=== PATIENT | female | born 1950 | race Caucasian/White ===

== ENCOUNTER 2023-09-12 09:40 | Outpatient (OUT) | payer OTHER, SELFPAY ==
[2023-09-12 09:59] LABS: Estimated GFR (African America >60 (>=60); Estimated GFR (Non-African Ame >60 (>=60)
--- NOTE | 2023-09-12 10:03 | CT_ITS ---
The [address] [address] Patient Name: ANDREA LOPEZ MRN: [id number] date: 1950 Sex: F Assigned Patient Location: LAB Current Patient Location: Accession/Order Number: [id number] Exam Date: 09/12/2023 10:49 Report Date: 09/13/2023 01:20 At the request of: ERICKSON ROME Procedure: CT soft tissue neck w con EXAM: CT soft tissue neck w con HISTORY: Right-sided neck pain COMPARISON: None. TECHNIQUE: Axial images are obtained from the aortic arch through skull base following the intravenous administration of contrast. Sagittal and coronal reformations are provided. FINDINGS: There is an asymmetric region of enhancing soft tissue fullness and resultant diminished aeration within the vallecula on the right. The remainder of the pharynx is unremarkable in appearance. No mass or enhancing abnormality elsewhere within the neck. No enlarged or cystic/necrotic lymph nodes are noted. The larynx and trachea appear normal. The thyroid is poorly seen and may be surgically absent. The salivary glands and intracranial contents appear normal. No mass or airspace consolidation within the visualized lungs. There are degenerative changes of the cervical vertebral column. No bony destructive process. Only mild scattered mucosal thickening is seen within the ethmoid sinuses. The visualized paranasal sinuses and mastoids are otherwise well-aerated. IMPRESSION: 1. There is an asymmetric region of enhancing soft tissue fullness and results in diminished aeration within the valleculae on the right. Direct visualization is recommended for further assessment. 2. No other enhancing abnormality, discrete mass or pathologic lymph nodes within the neck. Electronically authenticated by: VALENTIN BROCK Date: 09/13/2023 01:20
== END 2023-09-12 09:41 | disposition home or self-care (01) ==
LOC: LAB 09:40
PROVIDERS: PCP Family Medicine; Visit Provider Family Medicine
DX: M54.2 Cervicalgia (principal)
CPT/HCPCS: 36415; 70491; 82565; Q9967

== ENCOUNTER 2023-11-02 10:45 | Outpatient (OUT) | payer OTHER, SELFPAY ==
--- OUTSIDE RECORDS SUMMARY | 2023-11-02 10:48 | XMS_ITS | CCD ---
Author Name Unknown Address [address] [place] [address] Organization [facility] Care Team Providers Care Wire Welder Name Role Phone Cortez, Seven W Unavailable Unavailable Rice, Seven W Unavailable Unavailable Rice, Seven W Unavailable Unavailable SUZAN ROME~[phone] UNKNOWN Unavailable Unavailable WILD, DR SUZAN Zabala Admitting Unavailable ROME, DR SUZAN Zabala Attending Unavailable ROME, DR SUZAN Zabala Primary Care Unavailable ROME, DR SUZAN Zabala Consulting Unavailable APLING, LIAT Britton Admitting Unavailable APLING, LIAT Britton Attending Unavailable WILD, DR SUZAN Zabala Primary Care Unavailable PASHA, DR WADE Brody Consulting Unavailable APLING, LIAT Britton Consulting Unavailable ROME, DR SUZAN Zabala Admitting Unavailable ROME, DR SUZAN Zabala Attending Unavailable ROME, DR SUZAN Zabala Primary Care Unavailable ROME, DR SUZAN Zabala Consulting Unavailable Suzan Rome Unavailable KRYSTIN OLGUIN Attending Unavailable SUZAN ROME Referring Unavailable Allergies Allergy Classification Reported Allergen(s) Allergy Type Date of Onset Reaction(s) Facility (1 source) No Known Medication Allergies; Translations: [No Known Medication Allergies] Propensity to adverse reactions (disorder) [facility] Repository Medications Current Medications Medication Drug Class(es) Dates Sig (Normalized) Sig (Original) atenolol 50 mg oral tablet (11 sources) beta-Adrenergic Maryan take 1 tablet by mouth every twenty-four hours Atenolol 50 MG 1 tablet Orally Once a day Active Calcium Magnesium (4 sources) Calcium Magnesiu m Active Essential Balance - (4 sources) Essential Balanc e - as directed Orally Active levothyroxine sodium 0.075 mg oral tablet (11 sources) l-Thyroxine take 1 tablet by mouth once daily in the morning Levothyroxine Sodium 75 MCG TAKE 1 TABLET BY MOUTH EVERY DAY IN THE MORNING ON EMPTY STOMACH FOR 30 DAYS Active Levothyroxine So dium 75 MCG TAKE 1 TABLET BY MOUTH EVERY DAY IN THE MORNING ON EMPTY STOMACH FOR 30 DAYS for 90 Active 0.5 ml SUMAtriptan 12 mg/ml injection (7 sources) Serotonin-1b and Serotonin-1d Receptor Agonist SUMAtriptan Succinat e 6 MG/0.5ML 0.5 mL may repeat dose after 1 hour as needed Subcutaneous Once a day Active Problems Problem Classification Problem Date Documented Da te Episodic/Chronic Cancer of thyroid (11 sources) History of malignant neoplasm of thyroid; Translations: [Personal history of malignant neoplasm of thyroid] Episodic Essential hypertension (20 sources) Essential (primary) hypertension; Translations: [Essential hypertension] Onset: 08-15-2022 Chronic Headache; including migraine (11 sources) Refractory migraine; Translations: [Migraine, unspecified, intractable, without status migrainosus] Chronic Joint disorders and dislocations; trauma-related (4 sources) Unspecified internal derangement of left knee; Translations: [UNS INTERNAL DERANGEMENT LEFT KNEE] Onset: 11-24-2021 Chronic Osteoporosis (12 sources) Senile osteoporosis; Translations: [Age-related osteoporosis without current pathological fracture] Chronic Other non-traumatic joint disorders (10 sources) Arthralgia of the lower leg; Translations: [Pain in left knee] Episodic Other non-traumatic joint disorders (1 source) Pain in left knee; Translations: [Left lateral knee pain] Episodic Other screening for suspected conditions (not mental disorders or infectious disease) (3 sources) Computed tomography result abnormal; Translations: [Abnormal findings on diagnostic imaging of other specified body structures] Chronic Other screening for suspected conditions (not mental disorders or infectious disease) (3 sources) Encounter for screening mammogram for malignant neoplasm of breast; Translations: [Encounter for screening for malignant neoplasm of colon] Episodic Spondylosis; intervertebral disc disorders; other back problems (2 sources) Cervicalgia Episodic Thyroid disorders (20 sources) Hypothyroidism, unspecified; Translations: [Acquired hypothyroidism] Onset: 08-15-2022 Chronic Results Test Name Value Interpretation Reference Range Facility XR DEXA BONE DENSITYon 11-02 XR DEXA BONE DENSITY DEXA Bone Density Study CLINICAL: Evaluate bone mineral density. Postmenopausal COMPARISON: 09/30/2020 FINDINGS: The bone density study was assessed by dual-energy x-ray absorptiometry with the Forerun scanner. The test results are expressed in T-Score, which is used for diagnosis for osteoporosis, and reflects the standard deviations from the mean peak bone mineral density in young adults. Additional information regarding the Z-Score reflects the standard deviations from the mean peak bone mineral density for age- and gender- matched subject. Lumbar Spine (L1-L4): BMD (gm/cm2): 1.359 T-Score: 1.5 Left Hip: BMD (gm/cm2): 0.997 T-Score: -0.1 Left Femoral Neck: BMD (gm/cm2): 1.006 T-Score: -0.2 Right Hip: BMD (gm/cm2): 1.048 T-Score: O.3 Right Femoral Neck: BMD (gm/cm2): O.915 T-Score: -0.9 IMPRESSION: 1. Lumbar spine indicates no osteopenia or osteoporosis. 2. Neither hip indicates osteopenia or osteoporosis. REFERENCE: In children, postmenopausal women and males under age 50 not at increased risk for fractures, only Z-Scores, not T-Scores, are used to indicate fracture risk. A Z-Score above -2.0 is defined as within the expected range for age and Z-Score at or less than -2.0 is below the expected range for age. A Z-Score below the expected range for age in a patient with recent fractures and/or chronic corticosteroid treatment is consistent with a diagnosis of osteoporosis. In postmenopausal women and males over 50, comparison of the measured bone mineral density with the average value in young normal subjects (the T-Score) has been found to be useful in assessing fracture risk. Fracture risk approximately doubles for each 1.0 standard deviation (SD) that the individual's hip or spine bone mineral density is below the average value of young normal subjects. The World health Organization (WHO) has provided the following definitions: 1. Normal: T-Score within one standard deviation of young adult mean value (T-Score greater than -1.0). 2. Osteopenia (low bone mass): T-Score more than one standard deviation below the young adult mean but less than 2.5 standard deviations below the young adult mean (T-Score between -1.0 and -2.5). 3. Osteoporosis: T-Score more than 2.5 standard deviations below the young adult mean (T-Score less than -2.5). 4. Sever Osteoporosis (established osteoporosis): T-Score more than 2.5 standard deviations below young adult and one or more fragility fracture (T-Score less than -2.5 + fragility fractures). Electronically authenticated by: PARK DAILEY Date: 2022-11-02 08:55 Normal [facility] CBC AUTO DIFFon 11-01-2022 BASO # 0.1 103/ul Normal 0.0-0.1 [facility] Comment on above: Performed By: #### C BC #### [facility] [address] [address] [address] Nata Castellon Basophils/100 WBC (Bld) 0.7 % Normal 0.2-2.0 [facility] Comment on above: Performed By: #### C BC #### [facility] [address] [address] [address] Nata Castellon EO # 0.1 103/ul Normal 0.0-0.7 [facility] Comment on above: Performed By: #### C BC #### [facility] [address] [address] [address] Nata Castellon Eosinophils/100 WBC (Bld) 1.8 % Normal 0.9-7.0 [facility] Comment on above: Performed By: #### C BC #### [facility] [address] [address] [address] Nata Castellon Erythrocyte distribution width (RBC) [Ratio] 13.4 % Normal 11.0-15.0 [facility] Comment on above: Performed By: #### C BC #### [facility] [address] [address] [address] Nata Castellon Hematocrit (Bld) [Volume fraction] 44.1 % Normal 36.0-48.0 [facility] Comment on above: Performed By: #### C BC #### [facility] [address] [address] [address] Nata Castellon Hemoglobin (Bld) [Mass/Vol] 14.8 g/dL Normal 12.0-16.0 [facility] Comment on above: Performed By: #### C BC #### [facility] [address] [address] [address] Nata Castellon IG # 0.02 10e3/ul Normal 0.00-0.03 [facility] Comment on above: Performed By: #### C BC #### [facility] [address] [place] [address] Dr. Nata Castellon IG % 0.3 % Normal 0.0-0.5 [facility] Comment on above: Performed By: #### C BC #### [facility] [address] [place] [address] Dr. Nata Castellon LYMPH # 1.6 103/ul Normal 1.2-3.8 [facility] Comment on above: Performed By: #### C BC #### [facility] [address] [place] [address] Dr. Nata Castellon Lymphocytes/100 WBC (Bld) 21.3 % Normal 20.5-60.0 [facility] Comment on above: Performed By: #### C BC #### [facility] [address] [place] [address] Dr. Nata Castellon MANUAL DIFF REQ NO Normal [facility] Comment on above: Performed By: #### C BC #### [facility] [address] [place] [address] Dr. Nata Castellon MCH (RBC) [Entitic mass] 28.5 pg Normal 26.7-34.0 [facility] Comment on above: Performed By: #### C BC #### [facility] [address] [place] [address] Dr. Nata Castellon MCHC (RBC) [Mass/Vol] 33.6 g/dL Normal 29.9-35.2 [facility] Comment on above: Performed By: #### C BC #### [facility] [address] [place] [address] Dr. Nata Castellon MCV (RBC) [Entitic vol] 84.8 fL Normal 81.0-99.0 [facility] Comment on above: Performed By: #### C BC #### [facility] [address] [place] [address] Dr. Nata Castellon MONO # 0.6 103/ul Normal 0.3-0.8 [facility] Comment on above: Performed By: #### C BC #### [facility] [address] [place] [address] Dr. Nata Castellon Monocytes/100 WBC (Bld) 7.5 % Normal 1.7-12.0 [facility] Comment on above: Performed By: #### C BC #### [facility] [address] [place] [address] Dr. Nata Castellon NEUT # 5.2 103/ul Normal 1.4-6.5 [facility] Comment on above: Performed By: #### C BC #### [facility] [address] [place] [address] Dr. Nata Castellon Neutrophils/100 WBC (Bld) 68.4 % Normal 43.0-75.0 [facility] Comment on above: Performed By: #### C BC #### [facility] [address] [place] [address] Dr. Nata Castellon Platelet mean volume (Bld) [Entitic vol] 10.4 fL Normal 9.5-13.5 [facility] Comment on above: Performed By: #### C BC #### [facility] [address] [place] [address] Dr. Nata Castellon PLT 256 103/ul Normal 150-450 [facility] Comment on above: Performed By: #### C BC #### [facility] [address] [place] [address] Dr. Nata Castellon RBC 5.20 106/ul Normal 4.20-5.40 [facility] Comment on above: Performed By: #### C BC #### [facility] [address] [place] [address] Dr. Nata Castellon WBC 7.6 103/ul Normal 4.0-11.0 [facility] Comment on above: Performed By: #### C BC #### [facility] [address] [place] [address] Dr. Nata Castellon FREE T4on 11-01-2022 Free T4 [Mass/Vol] 0.98 ng/dL Normal 0.76-1.46 [facility] Comment on above: Performed By: #### F T4 #### [facility] [address] [address] [address] Nata Castellon LIPID PROFILEon 11-01-2022 CHOL-HDL RATIO NORM SEE BELOW Normal [facility] Comment on above: Result Comment: 3.3 - 4.4 LOW RISK 4.4 - 7.1 AVERAGE RISK 7.1 - 11.0 MODERATE RISK >11.0 HIGH RISK Performed By: #### L IPID, TSH, CMP #### [facility] [address] [address] [address] Nata Castellon Cholesterol [Mass/Vol] 179 mg/dL Normal <=200 [facility] Comment on above: Performed By: #### L IPID, TSH, CMP #### [facility] [address] [address] [address] Nata Castellon Cholesterol in HDL [Mass/Vol] 57 mg/dL Normal 40-60 [facility] Comment on above: Performed By: #### L IPID, TSH, CMP #### [facility] [address] [address] [address] Nata Castellon Cholesterol in LDL [Mass/Vol] 98.8 mg/dL Normal [facility] Comment on above: Performed By: #### L IPID, TSH, CMP #### [facility] [address] [place] [address] Dr. Nata Castellon Cholesterol.total/Ch olesterol in HDL [Mass ratio] 3.1 {ratio} Normal [facility] Comment on above: Performed By: #### L IPID, TSH, CMP #### [facility] [address] [address] [address] Nata Castellon HDL NORMAL > or = 60 mg/dl - LO W CARDIOVASCULAR RISK <40 mg/dl - HIGH CARDIOVASCULAR RISK Normal [facility] Comment on above: Performed By: #### L IPID, TSH, CMP #### [facility] [address] [place] [address] Dr. Nata Castellon LDL CALC NORMAL SEE BELOW Normal [facility] Comment on above: Result Comment: <100 mg/dl OPTIMAL 100 - 129 mg/dl NEAR OR ABOVE OPTIMAL 130 - 159 mg/dl BORDERLINE HIGH 160 - 189 mg/dl HIGH >190 mg/dl VERY HIGH Performed By: #### L IPID, TSH, CMP #### [facility] [address] [place], [place] [address] Dr. Nata Castellon Triglyceride [Mass/Vol] 116 mg/dL Normal <=150 [facility] Comment on above: Performed By: #### L IPID, TSH, CMP #### [facility] [address] [place], [place] [address] Dr. Nata Castellon VLDL CALC 23.2 mg/dL Normal [facility] Comment on above: Performed By: #### L IPID, TSH, CMP #### [facility] [address] [place], [place] [address] Dr. Nata Castellon MG MAMM SCREEN 3D SEEMA CADon 11-01-2022 MG MAMM SCREEN 3D SEEMA CAD Patient: ANDREA COLE Exam Date: 11/01/2022 : 1950 Gender:F Ordering : DR SUZAN ROME M.D. Admission #: [id number] Family : Order #: [id number] CLICK HERE TO VIEW EXAM RADIOLOGY REPORT PROCEDURE: MAMMOGRAM SCREENING 3D BILATERAL CAD COMPARISON: MG MAMM SCREEN SEEMA W CAD, 09/30/2020. MG MAMM SCREEN 3D SEEMA CAD, 10/01/2021. INDICATIONS: Screening mammography Calculator Name NCI Breast Cancer Risk Assessment Tool 5 Year Breast Cancer Risk 1.50% Lifetime Breast Cancer Risk 3.70% Personal Breast Cancer No Personal Ovarian Cancer No Treatments REMOVAL OF THYROID Family Cancers None LOCATION: [facility] BREAST COMPOSITION: Heterogeneously dense,which may obscure small masses. FINDINGS: DIAGNOSTIC CATEGORY 2--BENIGN FINDING. NO CHANGE FROM COMPARISON. Scattered benign-appearing nodules are present. Scattered benign-appearing calcifications are present. Scattered benign-appearing lymph nodes are present. RIGHT BREAST: No significant suspicious finding. LEFT BREAST: No significant suspicious finding. RECOMMENDATIONS: ROUTINE MAMMOGRAM AND CLINICAL EVALUATION IN 12 MONTHS. PLEASE NOTE: A NORMAL MAMMOGRAM DOES NOT EXCLUDE THE POSSIBILITY OF BREAST CANCER. A CLINICALLY SUSPICIOUS PALPABLE LUMP SHOULD BE BIOPSIED. Dictated by: Park Barrera MD on 11/02/2022 at 10:13 Approved by: Park Barrera MD on 11/02/2022 at 10:22 Normal [facility] PROF 14(COMP METB)on 023 Albumin [Mass/Vol] 3.7 g/dL Normal 3.4-5.0 [facility] Comment on above: Performed By: #### L IPID, TSH, CMP #### [facility] [address] [address] [address] Nata Castellon Albumin/Globulin [Mass ratio] 1.0 {ratio} Normal [facility] Comment on above: Performed By: #### L IPID, TSH, CMP #### [facility] [address] [address] [address] Nata Castellon ALP [Catalytic activity/Vol] 80 U/L Normal 46-116 [facility] Comment on above: Performed By: #### L IPID, TSH, CMP #### [facility] [address] [address] [address] Nata Castellon ALT [Catalytic activity/Vol] 26 U/L Normal 14-59 [facility] Comment on above: Performed By: #### L IPID, TSH, CMP #### [facility] [address] [address] [address] Nata Castellon Anion gap [Moles/Vol] 13.0 mmol/L Normal [facility] Comment on above: Performed By: #### L IPID, TSH, CMP #### [facility] [address] [address] [address] Nata Castellon AST [Catalytic activity/Vol] 25 U/L Normal 15-37 [facility] Comment on above: Performed By: #### L IPID, TSH, CMP #### [facility] [address] [address] [address] Nata Castellon Bilirubin [Mass/Vol] 0.5 mg/dL Normal 0.2-1.0 [facility] Comment on above: Performed By: #### L IPID, TSH, CMP #### [facility] [address] [address] [address] Nata Castellon Calcium [Mass/Vol] 8.8 mg/dL Normal 8.5-10.1 [facility] Comment on above: Performed By: #### L IPID, TSH, CMP #### [facility] [address] [address] [address] Nata Castellon Chloride [Moles/Vol] 104 mmol/L Normal 98-107 [facility] Comment on above: Performed By: #### L IPID, TSH, CMP #### [facility] [address] [address] [address] Nata Castellon CO2 [Moles/Vol] 26.3 mmol/L Normal 21.0-32.0 [facility] Comment on above: Performed By: #### L IPID, TSH, CMP #### [facility] [address] [address] [address] Nata Castellon Creatinine [Mass/Vol] 0.74 mg/dL Normal 0.55-1.02 [facility] Comment on above: Performed By: #### L IPID, TSH, CMP #### [facility] [address] [place] [address] Dr. Nata Castellon EGFR-AF FRENCH >60 Normal >=60 [facility] Comment on above: Performed By: #### L IPID, TSH, CMP #### [facility] [address] [place] [address] Dr. Nata Castellon EGFR-NON AF FRENCH >60 Normal >=60 [facility] Comment on above: Performed By: #### L IPID, TSH, CMP #### [facility] [address] [address] [address] Nata Castellon Globulin (S) [Mass/Vol] 3.6 g/dL Normal [facility] Comment on above: Performed By: #### L IPID, TSH, CMP #### [facility] [address] [address] [address] Nata Castellon Glucose [Mass/Vol] 122 mg/dL Critically high 74-106 [facility] Comment on above: Performed By: #### L IPID, TSH, CMP #### [facility] [address] [place] [address] Dr. Nata Castellon Potassium [Moles/Vol] 4.3 mmol/L Normal 3.5-5.1 [facility] Comment on above: Performed By: #### L IPID, TSH, CMP #### [facility] [address] [place] [address] Dr. Nata Castellon Protein [Mass/Vol] 7.3 g/dL Normal 6.4-8.2 [facility] Comment on above: Performed By: #### L IPID, TSH, CMP #### [facility] [address] [place] [address] Dr. Nata Castellon Sodium [Moles/Vol] 139 mmol/L Normal 136-145 [facility] Comment on above: Performed By: #### L IPID, TSH, CMP #### [facility] [address] [place] [address] Dr. Nata Castellon Urea nitrogen [Mass/Vol] 21.0 mg/dL Critically high 7.0-18.0 [facility] Comment on above: Performed By: #### L IPID, TSH, CMP #### [facility] [address] [place] [address] Dr. Nata Castellon Urea nitrogen/Creatinine [Mass ratio] 28.4 mg/mg Normal [facility] Comment on above: Performed By: #### L IPID, TSH, CMP #### [facility] [address] [place] [address] Dr. Nata Castellon TSHon 11-01-2022 TSH 3.427 uIU/mL Normal 0.358-3.740 [facility] Comment on above: Performed By: #### L IPID, TSH, CMP #### [facility] [address] [place] [address] Dr. Nata Castellon CBC AUTO DIFFon 08-12-2022 BASO # 0.0 103/ul Normal 0.0-0.1 [facility] Comment on above: Performed By: #### C BC #### [facility] [address] [place] [address] Dr. Nata Castellon Basophils/100 WBC (Bld) 0.5 % Normal 0.2-2.0 [facility] Comment on above: Performed By: #### C BC #### [facility] [address] [place] [address] Dr. Nata Castellon EO # 0.1 103/ul Normal 0.0-0.7 [facility] Comment on above: Performed By: #### C BC #### [facility] [address] [place] [address] Dr. Nata aCstellon Eosinophils/100 WBC (Bld) 1.7 % Normal 0.9-7.0 [facility] Comment on above: Performed By: #### C BC #### [facility] [address] [place] [address] Dr. Nata Castellon Erythrocyte distribution width (RBC) [Ratio] 13.8 % Normal 11.0-15.0 [facility] Comment on above: Performed By: #### C BC #### [facility] [address] [place] [address] Dr. Nata Castellon Hematocrit (Bld) [Volume fraction] 44.1 % Normal 36.0-48.0 [facility] Comment on above: Performed By: #### C BC #### [facility] [address] [place] [address] Dr. Nata Castellon Hemoglobin (Bld) [Mass/Vol] 14.7 g/dL Normal 12.0-16.0 [facility] Comment on above: Performed By: #### C BC #### [facility] [address] [place] [address] Dr. Nata Castellon IG # 0.01 10e3/ul Normal 0.00-0.03 [facility] Comment on above: Performed By: #### C BC #### [facility] [address] [place] [address] Dr. Nata Castellon IG % 0.1 % Normal 0.0-0.5 [facility] Comment on above: Performed By: #### C BC #### [facility] [address] [place] [address] Dr. Nata Castellon LYMPH # 2.1 103/ul Normal 1.2-3.8 [facility] Comment on above: Performed By: #### C BC #### [facility] [address] [place] [address] Dr. Nata Castellon Lymphocytes/100 WBC (Bld) 26.7 % Normal 20.5-60.0 [facility] Comment on above: Performed By: #### C BC #### [facility] [address] [place] [address] Dr. Nata Castellon MANUAL DIFF REQ NO Normal [facility] Comment on above: Performed By: #### C BC #### [facility] [address] [place] [address] Dr. Nata Castellon MCH (RBC) [Entitic mass] 28.5 pg Normal 26.7-34.0 [facility] Comment on above: Performed By: #### C BC #### [facility] [address] [place] [address] Dr. Nata Castellon MCHC (RBC) [Mass/Vol] 33.3 g/dL Normal 29.9-35.2 [facility] Comment on above: Performed By: #### C BC #### [facility] [address] [place] [address] Dr. Nata Castellon MCV (RBC) [Entitic vol] 85.5 fL Normal 81.0-99.0 [facility] Comment on above: Performed By: #### C BC #### [facility] [address] [place] [address] Dr. Nata Castellon MONO # 0.6 103/ul Normal 0.3-0.8 [facility] Comment on above: Performed By: #### C BC #### [facility] [address] [place] [address] Dr. Nata Castellon Monocytes/100 WBC (Bld) 7.8 % Normal 1.7-12.0 [facility] Comment on above: Performed By: #### C BC #### [facility] [address] [place] [address] Dr. Nata Castellon NEUT # 5.0 103/ul Normal 1.4-6.5 [facility] Comment on above: Performed By: #### C BC #### [facility] [address] [place] [address] Dr. Nata Castellon Neutrophils/100 WBC (Bld) 63.2 % Normal 43.0-75.0 [facility] Comment on above: Performed By: #### C BC #### [facility] [address] [address] [address] Nata Castellon Platelet mean volume (Bld) [Entitic vol] 10.7 fL Normal 9.5-13.5 [facility] Comment on above: Performed By: #### C BC #### [facility] [address] [address] [address] Nata Castellon PLT 254 103/ul Normal 150-450 [facility] Comment on above: Performed By: #### C BC #### [facility] [address] [place] [address] Dr. Nata Castellon RBC 5.16 106/ul Normal 4.20-5.40 [facility] Comment on above: Performed By: #### C BC #### [facility] [address] [place] [address] Dr. Nata Castellon WBC 7.9 103/ul Normal 4.0-11.0 [facility] Comment on above: Performed By: #### C BC #### [facility] [address] [place] [address] Dr. Nata Castellon FREE T4on 08-12-2022 Free T4 [Mass/Vol] 1.15 ng/dL Normal 0.76-1.46 [facility] Comment on above: Performed By: #### F T4 #### [facility] [address] [place] [address] Dr. Nata Castellon PROF CHEM 8 (BAS METB)on Anion gap [Moles/Vol] 9.0 mmol/L Normal [facility] Comment on above: Performed By: #### T SH, BMP ####[facility] [address] [place] [address]Dr. Nata Castellon Calcium [Mass/Vol] 8.6 mg/dL Normal 8.5-10.1 [facility] Comment on above: Performed By: #### T SH, BMP ####[facility] [address] [place] [id number]. Nata Castellon Chloride [Moles/Vol] 104 mmol/L Normal 98-107 [facility] Comment on above: Performed By: #### T MIKE, BMP ####[facility] [address] [place] [id number]. Nata Castellon CO2 [Moles/Vol] 29.2 mmol/L Normal 21.0-32.0 The [facility] Comment on above: Performed By: #### T MIKE, BMP ####[facility] [address] [place] [address]Dr. Nata Castellon Creatinine [Mass/Vol] 0.66 mg/dL Normal 0.55-1.02 [facility] Comment on above: Performed By: #### T MIKE, BMP ####[facility] [address] [place], [place] [address]Dr. Nata Castellon EGFR-AF FRENCH >60 Normal >=60 The [facility] Comment on above: Performed By: #### T MIKE, BMP ####[facility] [address] [place], [place] [address]Dr. Nata Castellon EGFR-NON AF FRENCH >60 Normal >=60 [facility] Comment on above: Performed By: #### T MIKE, BMP ####[facility] [address] [place], [place] [address]Dr. Nata Castellon Glucose [Mass/Vol] 108 mg/dL Critically high 74-106 [facility] Comment on above: Performed By: #### T MIKE, BMP ####[facility] [address] [place], [place] [address]Dr. Nata Castellon Potassium [Moles/Vol] 4.2 mmol/L Normal 3.5-5.1 [facility] Comment on above: Performed By: #### T MIKE, BMP ####[facility] [address] [place], [place] [address]Dr. Nata Castellon Sodium [Moles/Vol] 138 mmol/L Normal 136-145 [facility] Comment on above: Performed By: #### T MIKE, BMP ####[facility] [address] [place], [place] [address]Ao. Nata Castellon Urea nitrogen [Mass/Vol] 22.0 mg/dL Critically high 7.0-18.0 [facility] Comment on above: Performed By: #### T MIKE, BMP ####[facility] [address] [place], [place] [address]Cd. Nata Castellon Urea nitrogen/Creatinine [Mass ratio] 33.3 mg/mg Normal [facility] Comment on above: Performed By: #### T MIKE, BMP ####[facility] [address] [place], [place] [address]Ey. Nata Castellon TSHon 08-12-2022 TSH 0.986 uIU/mL Normal 0.358-3.740 [facility] Comment on above: Performed By: #### T MIKE, BMP ####[facility] [address] [place], [place] [address]Su. Nata Castellon MRI KNEE LT WO CONon 022 MRI KNEE LT WO CON EXAMINATION: MRI KNE E LT WO CON HISTORY: Derangement of left knee ; acute lateral and posterior left knee pain COMPARISON: No relevant comparison available. TECHNIQUE: A complete multi-planar MRI was performed. FINDINGS: MEDIAL COMPARTMENT MEDIAL MENISCUS: No visible tear or significant degeneration. CARTILAGE: Focal areas of thinning without subchondral edema. BONES: Periarticular degenerative osteophytes. MCL AND MEDIAL CAPSULE: Grade I sprain of the medial collateral ligament. LATERAL COMPARTMENT LATERAL MENISCUS: Disc is extruded from the joint space laterally with maceration of the posterior junction and horn. Prominent T2 signal within the anterior horn may represent sequela of chronic injury or intrasubstance degeneration. CARTILAGE: Irregular thinning of cartilage without subchondral edema. BONES: Large periarticular degenerative osteophytes. LCL/POSTEROLAT COMPLEX: Grade I sprain of the lateral collateral ligament. ANTERIOR COMPARTMENT PATELLA: No marrow pathology, fracture, or significant arthropathy. CARTILAGE: Moderate thinning, most notable over the apex. TENDONS: Normal. EFFUSION: Moderate joint effusion. ACL: Normal appearing ligament. PCL: Normal appearing ligament. MENISCOFEMORAL: Normal meniscofemoral ligaments. OTHER: Tran cyst. IMPRESSION: 1. Acute, and likely chronic tears of the lateral meniscus which has been extruded from the joint space. 2. Strain of the collateral ligaments. 3. Focal areas of cartilage thinning involving all 3 compartments without subchondral edema. 4. Joint effusion and Tran's cyst. Electronically authenticated by: WADE PAK Date: 2021-11-25 06:[address] [facility] CT cervical spine wo conon 1 CT cervical spine wo con [facility] [address] CT Scan Report Signed Patient: Andrea Cole MR#: [id number] : 1950 Acct:[id number] Age/Sex: 71 / F ADM Date: 08/05/21 Loc: ER Room: Type: [facility] ER Attending Dr: Ordering Provider: Cricket Russell DO Date of Service: 08/05/21 CT/CT cervical spine wo con: PAIN Copies to: Cricket Russell DO CT cervical spine withoutcontrast TECHNIQUE: Axial imaging with 2-D and 3-D reconstruction. The CT exam was performed using one or more the following dose reduction techniques: Automated exposure control, adjustment of the MA and/or Kv according to patient size, or use of the iterative reconstruction technique. COMPARISON:None HISTORY: RIGHT posterior neck pain. No injury. Cervical lordosis is normal. The craniocervical junction is unremarkable. No acute cervical spine fracture identified. No listhesis is seen. The facets are in adequate alignment. No abnormal increased density of the spinal canal seen. No prevertebral soft tissue abnormality identified. No skull base abnormality seen. Lung apices are unremarkable. No soft tissue abnormality seen. No airway abnormality seen. Moderate C5-6 and C6-7 degenerative change present. 3 mm C5-[address]/CT cervical spine wo con IMPRESSION: No acute process degenerative change. Impression dictated by: Nico Trujillo M.D.08/06/2021 9:03 AM Dictation Location: [place] [address] Transcribed By: [facility] 08/06/21902 Dictated By: Nico Trujillo DO 08/06/21901 Signed By: 08/06/21902 [facility] CT head/brain wo conon 08-06 CT head/brain wo con [facility] Main [place] [address] [place] [address] CT Scan Report Signed Patient: Andrea Cole MR#: [id number] : 1950 Acct:[id number] Age/Sex: 71 / F ADM Date: 08/05/21 Loc: ER Room: Type: [facility] ER Attending Dr: Ordering Provider: Cricket Russell DO Date of Service: 08/05/21 CT/CT head/brain wo con: f Copies to: Cricket Russell DO Unenhanced head CT TECHNIQUE: Contiguous axial imaging of the head. The CT exam was performed using one or more the following dose reduction techniques: Automated exposure control, adjustment of the MA and/or Kv according to patient size, or use of the iterative reconstruction technique. COMPARISON:None HISTORY:RIGHT posterior neck pain. Headache. The ventricles are normal in size and position. Atrophy and small vessel disease No intracranial hemorrhage, mass effect or herniation is identified. No recent vascular distribution infarction is seen. No abnormal extra-axial fluid collections identified. Sinuses, orbits and mastoid air cells are unremarkable. Bony structures are intact. CT/CT head/brain wo con IMPRESSION: No acute intracranial findings. Impression dictated by: Nico Trujillo M.D.08/06/2021 9:02 AM Dictation Location: [place] [address] Transcribed By: [facility] 08/06/21901 Dictated By: Nico Trujillo DO 08/06/2159 Signed By: 08/06/[address] [facility] Complete Blood Count Auto Di ffon 08-05-2021 Basophils (Bld) [#/Vol] 0.0 10*3/uL Normal 0.0-0.2 [facility] Comment on above: Result Comment: PERF ORMED BY: [place] [address] PATHOLOGIST BILINGUAL ADMINISTRATIVE ASSISTANT APURVA LEVY M.D. Performed By: #### P T, CBC, PTT, CMP #### [place] [address] [place] Basophils/100 WBC (Bld) 0.3 % Normal . [facility] Comment on above: Performed By: #### P T, CBC, PTT, CMP #### [address] Eosinophils (Bld) [#/Vol] 0.0 10*3/uL Normal 0.0-0.45 [facility] Comment on above: Performed By: #### P T, CBC, PTT, CMP #### [address] Eosinophils/100 WBC (Bld) 0.2 % Normal . [facility] Comment on above: Performed By: #### P T, CBC, PTT, CMP #### [address] Erythrocyte distribution width (RBC) [Ratio] 13.7 % Normal 11.9-15.3 [facility] Comment on above: Performed By: #### P T, CBC, PTT, CMP #### [address] Hematocrit (Bld) [Volume fraction] 50.1 % High 34.0-46.4 [facility] Comment on above: Performed By: #### P T, CBC, PTT, CMP #### [address] Hemoglobin (Bld) [Mass/Vol] 16.5 g/dL High 11.8-15.4 [facility] Comment on above: Performed By: #### P T, CBC, PTT, CMP #### [address] Lymphocytes (Bld) [#/Vol] 1.4 10*3/uL Normal 1.00-4.8 [facility] Comment on above: Performed By: #### P T, CBC, PTT, CMP #### [address] Lymphocytes/100 WBC (Bld) 11.6 % Normal . [facility] Comment on above: Performed By: #### P T, CBC, PTT, CMP #### [address] MCH (RBC) [Entitic mass] 28.8 pg Normal 24.7-34.3 [facility] Comment on above: Performed By: #### P T, CBC, PTT, CMP #### [address] MCV (RBC) [Entitic vol] 87.1 fL Normal 80-100 [facility] Comment on above: Performed By: #### P T, CBC, PTT, CMP #### [address] Mean Corpuscular HGB Conc 33.0 g/dL Normal 32.0-35.0 [facility] Comment on above: Performed By: #### P T, CBC, PTT, CMP #### [address] Monocytes (Bld) [#/Vol] 0.5 10*3/uL Normal 0.0-0.8 [facility] Comment on above: Performed By: #### P T, CBC, PTT, CMP #### [address] Monocytes/100 WBC (Bld) 4.1 % Normal . [facility] Comment on above: Performed By: #### P T, CBC, PTT, CMP #### [address] Neutrophils (Bld) [#/Vol] 10.1 10*3/uL High 1.8-7.7 [facility] Comment on above: Performed By: #### P T, CBC, PTT, CMP #### [address] Neutrophils/100 WBC (Bld) 83.8 % Normal . [facility] Comment on above: Performed By: #### P T, CBC, PTT, CMP #### [address] Nucleated RBC/100 WBC (Bld) [Ratio] 0.2 % Normal 0-0.5 [facility] Comment on above: Performed By: #### P T, CBC, PTT, CMP #### [address] Platelet mean volume (Bld) [Entitic vol] 9.6 fL Normal 6.3-10.7 [facility] Comment on above: Performed By: #### P T, CBC, PTT, CMP #### [address] Platelets (Bld) [#/Vol] 253 10*3/uL Normal 150-450 [facility] Comment on above: Performed By: #### P T, CBC, PTT, CMP #### [address] RBC (Bld) [#/Vol] 5.75 10*6/uL High 3.60-5.00 [facility] Comment on above: Performed By: #### P T, CBC, PTT, CMP #### [address] WBC (Bld) [#/Vol] 12.1 10*3/uL High 4.5-11.0 [facility] Comment on above: Performed By: #### P T, CBC, PTT, CMP #### [address] Comprehensive Metabolic Pane yumi 08-05-2021 Albumin [Mass/Vol] 4.2 g/dL Normal 3.2-5.5 [facility] Comment on above: Performed By: #### P T, CBC, PTT, CMP #### [address] Albumin/Globulin [Mass ratio] 1.1 {ratio} Normal [facility] Comment on above: Performed By: #### P T, CBC, PTT, CMP #### [address] ALP [Catalytic activity/Vol] 60 U/L Normal 32-92 [facility] Comment on above: Performed By: #### P T, CBC, PTT, CMP #### [address] ALT [Catalytic activity/Vol] 29 U/L Normal 10-60 [facility] Comment on above: Performed By: #### P T, CBC, PTT, CMP #### [facility] [address] AST [Catalytic activity/Vol] 32 U/L Normal 10-42 [facility] Comment on above: Performed By: #### P T, CBC, PTT, CMP #### [facility] [address] Bilirubin [Mass/Vol] 0.7 mg/dL Normal 0.3-1.2 [facility] Comment on above: Performed By: #### P T, CBC, PTT, CMP #### [address] Calcium [Mass/Vol] 9.4 mg/dL Normal 8.2-10.2 [facility] Comment on above: Performed By: #### P T, CBC, PTT, CMP #### [address] Chloride [Moles/Vol] 102 mmol/L Normal 95-114 [facility] Comment on above: Performed By: #### P T, CBC, PTT, CMP #### [address] CO2 [Moles/Vol] 24.2 mmol/L Normal 22.0-30.0 [facility] Comment on above: Performed By: #### P T, CBC, PTT, CMP #### [address] Creatinine [Mass/Vol] 0.80 mg/dL Normal 0.44-1.03 [facility] Comment on above: Performed By: #### P T, CBC, PTT, CMP #### [address] Creatinine Clr Calc Pharmacy 61.[address] [facility] Comment on above: Result Comment: PERF ORMED BY: [place] [address] PATHOLOGIST BILINGUAL ADMINISTRATIVE ASSISTANT APURVA LEVY M.D. Performed By: #### P T, CBC, PTT, CMP #### [facility] [address] Estimated GFR ( Jessica > [address] [facility] Comment on above: Result Comment: GFR estimated reference range: According to KDOQI guidelines, <60 ml/min/1.73m2 is sufficient to diagnose a patient with chronic kidney disease. Performed By: #### P T, CBC, PTT, CMP #### [facility] [address] Estimated GFR (Non- Am > [address] [facility] Comment on above: Performed By: #### P T, CBC, PTT, CMP #### [facility] [address] Globulin (S) [Mass/Vol] 3.8 g/dL Normal [facility] Comment on above: Performed By: #### P T, CBC, PTT, CMP #### [address] Glucose [Mass/Vol] 110 mg/dL High 70-100 [facility] Comment on above: Result Comment: [place] om Glucose Reference Range is dependent on time and content of last meal. Glucose of more than 200 mg/dL in a nonstressed, ambulatory subject supports the diagnosis of Diabetes Mellitus. ADA recommended reference range Performed By: #### P T, CBC, PTT, CMP #### [address] Potassium [Moles/Vol] 4.7 mmol/L Normal 3.5-5.1 [facility] Comment on above: Performed By: #### P T, CBC, PTT, CMP #### [facility] [address] Protein [Mass/Vol] 8.0 g/dL High 6.1-7.9 [facility] Comment on above: Performed By: #### P T, CBC, PTT, CMP #### [address] Sodium [Moles/Vol] 139 mmol/L Normal 136-146 [facility] Comment on above: Performed By: #### P T, CBC, PTT, CMP #### [facility] [address] [place] [address] Urea nitrogen [Mass/Vol] 19 mg/dL Normal 9-23 [facility] Comment on above: Performed By: #### P T, CBC, PTT, CMP #### [address] Partial Thromboplastin Timeo n 08-05-2021 aPTT Coag (Bld) [Time] 28.9 s Normal 25.1-36.5 [facility] Comment on above: Result Comment: PERF ORMED BY: [place] [address] PATHOLOGIST BILINGUAL ADMINISTRATIVE ASSISTANT APURVA LEVY M.D. Performed By: #### P T, CBC, PTT, CMP #### [address] Prothrombin Time INRon 08-05 INR Coag (PPP) [Relative time] 1.1 {INR} Normal [facility] Comment on above: Result Comment: INR Therapeutic Range A) Pre- and Peroperative OAT started two weeks before surgery. NOT HIP SURGERY: 1.5 - 2.5 HIP SURGERY: 2 - 3 B) Primary and secondary prevention of venous THROMBOSIS: 2 - 3 C) Active venous thrombosis, pulmonary embolism and prevention of recurrent venous thrombosis: 2 - 3 D) Prevention of arterial thromboembolism including patients with mechanical heart valves: 3 - 4.5 Performed By: #### P T, CBC, PTT, CMP #### [address] PT Coag (PPP) [Time] 12.5 s Normal 9.0-12.9 [facility] Comment on above: Performed By: #### P T, CBC, PTT, CMP #### [address] Coding Summary.on 10-25-2018 Coding Summary. CODING DATE: 10/25/2018 FINAL [facility] DSC STATUS: Home (Routine DC) PAYOR: Medicare APC DESCRIPTION 5373 Level 3 Urology and Related Services ADMIT DX: REASON FOR VISIT DX: R35.0 Frequency of micturition FINAL DX: PRINCIPAL: R35.0 Frequency of micturition SECONDARY: R39.15 Urgency of urination N81.10 Cystocele, unspecified N35.92 Unspecified urethral stricture, female E03.9 Hypothyroidism, unspecified I10 Essential (primary) hypertension Z85.850 Personal history of malignant neoplasm of thyroid PYMT PROC APC STAT DESCRIPTION DOCTOR NAME DATE NOTE: The code number assigned matches the documented diagnosis and / or procedure in the patient's chart. However, the narrative phrase printed from the coding software may appear abbreviated, or result in slightly different terminology. Revised Coded By: Maryana Montejo Revised Date Saved: 10/24/2018 09:01 am Normal [facility] Main OR Intraoperative Recor saniya 10-20-2018 Main OR Intraoperative Record IntraOp Document Type FTURO Summary Primary Physician: Prem Stewart Jr., MD Finalized Date/Time: 10/20/18 13:16:36 Pt. Name: ANDREA COLE Gabriela Diaz/Sex: 1950 Female Med Rec #: [id number] Physician: Prem Stewart Jr., MD Financial #: [id number] Pt. Type: O Room/Bed: / Admit/Disch: 10/05/18 14:36:58 - 10/05/18 23:59:59 Institution: Case Times FTURO Entry 1 Patient Times In Room 10/05/18 15:53:00 Out Room 10/05/18 16:00:00 Procedure Times Start 10/05/18 15:55:00 Stop 10/05/18 15:58:00 Anesthesia Times Last Modified By: Tamara RENEE, CNOR, Ana Linn 10/05/18 16:06:00 Case Attendance FTURO Entry 1 Entry 2 Entry 3 Case Attendee Prem Stewart Jr., MD RN, CNOR, Ana Heaton CST, Marg[place] Role Performed Surgeon - Primary Color Checker Roving Or Yarn - Primary Scrub - Primary Time In 10/05/18 15:53:00 10/05/18 15:53:00 10/05/18 15:53:00 Time Out 10/05/18 16:00:00 10/05/18 16:00:00 10/05/18 16:00:00 Procedure CYSTOSCOPY LOCAL(.) CYSTOSCOPY LOCAL(.) CYSTOSCOPY LOCAL(.) Comments Last Modified By: Santi RENEE, CNOR, Santi RENEE, MERLINOR, Santi RENEE, MERLINOR, Isi 10/20/18 Isi 10/20/18 Isi 10/20/18 13:15:01 13:15:01 13:15:01 Surgical Procedures FTURO Entry 1 Procedure Description Procedure CYSTOSCOPY LOCAL Modifiers . Surgeon Description CYSTOSCOPY Primary Procedure Yes Primary Surgeon Prem Stewart Jr., MD Start 10/05/18 15:55:00 Stop 10/05/18 15:58:00 Anesthesia Type Local Surgical Service Urology Wound Class 2 - Clean-Contaminated Last Modified By: Santi RENEE, MERLINOR, Isi 10/20/18 13:15:16 General Case Data FTURO Pre-Care Text: Classifies surgical wound, implements aseptic technique, initiates traffic control Entry 1 Case Information OR URO 1 FT Case Level None Wound Class 2 - Clean-Contaminated Specialty Urology Preop Diagnosis CYSTOCELE HEMATURIA Postop Same As Preop Yes Postop Diagnosis CYSTOCELE HEMATURIA Outcomes Met? Yes Last Modified By: MYCHAL Mcdonald RN, Katie 10/05/18 12:46:55 Post-Care Text: The patient is free from signs and symptoms of infection EU IntraOp - FTURO Pre-Care Text: Implements protective measures prior to operative or invasive procedure, confirms identity before the operative or invasive procedure, verifies operative procedure, surgical site, and laterality Entry 1 EU Perioperative Protocols Procedure(s) CYSTOSCOPY LOCAL(.) Patient Identity ID Band Check, Patient Verified (select at Participation least 2): Consents / H and P HandP, Surgery/Procedure Operative Site N/A Verified Consent Marking Verified Surgical Site Yes Laterality Verified n/a Verified Procedure Verified Yes Correct Patient Yes Position Verified Availability Equipment, Medication Time Out Prem Stewart Jr., MD, Verified (If Participants Heaton SPECIAL EDUCATION MATH TEACHER, [place], Applicable) MERLIN Mcdonald RNOR, Ana Linn Time Out Complete 10/05/18 13:53:00 Allergies Reviewed? Yes Allergies Reviewed Self/Patient With Body Position Frog Legged Prep Area PERINIUM Prep Agents Betadine Solution Skin. Condition Intact, Lofall, Warm, and Dry Additional None Specimens Collected Vitals - EU Blood Pressure Pulse Respirations SPO2 EBL 0 IandO - EU Total Intake 0 mL Total Output 0 mL Outcomes Met? Yes Last Modified By: MYCHAL Hancock RN, Ruthann 10/20/18 13:16:33 Post-Care Text: The patient is free from signs and symptoms of injury caused by extraneous objects Case Comments Finalized By: MYCHAL Hancock RN, Ruthann Document Signatures Signed By: MYCHAL Hancock RN, Ruthann 10/20/18 13:16 Normal [facility] Operative Reporton 9 Operative Report Patient: ANDREA COLE Age: 68 years Sex: Female : 1950 Associated Diagnoses: None Author: Terry Hodges MD, Prem Quiroz Procedure Operative Information Details: Date/ Time: 10/05/18 16:02:00. Pre-Op Dx: Frequency - R35.0, Urgency - R39.15, Grade 3 cystocele. Post-Op Dx: Same. Anesthesia Type: Local. Procedure: Local Cystoscopy. Complications: None. Risks/Benefits/Inform ed Consent: Surgical risks, benefits, details of the procedure have been explained to the patient, Full informed consent has been obtained. Intraoperative Information Prepped: Patient is brought back to the endoscopy suite, Patient is placed in modified dorso/lithotomy position, Patient prepped in the usual fashion with Betadine solution, 2% Xylocaine Jelly is placed per Urethra, After waiting several minutes the Cystoscope is introduced. The Urethra is: Normal, Tight. The Bladder is: Normal, The bladder mucosal examination was unremarkable. There was a great 2-3 cystocele present.. The ureteral orifices: Show efflux of clear urine. The Urethra was dilated to: 26 Greek w/ sounds. Devices Implanted: None. Removal: Cystoscope is removed, The patient tolerated it well. Postoperative Information Discharge: Patient is discharged home with antibiotic coverage, Follow up arranged, Plans are being made for follow-up visit in several weeks. We discussed the possibility of cystocele repair. We would discuss this in more detail in the office. There did not appear to be a significant rectocele component..Procedure: Cystoscopy with urethral dilationPost-op Dx: Same with urethral stenosis Normal [facility] Comment on above: Result Comment: Elec tronically Signed By: Prem Stewart Jr., MD\.br\Date and Time Signed: 10/19/18 14:16 EST Main OR Preoperative Recordo n 10-05-2018 Main OR Preoperative Record Holding Area Document Type FTURO Summary Primary Physician: Prem Stewart Jr., MD Finalized Date/Time: 10/05/18 16:25:07 Pt. Name: ANDREA COLE Gabriela /Sex: 1950 Female Med Rec #: [id number] Physician: Prem Stewart Jr., MD Financial #: [id number] Pt. Type: O Room/Bed: / Admit/Disch: 10/05/18 14:36:58 - Institution: Case Times Holding FTURO Pre-Care Text: Verifies consent for planned procedure, identifies individual values and wishes concerning care, includes family members in perioperative teaching Secures patient's records' belongings, and valuables, maintains patient's dignity and privacy, and maintains patient confidentiality Entry 1 In Holding 10/05/18 15:21:00 Outcomes Met? Yes Last Modified By: Judy Garza 10/05/18 15:21:41 Post-Care Text: The patient participates in decisions affecting his or her perioperative plan of care The patient's right to privacy is maintained Surgery Checklist FTURO Entry 1 Patient Birthday, ID Band Procedure Surgical Consent, With Identification: Check, Patient Verification: Patient Participation NPO after Midnight: No Date/Time: 10/05/18 15:21:00 Personal Items: Glasses Complaints of Pain: No Skin Integrity Intact, Lofall, Warm, & Dry Vitals - EU Blood Pressure 134/76 Pulse 61 bpm Respirations 16 br/min SPO2 Additional None RN Reviewed Yes Specimens Collected Last Modified By: MYCHAL Mcdonald RN, Lou Ann 10/05/18 15:59:46 Finalized By: MYCHAL Mcdonald RN, Lou Ann Document Signatures Signed By: MYCHAL Mcdonald RN, Lou Ann 10/05/18 15:59 Judy Garza 10/05/18 15:23 MYCHAL Mcdonald RN, Lou Ann 10/05/18 16:25 Normal [facility] Vital Signs Date Time Vital Sign Value Performing Clinician Facility 10-19-2023 09:30-0500 Body height 157.48 cm Suzan Rome Other [employer] Other 10-19-2023 09:30-0500 Body mass index (BMI) [Ratio] 31.49 kg/m2 Suzan Rome Other [employer] Other 10-19-2023 09:30-0500 Body weight 78.11 kg Suzan Rome Other [employer] Other 10-19-2023 09:30-0500 Diastolic blood pressure 80 mm[Hg] Suzan Rome Other [employer] Other 10-19-2023 09:30-0500 Systolic blood pressure 130 mm[Hg] Suzan Rome Other [employer] Other 08-30-2023 10:00-0500 Body height 157.48 cm Suzan Rome Other [employer] Other 08-30-2023 10:00-0500 Body mass index (BMI) [Ratio] 31.82 kg/m2 Suzan Rome Other [employer] Other 08-30-2023 10:00-0500 Body weight 78.93 kg Suzan Rome Other [employer] Other 08-30-2023 10:00-0500 Diastolic blood pressure 78 mm[Hg] Suzan Rome Other [employer] Other 08-30-2023 10:00-0500 Systolic blood pressure 144 mm[Hg] Suzan Rome Other [employer] Other 10-22-2022 10:00-0500 Body height 157.48 cm Suzan Rome Other [employer] Other 10-22-2022 10:00-0500 Body mass index (BMI) [Ratio] 31.27 kg/m2 Suzan Rome Other [employer] Other 10-22-2022 10:00-0500 Body weight 77.57 kg Suzan Rome Other [employer] Other 10-22-2022 10:00-0500 Diastolic blood pressure 82 mm[Hg] Suzan Rome Other [employer] Other 10-22-2022 10:00-0500 SaO2% (BldA) [Mass fraction] 98 % Suzan Rome Other [employer] Other 10-22-2022 10:00-0500 Systolic blood pressure 140 mm[Hg] Suzan Rome Other [employer] Other Encounters Encounter Date Encounter Type Care Provider Facility Start: 10-19-2023 End: 10-19-2023 ambulatory Suzan Rome Other [employer] Other Start: 10-19-2023 Patient encounter procedure Suzan Rome [facility] Start: 09-19-2023 End: 09-19-2023 ambulatory KRYSTIN H TIMMIS Not Available Start: 09-13-2023 End: 09-13-2023 ambulatory Suzan Rome Other [employer] Other Start: 09-13-2023 Telephone encounter Suzan Rome [facility] Start: 09-02-2023 End: 09-02-2023 ambulatory Suzan Rome Other [employer] Other Start: 09-02-2023 Telephone encounter Suzan Rome [facility] Start: 08-30-2023 End: 08-30-2023 ambulatory Suzan Rome Other [employer] Other Start: 08-30-2023 Office outpatient vi sit 15 minutes Suzan Rome [facility] Start: 03-16-2023 End: 03-16-2023 ambulatory Suzan Rome Other [employer] Other Start: 03-16-2023 Telephone encounter Suzan Rome [facility] Start: 03-15-2023 End: 03-15-2023 ambulatory Suzan Rome Other [employer] Other Start: 03-15-2023 Telephone encounter Suzan Rome [facility] Start: 11-11-2022 End: 11-11-2022 ambulatory Suzan Rome Other [employer] Other Start: 11-11-2022 Telephone encounter Suzan Rome [facility] Start: 11-10-2022 End: 11-10-2022 ambulatory Suzan Rome Other [employer] Other Start: 11-10-2022 Telephone encounter Suzan Rome [facility] Start: 11-02-2022 End: 11-02-2022 ambulatory Suzan Rome Other [employer] Other Start: 11-02-2022 Telephone encounter Suzan Rome [facility] Start: 11-01-2022 End: 11-02-[address] SUZAN ROME Facility: Start: 10-22-2022 End: 10-22-2022 ambulatory Suzan Rome Other [employer] Other Start: 10-22-2022 Office outpatient vi sit 15 minutes Suzan Rome [facility] Start: 10-20-2022 End: 10-20-2022 ambulatory Suzan Rome Other [employer] Other Start: 10-20-2022 Telephone encounter Suzan Rome [facility] Start: 08-15-2022 Encounter for preprocedural cardiovascular examination DR SUZAN ROME [facility] Start: 08-15-2022 Encounter for preprocedural laboratory examination DR SUZAN ROME [facility] Start: 08-12-2022 End: 08-13-[address] SUZAN ROME Facility:[facility] Start: 08-12-2022 End: 08-13-2022 Encounter for preprocedural cardiovascular examination DR SUZAN ROME Facility:[facility] Start: 11-24-2021 End: 11-25-2021 ambulatory LIAT Reba PALM Facility:[facility] Start: 10-05-2018 End: 10-06-2018 Patient encounter procedure Seven Kobe Cortez [place] [place] Immunization Date Immunization Notes Care Provider Daisy cheema 09-19-2017 pneumococcal polysaccharide vaccine, 23 valjulius Rome Other [employer] Other 09-03-2016 pneumococcal conjuga te vaccine, 13 valjulius Rome Other [employer] Other Payers Date Payer Category Payer Unknown [id number] 2018 Medicare [id number] 1959 Medicare [id number] 1960 Unknown [id number] 1950 Unknown [id number] 1950 Unknown [id number] 1950 Unknown [id number] [id number] [id number] 1950 Unknown [id number] 1950 Unknown [id number] Social History Date Type Detail Facility Unknown if ever smoked [employer] Other Sex Assigned At Sex Assigned At Bir th [employer] Other Evaluation note 10-19-2023 Note Date & Type Note Facility 10-19-2023 Evaluation note Encounter Date Diagnosis Assessment Notes Oct, Medicare annual wellness visit, initial (ICD-10 - Z00.00) Personalized health advice was given to the beneficiary including a written plan for screenings discussed and provided. Advanced care planning reviewed and/or information given as requested. Additional counseling was provided here today in regards to, [ ]. The above visit was performed by [ ] under direct supervision of [ ]. Document reviewed and amended by provider signed below. Oct, Screening mammogram, encounter for (ICD-10 - Z12.31) Oct, Essential hypertension (ICD-10 - I10) Blood pressure remains well controlled at this time. Denies cardiac symptoms. Shows no signs or symptoms or poor control. Patient to continue with above medication and we will continue to monitor. Advised to pay attention to body and symptoms. Any developing patterns. Stay well hydrated. Oct, Hypothyroidism (acquired) (ICD-10 - E03.9) Check labs, continue present dose now for chronic problem. [employer] [facility] Other Evaluation note 09-13-2023 Note Date & Type Note Facility 09-13-2023 Evaluation note Encounter Date Diagnosis Assessment Notes Aug, Abnormal computed tomography of soft tissue of neck (ICD-10 - R93.89) [facility] Other Evaluation note 09-02-2023 Note Date & Type Note Facility 09-02-2023 Evaluation note Encounter Date Diagnosis Assessment Notes Aug, Neck pain on right side (ICD-10 - M54.2) [facility] Other Evaluation note 08-30-2023 Note Date & Type Note Facility 08-30-2023 Evaluation note Encounter Date Diagnosis Assessment Notes Aug, Neck pain on right side (ICD-10 - M54.2) Pt agrees to CT to eval area in question, mainly due to history of neck cancer. Aug, Colon cancer screening (ICD-10 - Z12.11) pt requests cologuard rather than colonoscopy [employer] Other Evaluation note 10-22-2022 Note Date & Type Note Facility 10-22-2022 Evaluation note Encounter Date Diagnosis Assessment Notes Oct, Essential (primary) hypertension (ICD-10 - I10) BP is improved today Take medication as prescribed, keep follow up appointments, get any testing that's been ordered done in a timely fashion. Do not smoke. Call if any questions or problems. For Hypertension: Patient is advised to work on healthy diet choices and appropriate servings, weight control, regular exercise as directed, and salt avoidance. Monitor blood pressures at home and call if above target. Oct, Acquired hypothyroidism (ICD-10 - E03.9) unchanged Oct, Screening mammogram for breast cancer (ICD-10 - Z12.31) Oct, Age-related osteoporosis without current pathological fracture (ICD-10 - M81.0) [employer] Other Evaluation note Note Date & Type Note Facility Evaluation note No Information [facility] Other History general Narrative - Reported Note Date & Type Note Facility History general Narrative - Reported Type Medical History hypertension Medical History Hypothyroidism Medical History Personal history of malignant neoplasm of thyroid Medical History Left lateral knee pain Medical History Migraine, intractable Medical History Hypothyroidism (acquired) Medical History Essential hypertension Surgical History arthroscopic knee surgery left 09/08/22 Surgical History PARTIAL HYSTERECTOMY 1997 Surgical History THYROIDECTOMY 1996 Surgical History ROTATOR CUFF REPAIR LEFT 2000 Hospitalization History SEE SURGICAL HX [employer] Other Summary Purpose Family History No Family History Records FoundNo Family History Records FoundNo Family History Records FoundNo Family History Records Found Advance Directives No Advanced Directives Records FoundNo Advanced Directives Records FoundNo Advanced Directives Records FoundNo Advanced Directives Records Found Reason for Referral Reason *FU 09/21 Aiden of fice, Last OV and CT recently. thanks Diagnosis 1 Abnormal computed to mography of soft tissue of neck (R93.89) Referral Organization [facility] Ruby hutson Referring Provider First Name Suzan Referring Provider Last Name Wild Referring Provider Specialty Family Medi cine Referred Organization [facility] Referred Provider Krystin Olguin Referred Address ,[place], [place],[address] Referred Provider Specialty Ear, Nose an d Throat Referral Priority Routine General Notes Martha Encinas 02:20:40 PM >received today, attachments made, notes locked, referral faxed Additional Source Comments INFORMATION SOURCE (unrecogn ized section and content) DATE CREATED AUTHOR 10/25/2018 Jose G Man [facility] DATE CREATED AUTHOR AUTHOR'S ORGANIZ ATION 11/15/2021 [facility] DATE CREATED AUTHOR AUTHOR'S ORGANIZ ATION 11/02/2022 [facility] DATE CREATED AUTHOR AUTHOR'S ORGANIZ ATION 09/20/2023 [facility] EPIC REASON FOR VISIT (unrecogniz ed section and content) BPBP Check [employer] resultlabs RefillrefillRefillsneck painmessageabnormal neck CTWellness FOR RECORDS PERTAINING TO PATIENTS WHO ARE OR HAVE BEEN ENROLLED IN A CHEMICAL DEPENDENCY/SUBSTANCEABUSE PROGRAM, SOME INFORMATION MAY BE OMITTED. This clinical summary was aggregated from multiple sources. Caution should be exercised in using it in the provision of clinical care. This summary normalizes information from multiple sources, and as a consequence, information in this document may materially change the coding, format and clinical context of patient data. In addition, data may be omitted in some cases. CLINICAL DECISIONS SHOULD BE BASED ON THE PRIMARY CLINICAL RECORDS. [facility]. provides no warranty or guarantee of the accuracy or completeness of information in this document.
--- NOTE | 2023-11-02 10:56 | MM_ITS ---
Patient Name: ANDREA LOPEZ MR#: [id number] : 1950 Exam Date: 11/02/2023 Ordering Doctor: DR Suzan Meza M.D. RADIOLOGY REPORT PROCEDURE: MM TOMOSYNTHESIS SCREENING BI COMPARISON: MG MAMM SCREEN 3D SEEMA CAD, 10/01/2021. MG MAMM SCREEN 3D SEEMA CAD, 11/01/2022. INDICATIONS: Screening Calculator Name NCI Breast Cancer Risk Assessment Tool 5 Year Breast Cancer Risk 1.50% Lifetime Breast Cancer Risk 3.50% Personal Breast Cancer No Personal Ovarian Cancer No Treatments REMOVAL OF THYROID Family Cancers None LOCATION: [facility] BREAST COMPOSITION: Heterogeneously dense,which may obscure small masses. FINDINGS: DIAGNOSTIC CATEGORY 2--BENIGN FINDING. NO CHANGE FROM COMPARISON. Scattered benign-appearing nodules are present. Scattered benign-appearing calcifications are present. Scattered benign-appearing lymph nodes are present. RIGHT BREAST: No significant suspicious finding. LEFT BREAST: No significant suspicious finding. RECOMMENDATIONS: ROUTINE MAMMOGRAM AND CLINICAL EVALUATION IN 12 MONTHS. PLEASE NOTE: A NORMAL MAMMOGRAM DOES NOT EXCLUDE THE POSSIBILITY OF BREAST CANCER. A CLINICALLY SUSPICIOUS PALPABLE LUMP SHOULD BE BIOPSIED. Dictated by: Lucian Barrera MD on 11/02/2023 at 12:07 Approved by: Lucian Barrera MD on 11/02/2023 at 12:31
[2023-11-02 11:08] LABS: Basophils Absolute Auto 0.1 10^3/uL (0.0-0.1); Basophils Percent Auto 0.7 % (0.2-2.0); Eosinophils Absolute Auto 0.1 10^3/uL (0.0-0.7); Eosinophils Percent Auto 1.7 % (0.9-7.0); Hematocrit 44.4 % (36.0-48.0); Hemoglobin 14.5 g/dL (12.0-16.0); Immature Granulocytes Abs Auto 0.02 10^3/uL (0.00-0.03); Immature Granulocytes Pct Auto 0.2 % (0.0-0.5); Lymphocytes Absolute Auto 1.8 10^3/uL (1.2-3.8); Lymphocytes Percent Auto 22.2 % (20.5-60.0); Mean Corpuscular HGB Conc 32.7 g/dL (29.9-35.2); Mean Corpuscular Hemoglobin 28.5 pg (26.7-34.0); Mean Corpuscular Volume 87.2 fL (81.0-99.0); Monocytes Absolute Auto 0.5 10^3/uL (0.3-0.8); Monocytes Percent Auto 6.6 % (1.7-12.0); Neutrophils Absolute Auto 5.6 10^3/uL (1.4-6.5); Neutrophils Percent Auto 68.6 % (43.0-75.0); Platelet Count 257 10^3/uL (150-450); Red Blood Count 5.09 10^6/uL (4.20-5.40); Red Cell Distribution Width 13.4 % (11.0-15.0); White Blood Count 8.2 10^3/uL (4.0-11.0)
[2023-11-02 12:05] LABS: Alanine Aminotransferase 30 U/L (14-59); Albumin Globulin Ratio 0.9; Albumin Level 3.5 g/dL (3.4-5.0); Alkaline Phosphatase 75 U/L (46-116); Anion Gap 13.9; Aspartate Amino Transferase 26 U/L (15-37); BUN Creatinine Ratio 31.3; Bilirubin Total 0.4 mg/dL (0.2-1.0); Calcium 8.6 mg/dL (8.5-10.1); Carbon Dioxide 26.6 mmol/L (21.0-32.0); Chloride 104 mmol/L (98-107); Chol HDL Ratio 2.9; Cholesterol 163 mg/dL (<=200); Estimated GFR (African America >60 (>=60); Estimated GFR (Non-African Ame >60 (>=60); Glucose 119 mg/dL (74-106); HDL Cholesterol 57 mg/dL (40-60); LDL Cholesterol Calculated 92.8 mg/dL; Potassium 4.5 mmol/L (3.5-5.1); Sodium 140 mmol/L (136-145); Thyroid Stimulating Hormone 2.952 uIU/mL (0.358-3.740); Total Protein 7.5 g/dL (6.4-8.2); Triglycerides 66 mg/dL (<=150); VLDL CHOLESTEROL 13.2 mg/dL
[2023-11-02 12:42] LABS: Free T4 1.05 ng/dL (0.76-1.46)
== END 2023-11-02 10:46 | disposition home or self-care (01) ==
LOC: MAMMO 10:45
PROVIDERS: PCP Family Medicine; Visit Provider Family Medicine
DX: Z12.31 Encounter for screening mammogram for malignant neoplasm of breast (principal); I10 Essential (primary) hypertension; E03.9 Hypothyroidism, unspecified
CPT/HCPCS: 36415; 77063; 77067; 80053; 80061; 84439; 84443; 85025

== ENCOUNTER 2024-02-20 14:12 | Outpatient (OUT) | payer OTHER, SELFPAY | END 2024-02-20 14:13 | disposition home or self-care (01) | LOC: PST 14:12 | PROVIDERS: PCP Family Medicine; Visit Provider Surgery | DX: Z01.818 Encounter for other preprocedural examination (principal); Z12.11 Encounter for screening for malignant neoplasm of colon ==

== ENCOUNTER 2024-02-29 08:32 | Day surgery (SDC) | payer OTHER, SELFPAY ==
--- NOTE | 2024-02-29 | OP_ITS ---
OPERATION DATE: 02/29/2024 PREOPERATIVE DIAGNOSIS: Colorectal screening. POSTOPERATIVE DIAGNOSIS: Normal colonoscopy to cecum. PROCEDURE: Colonoscopy to cecum. SURGEON: Bryce Armstrong M.D. ANESTHESIA: Monitored anesthesia care. ESTIMATED BLOOD LOSS: Zero. INDICATIONS AND CONSENT: Patient is a 73-year-old female presents for colorectal screening. Indications, risks, benefits, alternatives of proceeding with colonoscopy were explained extensively to the patient, including the risks of bleeding, colon perforation or anesthetic complications. All of her questions were answered. Informed consent was obtained. PROCEDURE: Patient brought to the operating room, placed in the left lateral decubitus position. Monitored anesthesia care was provided. Rectal exam was performed which showed no masses or blood. The scope was inserted into the anal canal. Under direct visualization was advanced. With the aid of abdominal compression, it was advanced to the cecum where cecal markings were clearly identified. There was noted to be a good prep. Upon withdrawal of the scope, mucosal surfaces were carefully examined. There were no mass lesions or polyps. No inflammatory changes or ulcerations. No significant diverticulosis. The scope was retroflexed in the anal canal. There was no significant hemorrhoidal disease. Scope was then withdrawn. Patient tolerated procedure well, was sent to recovery room in good condition. Follow up colonoscopy should be in 10 years, if she remains in good health. CC: Suzan Meza M.D. ALEJO
[2024-02-29 08:45] VITALS: BP 187/87; PULSE 61; TEMP 35.9; O2SAT 98; BMI 29.7
--- OUTSIDE RECORDS SUMMARY | 2024-02-29 08:55 | XMS_ITS | CCD ---
Author Organization [facility] Care Team Providers Care Sliver Handler Name Role Phone WILD, DR SUZAN Zabala Admitting Unavailable WILD, DR SUZAN Zabala Attending Unavailable WILD, DR SUZAN Zabala Primary Care Unavailable WILD, DR SUZAN Zabala Consulting Unavailable APLLIAT WILEY Admitting Unavailable NÉSTOR, LIAT Britton Attending Unavailable WILD, DR SUZAN Zabala Primary Care Unavailable PASHA, DR WADE Brody Consulting Unavailable APLINGLIAT Consulting Unavailable ROME, DR SUZAN Zabala Admitting Unavailable ROME, DR SUZAN Zabala Attending Unavailable WILD, DR SUZAN Zabala Primary Care Unavailable WILD, DR SUZAN Zabala Consulting Unavailable Suzan Rome Unavailable SHER AGRCIA Attending Unavailable KRYSTIN OLGUIN Attending Unavailable SUZAN ROME Referring Unavailable SUZAN ROME Primary Care Physician SUZAN ROME Referring Unavailable Bryce MO Attending Unavailable Allergies Allergy Classification Reported Allergen(s) Allergy Type Date of Onset Reaction(s) Facility (1 source) No Known Medication Allergies; Translations: [No Known Medication Allergies] Propensity to adverse reactions (disorder) [facility] Repository Medications Current Medications Medication Drug Class(es) Dates Sig (Normalized) Sig (Original) atenolol 50 mg oral tablet (13 sources) beta-Adrenergic Maryan Start: 12-19-2023 take 1 tablet by mouth once daily atenolol 50 mg Tab 50 mg = 1 tab(s), Oral, Daily, Refills(s) 0 Start Date: 12/19/23 Status: Ordered take 1 tablet by nasim th every twenty-four hours Atenolol 50 MG 1 tablet Orally Once a day Active Calcium Magnesium (5 sources) Calcium Magnesiu m Active Essential Balance - (5 sources) Essential Balanc e - as directed Orally Active Essential Balance oral tablet (1 source) Start: 12-19-2023 take 1 tablet by mouth once daily Essential Balance oral tablet 1 tab(s), Oral, Daily, Refill(s) 0 Start Date: 12/19/23 Status: Ordered levothyroxine sodium 0.075 mg oral tablet (13 sources) l-Thyroxine Start: 12-19-2023 take 1 tablet by mouth once daily levothyroxine 75 mcg (0.075 mg) Tab 75 mcg = 1 tab(s), Oral, Daily, Refills(s) 0 Start Date: 12/19/23 Status: Ordered take 1 tablet by nasim th once daily in the morning Levothyroxine Sodium 75 MCG TAKE 1 TABLE T BY MOUTH EVERY DAY IN THE MORNING [...] Documented Da te Episodic/Chronic Cancer of thyroid (13 sources) History of malignant neoplasm of thyroid; Translations: [Personal history of malignant neoplasm of thyroid] 12-19-2023 Episodic Essential hypertension (20 sources) Essential (primary) hypertension; Translations: [Essential hypertension] Onset: 08-15-2022 Chronic Headache; including migraine (13 sources) Refractory migraine; Translations: [Migraine, unspecified, intractable, without status migrainosus] 12-19-2023 Chronic Joint disorders and dislocations; trauma-related (4 sources) Unspecified internal derangement of left knee; Translations: [UNS INTERNAL DERANGEMENT LEFT KNEE] Onset: 11-24-2021 Chronic Osteoporosis (13 sources) Senile osteoporosis; Translations: [Age-related osteoporosis without current pathological fracture] Chronic Other non-traumatic joint disorders (11 sources) Arthralgia of the lower leg; Translations: [Pain in left knee] Episodic Other non-traumatic joint disorders (1 source) Pain in left knee; Translations: [Left lateral knee pain] Episodic Other nutritional; endocrine; and metabolic disorders (1 source) Body mass index 30+ - obesity 01-17-2024 Chronic Other nutritional; endocrine; and metabolic disorders (1 source) Obesity 01-17-2024 Chronic Other screening for suspected conditions (not mental disorders or infectious disease) (4 sources) Computed tomography result abnormal; Translations: [Abnormal [...] unspecified; Translations: [Acquired hypothyroidism] Onset: 08-15-2022 Chronic Unclassified (1 source) Patient encounter status 12-19-2023 Results Test Name Value Interpretation Reference Range Facility Insurance Correspondenceon 0 02-08-2024 Insurance Correspondence [id number]#1.00TIFF [facility] Consent for Procedure/Surger yon 01-18-2024 Consent for Procedure/Surgery [id number] #1.00TIFF [facility] Facesheeton 01-18-2024 Facesheet [id number]# 1.00TIFF [facility] Ambulatory Visit Summaryon 0 01-17-2024 Ambulatory Visit Summary ANDREA COLE :1950 Visit Date:01/17/2024 Ambulatory Visit Instructions Your Care Team Attending Physician - Bryce MO MD Primary Care Physician - SUZAN ROME MD Referring Physician - SUZAN ROME MD This Is Your Medications List Contact prescribing physician if questions or concerns atenolol (atenolol 50 mg Tab) levothyroxine (levothyroxine 75 mcg (0.075 mg) Tab) multivitamin (Essential Balance oral tablet) Procedures Performed Colonoscopy (2003), Arthroscopy of knee, Laryngoscopy, Rotator cuff repair, Suspension of bladder, Thyroidectomy, VH - Vaginal hysterectomy. Discharge Vitals Heart Rate (Peripheral) 76 Respiratory Rate 16 Blood Pressure 126/84 Height 157.4 cm Height 62 in Weight 77.1 kg Weight 169.62 lb BMI 31.12 Medications What How Much When Instructions Unchanged atenolol (atenolol 50 mg Tab) 1 Tablets By Mouth Every day Contact prescribing physician if questions or concerns Unchanged levothyroxine (levothyroxine 75 mcg (0.075 mg) Tab) 1 Tablets By Mouth Every day Contact prescribing physician if questions or concerns Unchanged multivitamin (Essential Balance oral tablet) 1 Tablets By Mouth Every day Contact prescribing physician if questions or concerns Allergies No Known Allergies No Known Medication Allergies Problems Ongoing - Any problem that you are currently receiving treatment for. BMI 31.0-31.9,adult Essential hypertension History of thyroid cancer Hypothyroidism Migraines Obesity Screening for colon cancer Patient Survey You may receive a survey via text or e-mail asking about your office visit. Please share your experience with us by completing your survey. We appreciate your feedback and thank you for choosing us for your care. [facility] Physician Referralon 024 Physician Referral [id number] #1.00TIFF [facility] XR DEXA BONE DENSITYon 11-02 XR DEXA BONE DENSITY DEXA Bone Density Study CLINICAL: Evaluate bone mineral density. Postmenopausal COMPARISON: 09/30/2020 FINDINGS: The bone density study was assessed by dual-energy x-ray absorptiometry with the [employer] scanner. The test results are expressed in [...] PARK DAILEY Date: 2022-11-02 08:55 Normal [facility] CBC AUTO DIFFon 11-01-2022 BASO # 0.1 103/ul Normal 0.0-0.1 [facility] Comment on above: Performed By: #### C BC #### [facility] [address] [place], [place] [address] Dr. Nata Castellon Basophils/100 WBC (Bld) 0.7 % Normal 0.2-2.0 [facility] Comment on above: Performed By: #### C BC #### [facility] [address] [place], [place] [address] Dr. Nata Castellon EO # 0.1 103/ul Normal 0.0-0.7 [facility] Comment on above: Performed By: #### C BC #### [facility] [address] [place] [address] Dr. Nata Castellon Eosinophils/100 WBC (Bld) 1.8 % Normal 0.9-7.0 [facility] Comment on above: Performed By: #### C BC #### [facility] [address] [place] [address] Dr. Nata Castellon Erythrocyte distribution width (RBC) [Ratio] 13.4 % Normal 11.0-15.0 [facility] Comment on above: Performed By: #### C BC #### [facility] [address] [place] [address] Dr. Nata Castellon Hematocrit (Bld) [Volume fraction] 44.1 % Normal 36.0-48.0 [facility] Comment on above: Performed By: #### C BC #### [facility] [address] [place] [address] Dr. Nata Castellon Hemoglobin (Bld) [Mass/Vol] 14.8 g/dL Normal 12.0-16.0 [facility] Comment on above: Performed By: #### C BC #### [facility] [address] [place] [address] Dr. Nata Castellon IG # 0.02 10e3/ul Normal 0.00-0.03 [facility] Comment on above: Performed By: #### C BC #### [facility] [address] [place] [address] Dr. Nata Castellon IG % 0.3 % Normal 0.0-0.5 [facility] Comment on above: Performed By: #### C BC #### [facility] [address] [place] [address] Dr. Nata Castellon LYMPH # 1.6 103/ul Normal 1.2-3.8 [facility] Comment on above: Performed By: #### C BC #### [facility] [address] [place] [address] Dr. Nata Castellon Lymphocytes/100 WBC (Bld) 21.3 % Normal 20.5-60.0 [facility] Comment on above: Performed By: #### C BC #### [facility] [address] [place] [address] Dr. Nata Castellon MANUAL DIFF REQ NO Normal [facility] Comment on above: Performed By: #### C BC #### [facility] [address] [place] [address] Dr. Nata Castellon MCH (RBC) [Entitic mass] 28.5 pg Normal 26.7-34.0 [facility] Comment on above: Performed By: #### C BC #### [facility] [address] [place] [address] Dr. Nata Castellon MCHC (RBC) [Mass/Vol] 33.6 g/dL Normal 29.9-35.2 [facility] Comment on above: Performed By: #### C BC #### [facility] [address] [place] [address] Dr. Nata Castellon MCV (RBC) [Entitic vol] 84.8 fL Normal 81.0-99.0 [facility] Comment on above: Performed By: #### C BC #### [facility] [address] [place] [address] Dr. Nata Castellon MONO # 0.6 103/ul Normal 0.3-0.8 [facility] Comment on above: Performed By: #### C BC #### [facility] [address] [place] [address] Dr. Nata Castellon Monocytes/100 WBC (Bld) 7.5 % Normal 1.7-12.0 [facility] Comment on above: Performed By: #### C BC #### [facility] [address] [place] [address] Dr. Nata Castellon NEUT # 5.2 103/ul Normal 1.4-6.5 [facility] Comment on above: Performed By: #### C BC #### [facility] [address] [place] [address] Dr. Nata Castellon Neutrophils/100 WBC (Bld) 68.4 % Normal 43.0-75.0 [facility] Comment on above: Performed By: #### C BC #### [facility] [address] [place] [address] Dr. Nata Castellon Platelet mean volume (Bld) [Entitic vol] 10.4 fL Normal 9.5-13.5 [facility] Comment on above: Performed By: #### C BC #### [facility] [address] [place] [address] Dr. Nata Castellon PLT 256 103/ul Normal 150-450 [facility] Comment on above: Performed By: #### C BC #### [facility] [address] [place] [address] Dr. Nata Castellon RBC 5.20 106/ul Normal 4.20-5.40 [facility] Comment on above: Performed By: #### C BC #### [facility] [address] [place] [address] Dr. Nata Castellon WBC 7.6 103/ul Normal 4.0-11.0 [facility] Comment on above: Performed By: #### C BC #### [facility] [address] [place] [address] Dr. Nata Castellon FREE T4on 11-01-2022 Free T4 [Mass/Vol] 0.98 ng/dL Normal 0.76-1.46 [facility] Comment on above: Performed By: #### F T4 #### [facility] [address] [place] [address] Dr. Nata Castellon LIPID PROFILEon 11-01-2022 CHOL-HDL RATIO NORM SEE BELOW Normal [facility] Comment on above: Result Comment: 3.3 - 4.4 LOW RISK 4.4 - 7.1 AVERAGE RISK 7.1 - 11.0 MODERATE RISK >11.0 HIGH RISK Performed By: #### L IPID, TSH, CMP #### [facility] [address] [place] [address] Dr. Nata Castellon Cholesterol [Mass/Vol] 179 mg/dL Normal <=200 [facility] Comment on above: Performed By: #### L IPID, TSH, CMP #### [facility] [address] [place] [address] Dr. Nata Castellon Cholesterol in HDL [Mass/Vol] 57 mg/dL Normal 40-60 [facility] Comment on above: Performed By: #### L IPID, TSH, CMP #### [facility] [address] [place] [address] [address] Nata Castellon Cholesterol in LDL [Mass/Vol] 98.8 mg/dL Normal [facility] Comment on above: Performed By: #### L IPID, TSH, CMP #### [facility] [address] [place] [address] [address] Nata Castellon Cholesterol.total/Cho lesterol in HDL [Mass ratio] 3.1 {ratio} Normal [facility] Comment on above: Performed By: #### L IPID, TSH, CMP #### [facility] [address] [place] [address] [address] Nata Castellon HDL NORMAL > or = 60 mg/dl - LOW CARDIOVASCULAR RISK <40 mg/dl - HIGH CARDIOVASCULAR RISK Normal [facility] Comment on above: Performed By: #### L IPID, TSH, CMP #### [facility] [address] [place] [address] [address] Nata Castellon LDL CALC NORMAL SEE BELOW Normal [facility] Comment on above: Result Comment: <100 mg/dl OPTIMAL 100 - 129 mg/dl NEAR OR ABOVE OPTIMAL 130 - 159 mg/dl BORDERLINE HIGH 160 - 189 mg/dl HIGH >190 mg/dl VERY HIGH Performed By: #### L IPID, TSH, CMP #### [facility] [address] [place] [address] [address] Nata Castellon Triglyceride [Mass/Vol] 116 mg/dL Normal <=150 [facility] Comment on above: Performed By: #### L IPID, TSH, CMP #### [facility] [address] [place] [address] [address] Nata Castellon VLDL CALC 23.2 mg/dL Normal [facility] Comment on above: Performed By: #### L IPID, TSH, CMP #### [facility] [address] [place] [address] [address] Nata Castellon MG MAMM SCREEN 3D SEEMA CADon 11-01-2022 MG MAMM SCREEN 3D SEEMA CAD Patient: ANDREA COLE Exam Date: 11/01/2022 : 1950 Gender:F Ordering : DR SUZAN ROME M.D. Admission #: [id number] Family : Order #: [id number] CLICK HERE TO VIEW EXAM RADIOLOGY REPORT [...] REMOVAL OF THYROID Family Cancers None LOCATION: [facility] BREAST COMPOSITION: Heterogeneously dense,which may obscure [...] Barrera MD on 11/02/2022 at 10:22 Normal [facility] PROF 14(COMP METB)on 023 Albumin [Mass/Vol] 3.7 g/dL Normal 3.4-5.0 [facility] Comment on above: Performed By: #### L IPID, TSH, CMP #### [facility] [address] [place] [address] Dr. Nata Castellon Albumin/Globulin [Mass ratio] 1.0 {ratio} Normal [facility] Comment on above: Performed By: #### L IPID, TSH, CMP #### [facility] [address] [place] [address] [address] Nata Castellon ALP [Catalytic activity/Vol] 80 U/L Normal 46-116 [facility] Comment on above: Performed By: #### L IPID, TSH, CMP #### [facility] [address] [place] [address] [address] Nata Castellon ALT [Catalytic activity/Vol] 26 U/L Normal 14-59 [facility] Comment on above: Performed By: #### L IPID, TSH, CMP #### [facility] [address] [place] [address] Dr. Nata Castellon Anion gap [Moles/Vol] 13.0 mmol/L Normal Th e [facility] Comment on above: Performed By: #### L IPID, TSH, CMP #### [facility] [address] [place] [address] Dr. Nata Castellon AST [Catalytic activity/Vol] 25 U/L Normal 15-37 [facility] Comment on above: Performed By: #### L IPID, TSH, CMP #### [facility] [address] [place] [address] Dr. Nata Castellon Bilirubin [Mass/Vol] 0.5 mg/dL Normal 0.2-1.0 [facility] Comment on above: Performed By: #### L IPID, TSH, CMP #### [facility] [address] [place] [address] Dr. Nata Castellon Calcium [Mass/Vol] 8.8 mg/dL Normal 8.5-10.1 [facility] Comment on above: Performed By: #### L IPID, TSH, CMP #### [facility] [address] [place] [address] Dr. Nata Castellon Chloride [Moles/Vol] 104 mmol/L Normal 98-107 [facility] Comment on above: Performed By: #### L IPID, TSH, CMP #### [facility] [address] [place] [address] Dr. Nata Castellon CO2 [Moles/Vol] 26.3 mmol/L Normal 21.0-32.0 [facility] Comment on above: Performed By: #### L IPID, TSH, CMP #### [facility] [address] [place] [address] Dr. Nata Castellon Creatinine [Mass/Vol] 0.74 mg/dL Normal 0.55-1.02 [facility] Comment on above: Performed By: #### L IPID, TSH, CMP #### [facility] [address] [place] [address] [address] Nata Castellon EGFR-AF MALAYSIAN >60 Normal >=60 [facility] Comment on above: Performed By: #### L IPID, TSH, CMP #### [facility] [address] [place] [address] [address] Nata Castellon EGFR-NON AF MALAYSIAN >60 Normal >=60 [facility] Comment on above: Performed By: #### L IPID, TSH, CMP #### [facility] [address] [place] [address] [address] Nata Castellon Globulin (S) [Mass/Vol] 3.6 g/dL Normal [facility] Comment on above: Performed By: #### L IPID, TSH, CMP #### [facility] [address] [place] [address] [address] Nata Castellon Glucose [Mass/Vol] 122 mg/dL Critically high 74-106 [facility] Comment on above: Performed By: #### L IPID, TSH, CMP #### [facility] [address] [place] [address] [address] Nata Castellon Potassium [Moles/Vol] 4.3 mmol/L Normal 3.5-5.1 [facility] Comment on above: Performed By: #### L IPID, TSH, CMP #### [facility] [address] [place] [address] [address] Nata Castellon Protein [Mass/Vol] 7.3 g/dL Normal 6.4-8.2 [facility] Comment on above: Performed By: #### L IPID, TSH, CMP #### [facility] [address] [place] [address] [address] Nata Castellon Sodium [Moles/Vol] 139 mmol/L Normal 136-145 [facility] Comment on above: Performed By: #### L IPID, TSH, CMP #### [facility] [address] [place] [address] [address] Nata Castellon Urea nitrogen [Mass/Vol] 21.0 mg/dL Critically high 7.0-18.0 [facility] Comment on above: Performed By: #### L IPID, TSH, CMP #### [facility] [address] [place] [address] Dr. Nata Castellon Urea nitrogen/Creatinine [Mass ratio] 28.4 mg/mg Normal [facility] Comment on above: Performed By: #### L IPID, TSH, CMP #### [facility] [address] [place] [address] Dr. Nata Castellon TSHon 11-01-2022 TSH 3.427 uIU/mL Normal 0.358-3.740 [facility] Comment on above: Performed By: #### L IPID, TSH, CMP #### [facility] [address] [place] [address] Dr. Nata Castellon CBC AUTO DIFFon 08-12-2022 BASO # 0.0 103/ul Normal 0.0-0.1 [facility] Comment on above: Performed By: #### C BC #### [facility] [address] [place] [address] Dr. Nata Castellon Basophils/100 WBC (Bld) 0.5 % Normal 0.2-2.0 [facility] Comment on above: Performed By: #### C BC #### [facility] [address] [place] [address] Dr. Nata Castellon EO # 0.1 103/ul Normal 0.0-0.7 [facility] Comment on above: Performed By: #### C BC #### [facility] [address] [place] [address] Dr. Nata Castellon Eosinophils/100 WBC (Bld) 1.7 % Normal 0.9-7.0 [facility] Comment on above: Performed By: #### C BC #### [facility] [address] [place] [address] Dr. Nata Castellon Erythrocyte distribution width (RBC) [Ratio] 13.8 % Normal 11.0-15.0 [facility] Comment on above: Performed By: #### C BC #### [facility] [address] [place] [address] Dr. Nata Castellon Hematocrit (Bld) [Volume fraction] 44.1 % Normal 36.0-48.0 [facility] Comment on above: Performed By: #### C BC #### [facility] [address] [place] [address] Dr. Nata Castellon Hemoglobin (Bld) [Mass/Vol] 14.7 g/dL Normal 12.0-16.0 [facility] Comment on above: Performed By: #### C BC #### [facility] [address] [place] [address] Dr. Nata Castellon IG # 0.01 10e3/ul Normal 0.00-0.03 [facility] Comment on above: Performed By: #### C BC #### [facility] [address] [place] [address] Dr. Nata Castellon IG % 0.1 % Normal 0.0-0.5 [facility] Comment on above: Performed By: #### C BC #### [facility] [address] [place] [address] Dr. Nata Castellon LYMPH # 2.1 103/ul Normal 1.2-3.8 [facility] Comment on above: Performed By: #### C BC #### [facility] [address] [place] [address] Dr. Nata Castellon Lymphocytes/100 WBC (Bld) 26.7 % Normal 20.5-60.0 [facility] Comment on above: Performed By: #### C BC #### [facility] [address] [place] [address] Dr. Nata Castellon MANUAL DIFF REQ NO Normal [facility] Comment on above: Performed By: #### C BC #### [facility] [address] [place] [address] Dr. Nata Castellon MCH (RBC) [Entitic mass] 28.5 pg Normal 26.7-34.0 [facility] Comment on above: Performed By: #### C BC #### [facility] [address] [place] [address] Dr. Nata Castellon MCHC (RBC) [Mass/Vol] 33.3 g/dL Normal 29.9-35.2 [facility] Comment on above: Performed By: #### C BC #### [facility] [address] [place] [address] [address] Nata Castellon MCV (RBC) [Entitic vol] 85.5 fL Normal 81.0-99.0 [facility] Comment on above: Performed By: #### C BC #### [facility] [address] [place] [address] [address] Nata Castellon MONO # 0.6 103/ul Normal 0.3-0.8 [facility] Comment on above: Performed By: #### C BC #### [facility] [address] [place] [address] [address] Nata Castellon Monocytes/100 WBC (Bld) 7.8 % Normal 1.7-12.0 [facility] Comment on above: Performed By: #### C BC #### [facility] [address] [place] [address] Dr. Nata Castellon NEUT # 5.0 103/ul Normal 1.4-6.5 [facility] Comment on above: Performed By: #### C BC #### [facility] [address] [place] [address] Dr. Nata Castellon Neutrophils/100 WBC (Bld) 63.2 % Normal 43.0-75.0 [facility] Comment on above: Performed By: #### C BC #### [facility] [address] [place] [address] [address] Nata Castellon Platelet mean volume (Bld) [Entitic vol] 10.7 fL Normal 9.5-13.5 [facility] Comment on above: Performed By: #### C BC #### [facility] [address] [address] [address] Nata Castellon PLT 254 103/ul Normal 150-450 [facility] Comment on above: Performed By: #### C BC #### [facility] [address] [address] [address] Nata Castellon RBC 5.16 106/ul Normal 4.20-5.40 [facility] Comment on above: Performed By: #### C BC #### [facility] [address] [address] [address] Nata Castellon WBC 7.9 103/ul Normal 4.0-11.0 [facility] Comment on above: Performed By: #### C BC #### [facility] [address] [address] [address] Nata Castellon FREE T4on 08-12-2022 Free T4 [Mass/Vol] 1.15 ng/dL Normal 0.76-1.46 [facility] Comment on above: Performed By: #### F T4 #### [facility] [address] [address] [address] Nata Castellon PROF CHEM 8 (BAS METB)on Anion gap [Moles/Vol] 9.0 mmol/L Normal [facility] Comment on above: Performed By: #### T SH, BMP ####[facility] [address] [place], [place] [address]DrMadison Castellon Calcium [Mass/Vol] 8.6 mg/dL Normal 8.5-10.1 [facility] Comment on above: Performed By: #### T SH, BMP ####[facility] [address] [place], [place] [address]DrMadison Castellon Chloride [Moles/Vol] 104 mmol/L Normal 98-107 [facility] Comment on above: Performed By: #### T SH, BMP ####[facility] [address] [place], [place] [address]DrMadison Castellon CO2 [Moles/Vol] 29.2 mmol/L Normal 21.0-32.0 [facility] Comment on above: Performed By: #### T SH, BMP ####[facility] [address] [place], [place] [address]DrMadison Castellon Creatinine [Mass/Vol] 0.66 mg/dL Normal 0.55-1.02 [facility] Comment on above: Performed By: #### T SH, BMP ####[facility] [address] [place], [place] [address]DrMadison Castellon EGFR-AF MALAYSIAN >60 Normal >=60 [facility] Comment on above: Performed By: #### T SH, BMP ####[facility] [address] [id number]. Nata Castellon EGFR-NON AF MALAYSIAN >60 Normal >=60 [facility] Comment on above: Performed By: #### T SH, BMP ####[facility] [address] [id number]. Nata Castellon Glucose [Mass/Vol] 108 mg/dL Critically high 74-106 [facility] Comment on above: Performed By: #### T SH, BMP ####[facility] [address] [address]Dr. Nata Castellon Potassium [Moles/Vol] 4.2 mmol/L Normal 3.5-5.1 [facility] Comment on above: Performed By: #### T SH, BMP ####[facility] [address] [place], [place] [address]Dr. Nata Castellon Sodium [Moles/Vol] 138 mmol/L Normal 136-145 [facility] Comment on above: Performed By: #### T SH, BMP ####[facility] [address] [place], [place] [address]Dr. Nata Castellon Urea nitrogen [Mass/Vol] 22.0 mg/dL Critically high 7.0-18.0 [facility] Comment on above: Performed By: #### T SH, BMP ####[facility] [address] [place], [place] [address]Dr. Nata Castellon Urea nitrogen/Creatinine [Mass ratio] 33.3 mg/mg Normal [facility] Comment on above: Performed By: #### T SH, BMP ####[facility] [address] [place] [id number]. Nata Castellon TSHon 08-12-2022 TSH 0.986 uIU/mL Normal 0.358-3.740 [facility] Comment on above: Performed By: #### T SH, BMP ####[facility] [address] [place], [place] [address]Dr. Nata Castellon MRI KNEE LT WO CONon 022 MRI KNEE LT WO CON EXAMINATION: MRI KNEE LT WO CON HISTORY: Derangement of left [...] by: WADE PAK Date: 2021-11-25 06:[address] [facility] [address] cervical spine wo conon 1 CT cervical spine wo con [facility] [place] [address] [place], [place] [id number] CT Scan Report Signed Patient: Andrea Cole MR#: [id number] : 1950 Acct:[id number] Age/Sex: 71 / F ADM Date: 08/05/21 Loc: ER Room: Type: [facility] ER Attending Dr: Ordering Provider: Cricket Russell [...] Nico Trujillo M.D.08/06/2021 9:03 AM Dictation Location: [place] [address] Transcribed By: [facility] 08/06/21902 Dictated By: Nico Trujillo DO 08/06/21901 Signed By: 08/06/[address] [facility] CT head/brain wo con 08-06 CT head/brain [place] [facility] [place] [address] CT Scan Report Signed Patient: Andrea Cole MR#: [id number] : 1950 Acct:[id number] Age/Sex: 71 / F ADM Date: 08/05/21 Loc: ER Room: Type: [facility] ER Attending Dr: Ordering Provider: Cricket Russell [...] Nico Trujillo M.D.08/06/2021 9:02 AM Dictation Location: [place] [address] Transcribed By: [facility] 08/06/21901 Dictated By: Nico Trujillo DO 08/06/2159 Signed By: 08/06/21901 Normal [facility] Complete Blood Count Auto Di ffon 08-05-2021 Basophils (Bld) [#/Vol] 0.0 10*3/uL Normal 0.0-0.2 [facility] Comment on above: Result Comment: PERF ORMED BY: [place] [address] PATHOLOGIST SASH FINISHER APURVA LEVY M.D. Performed By: #### P T, CBC, PTT, CMP #### [facility] [address] [place] [address] Basophils/100 WBC (Bld) 0.3 % Normal . [facility] Comment on above: Performed By: #### P T, CBC, PTT, CMP #### [facility] [address] [place] [address] Eosinophils (Bld) [#/Vol] 0.0 10*3/uL Normal 0.0-0.45 [facility] Comment on above: Performed By: #### P T, CBC, PTT, CMP #### [place] [address] [place] Eosinophils/100 WBC (Bld) 0.2 % Normal . [facility] Comment on above: Performed By: #### P T, CBC, PTT, CMP #### [address] Erythrocyte distribution width (RBC) [Ratio] 13.7 % Normal 11.9-15.3 [facility] Comment on above: Performed By: #### P T, CBC, PTT, CMP #### [facility] [address] Hematocrit (Bld) [Volume fraction] 50.1 % High 34.0-46.4 [facility] Comment on above: Performed By: #### P T, CBC, PTT, CMP #### [address] Hemoglobin (Bld) [Mass/Vol] 16.5 g/dL High 11.8-15.4 [facility] Comment on above: Performed By: #### P T, CBC, PTT, CMP #### [address] Lymphocytes (Bld) [#/Vol] 1.4 10*3/uL Normal 1.00-4.8 [facility] Comment on above: Performed By: #### P T, CBC, PTT, CMP #### [address] Lymphocytes/100 WBC (Bld) 11.6 % Normal . [facility] Comment on above: Performed By: #### P T, CBC, PTT, CMP #### [address] MCH (RBC) [Entitic mass] 28.8 pg Normal 24.7-34.3 [facility] Comment on above: Performed By: #### P T, CBC, PTT, CMP #### [address] MCV (RBC) [Entitic vol] 87.1 fL Normal 80-100 [facility] Comment on above: Performed By: #### P T, CBC, PTT, CMP #### [address] Mean Corpuscular HGB Conc 33.0 g/dL Normal 32.0-35.0 [facility] Comment on above: Performed By: #### P T, CBC, PTT, CMP #### [address] Monocytes (Bld) [#/Vol] 0.5 10*3/uL Normal 0.0-0.8 [facility] Comment on above: Performed By: #### P T, CBC, PTT, CMP #### [address] Monocytes/100 WBC (Bld) 4.1 % Normal . [facility] Comment on above: Performed By: #### P T, CBC, PTT, CMP #### [address] Neutrophils (Bld) [#/Vol] 10.1 10*3/uL High 1.8-7.7 [facility] Comment on above: Performed By: #### P T, CBC, PTT, CMP #### [address] Neutrophils/100 WBC (Bld) 83.8 % Normal . [facility] Comment on above: Performed By: #### P T, CBC, PTT, CMP #### [address] Nucleated RBC/100 WBC (Bld) [Ratio] 0.2 % Normal 0-0.5 [facility] Comment on above: Performed By: #### P T, CBC, PTT, CMP #### [address] Platelet mean volume (Bld) [Entitic vol] 9.6 fL Normal 6.3-10.7 [facility] Comment on above: Performed By: #### P T, CBC, PTT, CMP #### [address] Platelets (Bld) [#/Vol] 253 10*3/uL Normal 150-450 [facility] Comment on above: Performed By: #### P T, CBC, PTT, CMP #### [address] RBC (Bld) [#/Vol] 5.75 10*6/uL High 3.60-5.00 [facility] Comment on above: Performed By: #### P T, CBC, PTT, CMP #### [address] [place] [address] [place] WBC (Bld) [#/Vol] 12.1 10*3/uL High 4.5-11.0 [facility] Comment on above: Performed By: #### P T, CBC, PTT, CMP #### [facility] [address] [place] [address] Comprehensive Metabolic Pane yumi 08-05-2021 Albumin [Mass/Vol] 4.2 g/dL Normal 3.2-5.5 [facility] Comment on above: Performed By: #### P T, CBC, PTT, CMP #### [facility] [address] [place] [address] Albumin/Globulin [Mass ratio] 1.1 {ratio} Normal [facility] Comment on above: Performed By: #### P T, CBC, PTT, CMP #### [address] ALP [Catalytic activity/Vol] 60 U/L Normal 32-92 [facility] Comment on above: Performed By: #### P T, CBC, PTT, CMP #### [facility] [address] [place] [address] ALT [Catalytic activity/Vol] 29 U/L Normal 10-60 [facility] Comment on above: Performed By: #### P T, CBC, PTT, CMP #### [address] AST [Catalytic activity/Vol] 32 U/L Normal 10-42 [facility] Comment on above: Performed By: #### P T, CBC, PTT, CMP #### [facility] [address] [place] [address] Bilirubin [Mass/Vol] 0.7 mg/dL Normal 0.3-1.2 [facility] Comment on above: Performed By: #### P T, CBC, PTT, CMP #### [facility] [address] [place] [address] Calcium [Mass/Vol] 9.4 mg/dL Normal 8.2-10.2 [facility] Comment on above: Performed By: #### P T, CBC, PTT, CMP #### [facility] [address] Chloride [Moles/Vol] 102 mmol/L Normal 95-114 [facility] Comment on above: Performed By: #### P T, CBC, PTT, CMP #### [facility] [address] CO2 [Moles/Vol] 24.2 mmol/L Normal 22.0-30.0 [facility] Comment on above: Performed By: #### P T, CBC, PTT, CMP #### [facility] [address] Creatinine [Mass/Vol] 0.80 mg/dL Normal 0.44-1.03 [facility] Comment on above: Performed By: #### P T, CBC, PTT, CMP #### [address] Creatinine Clr Calc Pharmacy 61.17 [facility] Comment on above: Result Comment: PERF ORMED BY: [place] [address] PATHOLOGIST SASH FINISHER APURVA LEVY M.D. Performed By: #### P T, CBC, PTT, CMP #### [address] Estimated GFR ( Jessica > 60 [facility] Comment on above: Result Comment: GFR estimated reference range: According to KDOQI guidelines, <60 ml/min/1.73m2 is sufficient to diagnose a patient with chronic kidney disease. Performed By: #### P T, CBC, PTT, CMP #### [facility] [address] [place] [address] Estimated GFR (Non- Am > 60 [facility] Comment on above: Performed By: #### P T, CBC, PTT, CMP #### [facility] [address] [place] [address] Globulin (S) [Mass/Vol] 3.8 g/dL [facility] Comment on above: Performed By: #### P T, CBC, PTT, CMP #### [facility] [address] Glucose [Mass/Vol] 110 mg/dL High 70-100 [facility] Comment on above: Result Comment: [place] Glucose Reference Range is dependent on time and content of last meal. Glucose of more than 200 mg/dL in a nonstressed, ambulatory subject supports the diagnosis of Diabetes Mellitus. ADA recommended reference range Performed By: #### P T, CBC, PTT, CMP #### [facility] [address] Potassium [Moles/Vol] 4.7 mmol/L Normal 3.5-5.1 [facility] Comment on above: Performed By: #### P T, CBC, PTT, CMP #### [address] Protein [Mass/Vol] 8.0 g/dL High 6.1-7.9 [facility] Comment on above: Performed By: #### P T, CBC, PTT, CMP #### [address] Sodium [Moles/Vol] 139 mmol/L Normal 136-146 [facility] Comment on above: Performed By: #### P T, CBC, PTT, CMP #### [address] Urea nitrogen [Mass/Vol] 19 mg/dL Normal 9-23 [facility] Comment on above: Performed By: #### P T, CBC, PTT, CMP #### [place] [address] [place] Partial Thromboplastin Timeo n 08-05-2021 aPTT Coag (Bld) [Time] 28.9 s Normal 25.1-36.5 [facility] Comment on above: Result Comment: PERF ORMED BY: [place] [address] PATHOLOGIST SASH FINISHER APURVA LEVY M.D. Performed By: #### P T, CBC, PTT, CMP #### [facility] [address] [id number] [facility] Prothrombin Time INRon 08-05 INR Coag (PPP) [Relative time] 1.1 {INR} Normal [facility] Comment on above: Result Comment: INR Therapeutic [...] #### P T, CBC, PTT, CMP #### [facility] [address] PT Coag (PPP) [Time] 12.5 s Normal 9.0-12.9 [facility] Comment on above: Performed By: #### P T, CBC, PTT, CMP #### [facility] [address] [id number] [facility] Vital Signs Date Time Vital Sign Value Performing Clinician Facility 01-17-2024 14:22-0400 Blood Pressure Location [employer] [facility] [place] 01-17-2024 14:22-0400 Diastolic blood pressure 84 mm[Hg] Bryce PowtoonL [facility] [place] 01-17-2024 14:22-0400 Heart rate 76 /min Bryce PowtoonL [facility] [place] 01-17-2024 14:22-0400 Respiratory rate 16 /min Bryce PANDYAL [facility] [place] 01-17-2024 14:22-0400 Systolic blood pressure 126 mm[Hg] Bryce PowtoonL [facility] [place] 10-19-2023 09:30-0500 Body height 157.48 cm Suzan Rome Other [facility] Other 10-19-2023 09:30-0500 Body mass index (BMI) [Ratio] 31.49 kg/m2 Suzan Rome Other [facility] Other 10-19-2023 09:30-0500 Body weight 78.11 kg Suzan Rome Other [facility] Other 10-19-2023 09:30-0500 Diastolic blood pressure 80 mm[Hg] Suzan Rome Other [facility] Other 10-19-2023 09:30-0500 Systolic blood pressure 130 mm[Hg] Suzan Rome Other [facility] Other 08-30-2023 10:00-0500 Body height 157.48 cm Suzan Rome Other [facility] Other 08-30-2023 10:00-0500 Body mass index (BMI) [Ratio] 31.82 kg/m2 Suzan Rome Other [facility] Other 08-30-2023 10:00-0500 Body weight 78.93 kg Suzan Rome Other [facility] Other 08-30-2023 10:00-0500 Diastolic blood pressure 78 mm[Hg] Suzan Rome Other [facility] Other 08-30-2023 10:00-0500 Systolic blood pressure 144 mm[Hg] Suzan Rome Other [facility] Other 10-22-2022 10:00-0500 Body height 157.48 cm Suzan Rome Other [facility] Other 10-22-2022 10:00-0500 Body mass index (BMI) [Ratio] 31.27 kg/m2 Suzan Rome Other [facility] Other 10-22-2022 10:00-0500 Body weight 77.57 kg Suzan Rome Other [facility] Other 10-22-2022 10:00-0500 Diastolic blood pressure 82 mm[Hg] Suzan Rome Other [facility] Other 10-22-2022 10:00-0500 SaO2% (BldA) [Mass fraction] 98 % Suzan Rome Other [facility] Other 10-22-2022 10:00-0500 Systolic blood pressure 140 mm[Hg] Suzan Rome Other [facility] Other Encounters Encounter Date Encounter Type Care Provider Facility Start: 01-17-2024 End: 01-18-2024 ambulatory SUZAN WILD Facility:TEREZA Murphy Start: 01-17-2024 End: 01-17-2024 Patient encounter procedure Bryce [facility]udy Murphy Start: 01-09-2024 End: 01-09-2024 ambulatory SHER GARCIA Not Available Start: 12-16-2023 ambulatory SUZAN ROME Facility:[facility] Start: 11-03-2023 End: 11-03-2023 ambulatory Suzan Rome Other [facility] [employer] Other Start: 11-03-2023 Telephone encounter Suzan Rome [facility] Start: 10-19-2023 End: 10-19-2023 ambulatory Suzan Rome Other [facility] Other Start: 10-19-2023 Patient encounter procedure Suzan Rome [facility] Start: 09-19-2023 End: 09-19-2023 ambulatory KRYSTIN OSORIOMIGabriela Not Available Start: 09-13-2023 End: 09-13-2023 ambulatory Suzan Wild Other [employer] [facility] Other Start: 09-13-2023 Telephone encounter Suzan Wild [facility] Start: 09-02-2023 End: 09-02-2023 ambulatory Suzan Rome Other [facility] Other Start: 09-02-2023 Telephone encounter Suzan Rome [facility] Start: 08-30-2023 End: 08-30-2023 ambulatory Suzan Wild Other [facility] Other Start: 08-30-2023 Office outpatient vi sit 15 minutes Suzan Rome [facility] Start: 03-16-2023 End: 03-16-2023 ambulatory Suzan Rome Other [facility] Other Start: 03-16-2023 Telephone encounter Suzan Wild [facility] Start: 03-15-2023 End: 03-15-2023 ambulatory Suzan Wild Other [facility] Other Start: 03-15-2023 Telephone encounter Suzan Wild [facility] Start: 11-11-2022 End: 11-11-2022 ambulatory Suzan Wild Other [facility] Other Start: 11-11-2022 Telephone encounter Suzan Wild [facility] Start: 11-10-2022 End: 11-10-2022 ambulatory Suzan Widl Other [facility] Other Start: 11-10-2022 Telephone encounter Suzan Wild [facility] Start: 11-02-2022 End: 11-02-2022 ambulatory Suzan Wild Other [employer] Other Start: 11-02-2022 Telephone encounter Suzan Rome [facility] Start: 11-01-2022 End: 11-02-[address] SUZAN ROME Facility:[facility] Start: 10-22-2022 End: 10-22-2022 ambulatory Suzan Rome Other [facility] [employer] Other Start: 10-22-2022 Office outpatient vi sit 15 minutes Suzan Rome [facility] Start: 10-20-2022 End: 10-20-2022 ambulatory Suzan Rome Other [facility] [employer] Other Start: 10-20-2022 Telephone encounter Suzan Rome [facility] Start: 08-15-2022 Encounter for preprocedural cardiovascular examination DR SUZAN ROME [facility] Start: 08-15-2022 Encounter for preprocedural laboratory examination DR SUZAN ROME [facility] Start: 08-12-2022 End: 08-13-[address] SUZAN ROME Facility:[facility] Start: 08-12-2022 End: 08-13-2022 Encounter for preprocedural cardiovascular examination DR SUZAN ROME Facility:[facility] Start: 11-24-2021 End: 11-25-2021 ambulatory LIAT PALM Facility:[facility] Procedures Date Procedure Procedure Detail Performing Clinician Start: 10-17-2003 Colonoscopy Bryce NI LL Arthroscopy of knee Bryce NILL Cystopexy Bryce NILL Laryngoscopy Bryce NILL Repair of musculoten dinous cuff of shoulder Bryce NILL Thyroidectomy Bryce NILL Vaginal hysterectomy Bryce NILL Immunizations Immunization Date Immunization Notes Care Provider Fa cility 01-20-2021 SARS-CoV-2 (COVID-19 ) mRNA-1903 vaccine Bryce NILL [facility] 11-24-2020 SARS-CoV-2 (COVID-19 ) mRNA-1273 vaccine Bryce NILL [facility] 09-19-2017 pneumococcal polysaccharide vaccine, 23 valent Suzan Rome Other [employer] Other 09-03-2016 pneumococcal conjuga te vaccine, 13 rajeev Suzan Rome Other [facility] Other Payers Date Payer Category Payer Unknown [id number] 1960 Medicare [id number] 1960 Unknown [id number] 1950 Unknown [id number] 2.16.84 [id number] 1950 Unknown [id number] 2.16.84 [id number] 1950 Unknown [id number] 2.16.84 [id number] 1950 Unknown [id number] 2.16.84 [id number] 1950 Unknown [id number] 1950 Unknown [id number] 2.16.8 [id number] Social History Date Type Detail Facility Unknown if ever smoked [employer] Other Sex Assigned At [facility] Start: 01-17-2024 Tobacco smoking status Never s moked tobacco (finding) [facility] [place] Tobacco smoking status Never [facility] Functional Status Date Assessment Result Facility 01-17-2024 Functional Status N/A [facility] [place] Clinical Notes 10-22-2022 to 01-19-2024 Note Date & Type Note Facility 01-19-2024 Note Chief Complaint consultation for colonoscopy HPI Staff 73 year old female presents on consultation from Dr. Rome for screening colonoscopy. Denies abdominal or rectal pain. No rectal bleeding or change in bowel habits. Denies nausea or vomiting. No unexplained weight loss. Patient reports previous colonoscopy completed 2003 and normal. No known family history of colon cancer. History of Present Illness 73 yo female with h/o htn, hypothyroidism, migraines, referred for colorectal screening; denies change in bms or blood in stools; no abdominal complaints; denies asa or NSAID use, no SBE prophylaxis; abdominal operations significant for vaginal hysterectomy, last colonoscopy 2003, reportedly normal; no fmhx of GI malignancy or IBD; no tobacco use. Review of Systems PHQ Score Initial Depression Screen Score: 0 SCORE ROS - Provider Constitutional: no fever, no sweats, no weight loss. Eyes: no glasses, no blurred vision, no visual loss. ENMT: no dentures, no hoarseness, no swallowing difficulties, no hearing loss, no ear infection(s), no nose bleeds. Cardiovascular: normal blood pressure, no chest pain, regular heartbeat, no heart murmur. Respiratory: no shortness of breath, no cough, no asthma, no wheezing. Gastrointestinal: no nausea, no vomiting, no diarrhea, no constipation, no blood in stool, no change in bowel habits, no abdominal pain, no hepatitis. Genitourinary: no kidney stones, no urine infection, no dysuria. Musculoskeletal: no pain, no weakness. Skin: no changing moles, no rash, no skin lumps. Neurologic: no seizures, no epilepsy, no headache. Psychiatric: no emotional or psychiatric problem. Heme/Lymph: no bleeding problems, no anemia, no blood clots, no transfusions. Allergy/Immunologic: no swollen lymph nodes/glands, no IV drug abuse. Other: Additional ROS info: Except as noted in the above Review of Systems and in the History of Present Illness, all other systems have been reviewed and are negative or noncontributory. Physical Exam Vitals & Measurements HR: 76(Peripheral) RR: 16 BP: 126/84 HT: 62 in HT: 157.4 cm WT: 77.1 kg WT: 169.62 lb BMI: 31.12 HEENT: normal conjunctiva, sclera clear, no scleral icterus, EOM intact, PERRLA, oral mucosa moist without lesions. Neck: trachea midline, no mass, symmetric, no thyromegaly or nodules, no adenopathy Respiratory: lungs CTA, respirations non labored. Cardiovascular: regular rate and rhythm, no murmur, no pedal edema or varicosities. Gastrointestinal: soft, non distended, no tenderness, no masses, no palpable hernias, diastasis recti no, no hepatosplenomegaly; normal bs Lymphatic: no cervical adenopathy, no supraclavicular adenopathy. Musculoskeletal: normal gait, digits and nails without infection, nodes, cyanosis, clubbing. Skin: no rashes, no lesions, no ulcers, no subcutaneous nodules, induration. Psychiatric/Neuro: oriented to time, place, person, judgement normal, affect appropriate for age, insight intact, no focal deficits. Tests: ,Discussed surgical options, risks, and possible complications with patient. Assessment/Plan 1. Screening for malignant neoplasm of colon (Z12.11: Encounter for screening for malignant neoplasm of colon) plan colonoscopy under anesthesia, informed consent obtained. Follow-up No qualifying data available Problem List/Past Medical History Ongoing BMI 31.0-31.9,adult Essential hypertension History of thyroid cancer Hypothyroidism Migraines Obesity Screening for colon cancer Screening for malignant neoplasm of colon Historical No qualifying data Procedure/Surgical History Colonoscopy (2003), Arthroscopy of knee, Laryngoscopy, Rotator cuff repair, Suspension of bladder, Thyroidectomy, VH - Vaginal hysterectomy. Medications atenolol 50 mg Tab, 50 mg= 1 tab(s), Oral, Daily Essential Balance oral tablet, 1 tab(s), Oral, Daily levothyroxine 75 mcg (0.075 mg) Tab, 75 mcg= 1 tab(s), Oral, Daily Allergies No Known Allergies No Known Medication Allergies Social History Alcohol - Denies Alcohol Use, 01/17/2024 Substance Abuse - Denies Substance Abuse, 01/17/2024 Tobacco Never (less than 100 in lifetime) Tobacco Use:. Never Smokeless Tobacco Use:., 01/17/2024 Family History Brain tumor: Mother. Diabetes mellitus type 2: Father. Heart disease: Father and Sister. Hypertension: Sister. Immunizations Vaccine Date Status SARS-CoV-2 (COVID-19) mRNA-1273 vaccine 01/20/2021 Recorded SARS-CoV-2 (COVID-19) mRNA-1273 vaccine 11/24/2020 Recorded [facility] Comment on above: Result Comment: Elec tronically Signed By: CHELY JUAREZ, Bryce Rebolledo\Date and Time Signed: 01/19/24 08:48 EDT 10-19-2023 Evaluation note Encounter Date Diagnosis Assessment [...] continue present dose now for chronic problem. [employer] Other 11-28-2023 Evaluation note* Encounter Date Diagnosis Assessment Notes Treatment Notes Treatment Clinical Notes Aug, Abnormal computed tomography of soft tissue of neck (ICD-10 - R93.89) [employer] Other 11-17-2023 Evaluation note* Encounter Date Diagnosis Assessment Notes Treatment Notes Treatment Clinical Notes Aug, Neck pain on right side (ICD-10 - M54.2) [employer] Other 11-14-2023 Evaluation note* Encounter Date Diagnosis Assessment Notes Treatment Notes Treatment Clinical Notes Aug, Neck pain on right side (ICD-10 - M54.2) Pt agrees to CT to eval area in question, mainly due to history of neck cancer. Aug, Colon cancer screening (ICD-10 - Z12.11) pt requests cologuard rather than colonoscopy [employer] Other 01-06-2023 Evaluation note* Encounter Date Diagnosis Assessment Notes Treatment Notes Treatment Clinical Notes Oct, Essential (primary) hypertension (ICD-10 - [...] without current pathological fracture (ICD-10 - M81.0) [employer] Other Evaluation + Plan note No data available for this section General Surgery [employer] Evaluation noteNo [employer] Other History general Narrative - Reported* Type Description Date Medical History hypertension Medical History Hypothyroidism Medical History Personal history of malignant neoplasm of thyroid Medical History Left lateral knee pain Medical History Migraine, intractable Medical History Hypothyroidism (acquired) Medical History Essential hypertension Surgical History arthroscopic knee surgery left 09/08/22 Surgical History PARTIAL HYSTERECTOMY 1997 Surgical History THYROIDECTOMY 1996 Surgical History ROTATOR CUFF REPAIR LEFT 2000 Hospitalization History SEE SURGICAL HX [employer] Other Hospital Discharge instructions No data available for this section General Surgery [employer] Progress note No data available for this section General Surgery [facility] Summary Purpose Family History No Family History Records FoundNo Family History Records FoundNo Family History Records Found No data available for this section No Family History Records Found Advance Directives No Advanced Directives Records FoundNo Advanced Directives Records FoundNo Advanced Directives Records FoundNo Advanced Directives Records Found Reason for Referral Reason *FU 09/21 Aiden of fice, Last OV and CT recently. thanks Diagnosis 1 Abnormal computed to mography of soft tissue of neck (R93.89) Referral Organization [facility] Referring Provider First Name Suzan Referring Provider Last Name Wild Referring Provider Specialty Family [facility] Referred Organization [facility] Referred Provider Krystin Olguin Referred Address ,[place], [place],[address] Referred Provider Specialty Ear, Nose an d Throat Referral Priority Routine General Notes Martha Encinas 02:20:40 PM >received today, attachments made, notes locked, referral faxed Additional Source Comments INFORMATION SOURCE (unrecogn ized section and content) DATE CREATED AUTHOR 11/15/2021 [facility] DATE CREATED AUTHOR AUTHOR'S ORGANIZ ATION 11/02/2022 [facility] DATE CREATED AUTHOR AUTHOR'S ORGANIZ ATION 01/09/2024 [facility] EPIC DATE CREATED AUTHOR AUTHOR'S ORGANIZ ATION 02/09/2024 [facility] REASON FOR VISIT (unrecogniz ed section and content) BPBP Check [employer] [facility] RefillrefillRefillsneck painmessageabnormal neck CTWellnesslabs and mamm Patient Care team informatio n (unrecognized section and content) Personnel Name: SUZAN ROME MD Address: Address: [address] [place] [address] FOR RECORDS PERTAINING TO PATIENTS WHO ARE [...] BE BASED ON THE PRIMARY CLINICAL RECORDS. [employer] provides no warranty or guarantee of the accuracy or completeness of information in this document.
[2024-02-29] MEDS: LACTATED RINGER'S SOLUTION 1,000 ML 50 ML IV (09:05)
[2024-02-29 11:13] VITALS: BP 154/115; PULSE 72; TEMP 36.1; O2SAT 97
[2024-02-29 11:28] VITALS: BP 165/96; PULSE 66; O2SAT 97
[2024-02-29 11:43] VITALS: BP 168/67; PULSE 60; O2SAT 98
== END 2024-02-29 11:43 | disposition home or self-care (01) ==
PROVIDERS: PCP Family Medicine; Visit Provider Surgery
PROC: (CPT 812; principal; 2024-02-29 09:35)
DX: Z12.11 Encounter for screening for malignant neoplasm of colon (principal); I10 Essential (primary) hypertension; E03.9 Hypothyroidism, unspecified; Z90.710 Acquired absence of both cervix and uterus; Z85.850 Personal history of malignant neoplasm of thyroid; E66.9 Obesity, unspecified; Z68.31 Body mass index [BMI] 31.0-31.9, adult; Z79.899 Other long term (current) drug therapy
CPT/HCPCS: 00812; G0121; J2704

== ENCOUNTER 2024-04-09 22:32 | Emergency (ER) | payer OTHER, SELFPAY ==
--- OUTSIDE RECORDS SUMMARY | 2024-04-09 22:39 | XMS_ITS | CCD ---
Author Organization [facility] Care Team Providers Care Jewelry Department Supervisor Name Role Phone WILD, DR SUZAN Zabala Admitting Unavailable ROME, DR SUZAN Zabala Attending Unavailable ROME, DR SUZAN Zabala Primary Care Unavailable ROME, DR SUZAN Zabala Consulting Unavailable APLLIAT WILEY Admitting Unavailable APLINEZ, LIAT Britton Attending Unavailable WILD, DR SUZAN Zabala Primary Care Unavailable JEANEBCLARA, DR WADE Brody Consulting Unavailable APLING, LIAT Britton Consulting Unavailable ROME, DR SUZAN Zabala Admitting Unavailable ROME, DR SUZAN Zabala Attending Unavailable WILD, DR SUZAN Zabala Primary Care Unavailable WILD, DR SUZAN Zabala Consulting Unavailable Suzan Rome Unavailable SHER GARCIA Attending Unavailable KRYSTIN OLGUIN Attending Unavailable SUZAN ROME Referring Unavailable SUZAN ROME Primary Care Physician [phone] SUZAN ROME Referring Unavailable Bryce MO Attending Unavailable NILL, Bryce Brody Attending Unavailable Allergies Allergy Classification Reported Allergen(s) Allergy Type Date of Onset Reaction(s) Facility (1 source) No Known Medication Allergies; Translations: [No Known Medication Allergies] Propensity to adverse reactions (disorder) [facility] Medications Current Medications Medication Drug [...] Test Name Value Interpretation Reference Range Facility Outside Colonoscopyon 2023 Outside Colonoscopy [id number]# 1.00TIFF [facility] Insurance Correspondenceon 0 02-08-2024 Insurance Correspondence [id number] 3#1.00TIFF [facility] Consent for Procedure/Surger yon 01-18-2024 Consent for Procedure/Surgery [id number] #1.00TIFF [facility] Facesheeton 01-18-2024 Facesheet [id number]# 1.00TIFF [facility] Ambulatory Visit Summaryon 0 01-17-2024 Ambulatory Visit Summary ANDREA COLE :1950 Visit Date:01/17/2024 Ambulatory Visit Instructions Your Care Team Attending Physician - CHELY JUAREZ, Bryce Brody Primary Care Physician - SUZAN ROME MD [...] you for choosing us for your care. [facility] Physician Referralon 024 Physician Referral [id number] #1.00TIFF [facility] XR DEXA BONE DENSITYon 11-02 XR DEXA BONE DENSITY DEXA Bone Density Study CLINICAL: Evaluate bone mineral density. Postmenopausal COMPARISON: 09/30/2020 FINDINGS: The bone density study was assessed by dual-energy x-ray absorptiometry with the [employer] scanner. The test results are expressed in [...] PARK DAILEY Date: 2022-11-02 08:55 Normal [facility] CBC AUTO DIFFon 11-01-2022 BASO # 0.1 103/ul Normal 0.0-0.1 [facility] Comment on above: Performed By: #### C BC #### [facility] [address] [address] [address] Nata Castellon Basophils/100 WBC (Bld) 0.7 % Normal 0.2-2.0 [facility] Comment on above: Performed By: #### C BC #### [facility] [address] [place] [address] Dr. Nata Castellon EO # 0.1 103/ul Normal 0.0-0.7 [facility] Comment on above: Performed By: #### C BC #### [facility] [address] [place] [address] Dr. Nata Castellon Eosinophils/100 WBC (Bld) 1.8 % Normal 0.9-7.0 [facility] Comment on above: Performed By: #### C BC #### [facility] [address] [place] [address] Dr. Nata Castellon Erythrocyte distribution width (RBC) [Ratio] 13.4 % Normal 11.0-15.0 [facility] Comment on above: Performed By: #### C BC #### [facility] [address] [place] [address] Dr. Nata Castellon Hematocrit (Bld) [Volume fraction] 44.1 % Normal 36.0-48.0 [facility] Comment on above: Performed By: #### C BC #### [facility] [address] [place] [address] Dr. Nata Castellon Hemoglobin (Bld) [Mass/Vol] 14.8 g/dL Normal 12.0-16.0 [facility] Comment on above: Performed By: #### C BC #### [facility] [address] [place] [address] Dr. Nata Castellon IG # 0.02 10e3/ul Normal 0.00-0.03 [facility] Comment on above: Performed By: #### C BC #### [facility] [address] [place] [address] Dr. Nata Castellon IG % 0.3 % Normal 0.0-0.5 [facility] Comment on above: Performed By: #### C BC #### [facility] [address] [place] [address] Dr. Nata Castellon LYMPH # 1.6 103/ul Normal 1.2-3.8 [facility] Comment on above: Performed By: #### C BC #### [facility] [address] [place] [address] Dr. Nata Castellon Lymphocytes/100 WBC (Bld) 21.3 % Normal 20.5-60.0 [facility] Comment on above: Performed By: #### C BC #### [facility] [address] [place] [address] Dr. Nata Castellon MANUAL DIFF REQ NO Normal [facility] Comment on above: Performed By: #### C BC #### [facility] [address] [place] [address] Dr. Nata Castellon MCH (RBC) [Entitic mass] 28.5 pg Normal 26.7-34.0 [facility] Comment on above: Performed By: #### C BC #### [facility] [address] [place] [address] Dr. Nata Castellon MCHC (RBC) [Mass/Vol] 33.6 g/dL Normal 29.9-35.2 [facility] Comment on above: Performed By: #### C BC #### [facility] [address] [place] [address] Dr. Nata Castellon MCV (RBC) [Entitic vol] 84.8 fL Normal 81.0-99.0 [facility] Comment on above: Performed By: #### C BC #### [facility] [address] [place] [address] Dr. Nata Castellon MONO # 0.6 103/ul Normal 0.3-0.8 [facility] Comment on above: Performed By: #### C BC #### [facility] [address] [place] [address] Dr. Nata Castellon Monocytes/100 WBC (Bld) 7.5 % Normal 1.7-12.0 [facility] Comment on above: Performed By: #### C BC #### [facility] [address] [place] [address] Dr. Nata Castellon NEUT # 5.2 103/ul Normal 1.4-6.5 [facility] Comment on above: Performed By: #### C BC #### [facility] [address] [place] [address] Dr. Nata Castellon Neutrophils/100 WBC (Bld) 68.4 % Normal 43.0-75.0 [facility] Comment on above: Performed By: #### C BC #### [facility] [address] [place] [address] Dr. Nata Castellon Platelet mean volume (Bld) [Entitic vol] 10.4 fL Normal 9.5-13.5 [facility] Comment on above: Performed By: #### C BC #### [facility] [address] [place] [address] Dr. Nata Castellon PLT 256 103/ul Normal 150-450 [facility] Comment on above: Performed By: #### C BC #### [facility] [address] [place] [address] Dr. Nata Castellon RBC 5.20 106/ul Normal 4.20-5.40 [facility] Comment on above: Performed By: #### C BC #### [facility] [address] [place] [address] Dr. Nata Castellon WBC 7.6 103/ul Normal 4.0-11.0 [facility] Comment on above: Performed By: #### C BC #### [facility] [address] [place] [address] Dr. Nata Castellon FREE T4on 11-01-2022 Free T4 [Mass/Vol] 0.98 ng/dL Normal 0.76-1.46 [facility] Comment on above: Performed By: #### F T4 #### [facility] [address] [place] [address] Dr. Nata Castellon LIPID PROFILEon 11-01-2022 CHOL-HDL RATIO NORM SEE BELOW Normal [facility] Comment on above: Result Comment: 3.3 - 4.4 LOW RISK 4.4 - 7.1 AVERAGE RISK 7.1 - 11.0 MODERATE RISK >11.0 HIGH RISK Performed By: #### L IPID, TSH, CMP #### [facility] [address] [place] [address] Dr. Nata Castellon Cholesterol [Mass/Vol] 179 mg/dL Normal <=200 [facility] Comment on above: Performed By: #### L IPID, TSH, CMP #### [facility] [address] [address] [address] Nata Castellon Cholesterol in HDL [Mass/Vol] 57 mg/dL Normal 40-60 [facility] Comment on above: Performed By: #### L IPID, TSH, CMP #### [facility] [address] [address] [address] Nata Castellon Cholesterol in LDL [Mass/Vol] 98.8 mg/dL Normal [facility] Comment on above: Performed By: #### L IPID, TSH, CMP #### [facility] [address] [address] [address] Nata Castellon Cholesterol.total/Cho lesterol in HDL [Mass ratio] 3.1 {ratio} Normal [facility] Comment on above: Performed By: #### L IPID, TSH, CMP #### [facility] [address] [address] [address] Nata Castellon HDL NORMAL > or = 60 mg/dl - LOW CARDIOVASCULAR RISK <40 mg/dl - HIGH CARDIOVASCULAR RISK Normal [facility] Comment on above: Performed By: #### L IPID, TSH, CMP #### [facility] [address] [place] [address] Dr. Nata Castellon LDL CALC NORMAL SEE BELOW Normal [facility] Comment on above: Result Comment: <100 mg/dl OPTIMAL 100 - 129 mg/dl NEAR OR ABOVE OPTIMAL 130 - 159 mg/dl BORDERLINE HIGH 160 - 189 mg/dl HIGH >190 mg/dl VERY HIGH Performed By: #### L IPID, TSH, CMP #### [facility] [address] [address] [address] Nata Castellon Triglyceride [Mass/Vol] 116 mg/dL Normal <=150 [facility] Comment on above: Performed By: #### L IPID, TSH, CMP #### [facility] [address] [place] [address] Dr. Nata Castellon VLDL CALC 23.2 mg/dL Normal [facility] Comment on above: Performed By: #### L IPID, TSH, CMP #### [facility] [address] [address] [address] Nata Castellon MG MAMM SCREEN 3D SEEMA CADon 11-01-2022 MG MAMM SCREEN 3D SEEMA CAD Patient: ANDREA COLE Exam Date: 11/01/2022 : 1950 Gender:F Ordering : DR SUZAN ROME M.D. Admission #: [id number] Family : Order #: [id number] CLICK HERE TO VIEW EXAM RADIOLOGY REPORT [...] OF THYROID Family Cancers None LOCATION: [facility] BREAST COMPOSITION: Heterogeneously dense,which may obscure [...] Barrera MD on 11/02/2022 at 10:22 Normal [facility] PROF 14(COMP METB)on 023 Albumin [Mass/Vol] 3.7 g/dL Normal 3.4-5.0 [facility] Comment on above: Performed By: #### L IPID, TSH, CMP #### [facility] [address] [address] [address] Nata Castellon Albumin/Globulin [Mass ratio] 1.0 {ratio} Normal [facility] Comment on above: Performed By: #### L IPID, TSH, CMP #### [facility] [address] [place], [place] [address] Dr. Nata Castellon ALP [Catalytic activity/Vol] 80 U/L Normal 46-116 [facility] Comment on above: Performed By: #### L IPID, TSH, CMP #### [facility] [address] [place] [address] Dr. Nata Castellon ALT [Catalytic activity/Vol] 26 U/L Normal 14-59 [facility] Comment on above: Performed By: #### L IPID, TSH, CMP #### [facility] [address] [place] [address] Dr. Nata Castellon Anion gap [Moles/Vol] 13.0 mmol/L Normal [facility] Comment on above: Performed By: #### L IPID, TSH, CMP #### [facility] [address] [place] [address] Dr. Nata Castellon AST [Catalytic activity/Vol] 25 U/L Normal 15-37 [facility] Comment on above: Performed By: #### L IPID, TSH, CMP #### [facility] [address] [place] [address] Dr. Nata Castellon Bilirubin [Mass/Vol] 0.5 mg/dL Normal 0.2-1.0 [facility] Comment on above: Performed By: #### L IPID, TSH, CMP #### [facility] [address] [place] [address] Dr. Nata Castellon Calcium [Mass/Vol] 8.8 mg/dL Normal 8.5-10.1 [facility] Comment on above: Performed By: #### L IPID, TSH, CMP #### [facility] [address] [place] [address] Dr. Nata Castellon Chloride [Moles/Vol] 104 mmol/L Normal 98-107 [facility] Comment on above: Performed By: #### L IPID, TSH, CMP #### [facility] [address] [place] [address] Dr. Nata Castellon CO2 [Moles/Vol] 26.3 mmol/L Normal 21.0-32.[address] [facility] Comment on above: Performed By: #### L IPID, TSH, CMP #### [facility] [address] [place], [place] [id number] Dr. Nata Castellon Creatinine [Mass/Vol] 0.74 mg/dL Normal 0.55-1.02 [facility] Comment on above: Performed By: #### L IPID, TSH, CMP #### [facility] [address] [address] [address] Nata Castellon EGFR-AF SYRIAN >60 Normal >=[address] [facility] Comment on above: Performed By: #### L IPID, TSH, CMP #### [facility] [address] [address] [address] Nata Castellon EGFR-NON AF SYRIAN >60 Normal >=60 [facility] Comment on above: Performed By: #### L IPID, TSH, CMP #### [facility] [address] [place] [address] Dr. Nata Castellon Globulin (S) [Mass/Vol] 3.6 g/dL Normal [facility] Comment on above: Performed By: #### L IPID, TSH, CMP #### [facility] [address] [place] [address] Dr. Nata Castellon Glucose [Mass/Vol] 122 mg/dL Critically high 74-106 [facility] Comment on above: Performed By: #### L IPID, TSH, CMP #### [facility] [address] [place] [address] Dr. Nata Castellon Potassium [Moles/Vol] 4.3 mmol/L Normal 3.5-5.1 [facility] Comment on above: Performed By: #### L IPID, TSH, CMP #### [facility] [address] [address] [address] Nata Castellon Protein [Mass/Vol] 7.3 g/dL Normal 6.4-8.2 [facility] Comment on above: Performed By: #### L IPID, TSH, CMP #### [facility] [address] [address] [address] Nata Castellon Sodium [Moles/Vol] 139 mmol/L Normal 136-145 [facility] Comment on above: Performed By: #### L IPID, TSH, CMP #### [facility] [address] [place] [address] Dr. Nata Castellon Urea nitrogen [Mass/Vol] 21.0 mg/dL Critically high 7.0-18.0 [facility] Comment on above: Performed By: #### L IPID, TSH, CMP #### [facility] [address] [place] [address] Dr. Nata Castellon Urea nitrogen/Creatinine [Mass ratio] 28.4 mg/mg Normal [facility] Comment on above: Performed By: #### L IPID, TSH, CMP #### [facility] [address] [place] [address] Dr. Nata Castellon TSHon 11-01-2022 TSH 3.427 uIU/mL Normal 0.358-3.740 [facility] Comment on above: Performed By: #### L IPID, TSH, CMP #### [facility] [address] [place] [address] Dr. Nata Castellon CBC AUTO DIFFon 08-12-2022 BASO # 0.0 103/ul Normal 0.0-0.1 [facility] Comment on above: Performed By: #### C BC #### [facility] [address] [place] [address] Dr. Nata Castellon Basophils/100 WBC (Bld) 0.5 % Normal 0.2-2.0 [facility] Comment on above: Performed By: #### C BC #### [facility] [address] [place] [address] Dr. Nata Castellon EO # 0.1 103/ul Normal 0.0-0.7 [facility] Comment on above: Performed By: #### C BC #### [facility] [address] [place] [address] Dr. Nata Castellon Eosinophils/100 WBC (Bld) 1.7 % Normal 0.9-7.0 [facility] Comment on above: Performed By: #### C BC #### [facility] [address] [place] [address] Dr. Nata Castellon Erythrocyte distribution width (RBC) [Ratio] 13.8 % Normal 11.0-15.0 [facility] Comment on above: Performed By: #### C BC #### [facility] [address] [place] [address] Dr. Nata Castellon Hematocrit (Bld) [Volume fraction] 44.1 % Normal 36.0-48.0 [facility] Comment on above: Performed By: #### C BC #### [facility] [address] [place] [address] Dr. Nata Castellon Hemoglobin (Bld) [Mass/Vol] 14.7 g/dL Normal 12.0-16.0 [facility] Comment on above: Performed By: #### C BC #### [facility] [address] [place] [address] Dr. Ntaa Castellon IG # 0.01 10e3/ul Normal 0.00-0.03 [facility] Comment on above: Performed By: #### C BC #### [facility] [address] [place] [address] Dr. Nata Castellon IG % 0.1 % Normal 0.0-0.5 [facility] Comment on above: Performed By: #### C BC #### [facility] [address] [place] [address] Dr. Nata Castellon LYMPH # 2.1 103/ul Normal 1.2-3.8 [facility] Comment on above: Performed By: #### C BC #### [facility] [address] [place] [address] Dr. Nata Castellon Lymphocytes/100 WBC (Bld) 26.7 % Normal 20.5-60.0 [facility] Comment on above: Performed By: #### C BC #### [facility] [address] [place] [address] Dr. Nata Castellon MANUAL DIFF REQ NO Normal [facility] Comment on above: Performed By: #### C BC #### [facility] [address] [place] [address] Dr. Nata Castellon MCH (RBC) [Entitic mass] 28.5 pg Normal 26.7-34.0 [facility] Comment on above: Performed By: #### C BC #### [facility] [address] [address] [address] Nata Castellon MCHC (RBC) [Mass/Vol] 33.3 g/dL Normal 29.9-35.2 [facility] Comment on above: Performed By: #### C BC #### [facility] [address] [address] [address] Nata Castellon MCV (RBC) [Entitic vol] 85.5 fL Normal 81.0-99.0 [facility] Comment on above: Performed By: #### C BC #### [facility] [address] [address] [address] Nata Castellon MONO # 0.6 103/ul Normal 0.3-0.8 [facility] Comment on above: Performed By: #### C BC #### [facility] [address] [place] [address] Dr. Nata Castellon Monocytes/100 WBC (Bld) 7.8 % Normal 1.7-12.0 [facility] Comment on above: Performed By: #### C BC #### [facility] [address] [place] [address] Dr. Nata Castellon NEUT # 5.0 103/ul Normal 1.4-6.5 [facility] Comment on above: Performed By: #### C BC #### [facility] [address] [place] [address] Dr. Nata Castellon Neutrophils/100 WBC (Bld) 63.2 % Normal 43.0-75.0 [facility] Comment on above: Performed By: #### C BC #### [facility] [address] [place] [address] Dr. Nata Castellon Platelet mean volume (Bld) [Entitic vol] 10.7 fL Normal 9.5-13.5 [facility] Comment on above: Performed By: #### C BC #### [facility] [address] [place] [address] Dr. Nata Castellon PLT 254 103/ul Normal 150-450 [facility] Comment on above: Performed By: #### C BC #### [facility] [address] [address] [address] Nata Castellon RBC 5.16 106/ul Normal 4.20-5.40 [facility] Comment on above: Performed By: #### C BC #### [facility] [address] [address] [address] Nata Castellon WBC 7.9 103/ul Normal 4.0-11.0 [facility] Comment on above: Performed By: #### C BC #### [facility] [address] [address] [address] Nata Castellon FREE T4on 08-12-2022 Free T4 [Mass/Vol] 1.15 ng/dL Normal 0.76-1.46 [facility] Comment on above: Performed By: #### F T4 #### [facility] [address] [place] [address] Dr. Nata Castellon PROF CHEM 8 (BAS METB)on Anion gap [Moles/Vol] 9.0 mmol/L Normal [facility] Comment on above: Performed By: #### T SH, BMP ####[facility] [address] [place], [place] [address]DrMadison Castellon Calcium [Mass/Vol] 8.6 mg/dL Normal 8.5-10.1 [facility] Comment on above: Performed By: #### T SH, BMP ####[facility] [address] [address]DrMadison Castellon Chloride [Moles/Vol] 104 mmol/L Normal 98-107 [facility] Comment on above: Performed By: #### T SH, BMP ####[facility] [address] [address]DrMadison Castellon CO2 [Moles/Vol] 29.2 mmol/L Normal 21.0-32.0 [facility] Comment on above: Performed By: #### T SH, BMP ####[facility] [address] [address]DrMadison Castellon Creatinine [Mass/Vol] 0.66 mg/dL Normal 0.55-1.02 [facility] Comment on above: Performed By: #### T SH, BMP ####[facility] [address] [place] [id number]. Nata Castellon EGFR-AF SYRIAN >60 Normal >=[address] [facility] Comment on above: Performed By: #### T SH, BMP ####[facility] [address] [id number]. Nata Castellon EGFR-NON AF SYRIAN >60 Normal >=60 [facility] Comment on above: Performed By: #### T SH, BMP ####[facility] [address] [id number][address] Nata Castellon Glucose [Mass/Vol] 108 mg/dL Critically high 74-106 [facility] Comment on above: Performed By: #### T SH, BMP ####[facility] [address] [address]Dr. Nata Castellon Potassium [Moles/Vol] 4.2 mmol/L Normal 3.5-5.1 [facility] Comment on above: Performed By: #### T SH, BMP ####[facility] [address] [place] [address]Dr. Nata Castellon Sodium [Moles/Vol] 138 mmol/L Normal 136-145 [facility] Comment on above: Performed By: #### T SH, BMP ####[facility] [address] [id number][address] Nata Castellon Urea nitrogen [Mass/Vol] 22.0 mg/dL Critically high 7.0-18.0 [facility] Comment on above: Performed By: #### T SH, BMP ####[facility] [address] [place] [address]Dr. Nata Castellon Urea nitrogen/Creatinine [Mass ratio] 33.3 mg/mg Normal [facility] Comment on above: Performed By: #### T SH, BMP ####[facility] [address] [id number]. Nata Castellon TSHon 08-12-2022 TSH 0.986 uIU/mL Normal 0.358-3.740 [facility] Comment on above: Performed By: #### T , [facility] ####[facility] [address] [place], [place] [address]GaMadison Castellon MRI KNEE LT WO CONon 022 [...] by: WADE PAK Date: 2021-11-25 06:43 Normal [facility] CT cervical spine wo conon 1 CT cervical spine wo con [facility] [address] [place] [id number] CT Scan Report Signed Patient: Andrea Cole MR#: [id number] : 1950 Acct:[id number] Age/Sex: 71 / F ADM Date: 08/05/21 Loc: ER Room: Type: DEP ER Attending Dr: Ordering Provider: Cricket Russell [...] Nico Trujillo M.D.08/06/2021 9:03 AM Dictation Location: [place] [address] Transcribed By: [facility] 08/06/21902 Dictated By: Nico Trujillo DO 08/06/21901 Signed By: 08/06/21902 [facility] CT head/brain wo conon 08-06 CT head/brain wo con [facility] [place] [address] CT Scan Report Signed Patient: Andrea Cole MR#: [id number] : 1950 Acct:[id number] Age/Sex: 71 / F ADM Date: 08/05/21 Loc: ER Room: Type: [facility] ER Attending Dr: Ordering Provider: Cricket [...] Nico Trujillo M.D.08/06/2021 9:02 AM Dictation Location: [facility] CENTER--11 Transcribed By: [facility] 08/06/21901 Dictated By: Nico Trujillo DO 08/06/2159 Signed By: 08/06/[address] [facility] Complete Blood Count Auto Di ffon 08-05-2021 Basophils (Bld) [#/Vol] 0.0 10*3/uL Normal 0.0-0.2 [facility] Comment on above: Result Comment: PERF ORMED BY: [place] [address] PATHOLOGIST FONDANT COOKER APURVA LEVY M.D. Performed By: #### P T, CBC, PTT, CMP #### [address] Basophils/100 WBC (Bld) 0.3 % Normal . [facility] Comment on above: Performed By: #### P T, CBC, PTT, CMP #### [facility] [address] [place] [address] [place] Eosinophils (Bld) [#/Vol] 0.0 10*3/uL Normal 0.0-0.45 [facility] Comment on above: Performed By: #### P T, CBC, PTT, CMP #### [place] [address] [place] Eosinophils/100 WBC (Bld) 0.2 % Normal . [facility] Comment on above: Performed By: #### P T, CBC, PTT, CMP #### [address] Erythrocyte distribution width (RBC) [Ratio] 13.7 % Normal 11.9-15.3 [facility] Comment on above: Performed By: #### P T, CBC, PTT, CMP #### [address] Hematocrit (Bld) [Volume fraction] 50.1 % High 34.0-46.4 [facility] Comment on above: Performed By: #### P T, CBC, PTT, CMP #### [address] Hemoglobin (Bld) [Mass/Vol] 16.5 g/dL High 11.8-15.4 [facility] Comment on above: Performed By: #### P T, CBC, PTT, CMP #### [address] Lymphocytes (Bld) [#/Vol] 1.4 10*3/uL Normal 1.00-4.8 [facility] Comment on above: Performed By: #### P T, CBC, PTT, CMP #### [address] Lymphocytes/100 WBC (Bld) 11.6 % Normal . [facility] Comment on above: Performed By: #### P T, CBC, PTT, CMP #### [address] MCH (RBC) [Entitic mass] 28.8 pg Normal 24.7-34.3 [facility] Comment on above: Performed By: #### P T, CBC, PTT, CMP #### [address] MCV (RBC) [Entitic vol] 87.1 fL Normal 80-100 [facility] Comment on above: Performed By: #### P T, CBC, PTT, CMP #### [address] Mean Corpuscular HGB Conc 33.0 g/dL Normal 32.0-35.0 [facility] Comment on above: Performed By: #### P T, CBC, PTT, CMP #### [facility] [address] Monocytes (Bld) [#/Vol] 0.5 10*3/uL Normal 0.0-0.8 [facility] Comment on above: Performed By: #### P T, CBC, PTT, CMP #### [address] Monocytes/100 WBC (Bld) 4.1 % Normal . [facility] Comment on above: Performed By: #### P T, CBC, PTT, CMP #### [address] Neutrophils (Bld) [#/Vol] 10.1 10*3/uL High 1.8-7.7 [facility] Comment on above: Performed By: #### P T, CBC, PTT, CMP #### [address] Neutrophils/100 WBC (Bld) 83.8 % Normal . [facility] Comment on above: Performed By: #### P T, CBC, PTT, CMP #### [facility] [address] [place] [address] Nucleated RBC/100 WBC (Bld) [Ratio] 0.2 % Normal 0-0.5 [facility] Comment on above: Performed By: #### P T, CBC, PTT, CMP #### [facility] [address] [place] [address] Platelet mean volume (Bld) [Entitic vol] 9.6 fL Normal 6.3-10.7 [facility] Comment on above: Performed By: #### P T, CBC, PTT, CMP #### [facility] [address] [place] [address] Platelets (Bld) [#/Vol] 253 10*3/uL Normal 150-450 [facility] Comment on above: Performed By: #### P T, CBC, PTT, CMP #### [facility] [address] [place] [address] [place] RBC (Bld) [#/Vol] 5.75 10*6/uL High 3.60-5.00 [facility] Comment on above: Performed By: #### P T, CBC, PTT, CMP #### [facility] [address] [place] [address] WBC (Bld) [#/Vol] 12.1 10*3/uL High 4.5-11.0 [facility] Comment on above: Performed By: #### P T, CBC, PTT, CMP #### [address] Comprehensive Metabolic Pane yumi 08-05-2021 Albumin [Mass/Vol] 4.2 g/dL Normal 3.2-5.5 [facility] Comment on above: Performed By: #### P T, CBC, PTT, CMP #### [facility] [address] [place] [address] Albumin/Globulin [Mass ratio] 1.1 {ratio} Normal [facility] Comment on above: Performed By: #### P T, CBC, PTT, CMP #### [facility] [address] [place] [address] ALP [Catalytic activity/Vol] 60 U/L Normal 32-92 [facility] Comment on above: Performed By: #### P T, CBC, PTT, CMP #### [address] ALT [Catalytic activity/Vol] 29 U/L Normal 10-60 [facility] Comment on above: Performed By: #### P T, CBC, PTT, CMP #### [facility] [address] [place] [address] AST [Catalytic activity/Vol] 32 U/L Normal 10-42 [facility] Comment on above: Performed By: #### P T, CBC, PTT, CMP #### [facility] [address] [place] [address] Bilirubin [Mass/Vol] 0.7 mg/dL Normal 0.3-1.2 [facility] Comment on above: Performed By: #### P T, CBC, PTT, CMP #### [facility] [address] Calcium [Mass/Vol] 9.4 mg/dL Normal 8.2-10.2 [facility] Comment on above: Performed By: #### P T, CBC, PTT, CMP #### [facility] [address] Chloride [Moles/Vol] 102 mmol/L Normal 95-114 [facility] Comment on above: Performed By: #### P T, CBC, PTT, CMP #### [facility] [address] CO2 [Moles/Vol] 24.2 mmol/L Normal 22.0-30.0 [facility] Comment on above: Performed By: #### P T, CBC, PTT, CMP #### [address] Creatinine [Mass/Vol] 0.80 mg/dL Normal 0.44-1.03 [facility] Comment on above: Performed By: #### P T, CBC, PTT, CMP #### [place] [address] [place] Creatinine Clr Calc Pharmacy 61.17 [facility] Comment on above: Result Comment: PERF ORMED BY: [place] [address] PATHOLOGIST FONDANT COOKER APURVA LEVY M.D. Performed By: #### P T, CBC, PTT, CMP #### [address] Estimated GFR ( Jessica > 60 [facility] Comment on above: Result Comment: GFR estimated reference range: According to KDOQI guidelines, <60 ml/min/1.73m2 is sufficient to diagnose a patient with chronic kidney disease. Performed By: #### P T, CBC, PTT, CMP #### [facility] [address] [place] [address] Estimated GFR (Non- Am > 60 [facility] Comment on above: Performed By: #### P T, CBC, PTT, CMP #### [facility] [address] [place] [address] [place] Globulin (S) [Mass/Vol] 3.8 g/dL Normal [facility] Comment on above: Performed By: #### P T, CBC, PTT, CMP #### [facility] [address] Glucose [Mass/Vol] 110 mg/dL High 70-100 [facility] Comment on above: Result Comment: [place] Glucose Reference Range is dependent on time and content of last meal. Glucose of more than 200 mg/dL in a nonstressed, ambulatory subject supports the diagnosis of Diabetes Mellitus. ADA recommended reference range Performed By: #### P T, CBC, PTT, CMP #### [facility] [address] Potassium [Moles/Vol] 4.7 mmol/L Normal 3.5-5.1 [facility] Comment on above: Performed By: #### P T, CBC, PTT, CMP #### [facility] [address] [place] [address] [place] Protein [Mass/Vol] 8.0 g/dL High 6.1-7.9 [facility] Comment on above: Performed By: #### P T, CBC, PTT, CMP #### [facility] [address] Sodium [Moles/Vol] 139 mmol/L Normal 136-146 [facility] Comment on above: Performed By: #### P T, CBC, PTT, CMP #### [facility] [address] [place] [address] [place] Urea nitrogen [Mass/Vol] 19 mg/dL Normal 9-23 [facility] Comment on above: Performed By: #### P T, CBC, PTT, CMP #### [facility] [address] [place] [address] [place] Partial Thromboplastin Timeo n 08-05-2021 aPTT Coag (Bld) [Time] 28.9 s Normal 25.1-36.5 [facility] Comment on above: Result Comment: PERF ORMED BY: [place] [address] PATHOLOGIST FONDANT COOKER APURVA LEVY M.D. Performed By: #### P T, CBC, PTT, CMP #### [facility] [address] [place] [address] Prothrombin Time INRon 08-05 INR Coag (PPP) [...] #### P T, CBC, PTT, CMP #### [facility] [address] [place] [address] PT Coag (PPP) [Time] 12.5 s Normal 9.0-12.9 [facility] Comment on above: Performed By: #### P T, CBC, PTT, CMP #### [facility] [address] [place] [address] Vital Signs Date Time Vital Sign Value Performing Clinician Facility 01-17-2024 14:22-0400 Blood Pressure Location Bryce YAL [facility] [place] 01-17-2024 14:22-0400 Diastolic blood pressure 84 mm[Hg] Bryce PANDYAL [facility] [place] 01-17-2024 14:22-0400 Heart rate 76 /min Bryce StumpediaL [facility] [place] 01-17-2024 14:22-0400 Respiratory rate 16 /min Bryce PANDYAL [facility] [place] 01-17-2024 14:22-0400 Systolic blood pressure 126 mm[Hg] Bryce PANDYAL [facility] [place] 10-19-2023 09:30-0500 Body height 157.48 cm Suzan Rome Other [facility] Other 10-19-2023 09:30-0500 Body mass index (BMI) [Ratio] 31.49 kg/m2 Suzan Rome Other [facility] Other 10-19-2023 09:30-0500 Body weight 78.11 kg Suzan Rome Other [facility] Other 10-19-2023 09:30-0500 Diastolic blood pressure 80 mm[Hg] Suzan Rome Other [facility] Other 10-19-2023 09:30-0500 Systolic blood pressure 130 mm[Hg] Suzan Rome Other [facility] Other 08-30-2023 10:00-0500 Body height 157.48 cm Suzan Rome Other [facility] Other 08-30-2023 10:00-0500 Body mass index (BMI) [Ratio] 31.82 kg/m2 Suzan Rome Other [facility] Other 08-30-2023 10:00-0500 Body weight 78.93 kg Suzan Rome Other [facility] Other 08-30-2023 10:00-0500 Diastolic blood pressure 78 mm[Hg] Suzan Rome Other [facility] Other 08-30-2023 10:00-0500 Systolic blood pressure 144 mm[Hg] Suzan Rome Other [facility] Other 10-22-2022 10:00-0500 Body height 157.48 cm Suzan Rome Other [facility] Other 10-22-2022 10:00-0500 Body mass index (BMI) [Ratio] 31.27 kg/m2 Suzan Rome Other [facility] Other 10-22-2022 10:00-0500 Body weight 77.57 kg Suzan Rome Other [facility] Other 10-22-2022 10:00-0500 Diastolic blood pressure 82 mm[Hg] Suzan Rome Other [facility] Other 10-22-2022 10:00-0500 SaO2% (BldA) [Mass fraction] 98 % Suzan Rome Other [facility] Other 10-22-2022 10:00-0500 Systolic blood pressure 140 mm[Hg] Suzan Rome Other [facility] Other Encounters Encounter Date Encounter Type Care Provider Facility Start: 02-29-2024 End: 03-01-2024 ambulatory Bryce MO Facility:CD:[id number] Start: 01-17-2024 End: 01-18-2024 ambulatory SUZAN ROME Facility:[facility] Start: 01-17-2024 End: 01-17-2024 Patient encounter procedure Bryce MO [facility] Start: 01-09-2024 End: 01-09-2024 ambulatory SHER GRACIA Not Available Start: 12-16-2023 ambulatory SUZAN ROME Facility:[facility] Start: 11-03-2023 End: 11-03-2023 ambulatory Suzan Rome Other [facility] Other Start: 11-03-2023 [address]phone [address] Rome [facility] Start: 10-19-2023 End: 10-19-2023 ambulatory Suzan Rome Other [facility] Other Start: 10-19-2023 Patient encounter procedure Suzan Rome [facility] Start: 09-19-2023 End: 09-19-2023 ambulatory KRYSTIN OLGUIN Not Available Start: 09-13-2023 End: 09-13-2023 ambulatory Suzan Rome Other [facility] Other Start: 09-13-2023 [address] Rome [facility] Start: 09-02-2023 End: 09-02-2023 ambulatory Suzan Rome Other [facility] Other Start: 09-02-2023 Telephone [address]an Rome [facility] Start: 08-30-2023 End: 08-30-2023 ambulatory Suzan Rome Other [facility] Other Start: 08-30-2023 Office outpatient vi sit [address] [facility] Start: 03-16-2023 End: 03-16-2023 ambulatory Suzan Rome Other [facility] Other Start: 03-16-2023 Tele[address]an Rome [facility] Start: 03-15-2023 End: 03-15-2023 ambulatory Suzan Rome Other [facility] Other Start: 03-15-2023 Telephone [address]an Rome [facility] Start: 11-11-2022 End: 11-11-2022 ambulatory Suzan Rome Other [facility] Other Start: 11-11-2022 Telephone [address]an Rome [facility] Start: 11-10-2022 End: 11-10-2022 ambulatory Suzan Rome Other [facility] Other Start: 11-10-2022 Telephone encounter [address]an Rome [facility] Start: 11-02-2022 End: 11-02-2022 ambulatory Suzan Rome Other [facility] Other Start: 11-02-2022 Telephone encounter Suzan Rome [facility] Start: 11-01-2022 End: 11-02-[address] SUZAN ROME Facility:[facility] Start: 10-22-2022 End: 10-22-2022 ambulatory Suzan Rome Other [facility] Other Start: 10-22-2022 Office outpatient vi sit [address] [facility] Start: 10-20-2022 End: 10-20-2022 ambulatory Suzan Rome Other [facility] Other Start: 10-20-2022 Telephone encounter Suzan Rome [facility] Start: 08-15-2022 Encounter for preprocedural cardiovascular examination DR SUZAN ROME [facility] Start: 08-15-2022 Encounter for preprocedural laboratory examination DR SUZAN ROME [facility] Start: 08-12-2022 End: 08-13-[address] SUZAN ROME Facility:[facility] Start: 08-12-2022 End: 08-13-2022 Encounter for preprocedural cardiovascular examination DR SUZAN ROME Facility:[facility] Start: 11-24-2021 End: 11-25-2021 ambulatory LIAT PALM Facility: Procedures Date Procedure Procedure Detail Performing Clinician Start: 10-17-2003 Colonoscopy Bryce NI LL Arthroscopy of knee Bryce NILL Cystopexy Bryce NILL Laryngoscopy Bryce NILL Repair of musculoten dinous cuff of shoulder Bryce NILL Thyroidectomy Bryce NILL Vaginal hysterectomy Bryce NILL Immunizations Immunization Date Immunization Notes Care Provider Fa cility 01-20-2021 SARS-CoV-2 (COVID-19 ) mRNA-1273 vaccine Bryce [facility] [place] 11-24-2020 SARS-CoV-2 (COVID-19 ) mRNA-1273 vaccine Bryce [facility] [place] 09-19-2017 pneumococcal polysaccharide vaccine, 23 valjulius Rome Other [facility] Other 09-03-2016 pneumococcal conjuga te vaccine, 13 valent Suzan Rome Other [facility] Other Payers Date Payer Category Payer Unknown [id number] 1960 Medicare [id number] 1960 Unknown [id number] 1950 Unknown [id number] 2.16.84 [id number] 1950 Unknown [id number] 2.16.84 [id number] 1949 Unknown [id number] 2.16.84 [id number] 1949 Unknown [id number] 2.16.84 [id number] 1949 Unknown [id number] 1949 Unknown [id number] 2.16.8 [id number] 1950 Unknown [id number] 2.16.8 [id number] Social History Date Type Detail Facility Unknown if ever smoked [facility] Other Sex Assigned At [facility] Start: 01-17-2024 Tobacco smoking status Never s moked tobacco (finding) General Surgery [facility] Tobacco smoking status Never Gener al Surgery [place] Functional Status Date Assessment Result Facility 01-17-2024 Functional Status N/A General Due[facility] yobani Murphy Clinical Notes 10-22-2022 to 01-19-2024 Note Date [...] Recorded SARS-CoV-2 (COVID-19) mRNA-1273 vaccine 11/24/2020 Recorded [facility] Comment on above: Result Comment: Elec [...] continue present dose now for chronic problem. [facility] Other 11-28-2023 Evaluation note* Encounter Date Diagnosis Assessment Notes Treatment Notes Treatment Clinical Notes Aug, Abnormal computed tomography of soft tissue of neck (ICD-10 - R93.89) [facility] Other 11-17-2023 Evaluation note* Encounter Date Diagnosis Assessment Notes Treatment Notes Treatment Clinical Notes Aug, Neck pain on right side (ICD-10 - M54.2) [facility] Other 11-14-2023 Evaluation note* Encounter Date Diagnosis Assessment Notes Treatment Notes Treatment Clinical Notes Aug, Neck pain on right side (ICD-10 - M54.2) Pt agrees to CT to eval area in question, mainly due to history of neck cancer. Aug, Colon cancer screening (ICD-10 - Z12.11) pt requests cologuard rather than colonoscopy [facility] Other 01-06-2023 Evaluation note* Encounter Date Diagnosis [...] without current pathological fracture (ICD-10 - M81.0) [facility] Other Evaluation + Plan note No data available for this section General Surgery Reasult Evaluation noteNo InformationNort [employer] Other History general Narrative - Reported* Type [...] LEFT 2000 Hospitalization History SEE SURGICAL HX [facility] Other Hospital Discharge instructions No data available for this section General Surgery Reasult Progress note No data available for this section General Surgery Reasult Summary Purpose Family History No Family History Records FoundNo Family History Records FoundNo Family History Records Found No data available for this section No Family History Records Found Advance Directives No Advanced Directives Records FoundNo Advanced Directives Records FoundNo Advanced Directives Records FoundNo Advanced Directives Records Found Reason for Referral Reason *FU 12/06 Aiden of fice, Last OV and CT recently. thanks Diagnosis 1 Abnormal computed to mography of soft tissue of neck (R93.89) Referral [facility] Referring Provider First Name Suzan Referring Provider Last Name Wild Referring Provider Specialty [facility] Referred Organization [facility] Referred Provider Hussein Olguinary Referred Address ,[place], [place],[address] Referred Provider Specialty Ear, Nose an d Throat Referral Priority Routine General Notes GudeliaMartha caraballo 02:20:40 PM >received today, attachments made, notes locked, referral faxed Additional Source Comments INFORMATION SOURCE (unrecogn ized section and content) DATE CREATED AUTHOR 11/15/2021 [facility] DATE CREATED AUTHOR AUTHOR'S ORGANIZ ATION 11/02/2022 [facility] DATE CREATED AUTHOR AUTHOR'S ORGANIZ ATION 01/09/2024 [facility] EPIC DATE CREATED AUTHOR AUTHOR'S ORGANIZ ATION 03/03/2024 [facility] REASON FOR VISIT (unrecogniz ed section and content) BPBP Check [employer] resultlabs RefillrefillRefillsneck painmessageabnormal neck CTWellnesslabs and mamm Patient Care team informatio n (unrecognized section and content) Personnel Name: SUZAN ROME MD Address: Address: [address] [place] [id number]DS PERTAINING TO PATIENTS WHO ARE [...] BE BASED ON THE PRIMARY CLINICAL RECORDS. [employer] provides no warranty or guarantee of the accuracy or completeness of information in this document.
== END 2024-04-09 22:38 | disposition left against medical advice (07) ==
LOC: ER 22:36
PROVIDERS: Emergency Provider Emergency Medicine; PCP Family Medicine
DX: Z53.21 Procedure and treatment not carried out due to patient leaving prior to being seen by health care provider (principal)

== ENCOUNTER 2024-12-02 11:52 | Emergency (ER) | payer OTHER, SELFPAY ==
[2024-12-02 12:12] VITALS: BP 183/65; PULSE 62; TEMP 36.6; O2SAT 100; BMI 30.1
--- OUTSIDE RECORDS SUMMARY | 2024-12-02 12:14 | XMS_ITS | CCD ---
Author Organization [facility] Care Team Providers Care Mlt Name Role Phone DR SUZAN ROME Admitting Unavailable WILD, DR SUZAN Zabala Attending Unavailable WILD, DR SUZAN Zabala Primary Care Unavailable WILD, DR SUZAN Zabala Consulting Unavailable APLLIAT WILEY Admitting Unavailable LIAT PALM Attending Unavailable WILD, DR SUZAN Zabala Primary Care Unavailable PASHA, DR WADE Brody Consulting Unavailable APLINGLIAT Consulting Unavailable WILD, DR SUZAN Zabala Admitting Unavailable WILD, DR SUZAN Zabala Attending Unavailable WILD, DR SUZAN Zabala Primary Care Unavailable WILD, DR SUZAN Zabala Consulting Unavailable Suzan Rome Unavailable SHER GARCIA Attending Unavailable KRYSTIN OLGUIN Attending Unavailable SUZAN ROME Referring Unavailable SUZAN ROME Primary Care Physician [phone] SUZAN ROME Referring Unavailable Bryce MO Attending Unavailable Bryce MO Attending Unavailable MD Suzan Rome Primary Care Provider DO Cisco Allen Emergency Provider Suzan Rome MD Primary Care Provider Cricket Russell DO Emergency Provider Suzan Rome Primary Care Unavailable Cisco Allen Admitting Unavailable Cisco Allen Attending Unavailable Cricket Russell Attending Unavailable Suzan Rome Primary Care Unavailable Cricket Russell Admitting Unavailable Allergies Allergy Classification Reported Allergen(s) Allergy Type Date of Onset Reaction(s) Facility (1 source) No Known Medication Allergies; Translations: [No Known Medication Allergies] Propensity to adverse reactions (disorder) [facility] Repository Medications Current Medications Medication Drug Class(es) Dates Sig (Normalized) Sig (Original) atenolol 50 mg oral tablet (19 sources) beta-Adrenergic Maryan Start: 03-02-2024 take 1 tablet by mouth once daily Atenolol 50 mg tablet Active 0 .ROUTE .COMPLEX 90 March 02, 2024 8:52am TAKE 1 TABLET BY MOUTH EVERY DAY FOR 90 DAYS Start: 03-21-2019 End: 03-02-2024 take 1 tablet by mouth once daily Atenolol 50 mg Tablet Discontinued 50 MG PO Daily March 20, 2019 11:00pm March 02, 2024 8:53am Calcium Magnesium (5 sources) Calcium Magnesiu m Active Essential Balance - (5 sources) Essential Balanc e - as directed Orally Active Essential Balance oral tablet (1 source) Start: 12-19-2023 take 1 tablet by mouth once daily Essential Balance oral tablet 1 tab(s), Oral, Daily, Refill(s) 0 Start Date: 12/19/23 Status: Ordered levothyroxine sodium 0.075 mg oral tablet (17 sources) l-Thyroxine Start: 10-11-2024 take 1 tablet by mouth once daily in the morning Levothyroxine 75 mcg tablet Active 0 .ROUTE .COMPLEX October 11, 2024 8:33am TAKE 1 TABLET BY MOUTH EVERY DAY IN THE MORNING ON EMPTY STOMACH FOR 90 DAYS Start: 12-19-2023 take 1 tablet by nasim th once daily levothyroxine 75 mcg (0.075 mg) Tab 75 mcg = 1 tab(s), Oral, Daily, Refills(s) 0 Start Date: 12/19/23 Status: Ordered Start: 03-21-2019 End: 10-11-2024 take 1 tablet by mouth once daily Levothyroxine 75 mcg Tablet Discontinued 75 MCG PO Daily March 20, 2019 11:00pm October 11, 2024 8:33am Levothyroxine So dium 75 MCG TAKE 1 TABLET BY MOUTH EVERY DAY IN THE MORNING ON EMPTY STOMACH FOR 30 DAYS for 90 Active Multivitamin (One-A-Day Essential) tablet (2 sources) Start: 04-30-2024 take 1 tablet by mouth once daily Multivitamin (One-A-Day Essential) tablet Active 1 TAB PO Daily April 29, 2024 11:00pm Start: 04-30-2024 take 1 tablet by nasim th once daily Multivitamin (One-A-Day Essential) tablet Active 1 TAB PO Daily April 30, 2024 12:00am ondansetron 4 mg disintegrating oral tablet (3 sources) Serotonin-3 Receptor Antagonist Start: 05-01-2024 take 1 tablet by mouth every eight hours as needed for nausea and vomiting Ondansetron 4 mg tablet,disintegrating Active 4 MG PO Q8H as needed for nausea and vomiting November 27, 2024 12:00am SUMAtriptan 50 mg oral tablet (12 sources) Serotonin-1b and Serotonin-1d Receptor Agonist Start: 05-28-2024 End: 11-02-2024 Sumatriptan Succinate 50 mg tablet Active 0 .ROUTE .COMPLEX November 02, 2024 8:26am TAKE 1 TABLET BY MOUTH EVERY 2-4 HOURS NEEDED FOR MIGRAINE HEADACHE *DO NOT EXCEED 4 PER 24HR* Start: 05-28-2024 Sumatriptan Dueñas ccinate Active 0 .ROUTE .COMPLEX May 28, 2024 11:45am TAKE 1 TABLET BY MOUTH EVERY 2-4 HOURS NEEDED FOR MIGRAINE HEADACHE *DO NOT EXCEED 4 PER 24HR* Start: 05-01-2024 End: 05-28-2024 take 4 tablets by mouth every twenty-four hours as needed for headache Sumatriptan Succinate (Imitrex) 50 mg tablet Discontinued 50 MG PO EVERY 2-4 HOURS as needed for migraine headache April 30, 2024 11:00pm May 28, 2024 10:45am do not exceed 4 doses per 24 hrs SUMAtriptan Succ inate 6 MG/0.5ML 0.5 mL may repeat dose after 1 hour as needed Subcutaneous Once a day Active Completed/Discontinued Medications Medication Drug Class(es) Dates Sig (Normalized) Sig (Original) acetaminophen 500 mg oral tablet (3 sources) Start: 03-29-2019 End: 08-05-2021 take 1 tablet by mouth every four hours as needed for headache Acetaminophen 500 mg Tablet Discontinued 500 MG PO Q4H as needed for Headache March 28, 2019 11:00pm August 05, 2021 9:54pm benzonatate 200 mg oral capsule (2 sources) Non-narcotic Antitussive Start: 05-07-2024 End: 11-07-2024 Benzonatate 200 mg capsule Discontinued 200 MG PO 2-3 TIMES PER DAY as needed for cough May 06, 2024 11:00pm November 07, 2024 11:49am docusate sodium 100 mg oral capsule (3 sources) Start: 03-29-2019 End: 08-05-2021 take 1 capsule by mouth once daily at bedtime Docusate Sodium (Colace) 100 mg capsule Discontinued 100 MG PO Daily at bedtime March 28, 2019 11:00pm August 05, 2021 9:54pm ibuprofen 600 mg oral tablet (3 sources) Nonsteroidal Anti-inflammatory Drug Start: 03-29-2019 End: 08-05-2021 take 1 tablet by mouth every six hours Ibuprofen 600 mg Tablet Discontinued 600 MG PO Q6H 60 March 28, 2019 11:00pm August 05, 2021 9:54pm melatonin 1 mg oral tablet (3 sources) Start: 03-21-2019 End: 11-07-2024 take 1 tablet by mouth at bedtime as needed Melatonin 1 mg Tablet Discontinued 1 MG PO Bedtime as needed for Insomnia March 20, 2019 11:00pm November 07, 2024 11:49am meloxicam 7.5 mg oral tablet (4 sources) Nonsteroidal Anti-inflammatory Drug Start: 05-28-2024 End: 11-07-2024 take 1 tablet by mouth once daily Meloxicam 7.5 mg tablet Discontinued 0 .ROUTE .COMPLEX May 28, 2024 10:45am November 07, 2024 11:50am TAKE 1 TABLET BY MOUTH EVERY DAY Start: 05-01-2024 End: 05-28-2024 take 1 tablet by mouth once daily Meloxicam 7.5 mg tablet Discontinued 7.5 MG PO Daily April 30, 2024 11:00pm May 28, 2024 10:45am sulfamethoxazole 800 mg / trimethoprim 160 mg oral tablet (1 source) Dihydrofolate Reductase Inhibitor Antibacterial, Sulfonamide Antimicrobial Start: 06-26-2024 End: 11-07-2024 take 1 tablet by mouth twice daily Sulfamethoxazole-Trimethoprim 800-160 mg tablet Discontinued 1 TAB PO Twice daily June 25, 2024 11:00pm November 07, 2024 11:50am Problems Active Problems Problem Classification Problem Date Documented Da te Episodic/Chronic Cancer of thyroid (13 sources) History of malignant neoplasm of thyroid; Translations: [Personal history of malignant neoplasm of thyroid] 12-19-2023 Episodic Essential hypertension (20 sources) Essential (primary) hypertension; Translations: [Essential hypertension] Onset: 08-15-2022 Chronic Genitourinary symptoms and ill-defined conditions (1 source) Dysuria; Translations: [Dysuria] 06-27-2024 Episodic Headache; including migraine (13 sources) Refractory migraine; Translations: [Migraine, unspecified, intractable, without status migrainosus] 12-19-2023 Chronic Headache; including migraine (12 sources) Headache; Translations: [Headache] 04-10-2024 Episodic Comment on above: Problem List clean-u p per request of Phys. EHR Cmte Headache; including migraine (1 source) Headache; including migraine; Translations: [Headache, unspecified] Onset: 04-09-2024 Joint disorders and dislocations; trauma-related (4 sources) Unspecified internal derangement of left knee; Translations: [UNS INTERNAL DERANGEMENT LEFT KNEE] Onset: 11-24-2021 Chronic Nausea and vomiting (1 source) Nausea, vomiting and diarrhea; Translations: [Nausea with vomiting, unspecified] 11-27-2024 Episodic Nutritional deficiencies (2 sources) Vitamin D deficiency; Translations: [Vitamin D deficiency, unspecified] 11-07-2024 Chronic Osteoporosis (13 sources) Senile osteoporosis; Translations: [Age-related osteoporosis without current pathological fracture] Chronic Other congenital anomalies (1 source) Herniated urinary bladder 09-28-2023 Chronic Comment on above: Problem List clean-u p per request of Phys. EHR Cmte Other non-traumatic joint disorders (11 sources) Arthralgia [...] conditions (not mental disorders or infectious disease) (8 sources) Encounter for screening mammogram for malignant neoplasm of breast; Translations: [Encounter for screening for malignant neoplasm of colon] Episodic Prolapse of female genital organs (3 sources) Disorder of rectum; Translations: [Rectocele] 09-28-2023 Chronic Comment on above: Problem List clean-u p per request of Phys. EHR Cmte Residual codes; unclassified (3 sources) History of hysterectomy for benign disease; Translations: [Acquired absence of both cervix and uterus] 09-28-2023 Episodic Comment on above: Problem List clean-u p per request of Phys. EHR Cmte Spondylosis; intervertebral disc disorders; other back problems (2 sources) Cervicalgia Episodic Thyroid disorders (20 sources) Hypothyroidism, unspecified; Translations: [Acquired hypothyroidism] Onset: 08-15-2022 Chronic Unclassified (1 source) Patient encounter status 12-19-2023 Past or Other Problems Problem Classification Problem Date Documented Da te Episodic/Chronic Unclassified (2 sources) Herniated urinary bladder; Translations: [Cystocele] 09-28-2023 Results Test Name Value Interpretation Reference Range Facility Alanine aminotransferase [En zymatic activity/volume] in Serum or PlasmaOrdered By: Cricket Russell on 11-27-2024 ALT [Catalytic activity/Vol] Alanine aminotransferase [Enzymatic activity/volume] in Serum or Plasma [facility] Albumin [Mass/volume] in Ser um or Plasma by Bromocresol green (BCG) dye binding methoOrdered By: Cricket Russell on 11-27-2024 Albumin BCG dye [Mass/Vol] Albumin [Mass/volume] in Serum or Plasma by Bromocresol green (BCG) dye binding metho 3.5-5.7 [facility] Alkaline phosphatase [Enzyma tic activity/volume] in Serum or PlasmaOrdered By: Cricket Russell on 11-27-2024 ALP [Catalytic activity/Vol] Alkaline phosphatase [Enzymatic activity/volume] in Serum or Plasma 34-104 [facility] Appearance of UrineOrdered B y: Cricket Russell on 11-27-2024 Appearance (U) Urine appearance [facility] Aspartate aminotransferase [ Enzymatic activity/volume] in Serum or PlasmaOrdered By: Cricket Russell on 11-27-2024 AST [Catalytic activity/Vol] Aspartate aminotransferase [Enzymatic activity/volume] in Serum or Plasma 13-39 [facility] Bacteria [Presence] in Urine by AutomatedOrdered By: Cricket Russell on 11-27-2024 Bacteria Auto Ql (U) Bacteria [Presence] in Urine by Automated None Seen [facility] Basophils Auto (Bld) [#/Vol] Ordered By: Cricket Russell on 11-27-2024 Basophils (Bld) [#/Vol] Automated basoph il count 0.0-0.2 [facility] Basophils/100 WBC Auto (Bld) Ordered By: Cricket Russell on 11-27-2024 Basophils/100 WBC (Bld) Automated basophil % . [facility] Bilirubin Test strip Ql (U)O rdered By: Cricket Russell on 11-27-2024 Bilirubin Ql (U) Bilirubin.total [Presence] in Urine by Test strip Negative [facility] Bilirubin.total [Mass/volume ] in Serum or PlasmaOrdered By: Cricket Russell on 11-27-2024 Bilirubin [Mass/Vol] Bilirubin.total [Mass/volume] in Serum or Plasma 0.3-1.0 [facility] BioFire Not Detectedon 11-27 BioFire Not Detected Not detected Normal Not Detecte T he [facility] Comment on above: Result Comment: This is a duplicate RP2.1 COVID (PCR) result to be used for statistical tracking purpose only. PERFORMED BY: [place] [id number] PATHOLOGIST BUDGET CLERK GINNY PIPER M.D. Performed By: #### B IOFIRECOVNOTDE, RESP PANEL UPP. #### [address] COVID-19 Detected/Not Detect edOrdered By: Cricket Russell on 11-27-2024 SARS-CoV-2 (COVID-19) RNA NOE+non-probe Ql (Nph) Not detected Not Detecte [facility] Comment on above: This is a duplicate RP2.1 COVID (PCR) result to be used for statistical tracking purpose only. Calcium [Mass/volume] in Ser um or PlasmaOrdered By: Cricket Russell on 11-27-2024 Calcium [Mass/Vol] Calcium [Mass/volume] in Serum or Plasma 8.6-10.3 [facility] Carbon dioxide, total [Moles /volume] in Serum or PlasmaOrdered By: Cricket Russell on 11-27-2024 CO2 [Moles/Vol] Carbon dioxide, total [Moles/volume] in Serum or Plasma 21.0-31.0 [facility] Chloride [Moles/volume] in S kristina or PlasmaOrdered By: Cricket Russell on 11-27-2024 Chloride [Moles/Vol] Chloride [Moles/volume] in Serum or Plasma 98-107 [facility] Color Auto (U)Ordered By: Casper Russell on 11-27-2024 Color (U) Color of Urine by Auto Yellow [facility] Complete Blood Count Auto Di ffon 11-27-2024 Basophils (Bld) [#/Vol] 0.0 10*3/uL Normal 0.0-0.2 [facility] Comment on above: Result Comment: PERF ORMED BY: [place] [address] PATHOLOGIST BUDGET CLERK GINNY PIPER M.D. Performed By: #### L IPASE, CBC, CMP #### [address] Basophils/100 WBC (Bld) 0.2 % Normal . T he [facility] Comment on above: Performed By: #### L IPASE, CBC, CMP #### [facility] [address] [place] [address] [place] Eosinophils (Bld) [#/Vol] 0.0 10*3/uL Normal 0.0-0.45 [facility] Comment on above: Performed By: #### L IPASE, CBC, CMP #### [place] [address] [place] Eosinophils/100 WBC (Bld) 0.3 % Normal . [facility] Comment on above: Performed By: #### L IPASE, CBC, CMP #### [address] Erythrocyte distribution width (RBC) [Ratio] 13.9 % Normal 11.9-15.3 [facility] Comment on above: Performed By: #### L IPASE, CBC, CMP #### [address] Hematocrit (Bld) [Volume fraction] 47.3 % High 34.0-46.4 [facility] Comment on above: Performed By: #### L IPASE, CBC, CMP #### [address] Hemoglobin (Bld) [Mass/Vol] 16.2 g/dL High 11.8-15.4 [facility] Comment on above: Performed By: #### L IPASE, CBC, CMP #### [address] Lymphocytes (Bld) [#/Vol] 1.4 10*3/uL Normal 1.00-4.8 [facility] Comment on above: Performed By: #### L IPASE, CBC, CMP #### [address] Lymphocytes/100 WBC (Bld) 11.8 % Normal . [facility] Comment on above: Performed By: #### L IPASE, CBC, CMP #### [address] MCH (RBC) [Entitic mass] 29.2 pg Normal 24.7-34.3 [facility] Comment on above: Performed By: #### L IPASE, CBC, CMP #### [address] MCV (RBC) [Entitic vol] 85.2 fL Normal 80-100 T [facility] Comment on above: Performed By: #### L IPASE, CBC, CMP #### [address] Mean Corpuscular HGB Conc 34.2 g/dL Normal 32.0-35.0 [facility] Comment on above: Performed By: #### L IPASE, CBC, CMP #### [address] Monocytes (Bld) [#/Vol] 0.6 10*3/uL Normal 0.0-0.8 [facility] Comment on above: Performed By: #### L IPASE, CBC, CMP #### [address] Monocytes/100 WBC (Bld) 19.54 % Normal 0.00-20.00 T seema [facility] Comment on above: Performed By: #### L IPASE, CBC, CMP #### [place] [address] [place] Monocytes/100 WBC (Bld) 5.0 % Normal . [facility] Comment on above: Performed By: #### L IPASE, CBC, CMP #### [address] Neutrophils (Bld) [#/Vol] 9.9 10*3/uL High 1.8-7.7 [facility] Comment on above: Performed By: #### L IPASE, CBC, CMP #### [address] Neutrophils/100 WBC (Bld) 82.7 % Normal . [facility] Comment on above: Performed By: #### L IPASE, CBC, CMP #### [address] NRBC% 0.1 /100{WBC} Normal 0-0.5 [facility] Comment on above: Performed By: #### L IPASE, CBC, CMP #### [address] Platelet mean volume (Bld) [Entitic vol] 9.2 fL Normal 6.3-10.7 [facility] Comment on above: Performed By: #### L IPASE, CBC, CMP #### [place] [address] [place] Platelets (Bld) [#/Vol] 271 10*3/uL Normal 150-450 [facility] Comment on above: Performed By: #### L IPASE, CBC, CMP #### [address] RBC (Bld) [#/Vol] 5.55 10*6/uL High 3.60-5.00 [facility] Comment on above: Performed By: #### L IPASE, CBC, CMP #### [address] WBC (Bld) [#/Vol] 12.0 10*3/uL High 3.8-11.6 [facility] Comment on above: Performed By: #### L IPASE, CBC, CMP #### [address] Comprehensive Metabolic Pane yumi 11-27-2024 Albumin [Mass/Vol] 4.3 g/dL Normal 3.5-5.7 [facility] Comment on above: Performed By: #### L IPASE, CBC, CMP #### [address] Albumin/Globulin [Mass ratio] 1.3 {ratio} Normal [facility] Comment on above: Performed By: #### L IPASE, CBC, CMP #### [address] ALP [Catalytic activity/Vol] 62 U/L Normal 34-104 [facility] Comment on above: Performed By: #### L IPASE, CBC, CMP #### [address] ALT [Catalytic activity/Vol] 31 U/L Normal 7-52 [facility] Comment on above: Performed By: #### L IPASE, CBC, CMP #### [address] Anion gap [Moles/Vol] 12.9 mmol/L Normal 6.0-15.0 e [facility] Comment on above: Performed By: #### L IPASE, CBC, CMP #### [address] AST [Catalytic activity/Vol] 32 U/L Normal 13-39 [facility] Comment on above: Performed By: #### L IPASE, CBC, CMP #### [address] Bilirubin [Mass/Vol] 0.6 mg/dL Normal 0.3-1.0 [facility] Comment on above: Performed By: #### L IPASE, CBC, CMP #### [facility] [address] [place] [id number] [place] Calcium [Mass/Vol] 9.0 mg/dL Normal 8.6-10.3 [facility] Comment on above: Performed By: #### L IPASE, CBC, CMP #### [facility] [address] [place] [id number] [place] Chloride [Moles/Vol] 102 mmol/L Normal 98-107 [facility] Comment on above: Performed By: #### L IPASE, CBC, CMP #### [facility] [address] [place] [address] [place] CO2 [Moles/Vol] 26.0 mmol/L Normal 21.0-31.0 [facility] Comment on above: Performed By: #### L IPASE, CBC, CMP #### [facility] [address] [place] [address] [place] Creatinine [Mass/Vol] 0.79 mg/dL Normal 0.60-1.20 [facility] Comment on above: Performed By: #### L IPASE, CBC, CMP #### [facility] [address] [place] [address] [place] Creatinine Clr Calc Pharmacy 58.93 Normal [facility] Comment on above: Performed By: #### L IPASE, CBC, CMP #### [facility] [address] [place] [address] [place] GFR/1.73 sq M.predicted MDRD (S/P/Bld) [Vol rate/Area] mL/min/{1.73_m2} Normal [facility] Comment on above: Performed By: #### L IPASE, CBC, CMP #### [facility] [address] [place] [address] [place] Globulin (S) [Mass/Vol] 3.4 g/dL Normal T he [facility] Comment on above: Performed By: #### L IPASE, CBC, CMP #### [facility] [address] [place] [address] [place] Glucose [Mass/Vol] 117 mg/dL High 70-100 [facility] Comment on above: Result Comment: Vita caceres Glucose Reference Range is dependent on time and content of last meal. Glucose of more than 200 mg/dL in a nonstressed, ambulatory subject supports the diagnosis of Diabetes Mellitus. ADA recommended reference range Performed By: #### L IPASE, CBC, CMP #### [facility] [address] Potassium [Moles/Vol] 3.9 mmol/L Normal 3.5-5.1 [facility] Comment on above: Performed By: #### L IPASE, CBC, CMP #### [facility] [address] Protein [Mass/Vol] 7.7 g/dL Normal 6.4-8.9 [facility] Comment on above: Performed By: #### L IPASE, CBC, CMP #### [address] Sodium [Moles/Vol] 137 mmol/L Normal 136-145 [facility] Comment on above: Performed By: #### L IPASE, CBC, CMP #### [place] [address] [place] Urea nitrogen [Mass/Vol] 22 mg/dL Normal 7-25 [facility] Comment on above: Performed By: #### L IPASE, CBC, CMP #### [place] [address] [place] Creatinine [Mass/volume] in Serum or PlasmaOrdered By: Cricket Russell on 11-27-2024 Creatinine [Mass/Vol] Creatinine [Mass/volume] in Serum or Plasma 0.60-1.20 [facility] Dipstick and Microscopicon 0 11-27-2024 Appearance (U) Clear Normal Clear [facility] Comment on above: Order Comment: Name Collection Type:: Clean-Voided Midstream Performed By: #### A DDONUAPLUS #### [place] [address] [place] Bacteria,Urine None Seen Normal None Seen [facility] Comment on above: Order Comment: Name Collection Type:: Clean-Voided Midstream Performed By: #### A DDONUAPLUS #### [place] [address] [place] Bilirubin,Urine Negative Normal Negative [facility] Comment on above: Order Comment: Name Collection Type:: Clean-Voided Midstream Performed By: #### A DDONUAPLUS #### [address] Color (U) Light-Yellow Normal Yellow [facility] Comment on above: Order Comment: Name Collection Type:: Clean-Voided Midstream Performed By: #### A DDONUAPLUS #### [place] [address] [place] Glucose Ql (U) Normal Normal Normal [facility] Comment on above: Order Comment: Name Collection Type:: Clean-Voided Midstream Performed By: #### A DDONUAPLUS #### [place] [address] [place] Hyaline Casts,Urine 0-8 Normal 0-8 [facility] Comment on above: Order Comment: Name Collection Type:: Clean-Voided Midstream Performed By: #### A DDONUAPLUS #### [place] [address] [place] Ketones Ql (U) 2+ High Negative [facility] Comment on above: Order Comment: Name Collection Type:: Clean-Voided Midstream Performed By: #### A DDONUAPLUS #### [place] [address] [place] Leukocyte esterase Test strip Ql (U) Negative Normal Negative [facility] Comment on above: Order Comment: Name Collection Type:: Clean-Voided Midstream Performed By: #### A DDONUAPLUS #### [place] [address] [place] Mucus,Urine 4+ Critically abnormal [facility] Comment on above: Order Comment: Name Collection Type:: Clean-Voided Midstream Result Comment: PERF ORMED BY: [place] [address] PATHOLOGIST BUDGET CLERK GINNY PIPER M.D. Performed By: #### A DDONUAPLUS #### [place] [address] [place] Nitrite,Urine Negative Normal Negative [facility] Comment on above: Order Comment: Name Collection Type:: Clean-Voided Midstream Performed By: #### A DDONUAPLUS #### [place] [address] [place] Occult Blood,Urine Trace High Negative [facility] [facility] Comment on above: Order Comment: Name Collection Type:: Clean-Voided Midstream Result Comment: PERF ORMED BY: [place] [address] PATHOLOGIST BUDGET CLERK GINNY PIPER M.D. Performed By: #### A DDONUAPLUS #### [address] pH (U) 5.5 [pH] Normal 5.0-9.0 [facility] Comment on above: Order Comment: Name Collection Type:: Clean-Voided Midstream Performed By: #### A DDONUAPLUS #### [place] [address] [place] Protein,Urine Negative Normal Negative [facility] Comment on above: Order Comment: Name Collection Type:: Clean-Voided Midstream Performed By: #### A DDONUAPLUS #### [place] [address] [place] RBC,Urine 5-9 High 0-4 [facility] Comment on above: Order Comment: Name Collection Type:: Clean-Voided Midstream Performed By: #### A DDONUAPLUS #### [place] [address] [place] Specificy [place],Urine 1.017 Normal 1.001-1.030 [facility] Comment on above: Order Comment: Name Collection Type:: Clean-Voided Midstream Performed By: #### A DDONUAPLUS #### [place] [address] [place] Squamous Epithelial Cell,Urine 3-4 High 0-2 [facility] Comment on above: Order Comment: Name Collection Type:: Clean-Voided Midstream Performed By: #### A DDONUAPLUS #### [facility] [address] Urobilinogen,Urine Normal Normal Normal [facility] Comment on above: Order Comment: Name Collection Type:: Clean-Voided Midstream Performed By: #### A DDONUAPLUS #### [facility] [address] WBC,Urine 1-2 Normal 0-4 [facility] Comment on above: Order Comment: Name Collection Type:: Clean-Voided Midstream Performed By: #### A DDONUAPLUS #### [facility] [address] [place] [address] [place] Eosinophils Auto (Bld) [#/Vo l]Ordered By: Cricket Russell on 11-27-2024 Eosinophils (Bld) [#/Vol] Automated eosinophil count 0.0-0.45 [facility] Eosinophils/100 WBC Auto (Bl d)Ordered By: Cricket Russell on 11-27-2024 Eosinophils/100 WBC (Bld) Automated eosinophil % . [facility] Epithelial cells.squamous [# /area] in Urine sediment by Automated countOrdered By: Cricket Russell on 11-27-2024 Epithelial cells.squamous Auto (Urine sed) [#/Area] Epithelial cells.squamous [#/area] in Urine sediment by Automated count High 0-2 [facility] Erythrocyte distribution wid th Auto (RBC) [Ratio]Ordered By: Circket Russell on 11-27-2024 Erythrocyte distribution width (RBC) [Ratio] Erythrocyte distribution width [Ratio] by Automated count 11.9-15.3 [facility] Erythrocytes [#/area] in Uri ne sediment by Automated countOrdered By: Cricket Russell on 11-27-2024 RBC Auto (Urine sed) [#/Area] Erythrocytes [#/area] in Urine sediment by Automated count High 0-4 [facility] Globulin Calc (S) [Mass/Vol] Ordered By: Cricket Russell on 11-27-2024 Globulin (S) [Mass/Vol] Serum globulin measurement by calculation (mass/volume) [facility] Glucose [Mass/volume] in Ser um or PlasmaOrdered By: Cricket Russell on 11-27-2024 Glucose [Mass/Vol] Glucose [Mass/volume] in Serum or Plasma High 70-100 [facility] Comment on above: ADA recommended refe rence rangeRandom Glucose Reference Range is dependent on time and content of last meal. Glucose of more than 200 mg/dL in a nonstressed, ambulatory subject supports the diagnosis of Diabetes Mellitus. Glucose [Mass/volume] in Uri ne by Test stripOrdered By: Cricket Russell on 11-27-2024 Glucose Test strip (U) [Mass/Vol] Glucose [Mass/volume] in Urine by Test strip Normal [facility] Hematocrit Auto (Bld) [Volum e fraction]Ordered By: rCicket Russell on 11-27-2024 Hematocrit (Bld) [Volume fraction] Hematocrit [Volume Fraction] of Blood by Automated count High 34.0-46.4 [facility] Hemoglobin Test strip Ql (U) Ordered By: Cricket Russell on 11-27-2024 Hemoglobin Ql (U) Hemoglobin [Presence] in Urine by Test strip High Negative [facility] Hemoglobin [Mass/volume] in BloodOrdered By: Cricket Russell on 11-27-2024 Hemoglobin (Bld) [Mass/Vol] Hemoglobin [Mass/volume] in Blood High 11.8-15.4 [facility] Hyaline casts [#/area] in Ur ine sediment by Automated countOrdered By: Cricket Russell on 11-27-2024 Hyaline casts Auto (Urine sed) [#/Area] Hyaline casts [#/area] in Urine sediment by Automated count 0-8 [facility] Ketones Test strip Ql (U)Ord ered By: Cricket Russell on 11-27-2024 Ketones Ql (U) Ketones [Presence] in Urine by Test strip High Negative [facility] Leukocyte esterase [Presence ] in Urine by Test stripOrdered By: Cricket Russell on 11-27-2024 Leukocyte esterase Test strip Ql (U) Leukocyte esterase [Presence] in Urine by Test strip Negative [facility] Leukocytes [#/area] in Urine sediment by Automated countOrdered By: Cricket Russell on 11-27-2024 WBC Auto (Urine sed) [#/Area] Leukocytes [#/area] in Urine sediment by Automated count 0-4 [facility] Leukocytes [#/volume] correc elizabeth for nucleated erythrocytes in Blood by Automated counOrdered By: Cricket Russell on 11-27-2024 WBC corrected for nucl RBC Auto (Bld) [#/Vol] Leukocytes [#/volume] corrected for nucleated erythrocytes in Blood by Automated coun High 3.8-11.6 [facility] Lipaseon 11-27-2024 Lipase [Catalytic activity/Vol] 10.0 U/L Low 11.0-82.0 [facility] Comment on above: Result Comment: PERF ORMED BY: [place] [address] PATHOLOGIST BUDGET CLERK GINNY PIPER M.D. Performed By: #### L IPASE, CBC, CMP #### [address] Lipase [Enzymatic activity/v olume] in Serum or PlasmaOrdered By: Cricket Russell on 11-27-2024 Lipase [Catalytic activity/Vol] Lipase [Enzymatic activity/volume] in Serum or Plasma Low 11.0-82.0 [facility] Lymphocytes Auto (Bld) [#/Vo l]Ordered By: Cricket Russell on 11-27-2024 Lymphocytes (Bld) [#/Vol] Lymphocytes [#/volume] in Blood by Automated count 1.00-4.8 [facility] Lymphocytes/100 WBC Auto (Bl d)Ordered By: Cricket Russell on 11-27-2024 Lymphocytes/100 WBC (Bld) Lymphocytes/100 leukocytes in Blood by Automated count . [facility] MCH Auto (RBC) [Entitic mass ]Ordered By: Cricket Russell on 11-27-2024 MCH (RBC) [Entitic mass] MCH [Entitic ma ss] by Automated count 24.7-34.3 [facility] MCHC Auto (RBC) [Mass/Vol]Or dered By: Cricket Russell on 11-27-2024 MCHC (RBC) [Mass/Vol] MCHC [Mass/volume] by Automated count 32.0-35.0 [facility] MCV Auto (RBC) [Entitic vol] Ordered By: Cricket Russell on 11-27-2024 MCV (RBC) [Entitic vol] MCV [Entitic vol ume] by Automated count 80-100 [facility] Monocyte distribution width [Entitic volume] in Blood by AutomatedOrdered By: Cricket Russell on 11-27-2024 Monocyte distribution width Auto (Bld) [Entitic vol] Monocyte distribution width [Entitic volume] in Blood by Automated 0.00-20.00 [facility] Monocytes Auto (Bld) [#/Vol] Ordered By: Cricket Russell on 11-27-2024 Monocytes (Bld) [#/Vol] Automated blood monocyte count 0.0-0.8 [facility] Monocytes/100 WBC Auto (Bld) Ordered By: Cricket Russell on 11-27-2024 Monocytes/100 WBC (Bld) Automated monocyte % . [facility] Mucus [Presence] in Urine by AutomatedOrdered By: Cricket Russell on 11-27-2024 Mucus Auto Ql (U) Mucus [Presence] in Urine by Automated Abnormal [facility] Neutrophils Auto (Bld) [#/Vo l]Ordered By: Cricket Russell on 11-27-2024 Neutrophils (Bld) [#/Vol] Neutrophils [#/volume] in Blood by Automated count High 1.8-7.7 [facility] Neutrophils/100 WBC Auto (Bl d)Ordered By: Cricket Russell on 11-27-2024 Neutrophils/100 WBC (Bld) Automated neutrophil % . [facility] Nitrite Test strip Ql (U)Ord ered By: Cricket Russell on 11-27-2024 Nitrite Ql (U) Nitrite [Presence] in Urine by Test strip Negative [facility] No Panel InformationOrdered By: Cricket Russell on 11-27-2024 Estimated GFR (CKD-EPI) > 60.0 mL/Min [facility] Creatinine Clearance (Chem 58.93 [facility] Nucleated erythrocytes [Pres ence] in Blood by Automated countOrdered By: Cricket Russell on 11-27-2024 Nucleated RBC Auto Ql (Bld) Nucleated erythrocytes [Presence] in Blood by Automated count 0-0.5 [facility] Platelet mean volume Auto (B ld) [Entitic vol]Ordered By: Cricket Russell on 11-27-2024 Platelet mean volume (Bld) [Entitic vol] Platelet mean volume [Entitic volume] in Blood by Automated count 6.3-10.7 [facility] Platelets Auto (Bld) [#/Vol] Ordered By: Cricket Russell on 11-27-2024 Platelets (Bld) [#/Vol] Platelets [#/vol ume] in Blood by Automated count 150-450 [facility] Potassium [Moles/volume] in Serum or PlasmaOrdered By: Cricket Russell on 11-27-2024 Potassium [Moles/Vol] Potassium [Moles/volume] in Serum or Plasma 3.5-5.1 [facility] Protein Test strip (U) [Mass /Vol]Ordered By: Cricket Russell on 11-27-2024 Protein (U) [Mass/Vol] Protein [Mass/volume] in Urine by Test strip Negative [facility] Protein [Mass/volume] in Ser um or PlasmaOrdered By: Cricket Russell on 11-27-2024 Protein [Mass/Vol] Protein [Mass/volume] in Serum or Plasma 6.4-8.9 [facility] RBC Auto (Bld) [#/Vol]Ordere d By: Cricket Russell on 11-27-2024 RBC (Bld) [#/Vol] Erythrocytes [#/volume] in Blood by Automated count High 3.60-5.00 [facility] Respiratory (Upper) Panel, P CRon 11-27-2024 Respiratory (Upper) Panel, PCR Adenovirus Not detected Bordetella parapertussis Not detected Chlamydia pneumoniae Not detected Coronavirus 229E Not detected Coronavirus HKU1 Not detected Coronavirus NL63 Not detected Coronavirus OC43 Not detected Influenza A Not detected Influenza B Not detected Human Metapneumovirus Not detected Mycoplasma pneumoniae Not detected Parainfluenza Virus 1 Not detected Parainfluenza Virus 2 Not detected Parainfluenza Virus 3 Not detected Parainfluenza Virus 4 Not detected Bordetella pertussis-ptxP Not detected Human Rhino/Enterovirus Not detected Resp. Syncytial Virus Not detected COVID-19 Detected/Not Detected Not detected Blank Space FLUA TEST INCLUDES Influenza A tests for the following clinically FLUA TEST INCLUDES significant subtypes: FLUA TEST INCLUDES - Influenza A FLUA TEST INCLUDES - Influenza A H1 FLUA TEST INCLUDES - Influenza A H1 2009 FLUA TEST INCLUDES - Influenza A H3 Blank Space PERFORMED BY: [place] [address] PATHOLOGIST BUDGET CLERK GINNY PIPER M.D. Normal [facility] Comment on above: Performed By: #### B IOFIRECOVNOTDE, RESP PANEL UPP. #### [address] Respiratory pathogens DNA an d RNA panel - Nasopharynx by NOE with non-probe detectionOrdered By: Cricket Russell on 11-27-2024 Respiratory pathogens DNA and RNA panel NOE+non-probe (Nph) Respiratory pathogens DNA and RNA panel - Nasopharynx by NOE with non-probe detection [facility] Serum or plasma albumin/glob ulin mass ratioOrdered By: Cricket Russell on 11-27-2024 Albumin/Globulin [Mass ratio] Serum or plasma albumin/globulin mass ratio [facility] Serum or plasma anion gap de terminationOrdered By: Cricket Russell 11-27-2024 Anion gap [Moles/Vol] Serum or plasma anion gap determination 6.0-15.0 [facility] Sodium [Moles/volume] in Ser um or PlasmaOrdered By: Cricket Russell on 11-27-2024 Sodium [Moles/Vol] Sodium [Moles/volume] in Serum or Plasma 136-145 [facility] Specific gravity Test strip (U) [Rel density]Ordered By: Cricket Russell on 11-27-2024 Specific gravity (U) [Rel density] Specific gravity of Urine by Test strip 1.001-1.030 [facility] Urea nitrogen [Mass/volume] in Serum or PlasmaOrdered By: Cricket Russell on 02-11-2025 Urea nitrogen [Mass/Vol] Urea nitrogen [Mass/volume] in Serum or Plasma 05-10 [facility] Urobilinogen Test strip (U) [Mass/Vol]Ordered By: Cricket Russell on 11-27-2024 Urobilinogen (U) [Mass/Vol] Urobilinogen [Mass/volume] in Urine by Test strip Normal [facility] WBC Auto (Bld) [#/Vol]Ordere d By: Cricket Russell on 11-27-2024 WBC (Bld) [#/Vol] Leukocytes [#/volume] in Blood by Automated count High 3.8-11.6 [facility] pH Test strip (U)Ordered By: Cricket Russell on 11-27-2024 pH (U) pH of Urine by Test strip 5.0-9.0 [facility] Influenza virus B Ag [Presen ce] in Upper respiratory specimen by Rapid immunoassayon 05-01-2024 FLUBV Ag IA.rapid Ql (Nph) Negative [facility] No Panel Informationon 05-01 Influenza Type A (Rapid) Negative [facility] POC SARS CoV-2 Antigen Negative [facility] Outside Colonoscopyon 2023 Outside Colonoscopy [id number]# 1.00TIFF Normal [facility] Insurance Correspondenceon 0 02-08-2024 Insurance Correspondence [id number]#1.00TIFF Normal [facility] Consent for Procedure/Surger yon 01-18-2024 Consent for Procedure/Surgery [id number] #1.00TIFF Normal [facility] Facesheeton 01-18-2024 Facesheet [id number]# 1.00TIFF Normal [facility] Ambulatory Visit Summaryon 0 01-17-2024 Ambulatory Visit [...] you for choosing us for your care. [facility] Physician Referralon 024 Physician Referral [id number] #1.00TIFF [facility] XR DEXA BONE DENSITYon 11-02 XR DEXA BONE DENSITY DEXA Bone Density Study CLINICAL: Evaluate bone mineral density. Postmenopausal COMPARISON: 09/30/2020 FINDINGS: The bone density study was assessed by dual-energy x-ray absorptiometry with the Experticity scanner. The test results are expressed in [...] [place] Date: 2022-11-02 08:55 Normal [facility] CBC AUTO DIFFon 11-01-2022 BASO # 0.1 103/ul Normal 0.0-0.1 [facility] Comment on above: Performed By: #### C BC #### [facility] [address] [place] [address] Dr. Nata Castellon Basophils/100 WBC (Bld) 0.7 % Normal 0.2-2.0 [facility] Comment on above: Performed By: #### C BC #### [facility] [address] [place] [address] Dr. Nata Castellon EO # 0.1 103/ul Normal 0.0-0.7 [facility] Comment on above: Performed By: #### C BC #### [facility] [address] [place] [address] Dr. Nata Castellon Eosinophils/100 WBC (Bld) 1.8 % Normal 0.9-7.0 [facility] Comment on above: Performed By: #### C BC #### [facility] [address] [place] [address] Dr. Nata Castellon Erythrocyte distribution width (RBC) [Ratio] 13.4 % Normal 11.0-15.0 [facility] Comment on above: Performed By: #### C BC #### [facility] [address] [place] [address] Dr. Nata Castellon Hematocrit (Bld) [Volume fraction] 44.1 % Normal 36.0-48.0 [facility] Comment on above: Performed By: #### C BC #### [facility] [address] [place] [address] Dr. Nata Castellon Hemoglobin (Bld) [Mass/Vol] 14.8 g/dL Normal 12.0-16.0 [facility] Comment on above: Performed By: #### C BC #### [facility] [address] [place] [address] Dr. Nata Castellon IG # 0.02 10e3/ul Normal 0.00-0.03 [facility] Comment on above: Performed By: #### C BC #### [facility] [address] [place] [address] Dr. Nata Castellon IG % 0.3 % Normal 0.0-0.5 [facility] Comment on above: Performed By: #### C BC #### [facility] [address] [place] [address] Dr. Nata Castellon LYMPH # 1.6 103/ul Normal 1.2-3.8 [facility] Comment on above: Performed By: #### C BC #### [facility] [address] [place] [address] Dr. Nata Castellon Lymphocytes/100 WBC (Bld) 21.3 % Normal 20.5-60.0 [facility] Comment on above: Performed By: #### C BC #### [facility] [address] [place] [address] Dr. Nata Castellon MANUAL DIFF REQ NO Normal [facility] Comment on above: Performed By: #### C BC #### [facility] [address] [place] [address] Dr. Nata Castellon MCH (RBC) [Entitic mass] 28.5 pg Normal 26.7-34.0 [facility] Comment on above: Performed By: #### C BC #### [facility] [address] [place] [address] Dr. Nata Castellon MCHC (RBC) [Mass/Vol] 33.6 g/dL Normal 29.9-35.2 [facility] Comment on above: Performed By: #### C BC #### [facility] [address] [place] [address] Dr. Nata Castellon MCV (RBC) [Entitic vol] 84.8 fL Normal 81.0-99.0 [facility] Comment on above: Performed By: #### C BC #### [facility] [address] [place] [address] Dr. Nata Castellon MONO # 0.6 103/ul Normal 0.3-0.8 [facility] Comment on above: Performed By: #### C BC #### [facility] [address] [place] [address] Dr. Nata Castellon Monocytes/100 WBC (Bld) 7.5 % Normal 1.7-12.0 [facility] Comment on above: Performed By: #### C BC #### [facility] [address] [place] [address] Dr. Nata Castellon NEUT # 5.2 103/ul Normal 1.4-6.5 [facility] Comment on above: Performed By: #### C BC #### [facility] [address] [place] [address] Dr. Nata Castellon Neutrophils/100 WBC (Bld) 68.4 % Normal 43.0-75.0 [facility] Comment on above: Performed By: #### C BC #### [facility] [address] [place] [address] Dr. Nata Castellon Platelet mean volume (Bld) [Entitic vol] 10.4 fL Normal 9.5-13.5 [facility] Comment on above: Performed By: #### C BC #### [facility] [address] [place] [address] Dr. Nata Castellon PLT 256 103/ul Normal 150-450 [facility] Comment on above: Performed By: #### C BC #### [facility] [address] [place] [address] Dr. Nata Castellon RBC 5.20 106/ul Normal 4.20-5.40 [facility] Comment on above: Performed By: #### C BC #### [facility] [address] [place] [address] Dr. Nata Castellon WBC 7.6 103/ul Normal 4.0-11.0 [facility] Comment on above: Performed By: #### C BC #### [facility] [address] [place] [address] Dr. Nata Castellon FREE T4on 11-01-2022 Free T4 [Mass/Vol] 0.98 ng/dL Normal 0.76-1.46 [facility] Comment on above: Performed By: #### F T4 #### [facility] [address] [place] [address] Dr. Nata Castellon LIPID PROFILEon 11-01-2022 CHOL-HDL RATIO NORM SEE BELOW Normal [facility] Comment on above: Result Comment: 3.3 - 4.4 LOW RISK 4.4 - 7.1 AVERAGE RISK 7.1 - 11.0 MODERATE RISK >11.0 HIGH RISK Performed By: #### L IPID, TSH, CMP #### [facility] [address] [address] [address] Nata Castellon Cholesterol [Mass/Vol] 179 mg/dL Normal <=200 Th [facility] Comment on above: Performed By: #### L IPID, TSH, CMP #### [facility] [address] [address] [address] Nata Castellon Cholesterol in HDL [Mass/Vol] 57 mg/dL Normal 40-60 [facility] Comment on above: Performed By: #### L IPID, TSH, CMP #### [facility] [address] [address] [address] Nata Castellon Cholesterol in LDL [Mass/Vol] 98.8 mg/dL Normal [facility] Comment on above: Performed By: #### L IPID, TSH, CMP #### [facility] [address] [address] [address] Nata Castellon Cholesterol.total/Choles terol in HDL [Mass ratio] 3.1 {ratio} Normal [facility] Comment on above: Performed By: #### L IPID, TSH, CMP #### [facility] [address] [address] [address] Nata Castellon HDL NORMAL > or = 60 mg/dl - LOW CARDIOVASCULAR RISK <40 mg/dl - HIGH CARDIOVASCULAR RISK Normal [facility] Comment on above: Performed By: #### L IPID, TSH, CMP #### [facility] [address] [address] [address] Nata Castellon LDL CALC NORMAL SEE BELOW Normal [facility] Comment on above: Result Comment: <100 mg/dl OPTIMAL 100 - 129 mg/dl NEAR OR ABOVE OPTIMAL 130 - 159 mg/dl BORDERLINE HIGH 160 - 189 mg/dl HIGH >190 mg/dl VERY HIGH Performed By: #### L IPID, TSH, CMP #### [facility] [address] [address] [address] Nata Castellon Triglyceride [Mass/Vol] 116 mg/dL Normal <=150 T [facility] Comment on above: Performed By: #### L IPID, TSH, CMP #### [facility] [address] [address] [address] Nata Castellon VLDL CALC 23.2 mg/dL Normal [facility] Comment on above: Performed By: #### L IPID, TSH, CMP #### [facility] [id number] Nata Castellon MG MAMM SCREEN 3D SEEMA CADon 11-01-2022 MG MAMM SCREEN 3D SEEMA CAD Patient: ANDREA COLE Exam Date: 11/01/2022 : 1950 Gender:F Ordering : DR SUZAN ROME M.D. Admission #: [id number] Family : Order #: [id number] CLICK HERE TO VIEW EXAM RADIOLOGY REPORT [...] OF THYROID Family Cancers None LOCATION: [facility] BREAST COMPOSITION: Heterogeneously dense,which may obscure small [...] MD on 11/02/2022 at 10:22 Normal [facility] PROF 14(COMP METB)on 023 Albumin [Mass/Vol] 3.7 g/dL Normal 3.4-5.0 [facility] Comment on above: Performed By: #### L IPID, TSH, CMP #### [facility] [address] [address] [address] Nata Castellon Albumin/Globulin [Mass ratio] 1.0 {ratio} Normal [facility] Comment on above: Performed By: #### L IPID, TSH, CMP #### [facility] [address] [address] [address] Nata Castellon ALP [Catalytic activity/Vol] 80 U/L Normal 46-116 [facility] Comment on above: Performed By: #### L IPID, TSH, CMP #### [facility] [address] [address] [address] Nata Castellon ALT [Catalytic activity/Vol] 26 U/L Normal 14-59 [facility] Comment on above: Performed By: #### L IPID, TSH, CMP #### [facility] [address] [address] [address] Nata Castellon Anion gap [Moles/Vol] 13.0 mmol/L Normal [facility] Comment on above: Performed By: #### L IPID, TSH, CMP #### [facility] [address] [address] [address] Nata Castellon AST [Catalytic activity/Vol] 25 U/L Normal 15-37 [facility] Comment on above: Performed By: #### L IPID, TSH, CMP #### [facility] [address] [address] [address] Nata Castellon Bilirubin [Mass/Vol] 0.5 mg/dL Normal 0.2-1.0 [facility] Comment on above: Performed By: #### L IPID, TSH, CMP #### [facility] [address] [address] [address] Nata Castellon Calcium [Mass/Vol] 8.8 mg/dL Normal 8.5-10.1 [facility] Comment on above: Performed By: #### L IPID, TSH, CMP #### [facility] [address] [address] [address] Nata Castellon Chloride [Moles/Vol] 104 mmol/L Normal 98-107 [facility] Comment on above: Performed By: #### L IPID, TSH, CMP #### [facility] [address] [address] [address] Nata Castellon CO2 [Moles/Vol] 26.3 mmol/L Normal 21.0-32.0 [facility] Comment on above: Performed By: #### L IPID, TSH, CMP #### [facility] [address] [address] [address] Nata Castellon Creatinine [Mass/Vol] 0.74 mg/dL Normal 0.55-1.02 [facility] Comment on above: Performed By: #### L IPID, TSH, CMP #### [facility] [address] [place] [address] Dr. Nata Castellon EGFR-AF COMORAN >60 Normal >=60 [facility] Comment on above: Performed By: #### L IPID, TSH, CMP #### [facility] [address] [address] [address] Nata Castellon EGFR-NON AF COMORAN >60 Normal >=60 [facility] Comment on above: Performed By: #### L IPID, TSH, CMP #### [facility] [address] [place] [address] Dr. Nata Castellon Globulin (S) [Mass/Vol] 3.6 g/dL Normal [facility] Comment on above: Performed By: #### L IPID, TSH, CMP #### [facility] [address] [address] [address] Nata Castellon Glucose [Mass/Vol] 122 mg/dL Critically high 74-106 [facility] Comment on above: Performed By: #### L IPID, TSH, CMP #### [facility] [address] [place] [address] Dr. Nata Castellon Potassium [Moles/Vol] 4.3 mmol/L Normal 3.5-5.1 [facility] Comment on above: Performed By: #### L IPID, TSH, CMP #### [facility] [address] [place] [address] Dr. Nata Castellon Protein [Mass/Vol] 7.3 g/dL Normal 6.4-8.2 [facility] Comment on above: Performed By: #### L IPID, TSH, CMP #### [facility] [address] [place] [address] Dr. Nata Castellon Sodium [Moles/Vol] 139 mmol/L Normal 136-145 [facility] Comment on above: Performed By: #### L IPID, TSH, CMP #### [facility] [address] [place] [address] Dr. Nata Castellon Urea nitrogen [Mass/Vol] 21.0 mg/dL Critically high 7.0-18 .0 [facility] Comment on above: Performed By: #### L IPID, TSH, CMP #### [facility] [address] [place] [address] Dr. Nata Castellon Urea nitrogen/Creatinine [Mass ratio] 28.4 mg/mg Normal [facility] Comment on above: Performed By: #### L IPID, TSH, CMP #### [facility] [address] [place] [address] Dr. Nata Castellon TSHon 11-01-2022 TSH 3.427 uIU/mL Normal 0.358-3.740 [facility] Comment on above: Performed By: #### L IPID, TSH, CMP #### [facility] [address] [place] [address] Dr. Nata Castellon CBC AUTO DIFFon 08-12-2022 BASO # 0.0 103/ul Normal 0.0-0.1 [facility] Comment on above: Performed By: #### C BC #### [facility] [address] [place] [address] Dr. Nata Castellon Basophils/100 WBC (Bld) 0.5 % Normal 0.2-2.0 [facility] Comment on above: Performed By: #### C BC #### [facility] [address] [place] [address] Dr. Nata Castellon EO # 0.1 103/ul Normal 0.0-0.7 [facility] Comment on above: Performed By: #### C BC #### [facility] [address] [place] [address] Dr. Nata Castellon Eosinophils/100 WBC (Bld) 1.7 % Normal 0.9-7.0 [facility] Comment on above: Performed By: #### C BC #### [facility] [address] [place] [address] Dr. Nata Castellon Erythrocyte distribution width (RBC) [Ratio] 13.8 % Normal 11.0-15.0 [facility] Comment on above: Performed By: #### C BC #### [facility] [address] [place] [address] Dr. Nata Castellon Hematocrit (Bld) [Volume fraction] 44.1 % Normal 36.0-48.0 [facility] Comment on above: Performed By: #### C BC #### [facility] [address] [place] [address] Dr. Nata Castellon Hemoglobin (Bld) [Mass/Vol] 14.7 g/dL Normal 12.0-16.0 [facility] Comment on above: Performed By: #### C BC #### [facility] [address] [place] [address] Dr. Nata Castellon IG # 0.01 10e3/ul Normal 0.00-0.03 [facility] Comment on above: Performed By: #### C BC #### [facility] [address] [place] [address] Dr. Nata Castellon IG % 0.1 % Normal 0.0-0.5 [facility] Comment on above: Performed By: #### C BC #### [facility] [address] [place] [address] Dr. Nata Castellon LYMPH # 2.1 103/ul Normal 1.2-3.8 [facility] Comment on above: Performed By: #### C BC #### [facility] [address] [place] [address] Dr. Nata Castellon Lymphocytes/100 WBC (Bld) 26.7 % Normal 20.5-60.0 [facility] Comment on above: Performed By: #### C BC #### [facility] [address] [place] [address] Dr. Nata Castellon MANUAL DIFF REQ NO Normal [facility] Comment on above: Performed By: #### C BC #### [facility] [address] [place] [address] Dr. Nata Castellon MCH (RBC) [Entitic mass] 28.5 pg Normal 26.7-34.0 [facility] Comment on above: Performed By: #### C BC #### [facility] [address] [place] [address] Dr. Nata Castellon MCHC (RBC) [Mass/Vol] 33.3 g/dL Normal 29.9-35.2 [facility] Comment on above: Performed By: #### C BC #### [facility] [address] [place] [address] Dr. Nata Castellon MCV (RBC) [Entitic vol] 85.5 fL Normal 81.0-99.0 [facility] Comment on above: Performed By: #### C BC #### [facility] [address] [place] [address] Dr. Nata Castellon MONO # 0.6 103/ul Normal 0.3-0.8 [facility] Comment on above: Performed By: #### C BC #### [facility] [address] [place] [address] Dr. Nata Castellon Monocytes/100 WBC (Bld) 7.8 % Normal 1.7-12.0 [facility] Comment on above: Performed By: #### C BC #### [facility] [address] [place] [address] Dr. Nata Castellon NEUT # 5.0 103/ul Normal 1.4-6.5 [facility] Comment on above: Performed By: #### C BC #### [facility] [address] [place] [address] Dr. Nata Castellon Neutrophils/100 WBC (Bld) 63.2 % Normal 43.0-75.0 [facility] Comment on above: Performed By: #### C BC #### [facility] [address] [address] [address] Nata Castellon Platelet mean volume (Bld) [Entitic vol] 10.7 fL Normal 9.5-13.5 [facility] Comment on above: Performed By: #### C BC #### [facility] [address] [address] [address] Nata Castellon PLT 254 103/ul Normal 150-450 [facility] Comment on above: Performed By: #### C BC #### [facility] [address] [address] [address] Nata Castellon RBC 5.16 106/ul Normal 4.20-5.40 [facility] Comment on above: Performed By: #### C BC #### [facility] [address] [address] [address] Nata Castellon WBC 7.9 103/ul Normal 4.0-11.0 [facility] Comment on above: Performed By: #### C BC #### [facility] [address] [place] [address] Dr. Nata Castellon FREE T4on 08-12-2022 Free T4 [Mass/Vol] 1.15 ng/dL Normal 0.76-1.46 [facility] Comment on above: Performed By: #### F T4 #### [facility] [address] [place] [address] Dr. Nata Castellon PROF CHEM 8 (BAS METB)on Anion gap [Moles/Vol] 9.0 mmol/L Normal [facility] Comment on above: Performed By: #### T SH, BMP ####[facility] [address] [address]Dr. Nata Castellon Calcium [Mass/Vol] 8.6 mg/dL Normal 8.5-10.1 [facility] Comment on above: Performed By: #### T SH, BMP ####[facility] [address] [address]Dr. Nata Castellon Chloride [Moles/Vol] 104 mmol/L Normal 98-107 [facility] Comment on above: Performed By: #### T SH, BMP ####[facility] [address] [id number]. Nata Castellon CO2 [Moles/Vol] 29.2 mmol/L Normal 21.0-32.0 [facility] Comment on above: Performed By: #### T SH, BMP ####[facility] [address] [id number]. Nata Castellon Creatinine [Mass/Vol] 0.66 mg/dL Normal 0.55-1.02 [facility] Comment on above: Performed By: #### T SH, BMP ####[facility] [address] [id number]. Nata Castellon EGFR-AF COMORAN >60 Normal >=60 [facility] Comment on above: Performed By: #### T SH, BMP ####[facility] [address] [id number]. Nata Castellon EGFR-NON AF COMORAN >60 Normal >=60 [facility] Comment on above: Performed By: #### T SH, BMP ####[facility] [address] [id number]. Nata Castellon Glucose [Mass/Vol] 108 mg/dL Critically high 74-106 [facility] Comment on above: Performed By: #### T SH, BMP ####[facility] [address] [id number]. Nata Castellon Potassium [Moles/Vol] 4.2 mmol/L Normal 3.5-5.1 [facility] Comment on above: Performed By: #### T SH, BMP ####[facility] [address] [id number]. Nata Castellon Sodium [Moles/Vol] 138 mmol/L Normal 136-145 [facility] Comment on above: Performed By: #### T SH, BMP ####[facility] [address] [id number]. Nata Castellon Urea nitrogen [Mass/Vol] 22.0 mg/dL Critically high 7.0-18 .0 [facility] Comment on above: Performed By: #### T SH, BMP ####[facility] [address] [place], [place] [address]Zk. Nata Castellon Urea nitrogen/Creatinine [Mass ratio] 33.3 mg/mg Normal [facility] Comment on above: Performed By: #### T SH, BMP ####[facility] [address] [place], [place] [address]Bs. Nata Castellon TSHon 08-12-2022 TSH 0.986 uIU/mL Normal 0.358-3.740 [facility] Comment on above: Performed By: #### T SH, BMP ####[facility] [address] [place], [place] [address]El. Nata Castellon MRI KNEE LT WO CONon [...] by: WADE PAK Date: 2021-11-25 06:43 Normal [facility] Vital Signs Date Time Vital Sign Value Performing Clinician Facility 11-27-2024 15:25-0500 Diastolic blood pressure 78 mm[Hg] Suzan Rome MD [facility] 11-27-2024 15:25-0500 Heart rate 78 /min Suzan Rome MD Work Phone[facility] 11-27-2024 15:25-0500 Respiratory rate 18 /min Suzan Rome MD Work Phone: [facility] 11-27-2024 15:25-0500 SaO2% (BldA) [Mass fraction] 98 % Suzan Rome MD Work Phone: [facility] 11-27-2024 15:25-0500 Systolic blood pressure 173 mm[Hg] Suzan Rome MD Work Phone: [facility] 11-27-2024 10:26-0500 Body height 160.02 cm Suzan Rome MD Work Phone: [facility] 11-27-2024 10:26-0500 Body temperature 97.8 [degF] Suzan Rome MD Work Phone: [facility] 11-27-2024 10:26-0500 Body weight 75 kg Suzan Rome MD Work Phone: [facility] 11-07-2024 11:33-0500 Body height 160.02 cm Suzan Rome MD Work Phone: [facility] 11-07-2024 11:33-0500 Body mass index (BMI) [Ratio] 30.1 kg/m2 Suzan Rome MD Work Phone: [facility] 11-07-2024 11:33-0500 Body weight 77.11 kg Suzan Rome MD Work Phone: [facility] 11-07-2024 11:33-0500 Diastolic blood pressure 83 mm[Hg] Suzan Rome MD Work Phone: [facility] 11-07-2024 11:33-0500 Heart rate 70 /min Suzan Rome MD Work Phone: [facility] 11-07-2024 11:33-0500 Systolic blood pressure 140 mm[Hg] Suzan Rome MD Work Phone: [facility] 05-01-2024 09:51-0400 Body height 160.02 cm MD Suzan Rome Work Phone[facility] 05-01-2024 09:51-0400 Body mass index (BMI) [Ratio] 29 kg/m2 MD Suzan Rome Work Phone[facility] 05-01-2024 09:51-0400 Body weight 74.38 kg MD Suzan Rome Work Phone[facility] 05-01-2024 09:51-0400 Diastolic blood pressure 84 mm[Hg] MD Suzan Rome Work Phone[facility] 05-01-2024 09:51-0400 Heart rate 69 /min MD Suzan Rome Work Phone[facility] 05-01-2024 09:51-0400 Systolic blood pressure 145 mm[Hg] MD Suzan Rome Work Phone: [facility] 04-10-2024 01:37-0400 Diastolic blood pressure 63 mm[Hg] MD Suzan Rome Work Phone: [facility] 04-10-2024 01:37-0400 Heart rate 65 /min MD Suzan Rome Work Phone: [facility] 04-10-2024 01:37-0400 Respiratory rate 18 /min MD Suzan Rome Work Phone: [facility] 04-10-2024 01:37-0400 SaO2% (BldA) [Mass fraction] 98 % MD Suzan Rome Work Phone: [facility] 04-10-2024 01:37-0400 Systolic blood pressure 157 mm[Hg] MD Suzan Rome Work Phone: [facility] 04-09-2024 23:09-0400 Body height 160.02 cm MD Suzan Rome Work Phone: [facility] 04-09-2024 23:09-0400 Body temperature 97.6 [degF] MD Suzan Rome Work Phone: [facility] 04-09-2024 23:09-0400 Body weight 74.2 kg MD Suzan Rome Work Phone: [facility] 01-17-2024 14:22-0400 Blood Pressure Location Bryce PANDYAL [facility] 01-17-2024 14:22-0400 Diastolic blood pressure 84 mm[Hg] Bryce NILL [facility] 01-17-2024 14:22-0400 Heart rate 76 /min Bryce NILL [facility] [place] 01-17-2024 14:22-0400 Respiratory rate 16 /min Bryce NILL [facility] [place] 01-17-2024 14:22-0400 Systolic blood pressure 126 mm[Hg] Bryce NILL [facility] [place] 10-19-2023 09:30-0500 Body height 157.48 cm Suzan Rome Other [facility] Other 10-19-2023 09:30-0500 Body mass index (BMI) [Ratio] 31.49 kg/m2 Suzan Rome Other [facility] Other 10-19-2023 09:30-0500 Body weight 78.11 kg Suzan Rome Other [facility] Other 10-19-2023 09:30-0500 Diastolic blood pressure 80 mm[Hg] Suzan Rome Other [facility] Other 10-19-2023 09:30-0500 Systolic blood pressure 130 mm[Hg] Suzan Rome Other [facility] Other 08-30-2023 10:00-0500 Body height 157.48 cm Suzan Rome Other [facility] Other 08-30-2023 10:00-0500 Body mass index (BMI) [Ratio] 31.82 kg/m2 Suzan Rome Other [facility] Other 08-30-2023 10:00-0500 Body weight 78.93 kg Suzan Rome Other [facility] Other 08-30-2023 10:00-0500 Diastolic blood pressure 78 mm[Hg] Suzan Rome Other [facility] Other 08-30-2023 10:00-0500 Systolic blood pressure 144 mm[Hg] Suzan Rome Other [facility] Other 10-22-2022 10:00-0500 Body height 157.48 cm Suzan Rome Other [facility] Other 10-22-2022 10:00-0500 Body mass index (BMI) [Ratio] 31.27 kg/m2 Suzan Rome Other [facility] Other 10-22-2022 10:00-0500 Body weight 77.57 kg Suzan Rome Other [facility] Other 10-22-2022 10:00-0500 Diastolic blood pressure 82 mm[Hg] Suzan Rome Other [facility] Other 10-22-2022 10:00-0500 SaO2% (BldA) [Mass fraction] 98 % Suzan Rome Other [facility] [employer] Other 10-22-2022 10:00-0500 Systolic blood pressure 140 mm[Hg] Suzan Roem Other [facility] [employer] Other Encounters Encounter Date Encounter Type Care Provider Facility Start: 11-27-2024 End: 11-27-2024 Emergency department patient visit Suzan Rome MD Work Phone: [facility] Work Phone: Start: 11-07-2024 Patient encounter procedure Suzan Rome MD Work Phone[facility] Start: 11-07-2024 End: 11-07-2024 Patient encounter procedure Suzan Rome MD Work Phone: [facility] Phys[facility] Work Phone: Start: 06-26-2024 End: 06-26-2024 ambulatory MD Suzan Rome Work Phone: [place] Work Phone: Start: 06-26-2024 End: 06-26-2024 Patient encounter procedure MD Suzan Rome Work Phone: [facility] Work Phone: Start: 05-01-2024 End: 05-01-2024 Patient encounter procedure MD Suzan Rome Work Phone: [facility] Physician [facility] Work Phone: Start: 04-09-2024 End: 04-10-2024 Emergency department patient visit MD Suzan Rome Work Phone: [facility] Work Phone: Start: 02-29-2024 End: 03-01-2024 ambulatory Bryce MO Facility:[id number] Start: 01-17-2024 End: 01-18-2024 ambulatory SUZAN ROME Facility:[facility] Start: 01-17-2024 End: 01-17-2024 Patient encounter procedure Bryce R CHELY General Surgery N[facility]/Said [facility] Start: 01-09-2024 End: 01-09-2024 ambulatory SHER SINGHSOHAKAI Not Available Start: 12-16-2023 ambulatory SUZAN WILD Facility:[facility] Start: 11-03-2023 End: 11-03-2023 ambulatory Suzan Rome Other [facility] Other Start: 11-03-2023 Telephone encounter Suzan Wild [facility] Start: 10-19-2023 End: 10-19-2023 ambulatory Suzan Rome Other [facility] Other Start: 10-19-2023 Patient encounter procedure Suzan Wild [facility] Start: 09-19-2023 End: 09-19-2023 ambulatory KRYSTIN OLGUIN Not Available Start: 09-13-2023 End: 09-13-2023 ambulatory Suzan Rome Other [facility] Other Start: 09-13-2023 Telephone encounter Suzan Rome [facility] Start: 09-02-2023 End: 09-02-2023 ambulatory Suzan Rome Other [facility] Other Start: 09-02-2023 Telephone encounter Suzan Rome [facility] Start: 08-30-2023 End: 08-30-2023 ambulatory Suzan Rome Other [facility] Other Start: 08-30-2023 Office outpatient vi sit 15 minutes Suzan Wild [facility] Start: 03-16-2023 End: 03-16-2023 ambulatory Suzan Rome Other [facility] Other Start: 03-16-2023 Telephone encounter Suzan Rome [facility] Start: 03-15-2023 End: 03-15-2023 ambulatory Suzan Rome Other [facility] Other Start: 03-15-2023 Telephone encounter Suzan Rome [facility] Start: 11-11-2022 End: 11-11-2022 ambulatory Suzan Rome Other [facility] Other Start: 11-11-2022 Telephone encounter Suzan Rome [facility] Start: 11-10-2022 End: 11-10-2022 ambulatory Suzan Rome Other [facility] Other Start: 11-10-2022 Telephone encounter Suzan Rome [facility] Start: 11-02-2022 End: 11-02-2022 ambulatory Suzan Rome Other [facility] Other Start: 11-02-2022 Telephone encounter Suzan Rome [facility] Start: 11-01-2022 End: 11-02-[address] SUZAN ROME Facility:[facility] Start: 10-22-2022 End: 10-22-2022 ambulatory Suzan Rome Other [facility] Other Start: 10-22-2022 Office outpatient vi sit 15 minutes Suzan Rome [facility] Start: 10-20-2022 End: 10-20-2022 ambulatory Suzan Rome Other [facility] Other Start: 10-20-2022 Telephone encounter Suzan Rome [facility] Start: 08-15-2022 Encounter for preprocedural cardiovascular examination DR SUZAN ROME [facility] Start: 08-15-2022 Encounter for preprocedural laboratory examination DR SUZAN ROME [facility] Start: 08-12-2022 End: 08-13-[address] SUZAN ROME Facility:[facility] Start: 08-12-2022 End: 08-13-2022 Encounter for preprocedural cardiovascular examination DR SUZAN ROME Facility:[facility] Start: 11-24-2021 End: 11-25-2021 ambulatory LIAT PALM Facility:[facility] Procedures Date Procedure Procedure Detail Performing Clinician Start: 11-27-2024 Respiratory Panel (PCR) Suzan Rome MD Work Phone: Start: 10-17-2003 Colonoscopy Bryce NI LL Arthroscopy of knee Bryce NILL Cystopexy Bryce NILL Laryngoscopy Bryce NILL Repair of musculoten dinous cuff of shoulder Bryce NILL Thyroidectomy Bryce NILL Vaginal hysterectomy Bryce NILL Plan of Treatment Date Care Activity Detail Author MG Breast - bilateral Screening [facility] Patient Education [facility] Work Phone: Patient referral [facility] Work Phone: [facility] Immunizations Immunization Date Immunization Notes Care Provider Fa cility 01-20-2021 SARS-CoV-2 (COVID-19 ) mRNA-1273 vaccine Bryce NILL [facility] [place] 11-24-2020 SARS-CoV-2 (COVID-19 ) mRNA-1273 vaccine Bryce NILL [facility] [place] 09-19-2017 pneumococcal polysaccharide vaccine, 23 valjulius Rome Other [facility] 09-03-2016 pneumococcal conjuga te vaccine, 13 valjulius Rome Other [facility] Payers Date Payer Category Payer Self-pay [id number] 2021 Unknown [id number] 1960 Medicare [id number] 1960 Unknown [id number] 1950 Unknown [id number] 1949 Unknown [id number] 1949 Unknown [id number] 1949 Unknown [id number] 1949 Unknown [id number] 1949 Unknown [id number] 1949 Unknown [id number] Medicare Medicare- Part A Only [id number] Unknown [employer] [id number] Unknown [id number] Unknown [id number] Social History Date Type Detail Facility Unknown if ever smoked [facility] Other Sex Assigned At [facility] Start: 01-17-2024 End: 11-27-2024 Tobacco smoking status Never smoked tobacco (finding) [facility] [place] Tobacco smoking status Never Gener al [facility] [place] Start: 1950 Sex Assigned At Female [facility] Start: 11-27-2024 Sex Female (finding) [facility] Functional Status Date Assessment Result Facility 01-17-2024 Functional Status N/A General [facility] [place] Clinical Notes 10-22-2022 to 11-07-2024 Note Date & Type Note Facility 11-07-2024 Evaluation note Diagnosis Onset Date Resolution Acquired hypothyroidism acute J anuary 2024 11:15am Essential (primary) hypertension acute November 07 11:15am Medicare annual wellness visit, subsequent acute November 07, 2024 11:15am Screening mammogram for breast cancer acute November 07 11:15am Vitamin D deficiency disease acute November 07 11:15am [facility] Work Phone: [phone]) 596-121004-04-2024 NoteChief Complaint consultation for colonoscopy HPI Staff 73 year old female presents on consultation from Dr. Rome for screening colonoscopy. Denies abdominal or rectal pain. No rectal bleeding or change in bowel habits. Denies nausea or vomiting. No unexplained weight loss. Patient reports previous colonoscopy completed 2003 and normal. No known familyhistory of colon cancer. History of Present Illness 73 yo female with h/o htn, hypothyroidism, migraines, referred for colorectal screening; denies change in bms or blood in stools; no abdominal complaints; denies asa or NSAID use, no SBE prophylaxis;abdominal operations significant for vaginal hysterectomy, last colonoscopy [...] swallowing difficulties, no hearing loss, no ear infection(s),no nose bleeds. Cardiovascular: normal blood pressure, no [...] 01/20/2021 Recorded SARS-CoV-2 (COVID-19) mRNA-1273 vaccine 11/24/2020 [facility]Result Comment: Electronically Signed By: CHELY JUAREZ, Bryce Rebolledo\Date and Time Signed: 01/19/24 08:48 [id number] Evaluation note * Encounter Date Diagnosis Assessment Notes Treatment Notes Treatment Clinical Notes Oct, Medicare annual wellness visit, initial [...] continue present dose now for chronic problem. [facility] Other 11-28-2023 Evaluation note* Encounter Date Diagnosis Assessment Notes Treatment Notes Treatment Clinical Notes Aug, Abnormal computed tomography of soft tissue of neck (ICD-10 - R93.89) [facility] Other 11-17-2023 Evaluation note* Encounter Date Diagnosis Assessment Notes Treatment Notes Treatment Clinical Notes Aug, Neck pain on right side (ICD-10 - M54.2) [facility] Other 11-14-2023 Evaluation note* Encounter Date Diagnosis Assessment Notes Treatment Notes Treatment Clinical Notes Aug, Neck pain on right side (ICD-10 - M54.2) Pt agrees to CT to eval area in question, mainly due to history of neck cancer. Aug, Colon cancer screening (ICD-10 - Z12.11) pt requests cologuard rather than colonoscopy [facility] Other 01-06-2023 Evaluation note* Encounter Date Diagnosis [...] without current pathological fracture (ICD-10 - M81.0) [facility] Other Evaluation + Plan note No data available for this section General Surgery Katherine Evaluation noteNo InformationNort Wyle Other Evaluation noteNo assessment information available [facility] Work Phone: Evaluation note* Diagnosis Onset Date Resolution Status Occipital pain acute Recurrent headache acute [place] Work Phone: History general Narrative - Reported* Type Description [...] LEFT 2000 Hospitalization History SEE SURGICAL HX [facility] Other Hospital Discharge instructions No data available for this section General Surgery [place] Progress note No data available for this section General Surgery [place] Summary Purpose Family History No Family History Records Found Relationship Condition Age at Onset Recorded Date/T roberta father Diabetes mellitus Unknown Arteriosclerotic vascular disease Unknown Myocardial infarction Unknown Depression Unknown Not Specified Benign neoplasm of brain Unknown Cerebrovascular accident (CVA) Unknown sister Arteriosclerotic vascular disease Unknown Hypertension Unknown High blood cholesterol Unknown Fibromyalgia Unknown father Unknown Not Specified Unknown Relationship Condition Age at Onset Recorded Date/T roberta father Diabetes mellitus Unknown Arteriosclerotic vascular disease Unknown Myocardial infarction Unknown Depression Unknown mother Benign neoplasm of brain Unknown Cerebrovascular accident (CVA) Unknown sister Arteriosclerotic vascular disease Unknown Hypertension Unknown High blood cholesterol Unknown Fibromyalgia Unknown father Unknown mother Unknown Advance Directives No Advanced Directives Records Found Advance Directive Response Recorded Date/ Time Advance Directives Yes April 06 10:29am Advance Directive Response Recorded Date/ Time Advance Directives Yes April 06 9:29am Reason for Referral Reason *FU 09/21 [facility] [place], Last OV and CT recently. thanks Diagnosis 1 Abnormal computed to mography of soft tissue of neck (R93.89) Referral Organization [facility] haresh Referring Provider First Name Suzan Referring Provider Last Name Wild Referring Provider Specialty Family [facility] Referred Organization [facility] Referred Provider Krystin Olguin Referred Address ,[place], [place],[address] Referred Provider Specialty Ear, Nose an d Throat Referral Priority Routine General Notes Martha Encinas 02:20:40 PM >received today, attachments made, notes locked, referral faxed Chief Complaint and Reason for Visit Chief Complaint headache Chief Complaint headache headache UA, frequency and pressure Reason for Visit Occipital pain Recurrent headache Chief Complaint Admit Date wellness November 07, 2024 1 1:15am n/v/d November 27, 2024 10:18am Reason for Visit Admit Date Acquired hypothyroidism November 07 11:15am Essential (primary) hypertension November 07, 2024 11:15am Medicare annual wellness visit, carlose nt November 07, 2024 11:15am Screening mammogram for breast cancer Janak shetty 2024 11:15am Vitamin D deficiency disease October d2024 11:15am Additional Source Comments INFORMATION SOURCE (unrecogn ized section and content) DATE CREATED AUTHOR 11/02/2022 [facility] DATE CREATED AUTHOR AUTHOR'S ORGANIZ ATION 01/09/2024 [facility] EPIC DATE CREATED AUTHOR AUTHOR'S ORGANIZ ATION 03/03/2024 [facility] DATE CREATED AUTHOR AUTHOR'S ORGANIZ ATION 11/29/2024 [facility] REASON FOR VISIT (unrecogniz ed section and content) BPBP Check UpDEXA resultlabs RefillrefillRefillsneck painmessageabnormal neck CTWellnesslabs and mamm Patient Care team informatio n (unrecognized section and content) Team Status: Active Member Role Status Dates Suzan Rome MD Primary Care Provider Active Team Status: Inactive Member Role Status Dates Suzan Rome MD Primary Care Provider Active Start: April 09, 2024 End: April 10, 2024 Cisco Allen DO Emergency Provider Active St art: April 09, 2024 End: April 10, 2024 Team Status: Inactive Member Role Status Annabelle Rome MD Primary Care Provide r, Attending Provider Active Start: May 01, 2024 End: May 01, 2024 Team Status: Inactive Member Role Status Annabelle Rome MD Primary Care Provide r, Attending Provider Active Start: June 26, 2024 End: June 26, 2024 Team Status: Inactive Member Role Status Annabelle Rome MD Primary Care Provide r, Attending Provider Active Start: November 07, 2024 End: November 07, 2024 Team Status: Inactive Member Role Status Annabelle Rome MD Primary Care Provider Active Start: November 27, 2024 End: November 27, 2024 Cricket Russell DO Emergency Provider Active Sta rt: November 27, 2024 End: November 27, 2024 Goals (unrecognized section and content) Goals may be documented in a n alternate section FOR RECORDS PERTAINING TO PATIENTS WHO ARE [...] BE BASED ON THE PRIMARY CLINICAL RECORDS. [facility]. provides no warranty or guarantee of the accuracy or completeness of information in this document.
--- NOTE | 2024-12-02 12:22 | CT_ITS ---
The [address] [address] Patient Name: ANDREA LOPEZ MRN: [id number] date: 1950 Sex: F Assigned Patient Location: ER Current Patient Location: ER Accession/Order Number: [id number] Exam Date: 12/02/2024 12:41 Report Date: 12/02/2024 13:54 At the request of: JANET AL Procedure: CT abdomen pelvis wo con EXAM: CT abdomen pelvis wo con HISTORY: left flank pain, r/o stone COMPARISON: None. TECHNIQUE: CT abdomen pelvis without contrast. Axial scans with reformatted coronal sagittal images. Individualized radiation dose reduction used for this exam. FINDINGS: Lower chest: No acute process. Small hiatal hernia. ABDOMEN: Small cyst dome of the liver left lobe. 3.5 cm cyst right lobe adjacent to the gallbladder. Normal-appearing fluid-filled gallbladder. No biliary dilatation. Adrenal glands, pancreas, spleen unremarkable. No ascites or free fluid in the abdomen. Normal size aorta with small amount of plaque. Small mesenteric lymph nodes slightly increased mesenteric attenuation suggestive of a mesenteric panniculitis. No significant adenopathy or focal mass, likely incidental.. No periaortic retroperitoneal adenopathy. 6 mm calculus lower pole left kidney. Prominent cystic area central left kidney probably combination prominent renal pelvis and peripelvic cysts. The ureter is mildly dilated the bladder without ureteral calculus. There is a small calculus along the dependent bladder posteriorly which may be a recently passed ureteral calculus. Right renal pelvis and upper complex cysts and prominent with abrupt transition normal caliber ureters positioning GJ obstruction which may be chronic. No renal or ureteral calculus seen. Ureters normal caliber to the bladder. No perirenal fluid or stranding. No gastric or small bowel distention. Redundant prominent cecum which projects in the midline anteriorly. No colonic obstruction noted. Moderate gas and stool throughout the colon. PELVIS: No mass or adenopathy. Fluid-filled bladder with a small calcification in the midline along the dependent posterior aspect. Could be a recently passed calculus from the left ureter which is prominent to the bladder. Right pelvic ureter unremarkable. Uterus not visualized presumed hysterectomy. MUSCULOSKELETAL: No suspicious bone lesion. CT/CT abdomen pelvis wo con IMPRESSION: 1. Left hydronephrosis, ureter dilated down to the bladder without calculus. There is a calculus in the bladder posteriorly which may be a recently passed calculus. 2. There is a 6 mm calculus lower pole left kidney. Cystic areas left kidney centrally likely combination prominent renal pelvis and peripelvic cyst. 3. Prominent right upper collecting system and renal pelvis without ureteral dilatation or ureteral calculus. Could be chronic UP junction obstruction. No findings suggesting acute obstruction. 4. Incidental findings including liver cysts and findings suggesting mesenteric panniculitis. Electronically authenticated by: KACI VALIENTE Date: 12/02/2024 13:54
--- NOTE | 2024-12-02 12:22 | ED_ITS ---
HPI HPI - General Adult General Chief complaint: Back Pain/Injury Stated complaint: IGNACIO PAIN Time Seen by Provider: 12/02/24 12:20 Source: patient Mode of arrival: Wheelchair Limitations: no limitations History of Present Illness HPI narrative: 74-year-old female presents for left flank pain. It started a few hours ago and it feels like when she had a kidney stone. No injury or unusual activity. No dysuria or hematuria. No pain on the right side and it has been continuous. Related Data Home Medications ?Medication ?Instructions ?Recorded ?Confirmed atenolol 50 mg tablet 50 mg PO DAILY 02/17/24 02/29/24 levothyroxine 75 mcg tablet 75 mcg PO DAILY 02/17/24 02/29/24 (Euthyrox) multivitamin 1 tab PO DAILY 02/17/24 02/29/24 Allergies Allergy/AdvReac Type Severity Reaction Status Date / Time No Known Drug Allergies Allergy Verified 02/17/24 08:45 Opioid HPI Opioid Management Most Recent Opioid Data: No Data to Display Review of Systems ROS Narrative A ten point review of systems is negative except as noted above. PFSH PFS Medical History (Updated 12/02/24 @ 14:01 by Curtis Medrano MD) Post-operative nausea and vomiting ?R11.2 - Nausea with vomiting, unspecified (ICD-10) ?Z98.890 - Other specified postprocedural states (ICD-10) Migraine ?G43.909 - Migraine, unspecified, not intractable, without status migrainosus (ICD-10) Hypothyroidism ?E03.9 - Hypothyroidism, unspecified (ICD-10) Hypertension ?I10 - Essential (primary) hypertension (ICD-10) Surgical History (Updated 02/20/24 @ 10:31 by Karlene Valverde) History of laryngoscopy ?Z98.890 - Other specified postprocedural states (ICD-10) History of repair of rotator cuff ?Z98.890 - Other specified postprocedural states (ICD-10) History of bladder suspension procedure ?Z98.890 - Other specified postprocedural states (ICD-10) ?Z87.448 - Personal history of other diseases of urinary system (ICD-10) History of arthroscopy of knee ?Z98.890 - Other specified postprocedural states (ICD-10) History of vaginal hysterectomy ?Z90.710 - Acquired absence of both cervix and uterus (ICD-10) History of thyroidectomy ?E89.0 - Postprocedural hypothyroidism (ICD-10) History of colonoscopy ?Z98.890 - Other specified postprocedural states (ICD-10) Family History (Updated 02/17/24 @ 08:52 by Karlene Valverde) Mother Brain tumor Other Family history of diabetes mellitus Family history of hypertension Heart disease Social History (Updated 02/29/24 @ 08:56 by Slime Lopez RN) Within the past year, how often did you have a drink containing alcohol: monthly or less Smoking status: Never smoker Non-prescribed substance use: denies use Previous occupational history: retired Highest level of school completed/degree received: high school graduate Little interest or pleasure in doing things: not at all Feeling down, depressed, or hopeless: not at all Exam Narrative Exam Narrative: Nurses note and vital signs reviewed and patient is not hypoxic. General: The patient appears uncomfortable. Skin: Warm, dry, no pallor noted. There is no rash noted. Head: Normocephalic, atraumatic Eye: Normal conjunctiva, no drainage Ears, Nose, Mouth, and Throat: oral mucosa is moist. Nares patent. Cardiovascular: Regular Rate and Rhythm Respiratory: Patient is in no distress, no accessory muscle use, lungs are clear to auscultation, no wheezing, rales or rhonchi Back: non-tender GI: Soft and nontender Musculoskeletal: The patient has no evidence of calf tenderness, no pitting edema, symmetrical pulses noted bilaterally Neurological: A&O, normal speech Psychiatric: Cooperative Constitutional Vital Signs, click to edit/add: Last Vital Signs Temp 97.8 F 12/02/24 12:12 Pulse 62 12/02/24 12:12 Resp 18 12/02/24 12:12 BP 175/71 H 12/02/24 13:48 Pulse Ox 100 12/02/24 12:12 O2 Del Method Room Air 12/02/24 12:12 Course Vital Signs Vital signs: Vital Signs Temperature 97.8 F 12/02/24 12:12 Pulse Rate 62 12/02/24 12:12 Respiratory Rate 18 12/02/24 12:12 Blood Pressure 183/65 H 12/02/24 12:12 Pulse Oximetry 100 12/02/24 12:12 Oxygen Delivery Method Room Air 12/02/24 12:12 Temperature 97.8 F 12/02/24 12:12 Pulse Rate 62 12/02/24 12:12 Respiratory Rate 18 12/02/24 12:12 Blood Pressure 175/71 H 12/02/24 13:48 Pulse Oximetry 100 12/02/24 12:12 Oxygen Delivery Method Room Air 12/02/24 12:12 Medical Decision Making MDM Narrative Medical decision making narrative: CT scan showed a stone in her urinary bladder. While she was here in the emergency department she passed that and we collected it and sent it to the lab for pathology. She is referred to urology for follow-up. She was informed that she has another stone in the left kidney. Treatment diagnosis and follow-up were discussed with the patient. Differential Diagnosis Differential Diagnosis: Kidney stone, UTI, pyelonephritis Lab Data Lab results reviewed: Yes I reviewed the patient's lab results Labs: Lab Results 12/02/24 12/02/24 Range/Units 12:22 13:32 WBC 14.1 H (4.0-11.0) 10^3/uL RBC 5.01 (4.20-5.40) 10^6/uL Hgb 14.5 (12.0-16.0) g/dL Hct 41.9 (36.0-48.0) % MCV 83.6 (81.0-99.0) fL MCH 28.9 (26.7-34.0) pg MCHC 34.6 (29.9-35.2) g/dL RDW 13.3 (11.0-15.0) % Plt Count 299 (150-450) 10^3/uL MPV 10.7 (9.5-13.5) fL Neut % (Auto) 85.9 H (43.0-75.0) % Lymph % (Auto) 9.6 L (20.5-60.0) % [place] % (Auto) 3.5 (1.7-12.0) % Eos % (Auto) 0.3 L (0.9-7.0) % Baso % (Auto) 0.5 (0.2-2.0) % Neut # (Auto) 12.1 H (1.4-6.5) 10^3/uL Lymph # (Auto) 1.4 (1.2-3.8) 10^3/uL [place] # (Auto) 0.5 (0.3-0.8) 10^3/uL Eos # (Auto) 0.0 (0.0-0.7) 10^3/uL Baso # (Auto) 0.1 (0.0-0.1) 10^3/uL Abs Immat Gran (auto) 0.03 (0.00-0.03) 10^3/uL Imm/Tot Granulo (auto) 0.2 (0.0-0.5) % Sodium 140 (136-145) mmol/L Potassium 4.1 (3.5-5.1) mmol/L Chloride 104 (98-107) mmol/L Carbon Dioxide 25.1 (21.0-32.0) mmol/L Anion Gap 15.0 BUN 11.0 (7.0-18.0) mg/dL Creatinine 0.93 (0.55-1.02) mg/dL Est GFR ( Amer) >60 (>=60 mL/min/1.73m^2) Est GFR (Non-Af Amer) 59 L (>=60 mL/min/1.73m^2) BUN/Creatinine Ratio 11.8 Glucose 144 H (74-106) mg/dL Calcium 8.4 L (8.5-10.1) mg/dL Urine Color Lt. yellow (YELLOW) Urine Clarity Clear (CLEAR) Urine pH 6.5 (5.0-9.0) Ur Specific Mongo 1.010 (1.005-1.025) Urine Protein Negative (NEG/TRACE) mg/dL Urine Glucose (UA) Negative (NEGATIVE) mg/dL Urine Ketones Negative (NEGATIVE) mg/dL Urine Occult Blood Large A (NEGATIVE) Urine Nitrite Negative (NEGATIVE) Urine Bilirubin Negative (NEGATIVE) Urine Urobilinogen 0.2 (0.2-1.0) EU/dL Ur Leukocyte Esterase Negative (NEGATIVE) Urine RBC 10-20 A (0-2) #/HPF Urine WBC None seen (NONE SEEN) #/HPF Ur Squamous Epith Cells Rare (NONE/RARE) #/LPF Urine Crystals None seen (None Seen) #/HPF Urine Bacteria None seen (NONE SEEN) #/HPF Urine Casts None seen (NONE SEEN) #/LPF Urine Mucus Trace A (NONE SEEN) Imaging Data CT scan - abdomen: Radiologist's impression: ITS Impressions Abdomen/Pelvis CT 12/02/24 12:22 IMPRESSION: 1. Left hydronephrosis, ureter dilated down to the bladder without calculus. There is a calculus in the bladder posteriorly which may be a recently passed calculus. 2. There is a 6 mm calculus lower pole left kidney. Cystic areas left kidney centrally likely combination prominent renal pelvis and peripelvic cyst. 3. Prominent right upper collecting system and renal pelvis without ureteral dilatation or ureteral calculus. Could be chronic UP junction obstruction. No findings suggesting acute obstruction. 4. Incidental findings including liver cysts and findings suggesting mesenteric panniculitis. Electronically authenticated by: KACI VALIENTE Date: 12/02/2024 13:54 Discharge Plan Discharge Chief Complaint: Back Pain/Injury Clinical Impression: Kidney stone Patient Disposition: Home, Self-Care Time of Disposition Decision: 14:01 Condition: Good Mode of Transportation: Private Vehicle Prescriptions / Home Meds: No Action atenolol 50 mg tablet 50 mg PO DAILY levothyroxine [Euthyrox] 75 mcg tablet 75 mcg PO DAILY multivitamin Tablet 1 tab PO DAILY Print Language: Mongolian Instructions: Kidney Stones (ED) Referrals: Suzan Meza MD [Primary Care Provider] - 1 week Cisco Herrera MD [Physician] - 1 week
[2024-12-02 12:34] LABS: Basophils Absolute Auto 0.1 10^3/uL (0.0-0.1); Basophils Percent Auto 0.5 % (0.2-2.0); Eosinophils Percent Auto 0.3 % (0.9-7.0); Hematocrit 41.9 % (36.0-48.0); Hemoglobin 14.5 g/dL (12.0-16.0); Immature Granulocytes Abs Auto 0.03 10^3/uL (0.00-0.03); Immature Granulocytes Pct Auto 0.2 % (0.0-0.5); Lymphocytes Absolute Auto 1.4 10^3/uL (1.2-3.8); Lymphocytes Percent Auto 9.6 % (20.5-60.0); Mean Corpuscular HGB Conc 34.6 g/dL (29.9-35.2); Mean Corpuscular Hemoglobin 28.9 pg (26.7-34.0); Mean Corpuscular Volume 83.6 fL (81.0-99.0); Mean Platelet Volume 10.7 fL (9.5-13.5); Monocytes Absolute Auto 0.5 10^3/uL (0.3-0.8); Monocytes Percent Auto 3.5 % (1.7-12.0); Neutrophils Absolute Auto 12.1 10^3/uL (1.4-6.5); Neutrophils Percent Auto 85.9 % (43.0-75.0); Platelet Count 299 10^3/uL (150-450); Red Blood Count 5.01 10^6/uL (4.20-5.40); Red Cell Distribution Width 13.3 % (11.0-15.0); White Blood Count 14.1 10^3/uL (4.0-11.0)
[2024-12-02] MEDS: 0.9 % SODIUM CHLORIDE 500 ML IV (12:35)
[2024-12-02] MEDS: MORPHINE SULFATE 4 MG/ML VIAL IV (12:36)
[2024-12-02 12:58] LABS: BUN Creatinine Ratio 11.8; Calcium 8.4 mg/dL (8.5-10.1); Carbon Dioxide 25.1 mmol/L (21.0-32.0); Chloride 104 mmol/L (98-107); Estimated GFR (African America >60 (>=60 mL/min/1.73m^2); Estimated GFR (Non-African Ame 59 (>=60 mL/min/1.73m^2); Glucose 144 mg/dL (74-106); Potassium 4.1 mmol/L (3.5-5.1); Sodium 140 mmol/L (136-145)
[2024-12-02 13:48] VITALS: BP 175/71
[2024-12-02 13:48] LABS: Bilirubin Urine NEGATIVE (NEGATIVE); Blood Urine LARGE (NEGATIVE); Clarity Urine CLEAR (CLEAR); Color Urine LT. YELLOW (YELLOW); Glucose Urine UA NEGATIVE (NEGATIVE); Ketones Urine NEGATIVE (NEGATIVE); Leukocyte Esterase Urine NEGATIVE (NEGATIVE); Nitrite Urine NEGATIVE (NEGATIVE); Protein Urine NEGATIVE (NEG/TRACE); Urobilinogen Urine 0.2 EU/dL (0.2-1.0); pH Urine 6.5 (5.0-9.0)
[2024-12-02 13:58] LABS: Bacteria Urine NONE SEEN #/HPF (NONE SEEN); Cast Seen? NONE SEEN #/LPF (NONE SEEN); Crystals Seen? None Seen #/HPF (None Seen); Mucus Urine TRACE (NONE SEEN); Squamous Epithelial Cell Urine RARE #/LPF (NONE/RARE); WBC Urine NONE SEEN #/HPF (NONE SEEN)
[2024-12-08 13:08] LABS: Calcium Oxalate Monohydrate 10 % (.); Size 3x3 mm (.); Uric Acid 90 % (.)
== END 2024-12-02 14:38 | disposition home or self-care (01) ==
PROVIDERS: Emergency Provider Emergency Medicine; PCP Family Medicine
DX: N13.2 Hydronephrosis with renal and ureteral calculous obstruction (principal); Z87.442 Personal history of urinary calculi; Z90.710 Acquired absence of both cervix and uterus; E89.0 Postprocedural hypothyroidism; N21.0 Calculus in bladder
CPT/HCPCS: 36415; 74176; 80048; 81001; 82365; 85025; 96374; 99284; J2270

== ENCOUNTER 2024-12-06 11:16 | Emergency (ER) | payer OTHER, SELFPAY ==
[2024-12-06 11:21] VITALS: BP 172/69; PULSE 67; TEMP 36.4; O2SAT 96; BMI 30.1
--- OUTSIDE RECORDS SUMMARY | 2024-12-06 11:38 | XMS_ITS | CCD ---
Author Organization [facility] Care Team Providers Care English Professor Name Role Phone DR SUZAN ROME Admitting [...] Referring Unavailable SUZAN ROME Primary Care Physician [phone] MD Suzan Rome Primary Care Provider DO Cisco Allen Emergency Provider Suzan Rome MD Primary Care Provider [phone] Cricket Russell DO Emergency Provider Suzan Rome Primary Care Unavailable Cisco Allen Admitting Unavailable Cisco Allen Attending Unavailable Cricket Russell Attending Unavailable Suzan Rome Primary Care Unavailable Cricket Russell Admitting Unavailable BIJU VALDEZ Attending Unavail able [place] Attending Unavailable SUZAN ROME Referring Unavailable [place] Attending Unavailable Allergies Allergy Classification Reported Allergen(s) Allergy Type Date of Onset Reaction(s) Facility (1 source) No Known Medication Allergies; Translations: [No Known Medication Allergies] Propensity to adverse reactions (disorder) [facility] Repository Medications Current Medications Medication Drug Class(es) Dates Sig (Normalized) Sig (Original) atenolol 50 mg oral tablet (19 sources) beta-Adrenergic Maryan Start: 03-02-2024 take 1 tablet by mouth once daily Atenolol 50 mg tablet Active 0 .ROUTE .COMPLEX March 02, 2024 8:52am TAKE 1 TABLET [...] Discontinued 100 MG PO Daily at bedtime 30 March 28, 2019 11:00pm August 05, 2021 [...] [Enzymatic activity/volume] in Serum or Plasma 752 [facility] Albumin [Mass/volume] in Ser um or Plasma by Bromocresol green (BCG) dye binding methoOrdered By: Cricket Russell on 11-27-2024 Albumin BCG dye [Mass/Vol] Albumin [Mass/volume] in Serum or Plasma by Bromocresol green (BCG) dye binding metho 3.5-5.7 [facility] Alkaline phosphatase [Enzyma tic activity/volume] in Serum or PlasmaOrdered By: Cricket Russell on 11-27-2024 ALP [Catalytic activity/Vol] Alkaline phosphatase [Enzymatic activity/volume] in Serum or Plasma 34-104 [facility] Appearance of UrineOrdered B y: Cricket Russell on 11-27-2024 Appearance (U) Urine appearance Clear [facility] Aspartate aminotransferase [ Enzymatic activity/volume] in Serum or PlasmaOrdered By: Cricket uRssell on 11-27-2024 AST [Catalytic activity/Vol] Aspartate aminotransferase [Enzymatic activity/volume] in Serum or Plasma 13-39 [facility] Bacteria [Presence] in Urine by AutomatedOrdered By: Cricket Russell on 11-27-2024 Bacteria Auto Ql (U) Bacteria [Presence] in Urine by Automated None Seen [facility] Basophils Auto (Bld) [#/Vol] Ordered By: Cricket Russell on 11-27-2024 Basophils (Bld) [#/Vol] Automated basoph il count 0.0-0.2 [facility] Basophils/100 WBC Auto (Bld) Ordered By: Cricket Russell on 11-27-2024 Basophils/100 WBC (Bld) Automated basophil % . [facility] Bilirubin Test strip Ql (U)O rdered By: Cricket Russell on 11-27-2024 Bilirubin Ql (U) Bilirubin.total [Presence] in Urine by Test strip Negative [facility] Bilirubin.total [Mass/volume ] in Serum or PlasmaOrdered By: Cricket Russell on 11-27-2024 Bilirubin [Mass/Vol] Bilirubin.total [Mass/volume] in Serum or Plasma 0.3-1.0 [facility] BioFire Not Detectedon 11-27 BioFire Not Detected Not detected Normal Not Detecte T he [facility] Comment on above: Result Comment: This is a duplicate RP2.1 COVID (PCR) result to be used for statistical tracking purpose only. PERFORMED BY: [place] [address] PATHOLOGIST HOME STAGING SPECIALIST GINNY PIPER M.D. Performed By: #### B IOFIRECOVNOTDE, RESP PANEL UPP. #### [address] COVID-19 Detected/Not Detect edOrdered By: Cricket Russell on 11-27-2024 SARS-CoV-2 (COVID-19) RNA NOE+non-probe Ql (Nph) Not detected Not Detecte [facility] Comment on above: This is a duplicate RP2.1 COVID (PCR) result to be used for statistical tracking purpose only. Calcium [Mass/volume] in Ser um or PlasmaOrdered By: Cricket Russell on 11-27-2024 Calcium [Mass/Vol] Calcium [Mass/volume] in Serum or Plasma 8.6-10.3 [facility] Carbon dioxide, total [Moles /volume] in Serum or PlasmaOrdered By: Cricket Russell on 11-27-2024 CO2 [Moles/Vol] Carbon dioxide, total [Moles/volume] in Serum or Plasma 21.0-31.0 [facility] Chloride [Moles/volume] in S kristina or PlasmaOrdered By: Cricket Russell on 11-27-2024 Chloride [Moles/Vol] Chloride [Moles/volume] in Serum or Plasma 98-107 [facility] Color Auto (U)Ordered By: Capser Russell on 11-27-2024 Color (U) Color of Urine by Auto Yellow [facility] Complete Blood Count Auto Di ffon 11-27-2024 Basophils (Bld) [#/Vol] 0.0 10*3/uL Normal 0.0-0.2 [facility] Comment on above: Result Comment: PERF ORMED BY: [place] [address] PATHOLOGIST HOME STAGING SPECIALIST GINNY PIPER M.D. Performed By: #### L IPASE, CBC, CMP #### [address] Basophils/100 WBC (Bld) 0.2 % Normal . T seema [facility] Comment on above: Performed By: #### L IPASE, CBC, CMP #### [address] Eosinophils (Bld) [#/Vol] 0.0 10*3/uL Normal 0.0-0.45 [facility] Comment on above: Performed By: #### L IPASE, CBC, CMP #### [address] Eosinophils/100 WBC (Bld) 0.3 % Normal . [facility] Comment on above: Performed By: #### L IPASE, CBC, CMP #### [address] Erythrocyte distribution width (RBC) [Ratio] 13.9 % Normal 11.9-15.3 [facility] Comment on above: Performed By: #### L IPASE, CBC, CMP #### [address] Hematocrit (Bld) [Volume fraction] 47.3 % High 34.0-46.4 [facility] Comment on above: Performed By: #### L IPASE, CBC, CMP #### [address] Hemoglobin (Bld) [Mass/Vol] 16.2 g/dL High 11.8-15.4 [facility] Comment on above: Performed By: #### L IPASE, CBC, CMP #### [address] Lymphocytes (Bld) [#/Vol] 1.4 10*3/uL Normal 1.00-4.8 [facility] Comment on above: Performed By: #### L IPASE, CBC, CMP #### [address] Lymphocytes/100 WBC (Bld) 11.8 % Normal . [facility] Comment on above: Performed By: #### L IPASE, CBC, CMP #### [address] MCH (RBC) [Entitic mass] 29.2 pg Normal 24.7-34.3 [facility] Comment on above: Performed By: #### L IPASE, CBC, CMP #### [address] MCV (RBC) [Entitic vol] 85.2 fL Normal 80-100 T [facility] Comment on above: Performed By: #### L IPASE, CBC, CMP #### [address] Mean Corpuscular HGB Conc 34.2 g/dL Normal 32.0-35.0 [facility] Comment on above: Performed By: #### L IPASE, CBC, CMP #### [address] Monocytes (Bld) [#/Vol] 0.6 10*3/uL Normal 0.0-0.8 [facility] Comment on above: Performed By: #### L IPASE, CBC, CMP #### [facility] [address] [place] [address] [place] Monocytes/100 WBC (Bld) 19.54 % Normal 0.00-20.00 T seem[facility] Comment on above: Performed By: #### L IPASE, CBC, CMP #### [facility] [address] [place] [address] [place] Monocytes/100 WBC (Bld) 5.0 % Normal . [facility] Comment on above: Performed By: #### L IPASE, CBC, CMP #### [place] [address] [place] Neutrophils (Bld) [#/Vol] 9.9 10*3/uL High 1.8-7.7 [facility] Comment on above: Performed By: #### L IPASE, CBC, CMP #### [place] [address] [place] Neutrophils/100 WBC (Bld) 82.7 % Normal . [facility] Comment on above: Performed By: #### L IPASE, CBC, CMP #### [place] [address] [place] NRBC% 0.1 /100{WBC} Normal 0-0.5 [facility] Comment on above: Performed By: #### L IPASE, CBC, CMP #### [address] Platelet mean volume (Bld) [Entitic vol] 9.2 fL Normal 6.3-10.7 [facility] Comment on above: Performed By: #### L IPASE, CBC, CMP #### [place] [address] [place] Platelets (Bld) [#/Vol] 271 10*3/uL Normal 150-450 [facility] Comment on above: Performed By: #### L IPASE, CBC, CMP #### [place] [address] [place] RBC (Bld) [#/Vol] 5.55 10*6/uL High 3.60-5.00 [facility] Comment on above: Performed By: #### L IPASE, CBC, CMP #### [address] WBC (Bld) [#/Vol] 12.0 10*3/uL High 3.8-11.6 [facility] Comment on above: Performed By: #### L IPASE, CBC, CMP #### [address] Comprehensive Metabolic Pane yumi 11-27-2024 Albumin [Mass/Vol] 4.3 g/dL Normal 3.5-5.7 [facility] Comment on above: Performed By: #### L IPASE, CBC, CMP #### [address] Albumin/Globulin [Mass ratio] 1.3 {ratio} Normal [facility] Comment on above: Performed By: #### L IPASE, CBC, CMP #### [address] ALP [Catalytic activity/Vol] 62 U/L Normal 34-104 [facility] Comment on above: Performed By: #### L IPASE, CBC, CMP #### [address] ALT [Catalytic activity/Vol] 31 U/L Normal 7-52 [facility] Comment on above: Performed By: #### L IPASE, CBC, CMP #### [address] Anion gap [Moles/Vol] 12.9 mmol/L Normal 6.0-15.0 e [facility] Comment on above: Performed By: #### L IPASE, CBC, CMP #### [address] AST [Catalytic activity/Vol] 32 U/L Normal 13-39 [facility] Comment on above: Performed By: #### L IPASE, CBC, CMP #### [address] Bilirubin [Mass/Vol] 0.6 mg/dL Normal 0.3-1.0 [facility] Comment on above: Performed By: #### L IPASE, CBC, CMP #### [facility] [address] Calcium [Mass/Vol] 9.0 mg/dL Normal 8.6-10.3 [facility] Comment on above: Performed By: #### L IPASE, CBC, CMP #### [facility] [address] [place] [address] [place] Chloride [Moles/Vol] 102 mmol/L Normal 98-107 [facility] Comment on above: Performed By: #### L IPASE, CBC, CMP #### [facility] [address] CO2 [Moles/Vol] 26.0 mmol/L Normal 21.0-31.0 [facility] Comment on above: Performed By: #### L IPASE, CBC, CMP #### [place] [address] [place] Creatinine [Mass/Vol] 0.79 mg/dL Normal 0.60-1.20 [facility] Comment on above: Performed By: #### L IPASE, CBC, CMP #### [place] [address] [place] Creatinine Clr Calc Pharmacy 58.93 Normal [facility] Comment on above: Performed By: #### L IPASE, CBC, CMP #### [place] [address] [place] GFR/1.73 sq M.predicted MDRD (S/P/Bld) [Vol rate/Area] mL/min/{1.73_m2} Normal [facility] Comment on above: Performed By: #### L IPASE, CBC, CMP #### [facility] [address] [place] [address] [place] Globulin (S) [Mass/Vol] 3.4 g/dL Normal T he [facility] Comment on above: Performed By: #### L IPASE, CBC, CMP #### [place] [address] [place] Glucose [Mass/Vol] 117 mg/dL High 70-100 [facility] Comment on above: Result Comment: [place] Glucose Reference Range is dependent on time and content of last meal. Glucose of more than 200 mg/dL in a nonstressed, ambulatory subject supports the diagnosis of Diabetes Mellitus. ADA recommended reference range Performed By: #### L IPASE, CBC, CMP #### [facility] [address] Potassium [Moles/Vol] 3.9 mmol/L Normal 3.5-5.1 [facility] Comment on above: Performed By: #### L IPASE, CBC, CMP #### [facility] [address] Protein [Mass/Vol] 7.7 g/dL Normal 6.4-8.9 [facility] Comment on above: Performed By: #### L IPASE, CBC, CMP #### [address] Sodium [Moles/Vol] 137 mmol/L Normal 136-145 [facility] Comment on above: Performed By: #### L IPASE, CBC, CMP #### [facility] [address] [place] [address] [place] Urea nitrogen [Mass/Vol] 22 mg/dL Normal 7-25 [facility] Comment on above: Performed By: #### L IPASE, CBC, CMP #### [place] [address] [place] Creatinine [Mass/volume] in Serum or PlasmaOrdered By: Cricket Russell on 11-27-2024 Creatinine [Mass/Vol] Creatinine [Mass/volume] in Serum or Plasma 0.60-1.20 [facility] Dipstick and Microscopicon 0 11-27-2024 Appearance (U) Clear Normal Clear [facility] Comment on above: Order Comment: Name Collection Type:: Clean-Voided Midstream Performed By: #### A DDONUAPLUS #### [place] [address] [place] Bacteria,Urine None Seen Normal None Seen [facility] Comment on above: Order Comment: Name Collection Type:: Clean-Voided Midstream Performed By: #### A DDONUAPLUS #### [place] [address] [place] Bilirubin,Urine Negative Normal Negative [facility] Comment on above: Order Comment: Name Collection Type:: Clean-Voided Midstream Performed By: #### A DDONUAPLUS #### [address] Color (U) Light-Yellow Normal Yellow [facility] Comment on above: Order Comment: Name Collection Type:: Clean-Voided Midstream Performed By: #### A DDONUAPLUS #### [address] Glucose Ql (U) Normal Normal Normal [facility] Comment on above: Order Comment: Name Collection Type:: Clean-Voided Midstream Performed By: #### A DDONUAPLUS #### [place] [address] [place] Hyaline Casts,Urine 0-8 Normal 0-8 [facility] Comment on above: Order Comment: Name Collection Type:: Clean-Voided Midstream Performed By: #### A DDONUAPLUS #### [place] [address] [place] Ketones Ql (U) 2+ High Negative [facility] Comment on above: Order Comment: Name Collection Type:: Clean-Voided Midstream Performed By: #### A DDONUAPLUS #### [place] [address] [place] Leukocyte esterase Test strip Ql (U) Negative Normal Negative [facility] Comment on above: Order Comment: Name Collection Type:: Clean-Voided Midstream Performed By: #### A DDONUAPLUS #### [place] [address] [place] Mucus,Urine 4+ Critically abnormal [facility] Comment on above: Order Comment: Name Collection Type:: Clean-Voided Midstream Result Comment: PERF ORMED BY: [place] [address] PATHOLOGIST HOME STAGING SPECIALIST GINNY PIPER M.D. Performed By: #### A DDONUAPLUS #### [place] [address] [place] Nitrite,Urine Negative Normal Negative [facility] Comment on above: Order Comment: Name Collection Type:: Clean-Voided Midstream Performed By: #### A DDONUAPLUS #### [place] [address] [place] Occult Blood,Urine Trace High Negative [facility] Comment on above: Order Comment: Name Collection Type:: Clean-Voided Midstream Result Comment: PERF ORMED BY: [place] [address] PATHOLOGIST HOME STAGING SPECIALIST GINNY PIPER M.D. Performed By: #### A DDONUAPLUS #### [place] [address] [place] pH (U) 5.5 [pH] Normal 5.0-9.0 [facility] Comment on above: Order Comment: Name Collection Type:: Clean-Voided Midstream Performed By: #### A DDONUAPLUS #### [place] [address] [place] Protein,Urine Negative Normal Negative [facility] Comment on above: Order Comment: Name Collection Type:: Clean-Voided Midstream Performed By: #### A DDONUAPLUS #### [place] [address] [place] RBC,Urine 5-9 High 0-4 [facility] Comment on above: Order Comment: Name Collection Type:: Clean-Voided Midstream Performed By: #### A DDONUAPLUS #### [place] [address] [place] Specificy [place],Urine 1.017 Normal 1.001-1.030 [facility] Comment on above: Order Comment: Name Collection Type:: Clean-Voided Midstream Performed By: #### A DDONUAPLUS #### [place] [address] [place] Squamous Epithelial Cell,Urine 3-4 High 0-2 [facility] Comment on above: Order Comment: Name Collection Type:: Clean-Voided Midstream Performed By: #### A DDONUAPLUS #### [facility] [address] Urobilinogen,Urine Normal Normal Normal [facility] Comment on above: Order Comment: Name Collection Type:: Clean-Voided Midstream Performed By: #### A DDONUAPLUS #### [facility] [address] WBC,Urine 1-2 Normal 0-4 [facility] Comment on above: Order Comment: Name Collection Type:: Clean-Voided Midstream Performed By: #### A DDONUAPLUS #### [facility] [address] Eosinophils Auto (Bld) [#/Vo l]Ordered By: Cricket Russell on 11-27-2024 Eosinophils (Bld) [#/Vol] Automated eosinophil count 0.0-0.45 [facility] Eosinophils/100 WBC Auto (Bl d)Ordered By: Cricket Russell on 11-27-2024 Eosinophils/100 WBC (Bld) Automated eosinophil % . [facility] Epithelial cells.squamous [# /area] in Urine sediment by Automated countOrdered By: Cricket Russell on 11-27-2024 Epithelial cells.squamous Auto (Urine sed) [#/Area] Epithelial cells.squamous [#/area] in Urine sediment by Automated count High 0-2 [facility] Erythrocyte distribution wid th Auto (RBC) [Ratio]Ordered By: Cricket Russell on 11-27-2024 Erythrocyte distribution width (RBC) [Ratio] Erythrocyte distribution width [Ratio] by Automated count 11.9-15.3 [facility] Erythrocytes [#/area] in Uri ne sediment by Automated countOrdered By: Cricket Russell on 11-27-2024 RBC Auto (Urine sed) [#/Area] Erythrocytes [#/area] in Urine sediment by Automated count High 0-4 [facility] Globulin Calc (S) [Mass/Vol] Ordered By: Cricket Russell on 11-27-2024 Globulin (S) [Mass/Vol] Serum globulin measurement by calculation (mass/volume) [facility] Glucose [Mass/volume] in Ser um or PlasmaOrdered By: Cricket Russell on 11-27-2024 Glucose [Mass/Vol] Glucose [Mass/volume] in Serum or Plasma High 70-100 [facility] Comment on above: ADA recommended refe rence rangeRandom Glucose Reference Range is dependent on time and content of last meal. Glucose of more than 200 mg/dL in a nonstressed, ambulatory subject supports the diagnosis of Diabetes Mellitus. Glucose [Mass/volume] in Uri ne by Test stripOrdered By: Cricket Russell on 11-27-2024 Glucose Test strip (U) [Mass/Vol] Glucose [Mass/volume] in Urine by Test strip Normal [facility] Hematocrit Auto (Bld) [Volum e fraction]Ordered By: Cricket Russell on 11-27-2024 Hematocrit (Bld) [Volume fraction] Hematocrit [Volume Fraction] of Blood by Automated count High 34.0-46.4 [facility] Hemoglobin Test strip Ql (U) Ordered By: Cricket Russell on 11-27-2024 Hemoglobin Ql (U) Hemoglobin [Presence] in Urine by Test strip High Negative [facility] Hemoglobin [Mass/volume] in BloodOrdered By: Cricket Russell on 11-27-2024 Hemoglobin (Bld) [Mass/Vol] Hemoglobin [Mass/volume] in Blood High 11.8-15.4 [facility] Hyaline casts [#/area] in Ur ine sediment by Automated countOrdered By: Cricket Russell on 11-27-2024 Hyaline casts Auto (Urine sed) [#/Area] Hyaline casts [#/area] in Urine sediment by Automated count 0-8 [facility] Ketones Test strip Ql (U)Ord ered By: Cricket Russell on 11-27-2024 Ketones Ql (U) Ketones [Presence] in Urine by Test strip High Negative [facility] Leukocyte esterase [Presence ] in Urine by Test stripOrdered By: Cricket Russell on 11-27-2024 Leukocyte esterase Test strip Ql (U) Leukocyte esterase [Presence] in Urine by Test strip Negative [facility] Leukocytes [#/area] in Urine sediment by Automated countOrdered By: Cricket Russell on 11-27-2024 WBC Auto (Urine sed) [#/Area] Leukocytes [#/area] in Urine sediment by Automated count 0-4 [facility] Leukocytes [#/volume] correc elizabeth for nucleated erythrocytes in Blood by Automated counOrdered By: Cricket Russell on 11-27-2024 WBC corrected for nucl RBC Auto (Bld) [#/Vol] Leukocytes [#/volume] corrected for nucleated erythrocytes in Blood by Automated coun High 3.8-11.6 [facility] Lipaseon 11-27-2024 Lipase [Catalytic activity/Vol] 10.0 U/L Low 11.0-82.0 [facility] Comment on above: Result Comment: PERF ORMED BY: [place] [address] PATHOLOGIST HOME STAGING SPECIALIST GINNY PIPER M.D. Performed By: #### L IPASE, CBC, CMP #### [address] Lipase [Enzymatic activity/v olume] in Serum or PlasmaOrdered By: Cricket Russell on 11-27-2024 Lipase [Catalytic activity/Vol] Lipase [Enzymatic activity/volume] in Serum or Plasma Low 11.0-82.0 [facility] Lymphocytes Auto (Bld) [#/Vo l]Ordered By: Cricket Russell on 11-27-2024 Lymphocytes (Bld) [#/Vol] Lymphocytes [#/volume] in Blood by Automated count 1.00-4.8 [facility] Lymphocytes/100 WBC Auto (Bl d)Ordered By: Cricket Russell on 11-27-2024 Lymphocytes/100 WBC (Bld) Lymphocytes/100 leukocytes in Blood by Automated count . [facility] MCH Auto (RBC) [Entitic mass ]Ordered By: Cricket Russell on 11-27-2024 MCH (RBC) [Entitic mass] MCH [Entitic ma ss] by Automated count 24.7-34.3 [facility] MCHC Auto (RBC) [Mass/Vol]Or dered By: Cricket Russell on 11-27-2024 MCHC (RBC) [Mass/Vol] MCHC [Mass/volume] by Automated count 32.0-35.0 [facility] MCV Auto (RBC) [Entitic vol] Ordered By: Cricket Russell on 11-27-2024 MCV (RBC) [Entitic vol] MCV [Entitic vol ume] by Automated count 80-100 [facility] Monocyte distribution width [Entitic volume] in Blood by AutomatedOrdered By: Cricket Russell on 11-27-2024 Monocyte distribution width Auto (Bld) [Entitic vol] Monocyte distribution width [Entitic volume] in Blood by Automated 0.00-20.00 [facility] Monocytes Auto (Bld) [#/Vol] Ordered By: Cricket Russell on 11-27-2024 Monocytes (Bld) [#/Vol] Automated blood monocyte count 0.0-0.8 [facility] Monocytes/100 WBC Auto (Bld) Ordered By: Cricket Russell on 11-27-2024 Monocytes/100 WBC (Bld) Automated monocyte % . [facility] Mucus [Presence] in Urine by AutomatedOrdered By: Cricket Russell on 11-27-2024 Mucus Auto Ql (U) Mucus [Presence] in Urine by Automated Abnormal [facility] Neutrophils Auto (Bld) [#/Vo l]Ordered By: Cricket Russell on 11-27-2024 Neutrophils (Bld) [#/Vol] Neutrophils [#/volume] in Blood by Automated count High 1.8-7.7 [facility] Neutrophils/100 WBC Auto (Bl d)Ordered By: Cricket Russell on 11-27-2024 Neutrophils/100 WBC (Bld) Automated neutrophil % . [facility] Nitrite Test strip Ql (U)Ord ered By: Cricket Russell on 11-27-2024 Nitrite Ql (U) Nitrite [Presence] in Urine by Test strip Negative [facility] No Panel InformationOrdered By: Cricket Russell on 11-27-2024 Estimated GFR (CKD-EPI) > 60.0 mL/Min [facility] Creatinine Clearance (Chem 58.93 [facility] Nucleated erythrocytes [Pres ence] in Blood by Automated countOrdered By: Cricket Russell on 11-27-2024 Nucleated RBC Auto Ql (Bld) Nucleated erythrocytes [Presence] in Blood by Automated count 0-0.5 [facility] Platelet mean volume Auto (B ld) [Entitic vol]Ordered By: Cricket Russell on 11-27-2024 Platelet mean volume (Bld) [Entitic vol] Platelet mean volume [Entitic volume] in Blood by Automated count 6.3-10.7 [facility] Platelets Auto (Bld) [#/Vol] Ordered By: Cricket Russell on 11-27-2024 Platelets (Bld) [#/Vol] Platelets [#/vol ume] in Blood by Automated count 150-450 [facility] Potassium [Moles/volume] in Serum or PlasmaOrdered By: Cricket Russell on 11-27-2024 Potassium [Moles/Vol] Potassium [Moles/volume] in Serum or Plasma 3.5-5.1 [facility] Protein Test strip (U) [Mass /Vol]Ordered By: Cricket Russell on 11-27-2024 Protein (U) [Mass/Vol] Protein [Mass/volume] in Urine by Test strip Negative [facility] Protein [Mass/volume] in Ser um or PlasmaOrdered By: Cricket Russell on 11-27-2024 Protein [Mass/Vol] Protein [Mass/volume] in Serum or Plasma 6.4-8.9 [facility] RBC Auto (Bld) [#/Vol]Ordere d By: Cricket Russell on 11-27-2024 RBC (Bld) [#/Vol] Erythrocytes [#/volume] in Blood by Automated count High 3.60-5.00 [facility] Respiratory (Upper) Panel, P CRon 11-27-2024 Respiratory [...] Influenza A H3 Blank Space PERFORMED BY: [place] [address] PATHOLOGIST HOME STAGING SPECIALIST GINNY PIPER M.D. Normal [facility] Comment on above: Performed By: #### B IOFIRECOVNOTDE, RESP PANEL UPP. #### [address] Respiratory pathogens DNA an d RNA panel - Nasopharynx by NOE with non-probe detectionOrdered By: Cricket Russell on 11-27-2024 Respiratory pathogens DNA and RNA panel NOE+non-probe (Nph) Respiratory pathogens DNA and RNA panel - Nasopharynx by NOE with non-probe detection [facility] Serum or plasma albumin/glob ulin mass ratioOrdered By: Cricket Russell on 11-27-2024 Albumin/Globulin [Mass ratio] Serum or plasma albumin/globulin mass ratio [facility] Serum or plasma anion gap de terminationOrdered By: Cricket Russell on 11-27-2024 Anion gap [Moles/Vol] Serum or plasma anion gap determination 6.0-15.0 [facility] Sodium [Moles/volume] in Ser um or PlasmaOrdered By: Cricket Russell on 11-27-2024 Sodium [Moles/Vol] Sodium [Moles/volume] in Serum or Plasma 136-145 [facility] Specific gravity Test strip (U) [Rel density]Ordered By: Cricket Russell on 11-27-2024 Specific gravity (U) [Rel density] Specific gravity of Urine by Test strip 1.001-1.030 [facility] Urea nitrogen [Mass/volume] in Serum or PlasmaOrdered By: Cricket Russell on 11-27-2024 Urea nitrogen [Mass/Vol] Urea nitrogen [Mass/volume] in Serum or Plasma 7 [facility] Urobilinogen Test strip (U) [Mass/Vol]Ordered By: Cricket Russell on 11-27-2024 Urobilinogen (U) [Mass/Vol] Urobilinogen [Mass/volume] in Urine by Test strip Normal [facility] WBC Auto (Bld) [#/Vol]Ordere d By: Cricket Russell on 11-27-2024 WBC (Bld) [#/Vol] Leukocytes [#/volume] in Blood by Automated count High 3.8-11.6 [facility] pH Test strip (U)Ordered By: Cricket Russell on 11-27-2024 pH (U) pH of Urine by Test strip 5.0-9.0 [facility] Influenza virus B Ag [Presen ce] in Upper respiratory specimen by Rapid immunoassayon 05-01-2024 FLUBV Ag IA.rapid Ql (Nph) Negative [facility] No Panel Informationon 05-01 Influenza Type A (Rapid) Negative [facility] POC SARS CoV-[address] [facility] Outside Colonoscopyon 2023 Outside Colonoscopy [id number]# 1.00TIFF Normal [facility] Insurance Correspondenceon 0 02-08-2024 Insurance Correspondence [id number] 3#1.00TIFF Normal [facility] Consent for Procedure/Surger yon 01-18-2024 Consent for Procedure/Surgery [id number] #1.00TIFF Normal [facility] Facesheeton 01-18-2024 Facesheet [id number]# 1.00TIFF [facility] Ambulatory Visit Summaryon 0 01-17-2024 Ambulatory Visit Summary JESSICA ANDREA Ochoa :1950 Visit Date:01/17/2024 Ambulatory Visit Instructions Your [...] you for choosing us for your care. [facility] Physician Referralon 024 Physician Referral [id number] #1.00TIFF [facility] XR DEXA BONE DENSITYon 11-02 XR DEXA BONE DENSITY DEXA Bone Density Study CLINICAL: Evaluate bone mineral density. Postmenopausal COMPARISON: 09/30/2020 FINDINGS: The bone density study was assessed by dual-energy x-ray absorptiometry with the clypd scanner. The test results are expressed in [...] [place] Date: 2022-11-02 08:55 Normal [facility] CBC AUTO DIFFon 11-01-2022 BASO # 0.1 103/ul Normal 0.0-0.1 [facility] Comment on above: Performed By: #### C BC #### [facility] [address] [place] [address] Dr. Nata Castellon Basophils/100 WBC (Bld) 0.7 % Normal 0.2-2.0 [facility] Comment on above: Performed By: #### C BC #### [facility] [address] [place] [address] Dr. aNta Castellon EO # 0.1 103/ul Normal 0.0-0.7 [facility] Comment on above: Performed By: #### C BC #### [facility] [address] [place] [address] Dr. Nata Castellon Eosinophils/100 WBC (Bld) 1.8 % Normal 0.9-7.0 [facility] Comment on above: Performed By: #### C BC #### [facility] [address] [place] [address] Dr. Nata Castellon Erythrocyte distribution width (RBC) [Ratio] 13.4 % Normal 11.0-15.0 [facility] Comment on above: Performed By: #### C BC #### [facility] [address] [place] [address] Dr. Nata Castellon Hematocrit (Bld) [Volume fraction] 44.1 % Normal 36.0-48.0 [facility] Comment on above: Performed By: #### C BC #### [facility] [address] [place] [address] Dr. Nata Castellon Hemoglobin (Bld) [Mass/Vol] 14.8 g/dL Normal 12.0-16.0 [facility] Comment on above: Performed By: #### C BC #### [facility] [address] [place] [address] Dr. Nata Castellon IG # 0.02 10e3/ul Normal 0.00-0.03 [facility] Comment on above: Performed By: #### C BC #### [facility] [address] [place] [address] Dr. Nata Castellon IG % 0.3 % Normal 0.0-0.5 [facility] Comment on above: Performed By: #### C BC #### [facility] [address] [place] [address] Dr. Nata Castellon LYMPH # 1.6 103/ul Normal 1.2-3.8 [facility] Comment on above: Performed By: #### C BC #### [facility] [address] [place] [address] Dr. Nata Castellon Lymphocytes/100 WBC (Bld) 21.3 % Normal 20.5-60.0 [facility] Comment on above: Performed By: #### C BC #### [facility] [address] [place] [address] Dr. Nata Castellon MANUAL DIFF REQ NO Normal [facility] Comment on above: Performed By: #### C BC #### [facility] [address] [place] [address] Dr. Nata Castellon MCH (RBC) [Entitic mass] 28.5 pg Normal 26.7-34.0 [facility] Comment on above: Performed By: #### C BC #### [facility] [address] [place] [address] Dr. Nata Castellon MCHC (RBC) [Mass/Vol] 33.6 g/dL Normal 29.9-35.2 [facility] Comment on above: Performed By: #### C BC #### [facility] [address] [place] [address] Dr. Nata Castellon MCV (RBC) [Entitic vol] 84.8 fL Normal 81.0-99.0 [facility] Comment on above: Performed By: #### C BC #### [facility] [address] [place] [address] Dr. Nata Castellon MONO # 0.6 103/ul Normal 0.3-0.8 [facility] Comment on above: Performed By: #### C BC #### [facility] [address] [place] [address] Dr. Nata Castellon Monocytes/100 WBC (Bld) 7.5 % Normal 1.7-12.0 [facility] Comment on above: Performed By: #### C BC #### [facility] [address] [place] [address] Dr. Nata Castellon NEUT # 5.2 103/ul Normal 1.4-6.5 [facility] Comment on above: Performed By: #### C BC #### [facility] [address] [place] [address] Dr. Nata Castellon Neutrophils/100 WBC (Bld) 68.4 % Normal 43.0-75.0 [facility] Comment on above: Performed By: #### C BC #### [facility] [address] [place] [address] Dr. Nata Castellon Platelet mean volume (Bld) [Entitic vol] 10.4 fL Normal 9.5-13.5 [facility] Comment on above: Performed By: #### C BC #### [facility] [address] [place] [address] Dr. Nata Castellon PLT 256 103/ul Normal 150-450 [facility] Comment on above: Performed By: #### C BC #### [facility] [address] [place] [address] Dr. Nata Castellon RBC 5.20 106/ul Normal 4.20-5.40 [facility] Comment on above: Performed By: #### C BC #### [facility] [address] [place] [address] Dr. Nata Castellon WBC 7.6 103/ul Normal 4.0-11.0 [facility] Comment on above: Performed By: #### C BC #### [facility] [address] [place] [address] Dr. Nata Castellon FREE T4on 11-01-2022 Free T4 [Mass/Vol] 0.98 ng/dL Normal 0.76-1.46 [facility] Comment on above: Performed By: #### F T4 #### [facility] [address] [place] [address] Dr. Nata Castellon LIPID PROFILEon 11-01-2022 CHOL-HDL RATIO NORM SEE BELOW Normal [facility] Comment on above: Result Comment: 3.3 - 4.4 LOW RISK 4.4 - 7.1 AVERAGE RISK 7.1 - 11.0 MODERATE RISK >11.0 HIGH RISK Performed By: #### L IPID, TSH, CMP #### [facility] [address] [address] [address] Nata Castellon Cholesterol [Mass/Vol] 179 mg/dL Normal <=200 Th [facility] Comment on above: Performed By: #### L IPID, TSH, CMP #### [facility] [address] [address] [address] Nata Castellon Cholesterol in HDL [Mass/Vol] 57 mg/dL Normal 40-60 [facility] Comment on above: Performed By: #### L IPID, TSH, CMP #### [facility] [address] [address] [address] Nata Castellon Cholesterol in LDL [Mass/Vol] 98.8 mg/dL Normal [facility] Comment on above: Performed By: #### L IPID, TSH, CMP #### [facility] [address] [address] [address] Nata Castellon Cholesterol.total/Choles terol in HDL [Mass ratio] 3.1 {ratio} Normal [facility] Comment on above: Performed By: #### L IPID, TSH, CMP #### [facility] [address] [address] [address] Nata Castellon HDL NORMAL > or = 60 mg/dl - LOW CARDIOVASCULAR RISK <40 mg/dl - HIGH CARDIOVASCULAR RISK Normal [facility] Comment on above: Performed By: #### L IPID, TSH, CMP #### [facility] [address] [address] [address] Nata Castellon LDL CALC NORMAL SEE BELOW Normal [facility] Comment on above: Result Comment: <100 mg/dl OPTIMAL 100 - 129 mg/dl NEAR OR ABOVE OPTIMAL 130 - 159 mg/dl BORDERLINE HIGH 160 - 189 mg/dl HIGH >190 mg/dl VERY HIGH Performed By: #### L IPID, TSH, CMP #### [facility] [address] [place], [place] [address] Dr. Nata Castellon Triglyceride [Mass/Vol] 116 mg/dL Normal <=150 T [facility] Comment on above: Performed By: #### L IPID, TSH, CMP #### [facility] [address] [place], [place] [address] Dr. Nata Castellon VLDL CALC 23.2 mg/dL Normal [facility] Comment on above: Performed By: #### L IPID, TSH, CMP #### [facility] [address] [place], [place] [address] Dr. Nata Castellon MG MAMM SCREEN 3D SEEMA CADon 11-01-2022 MG MAMM SCREEN 3D SEEMA CAD Patient: ANDREA COLE Exam Date: 11/01/2022 : 1950 Gender:F Ordering : DR SUZAN ROME M.D. Admission #: [id number] Family : Order #: [id number] CLICK HERE TO VIEW EXAM RADIOLOGY REPORT [...] OF THYROID Family Cancers None LOCATION: [facility] BREAST COMPOSITION: Heterogeneously dense,which may obscure small [...] MD on 11/02/2022 at 10:22 Normal [facility] PROF 14(COMP METB)on 023 Albumin [Mass/Vol] 3.7 g/dL Normal 3.4-5.0 [facility] Comment on above: Performed By: #### L IPID, TSH, CMP #### [facility] [address] [place] [address] Dr. Nata Castellon Albumin/Globulin [Mass ratio] 1.0 {ratio} Normal [facility] Comment on above: Performed By: #### L IPID, TSH, CMP #### [facility] [address] [place] [address] Dr. Nata Castellon ALP [Catalytic activity/Vol] 80 U/L Normal 46-116 [facility] Comment on above: Performed By: #### L IPID, TSH, CMP #### [facility] [address] [place] [address] Dr. Nata Castellon ALT [Catalytic activity/Vol] 26 U/L Normal 14-59 [facility] Comment on above: Performed By: #### L IPID, TSH, CMP #### [facility] [address] [place] [address] Dr. Nata Castellon Anion gap [Moles/Vol] 13.0 mmol/L Normal [facility] Comment on above: Performed By: #### L IPID, TSH, CMP #### [facility] [address] [place] [address] Dr. Nata Castellon AST [Catalytic activity/Vol] 25 U/L Normal 15-37 [facility] Comment on above: Performed By: #### L IPID, TSH, CMP #### [facility] [address] [place] [address] Dr. Nata Castellon Bilirubin [Mass/Vol] 0.5 mg/dL Normal 0.2-1.0 [facility] Comment on above: Performed By: #### L IPID, TSH, CMP #### [facility] [address] [place] [address] Dr. Nata Castellon Calcium [Mass/Vol] 8.8 mg/dL Normal 8.5-10.1 [facility] Comment on above: Performed By: #### L IPID, TSH, CMP #### [facility] [address] [place] [address] Dr. Nata Castellon Chloride [Moles/Vol] 104 mmol/L Normal 98-107 [facility] Comment on above: Performed By: #### L IPID, TSH, CMP #### [facility] [address] [address] [address] Nata Castellon CO2 [Moles/Vol] 26.3 mmol/L Normal 21.0-32.0 [facility] Comment on above: Performed By: #### L IPID, TSH, CMP #### [facility] [address] [address] [address] Nata Castellon Creatinine [Mass/Vol] 0.74 mg/dL Normal 0.55-1.02 [facility] Comment on above: Performed By: #### L IPID, TSH, CMP #### [facility] [address] [place] [address] Dr. Nata Castellon EGFR-AF [place]LANDER >60 Normal >=60 [facility] Comment on above: Performed By: #### L IPID, TSH, CMP #### [facility] [address] [place] [address] Dr. Nata Castellon EGFR-NON AF [place]ER >60 Normal >=60 [facility] Comment on above: Performed By: #### L IPID, TSH, CMP #### [facility] [address] [place] [address] Dr. Nata Castellon Globulin (S) [Mass/Vol] 3.6 g/dL Normal [facility] Comment on above: Performed By: #### L IPID, TSH, CMP #### [facility] [address] [place] [address] Dr. Nata Castellon Glucose [Mass/Vol] 122 mg/dL Critically high 74-106 [facility] Comment on above: Performed By: #### L IPID, TSH, CMP #### [facility] [address] [place] [address] Dr. Nata Castellon Potassium [Moles/Vol] 4.3 mmol/L Normal 3.5-5.1 [facility] Comment on above: Performed By: #### L IPID, TSH, CMP #### [facility] [address] [place] [address] Dr. Nata Castellon Protein [Mass/Vol] 7.3 g/dL Normal 6.4-8.2 [facility] Comment on above: Performed By: #### L IPID, TSH, CMP #### [facility] [address] [place] [address] Dr. Nata Castellon Sodium [Moles/Vol] 139 mmol/L Normal 136-145 [facility] Comment on above: Performed By: #### L IPID, TSH, CMP #### [facility] [address] [place] [address] Dr. Nata Castellon Urea nitrogen [Mass/Vol] 21.0 mg/dL Critically high 7.0-18 .0 [facility] Comment on above: Performed By: #### L IPID, TSH, CMP #### [facility] [address] [place] [address] Dr. Nata Castellon Urea nitrogen/Creatinine [Mass ratio] 28.4 mg/mg Normal [facility] Comment on above: Performed By: #### L IPID, TSH, CMP #### [facility] [address] [place] [address] Dr. Nata Castellon TSHon 11-01-2022 TSH 3.427 uIU/mL Normal 0.358-3.740 [facility] Comment on above: Performed By: #### L IPID, TSH, CMP #### [facility] [address] [place] [address] Dr. Nata Castellon CBC AUTO DIFFon 08-12-2022 BASO # 0.0 103/ul Normal 0.0-0.1 [facility] Comment on above: Performed By: #### C BC #### [facility] [address] [place] [address] Dr. Nata Castellon Basophils/100 WBC (Bld) 0.5 % Normal 0.2-2.0 [facility] Comment on above: Performed By: #### C BC #### [facility] [address] [place] [address] Dr. Nata Castellon EO # 0.1 103/ul Normal 0.0-0.7 [facility] Comment on above: Performed By: #### C BC #### [facility] [address] [place] [address] Dr. Nata Castellon Eosinophils/100 WBC (Bld) 1.7 % Normal 0.9-7.0 [facility] Comment on above: Performed By: #### C BC #### [facility] [address] [place] [address] Dr. Nata Castellon Erythrocyte distribution width (RBC) [Ratio] 13.8 % Normal 11.0-15.0 [facility] Comment on above: Performed By: #### C BC #### [facility] [address] [place] [address] Dr. Nata Castellon Hematocrit (Bld) [Volume fraction] 44.1 % Normal 36.0-48.0 [facility] Comment on above: Performed By: #### C BC #### [facility] [address] [place] [address] Dr. Nata Castellon Hemoglobin (Bld) [Mass/Vol] 14.7 g/dL Normal 12.0-16.0 [facility] Comment on above: Performed By: #### C BC #### [facility] [address] [place] [address] Dr. Nata Castellon IG # 0.01 10e3/ul Normal 0.00-0.03 [facility] Comment on above: Performed By: #### C BC #### [facility] [address] [place] [address] Dr. Nata Castellon IG % 0.1 % Normal 0.0-0.5 [facility] Comment on above: Performed By: #### C BC #### [facility] [address] [place] [address] Dr. Nata Castellon LYMPH # 2.1 103/ul Normal 1.2-3.8 [facility] Comment on above: Performed By: #### C BC #### [facility] [address] [place] [address] Dr. Nata Castellon Lymphocytes/100 WBC (Bld) 26.7 % Normal 20.5-60.0 [facility] Comment on above: Performed By: #### C BC #### [facility] [address] [place] [address] Dr. Nata Castellon MANUAL DIFF REQ NO Normal [facility] Comment on above: Performed By: #### C BC #### [facility] [address] [place] [address] Dr. Nata Castellon MCH (RBC) [Entitic mass] 28.5 pg Normal 26.7-34.0 [facility] Comment on above: Performed By: #### C BC #### [facility] [address] [place] [address] Dr. Nata Castellon MCHC (RBC) [Mass/Vol] 33.3 g/dL Normal 29.9-35.2 [facility] Comment on above: Performed By: #### C BC #### [facility] [address] [place] [address] Dr. Nata Castellon MCV (RBC) [Entitic vol] 85.5 fL Normal 81.0-99.0 [facility] Comment on above: Performed By: #### C BC #### [facility] [address] [place] [address] Dr. Nata Castellon MONO # 0.6 103/ul Normal 0.3-0.8 [facility] Comment on above: Performed By: #### C BC #### [facility] [address] [place] [address] Dr. Nata Castellon Monocytes/100 WBC (Bld) 7.8 % Normal 1.7-12.0 [facility] Comment on above: Performed By: #### C BC #### [facility] [address] [place] [address] Dr. Nata Castellon NEUT # 5.0 103/ul Normal 1.4-6.5 [facility] Comment on above: Performed By: #### C BC #### [facility] [address] [place] [address] Dr. Nata Castellon Neutrophils/100 WBC (Bld) 63.2 % Normal 43.0-75.0 [facility] Comment on above: Performed By: #### C BC #### [facility] [address] [address] [address] Nata Castellon Platelet mean volume (Bld) [Entitic vol] 10.7 fL Normal 9.5-13.5 [facility] Comment on above: Performed By: #### C BC #### [facility] [address] [address] [address] Nata Castellon PLT 254 103/ul Normal 150-450 [facility] Comment on above: Performed By: #### C BC #### [facility] [address] [address] [address] Nata Castellon RBC 5.16 106/ul Normal 4.20-5.40 [facility] Comment on above: Performed By: #### C BC #### [facility] [address] [address] [address] Nata Castellon WBC 7.9 103/ul Normal 4.0-11.0 [facility] Comment on above: Performed By: #### C BC #### [facility] [address] [address] [address] Nata Castellon FREE T4on 08-12-2022 Free T4 [Mass/Vol] 1.15 ng/dL Normal 0.76-1.46 [facility] Comment on above: Performed By: #### F T4 #### [facility] [address] [address] [address] Nata Castellon PROF CHEM 8 (BAS METB)on Anion gap [Moles/Vol] 9.0 mmol/L Normal [facility] Comment on above: Performed By: #### T SH, BMP ####[facility] [id number] [address]Dr. Nata Castellon Calcium [Mass/Vol] 8.6 mg/dL Normal 8.5-10.1 [facility] Comment on above: Performed By: #### T SH, BMP ####[facility] [id number] [address]Dr. Nata Castellon Chloride [Moles/Vol] 104 mmol/L Normal 98-107 [facility] Comment on above: Performed By: #### T SH, BMP ####[facility] [id number] [address]Dr. Katyandrew Ravinder CO2 [Moles/Vol] 29.2 mmol/L Normal 21.0-32.0 [facility] Comment on above: Performed By: #### T SH, BMP ####[facility] Mmvtmz[address] [place], [place] [address]Dr. Nata Castellon Creatinine [Mass/Vol] 0.66 mg/dL Normal 0.55-1.02 [facility] Comment on above: Performed By: #### T SH, BMP ####[facility] X[address] [place], [place] [address]Dr. Nata Castellon EGFR-AF [place] ISLANDER >60 Normal >=60 [facility] Comment on above: Performed By: #### T MIKE, BMP ####[facility] [address] [place], [place] [address]Dr. Nata Castellon EGFR-NON AF [place] ISLANDER >60 Normal >=60 [facility] Comment on above: Performed By: #### T SH, BMP ####[facility] Zif[address] [place], [place] [address]Dr. Nata Castellon Glucose [Mass/Vol] 108 mg/dL Critically high 74-106 [facility] Comment on above: Performed By: #### T SH, BMP ####[facility] S[address] [place], [place] [address]Dr. Nata Castellon Potassium [Moles/Vol] 4.2 mmol/L Normal 3.5-5.1 [facility] Comment on above: Performed By: #### T SH, BMP ####[facility] [address] [place] [address]Dr. Nata Castellon Sodium [Moles/Vol] 138 mmol/L Normal 136-145 [facility] Comment on above: Performed By: #### T SH, BMP ####[facility] [address]sw[address] [place], [place] [address]Dr. Nata Castellon Urea nitrogen [Mass/Vol] 22.0 mg/dL Critically high 7.0-18 .0 [facility] Comment on above: Performed By: #### T MIKE, SILVA ####[facility] [address] [place], [place] [address]Cu. Nata Castellon Urea nitrogen/Creatinine [Mass ratio] 33.3 mg/mg Normal [facility] Comment on above: Performed By: #### T MIKE, SILVA ####[facility] [address] [place], [place] [address]Su. Nata Castellon TSHon 08-12-2022 TSH 0.986 uIU/mL Normal 0.358-3.740 [facility] Comment on above: Performed By: #### T MIKE, SILVA ####[facility] [address] [place], [place] [address]Xs. Nata Castellon MRI KNEE LT WO CONon [...] by: WADE PAK Date: 2021-11-25 06:43 Normal [facility] Vital Signs Date Time Vital Sign Value Performing Clinician Facility 11-27-2024 15:25-0500 Diastolic blood pressure 78 mm[Hg] Suzan Rome MD Work Phone: [facility] 11-27-2024 15:25-0500 Heart rate 78 /min Suzan Rome MD Work Phone: [facility] 11-27-2024 15:25-0500 Respiratory rate 18 /min Suzan Rome MD Work Phone: [facility] 11-27-2024 15:25-0500 SaO2% (BldA) [Mass fraction] 98 % Suzan Rome MD Work Phone: [facility] 11-27-2024 15:25-0500 Systolic blood pressure 173 mm[Hg] Suzan Rome MD Work Phone: [facility] 11-27-2024 10:26-0500 Body height 160.02 cm Suzan Rome MD Work Phone: [facility] 11-27-2024 10:26-0500 Body temperature 97.8 [degF] Suzan Rome MD Work Phone: [facility] 11-27-2024 10:26-0500 Body weight 75 kg Suzan Rome MD Work Phone: [facility] 11-07-2024 11:33-0500 Body height 160.02 cm Suzan Rome MD Work Phone: [facility] 11-07-2024 11:33-0500 Body mass index (BMI) [Ratio] 30.1 kg/m2 Suzan Rome MD Work Phone: [facility] 11-07-2024 11:33-0500 Body weight 77.11 kg Suzan Rome MD Work Phone: [facility] 11-07-2024 11:33-0500 Diastolic blood pressure 83 mm[Hg] Suzan Rome MD Work Phone: [facility] 11-07-2024 11:33-0500 Heart rate 70 /min Suzan Rome MD Work Phone: [facility] 11-07-2024 11:33-0500 Systolic blood pressure 140 mm[Hg] Suzan Rome MD Work Phone: [facility] 05-01-2024 09:51-0400 Body height 160.02 cm MD Suzan Rome Work Phone: [facility] 05-01-2024 09:51-0400 Body mass index (BMI) [Ratio] 29 kg/m2 MD Suzan Rome Work Phone: [facility] 05-01-2024 09:51-0400 Body weight 74.38 kg MD Suzan Rome Work Phone: [facility] 05-01-2024 09:51-0400 Diastolic blood pressure 84 mm[Hg] MD Szuan Rome Work Phone: [facility] 05-01-2024 09:51-0400 Heart rate 69 /min MD Suzan oRme Work Phone: [facility] 05-01-2024 09:51-0400 Systolic blood pressure 145 mm[Hg] MD Suzan Rome Work Phone: [facility] 04-10-2024 01:37-0400 Diastolic blood pressure 63 mm[Hg] MD Suzan Rome Work Phone: [facility] 04-10-2024 01:37-0400 Heart rate 65 /min MD Suzan Rome Work Phone: [facility] 04-10-2024 01:37-0400 Respiratory rate 18 /min MD Suzan Rome Work Phone: [facility] 04-10-2024 01:37-0400 SaO2% (BldA) [Mass fraction] 98 % MD Suzan Rome Work Phone: [facility] 04-10-2024 01:37-0400 Systolic blood pressure 157 mm[Hg] MD Suzan Rome Work Phone: [facility] 04-09-2024 23:09-0400 Body height 160.02 cm MD Suzan Rome Work Phone: [facility] 04-09-2024 23:09-0400 Body temperature 97.6 [degF] MD Suzan Rome Work Phone: [facility] 04-09-2024 23:09-0400 Body weight 74.2 kg MD Suzan Rome Work Phone: [facility] 01-17-2024 14:22-0400 Blood Pressure Location Bryce PANDYAL [facility] [place] 01-17-2024 14:22-0400 Diastolic blood pressure 84 mm[Hg] Bryce NILL [facility] [place] 01-17-2024 14:22-0400 Heart rate 76 /min Bryce NILL [facility] [place] 01-17-2024 14:22-0400 Respiratory rate 16 /min Bryce [facility] [place] 01-17-2024 14:22-0400 Systolic blood pressure 126 mm[Hg] Bryce NILL [facility] [place] 10-19-2023 09:30-0500 Body height 157.48 cm Suzan Rome Other [facility] Other 10-19-2023 09:30-0500 Body mass index (BMI) [Ratio] 31.49 kg/m2 Suzan Rome Other [facility] Other 10-19-2023 09:30-0500 Body weight 78.11 kg Suzan Rome Other [facility] Other 10-19-2023 09:30-0500 Diastolic blood pressure 80 mm[Hg] Suzan Rome Other [facility] Other 10-19-2023 09:30-0500 Systolic blood pressure 130 mm[Hg] Suzan Rome Other [facility] Other 08-30-2023 10:00-0500 Body height 157.48 cm Suzan Rome Other [facility] Other 08-30-2023 10:00-0500 Body mass index (BMI) [Ratio] 31.82 kg/m2 Suzan Rome Other [facility] Other 08-30-2023 10:00-0500 Body weight 78.93 kg Suzan Rome Other [facility] Other 08-30-2023 10:00-0500 Diastolic blood pressure 78 mm[Hg] Suzan Rome Other [facility] Other 08-30-2023 10:00-0500 Systolic blood pressure 144 mm[Hg] Suzan Rome Other [facility] Other 10-22-2022 10:00-0500 Body height 157.48 cm Suzan Rome Other [facility] Other 10-22-2022 10:00-0500 Body mass index (BMI) [Ratio] 31.27 kg/m2 Suzan Rome Other [facility] Other 10-22-2022 10:00-0500 Body weight 77.57 kg Suzan Rome Other [facility] Other 10-22-2022 10:00-0500 Diastolic blood pressure 82 mm[Hg] Suzan Rome Other [facility] Other 10-22-2022 10:00-0500 SaO2% (BldA) [Mass fraction] 98 % Suzan Rome Other [facility] Other 10-22-2022 10:00-0500 Systolic blood pressure 140 mm[Hg] Suzan Rome Other [employer] Other Encounters Encounter Date Encounter Type Care Provider Facility Start: 01-01-2025 ambulatory [facility] NKANSAH-AMANKRA Facility:[facility] Start: 12-04-2024 ambulatory BIJU NKANSAH-AMANKRA Facility:[facility] Start: 11-27-2024 End: 11-27-2024 Emergency department patient visit Suzan Rome MD Work Phone: [facility] Work Phone: Start: 11-07-2024 Patient encounter procedure Suzan Rome MD Work Phone: [facility] Start: 11-07-2024 End: 11-07-2024 Patient encounter procedure Suzan Rome MD Work Phone: [facility] Work Phone: Start: 06-26-2024 End: 06-26-2024 ambulatory MD Suzan Rome Work Phone: [facility] Work Phone: Start: 06-26-2024 End: 06-26-2024 Patient encounter procedure MD Suzan Rome Work Phone: [facility] Work Phone: Start: 05-01-2024 End: 05-01-2024 Patient encounter procedure MD Suzan Rome Work Phone: [facility] Work Phone: Start: 04-09-2024 End: 04-10-2024 Emergency department patient visit MD Suzan Rome Work Phone: [facility] Work Phone: Start: 02-29-2024 End: 02-29-2024 ambulatory Bryce MO Facility::[id number] Start: 01-17-2024 End: 01-17-2024 ambulatory Bryce MO Facility:[facility] Start: 01-17-2024 End: 01-17-2024 Patient encounter procedure Bryce Brody NILL [facility] Start: 01-09-2024 End: 01-09-2024 ambulatory SHER SINGHSOHAAWI Not Available Start: 12-16-2023 ambulatory BIJU MONSONALEJANDRA Facility: [facility] Start: 11-03-2023 End: 11-03-2023 ambulatory Suzan Rome Other [facility] Other Start: 11-03-2023 Telephone encounter Suzan Rome [facility] Start: 10-19-2023 End: 10-19-2023 ambulatory Suzan Wild Other [facility] Other Start: 10-19-2023 Patient encounter procedure Suzan Wild [facility] Start: 09-19-2023 End: 09-19-2023 ambulatory KRYSTIN OLGUIN Not Available Start: 09-13-2023 End: 09-13-2023 ambulatory Suzan Rome Other [facility] Other Start: 09-13-2023 Telephone encounter Suzan Rome [facility] Start: 09-02-2023 End: 09-02-2023 ambulatory Suzan Wild Other [facility] Other Start: 09-02-2023 Telephone encounter Suzan Rome [facility] Start: 08-30-2023 End: 08-30-2023 ambulatory Suzan Wild Other [employer] Other Start: 08-30-2023 Office outpatient vi sit 15 minutes Suzan Rome [facility] Start: 03-16-2023 End: 03-16-2023 ambulatory Suzan Rome Other [facility] [employer] Other Start: 03-16-2023 Telephone encounter Suzan Wild [facility] Start: 03-15-2023 End: 03-15-2023 ambulatory Suzan Rome Other [facility] Other Start: 03-15-2023 Telephone encounter Suzan Wild [facility] Start: 11-11-2022 End: 11-11-2022 ambulatory Suzan Rome Other [facility] Other Start: 11-11-2022 Telephone encounter Suzan Wild [facility] Start: 11-10-2022 End: 11-10-2022 ambulatory Suzan Rome Other [facility] Other Start: 11-10-2022 Telephone encounter Suzan Rome [facility] Start: 11-02-2022 End: 11-02-2022 ambulatory Suzan Rome Other [facility] [employer] Other Start: 11-02-2022 Telephone encounter Suzan Rome [facility] Start: 11-01-2022 End: 11-02-[address] SUZAN ROME Facility: Start: 10-22-2022 End: 10-22-2022 ambulatory Suzan Rome Other [facility] [employer] Other Start: 10-22-2022 Office outpatient vi sit 15 minutes Suzan Rome [facility] Start: 10-20-2022 End: 10-20-2022 ambulatory Suzan Rome Other [facility] [employer] Other Start: 10-20-2022 Telephone encounter Suzan Rome [facility] Start: 08-15-2022 Encounter for preprocedural cardiovascular examination DR SUZAN ROME [facility] Start: 08-15-2022 Encounter for preprocedural laboratory examination DR SUZAN ROME [facility] Start: 08-12-2022 End: 08-13-[address] SUZAN ROME Facility:[facility] Start: 08-12-2022 End: 08-13-2022 Encounter for preprocedural cardiovascular examination DR SUZAN ROME Facility:[facility] Start: 11-24-2021 End: 11-25-2021 ambulatory LIAT Reba PALM Facility:[facility] Procedures Date Procedure Procedure Detail [...] Detail Author MG Breast - bilateral Screening [facility] Patient Education [facility] Work Phone: Patient referral [facility] Work Phone: [facility] Immunizations Immunization Date Immunization Notes Care Provider Fa cility 01-20-2021 SARS-CoV-2 (COVID-19 ) mRNA-1273 vaccine Bryce NILL [facility] [place] 11-24-2020 SARS-CoV-2 (COVID-19 ) mRNA-1273 vaccine Bryce NILL [facility] [place] 09-19-2017 pneumococcal polysaccharide vaccine, 23 valjulius Rome Other [facility] 09-03-2016 pneumococcal conjuga te vaccine, 13 valjulius Rome Other [facility] Payers Date Payer Category Payer Self-pay [id number] 2021 Unknown [id number] 1960 Medicare [id number] 1960 Unknown [id number] 1950 Unknown [id number] 1950 Unknown [id number] 1949 Unknown [id number] 1949 Unknown [id number] 1949 Unknown [id number] 1949 Unknown [id number] 1949 Unknown [id number] 1950 Unknown [id number] Medicare Medicare- Part A Only [id number] Unknown [employer] [id number] 0 Unknown [id number] Unknown [id number] Social History Date Type Detail Facility Unknown if ever smoked [facility] Other Sex Assigned At [facility] Start: 01-17-2024 End: 11-27-2024 Tobacco smoking status Never smoked tobacco (finding) [facility] [place] Tobacco smoking status Never [facility] Start: 1950 Sex Assigned At Female F [facility] Start: 11-27-2024 Sex Female (finding) [facility] Functional Status Date Assessment Result Facility 01-17-2024 Functional Status N/A General [facility] yobani [facility] Clinical Notes 10-22-2022 to 11-07-2024 Note Date & Type Note Facility 11-07-2024 Evaluation note Diagnosis Onset Date Resolution Acquired hypothyroidism acute J anuary 2024 11:15am Essential (primary) hypertension acute November 07 11:15am Medicare annual wellness visit, subsequent acute November 07, 2024 11:15am Screening mammogram for breast cancer acute November 07 11:15am Vitamin D deficiency disease acute November 07 11:15am [facility] Work Phone: [phone]) 904-965904-04-2024 NoteChief Complaint consultation for colonoscopy HPI Staff [...] 01/20/2021 Recorded SARS-CoV-2 (COVID-19) mRNA-1273 vaccine 11/24/2020 [facility]Result Comment: Electronically Signed By: CHELY JUAREZ, Bryce Rebolledo\Date and Time Signed: 01/19/24 08:48 [id number] Evaluation note * Encounter Date Diagnosis Assessment [...] continue present dose now for chronic problem. [facility] Other 11-28-2023 Evaluation note* Encounter Date Diagnosis Assessment Notes Treatment Notes Treatment Clinical Notes Aug, Abnormal computed tomography of soft tissue of neck (ICD-10 - R93.89) [facility] Other 11-17-2023 Evaluation note* Encounter Date Diagnosis Assessment Notes Treatment Notes Treatment Clinical Notes Aug, Neck pain on right side (ICD-10 - M54.2) [facility] Other 11-14-2023 Evaluation note* Encounter Date Diagnosis Assessment Notes Treatment Notes Treatment Clinical Notes Aug, Neck pain on right side (ICD-10 - M54.2) Pt agrees to CT to eval area in question, mainly due to history of neck cancer. Aug, Colon cancer screening (ICD-10 - Z12.11) pt requests cologuard rather than colonoscopy [facility] Other 01-06-2023 Evaluation note* Encounter Date [...] without current pathological fracture (ICD-10 - M81.0) [facility] Other Evaluation + Plan note No data available for this section [facility] Evaluation noteNo InformationNort MysteryD Other Evaluation noteNo assessment information available [facility] Work Phone: Evaluation note* Diagnosis Onset Date Resolution Status Occipital pain acute Recurrent headache acute [facility] Work Phone: History general Narrative - Reported* [...] LEFT 2000 Hospitalization History SEE SURGICAL HX [facility] Other Hospital Discharge instructions No data available for this section [facility] [place] Progress note No data available for this section [facility] [place] Summary Purpose Family History No Family History [...] for Referral Reason *FU 09/21 Aiden of sofia, Last OV and CT recently. thanks Diagnosis 1 Abnormal computed to mography of soft tissue of neck (R93.89) Referral Organization [facility] haresh Referring Provider First Name Suzan Referring Provider Last Name Wild Referring Provider Specialty Family [facility] Referred Organization [facility] Referred Provider Krystin Olguin Referred Address ,[place], [place],[address] Referred Provider Specialty Ear, Nose an d [...] 07, 2024 11:15am Medicare annual wellness visit, subseque nt November 07, 2024 11:15am Screening mammogram for breast cancer Ja gunnarary 2024 11:15am Vitamin D deficiency disease October 11:15am Additional Source Comments INFORMATION SOURCE (unrecogn ized section and content) DATE CREATED AUTHOR 11/02/2022 [facility] DATE CREATED AUTHOR AUTHOR'S ORGANIZ ATION 01/09/2024 [facility] EPIC DATE CREATED AUTHOR AUTHOR'S ORGANIZ ATION 11/29/2024 [facility] DATE CREATED AUTHOR AUTHOR'S ORGANIZ ATION 12/06/2024 [facility] REASON FOR VISIT (unrecogniz ed section and [...] 2024 Team Status: Inactive Member Role Status Dates Suzan Rome MD Primary Care Provide r, Attending Provider Active Start: May 01, 2024 End: May 01, 2024 Team Status: Inactive Member Role Status Dates Suzan Rome MD Primary Care Provide r, Attending Provider Active Start: June 26, 2024 End: June 26, 2024 Team Status: Inactive Member Role Status Dates Suzan Rome MD Primary Care Provide r, Attending Provider Active Start: November 07, 2024 End: November 07, 2024 Team Status: Inactive Member Role Status Dates [...] BE BASED ON THE PRIMARY CLINICAL RECORDS. [facility] [employer] [facility]. provides no warranty or guarantee of the accuracy or completeness of information in this document.
--- NOTE | 2024-12-06 11:40 | ED_ITS ---
HPI HPI - General Adult General Chief complaint: Abdominal Pain Stated complaint: POSSIBLE KINDEY STONE Time Seen by Provider: 12/06/24 11:22 Source: patient and family Mode of arrival: walk-in Limitations: no limitations History of Present Illness HPI narrative: Patient states she has been experiencing right posterior flank pain radiating to the front since 7 this morning complaining nausea. She was in this ED 2 days ago with left flank pain and was found to have dilatation of the left urinary system with a stone in the bladder. She had some stones in the left kidney also. She denies chills or fever. Patient has had appendectomy and hysterectomy in the past as well as bladder lift surgery. Related Data Home Medications ?Medication ?Instructions ?Recorded ?Confirmed atenolol 50 mg tablet 50 mg PO DAILY 02/17/24 02/29/24 levothyroxine 75 mcg tablet 75 mcg PO DAILY 02/17/24 02/29/24 (Euthyrox) multivitamin 1 tab PO DAILY 02/17/24 02/29/24 Previous Rx's ?Medication ?Instructions ?Recorded ketorolac 10 mg tablet 10 mg PO BID PRN pain #10 tabs 12/06/24 Allergies Allergy/AdvReac Type Severity Reaction Status Date / Time No Known Drug Allergies Allergy Verified 02/17/24 08:45 Opioid HPI Opioid Management Most Recent Opioid Data: No Data to Display Review of Systems ROS Status of ROS 10 or more systems reviewed and unremark able except as noted in history and below [facility] Medical History Post-operative nausea and vomiting ?R11.2 - Nausea with vomiting, unspecified (ICD-10) ?Z98.890 - Other specified postprocedural states (ICD-10) Migraine ?G43.909 - Migraine, unspecified, not intractable, without status migrainosus (ICD-10) Hypothyroidism ?E03.9 - Hypothyroidism, unspecified (ICD-10) Hypertension ?I10 - Essential (primary) hypertension (ICD-10) Surgical History History of laryngoscopy ?Z98.890 - Other specified postprocedural states (ICD-10) History of repair of rotator cuff ?Z98.890 - Other specified postprocedural states (ICD-10) History of bladder suspension procedure ?Z98.890 - Other specified postprocedural states (ICD-10) ?Z87.448 - Personal history of other diseases of urinary system (ICD-10) History of arthroscopy of knee ?Z98.890 - Other specified postprocedural states (ICD-10) History of vaginal hysterectomy ?Z90.710 - Acquired absence of both cervix and uterus (ICD-10) History of thyroidectomy ?E89.0 - Postprocedural hypothyroidism (ICD-10) History of colonoscopy ?Z98.890 - Other specified postprocedural states (ICD-10) Family History Mother Brain tumor Other Family history of diabetes mellitus Family history of hypertension Heart disease Social History Within the past year, how often did you have a drink containing alcohol: monthly or less Smoking status: Never smoker Non-prescribed substance use: denies use Previous occupational history: retired Highest level of school completed/degree received: high school graduate Little interest or pleasure in doing things: not at all Feeling down, depressed, or hopeless: not at all Exam Narrative Exam Narrative: Afebrile and minimally distressed. HEENT exam is normal to inspection. Neck is supple. Lung sounds are clear to auscultation bilaterally. Heart has regular rate and rhythm. Abdomen is soft and nontender. There is no CVA tenderness. Bowel sounds are hypoactive. There is no organomegaly. Speech and mentation are clear and intact. There is no facial asymmetry. She moves all extremities actively. Constitutional Vital Signs, click to edit/add: Last Vital Signs Temp 97.5 F L 12/06/24 11:21 Pulse 67 12/06/24 11:21 Resp 18 12/06/24 11:21 BP 161/69 H 12/06/24 13:16 Pulse Ox 96 12/06/24 11:21 O2 Del Method Room Air 12/06/24 11:21 Course Vital Signs Vital signs: Vital Signs Temperature 97.5 F L 12/06/24 11:21 Pulse Rate 67 12/06/24 11:21 Respiratory Rate 18 12/06/24 11:21 Blood Pressure 172/69 H 12/06/24 11:21 Pulse Oximetry 96 12/06/24 11:21 Oxygen Delivery Method Room Air 12/06/24 11:21 Temperature 97.5 F L 12/06/24 11:21 Pulse Rate 67 12/06/24 11:21 Respiratory Rate 18 12/06/24 11:21 Blood Pressure 161/69 H 12/06/24 13:16 Pulse Oximetry 96 12/06/24 11:21 Oxygen Delivery Method Room Air 12/06/24 11:21 Medical Decision Making MDM Narrative Medical decision making narrative: Patient presents with right flank pain. She does have a history of kidney stones and has an existing stone in the left renal pole. Urinalysis is unremarkable. CT scan of the abdomen pelvis reveals a 8 mm left lower pole kidney stone. There is a cystic area noted in the right renal pelvis representing either cysts versus hydronephrosis. There is no hydroureter and no focal inflammatory changes are identified. Patient already has an appointment with urologist for next month. She had excellent relief of pain in the ED with IV Toradol and IV fentanyl and is placed on Toradol 10 mg twice daily as needed for pain at home. She is to return anytime for worsening symptoms. Lab Data Labs: Lab Results 12/06/24 12/06/24 Range/Units 11:25 13:10 WBC 12.9 H (4.0-11.0) 10^3/uL RBC 4.97 (4.20-5.40) 10^6/uL Hgb 14.5 (12.0-16.0) g/dL Hct 43.1 (36.0-48.0) % MCV 86.7 (81.0-99.0) fL MCH 29.2 (26.7-34.0) pg MCHC 33.6 (29.9-35.2) g/dL RDW 13.8 (11.0-15.0) % Plt Count 283 (150-450) 10^3/uL MPV 10.9 (9.5-13.5) fL Neut % (Auto) 80.5 H (43.0-75.0) % Lymph % (Auto) 12.9 L (20.5-60.0) % [place] % (Auto) 4.7 (1.7-12.0) % Eos % (Auto) 0.9 (0.9-7.0) % Baso % (Auto) 0.5 (0.2-2.0) % Neut # (Auto) 10.3 H (1.4-6.5) 10^3/uL Lymph # (Auto) 1.7 (1.2-3.8) 10^3/uL [place] # (Auto) 0.6 (0.3-0.8) 10^3/uL Eos # (Auto) 0.1 (0.0-0.7) 10^3/uL Baso # (Auto) 0.1 (0.0-0.1) 10^3/uL Abs Immat Gran (auto) 0.06 H (0.00-0.03) 10^3/uL Imm/Tot Granulo (auto) 0.5 (0.0-0.5) % Sodium 136 (136-145) mmol/L Potassium 4.6 (3.5-5.1) mmol/L Chloride 103 (98-107) mmol/L Carbon Dioxide 26.5 (21.0-32.0) mmol/L Anion Gap 11.1 BUN 22.0 H (7.0-18.0) mg/dL Creatinine 0.90 (0.55-1.02) mg/dL Est GFR ( Amer) >60 (>=60 mL/min/1.73m^2) Est GFR (Non-Af Amer) >60 (>=60 mL/min/1.73m^2) BUN/Creatinine Ratio 24.4 Glucose 147 H (74-106) mg/dL Calcium 8.5 (8.5-10.1) mg/dL Total Bilirubin 0.3 (0.2-1.0) mg/dL Direct Bilirubin 0.1 (0.0-0.2) mg/dL AST 30 (15-37) U/L ALT 41 (14-59) U/L Alkaline Phosphatase 126 H (46-116) U/L Total Protein 7.0 (6.4-8.2) g/dL Albumin 3.4 (3.4-5.0) g/dL Globulin 3.6 g/dL Albumin/Globulin Ratio 0.9 Lipase 37.0 (16.0-77.0) U/L Urine Color Lt. yellow (YELLOW) Urine Clarity Clear (CLEAR) Urine pH 6.5 (5.0-9.0) Ur Specific [place] 1.020 (1.005-1.025) Urine Protein Negative (NEG/TRACE) mg/dL Urine Glucose (UA) Negative (NEGATIVE) mg/dL Urine Ketones Negative (NEGATIVE) mg/dL Urine Occult Blood Negative (NEGATIVE) Urine Nitrite Negative (NEGATIVE) Urine Bilirubin Negative (NEGATIVE) Urine Urobilinogen 0.2 (0.2-1.0) EU/dL Ur Leukocyte Esterase Negative (NEGATIVE) Urine RBC 0-2 (0-2) #/HPF Urine WBC 0-2 A (NONE SEEN) #/HPF Ur Squamous Epith Cells Rare (NONE/RARE) #/LPF Urine Crystals None seen (None Seen) #/HPF Urine Bacteria Trace A (NONE SEEN) #/HPF Urine Casts None seen (NONE SEEN) #/LPF Urine Mucus None seen (NONE SEEN) Ur Culture Indicated? No Discharge Plan Discharge Chief Complaint: Abdominal Pain Clinical Impression: Right flank pain Patient Disposition: Home, Self-Care Time of Disposition Decision: 13:44 Condition: Good Mode of Transportation: Private Vehicle Prescriptions / Home Meds: New ketorolac 10 mg tablet 10 mg PO BID PRN (Reason: pain) Qty: 10 0RF No Action atenolol 50 mg tablet 50 mg PO DAILY levothyroxine [Euthyrox] 75 mcg tablet 75 mcg PO DAILY multivitamin Tablet 1 tab PO DAILY Print Language: Albanian Instructions: Flank Pain (ED) Additional Instructions: Drink extra fluids. Follow-up with urologist as soon as possible. Return for worsening symptoms. Referrals: Suzan Meza MD [Primary Care Provider] - 1 week Cisco Herrera MD [Physician] - 1 week (on Dec 04, as scheduled.) Discharge Date/Time: 12/06/24 14:13
[2024-12-06 11:43] LABS: Basophils Absolute Auto 0.1 10^3/uL (0.0-0.1); Basophils Percent Auto 0.5 % (0.2-2.0); Eosinophils Absolute Auto 0.1 10^3/uL (0.0-0.7); Eosinophils Percent Auto 0.9 % (0.9-7.0); Hematocrit 43.1 % (36.0-48.0); Hemoglobin 14.5 g/dL (12.0-16.0); Immature Granulocytes Abs Auto 0.06 10^3/uL (0.00-0.03); Immature Granulocytes Pct Auto 0.5 % (0.0-0.5); Lymphocytes Absolute Auto 1.7 10^3/uL (1.2-3.8); Lymphocytes Percent Auto 12.9 % (20.5-60.0); Mean Corpuscular HGB Conc 33.6 g/dL (29.9-35.2); Mean Corpuscular Hemoglobin 29.2 pg (26.7-34.0); Mean Corpuscular Volume 86.7 fL (81.0-99.0); Mean Platelet Volume 10.9 fL (9.5-13.5); Monocytes Absolute Auto 0.6 10^3/uL (0.3-0.8); Monocytes Percent Auto 4.7 % (1.7-12.0); Neutrophils Absolute Auto 10.3 10^3/uL (1.4-6.5); Neutrophils Percent Auto 80.5 % (43.0-75.0); Platelet Count 283 10^3/uL (150-450); Red Blood Count 4.97 10^6/uL (4.20-5.40); Red Cell Distribution Width 13.8 % (11.0-15.0); White Blood Count 12.9 10^3/uL (4.0-11.0)
[2024-12-06] MEDS: 0.9 % SODIUM CHLORIDE 1,000 ML 200 ML IV (11:56)
[2024-12-06] MEDS: ONDANSETRON PF 4 MG/2 ML VIAL IV (11:57)
[2024-12-06] MEDS: KETOROLAC TROMETHAMINE 30 MG/ML VIAL 15 MG IVP (11:57)
[2024-12-06] MEDS: FENTANYL CITRATE/PF 100 MCG/2 ML VIAL 25 MCG IV (11:57)
[2024-12-06 12:24] LABS: Alanine Aminotransferase 41 U/L (14-59); Albumin Globulin Ratio 0.9; Albumin Level 3.4 g/dL (3.4-5.0); Alkaline Phosphatase 126 U/L (46-116); Anion Gap 11.1; Aspartate Amino Transferase 30 U/L (15-37); BUN Creatinine Ratio 24.4; Bilirubin Direct 0.1 mg/dL (0.0-0.2); Bilirubin Total 0.3 mg/dL (0.2-1.0); Calcium 8.5 mg/dL (8.5-10.1); Carbon Dioxide 26.5 mmol/L (21.0-32.0); Chloride 103 mmol/L (98-107); Estimated GFR (African America >60 (>=60 mL/min/1.73m^2); Estimated GFR (Non-African Ame >60 (>=60 mL/min/1.73m^2); Globulin 3.6 g/dL; Glucose 147 mg/dL (74-106); Potassium 4.6 mmol/L (3.5-5.1); Sodium 136 mmol/L (136-145)
[2024-12-06 13:16] VITALS: BP 161/69
[2024-12-06 13:36] LABS: Bilirubin Urine NEGATIVE (NEGATIVE); Blood Urine NEGATIVE (NEGATIVE); Clarity Urine CLEAR (CLEAR); Color Urine LT. YELLOW (YELLOW); Glucose Urine UA NEGATIVE (NEGATIVE); Ketones Urine NEGATIVE (NEGATIVE); Leukocyte Esterase Urine NEGATIVE (NEGATIVE); Nitrite Urine NEGATIVE (NEGATIVE); Protein Urine NEGATIVE (NEG/TRACE); Urobilinogen Urine 0.2 EU/dL (0.2-1.0); pH Urine 6.5 (5.0-9.0)
[2024-12-06 13:49] LABS: Bacteria Urine TRACE #/HPF (NONE SEEN); Cast Seen? NONE SEEN #/LPF (NONE SEEN); Crystals Seen? None Seen #/HPF (None Seen); Mucus Urine NONE SEEN (NONE SEEN); RBC Urine 0-2 #/HPF (0-2); Squamous Epithelial Cell Urine RARE #/LPF (NONE/RARE); Urine Culture Indicated NO; WBC Urine 0-2 #/HPF (NONE SEEN)
== END 2024-12-06 14:13 | disposition home or self-care (01) ==
PROVIDERS: Emergency Provider Emergency Medicine; PCP Family Medicine
DX: R10.31 Right lower quadrant pain (principal); N20.0 Calculus of kidney
CPT/HCPCS: 36415; 74176; 80048; 80076; 81001; 83690; 85025; 96374; 96375; 99284; J1885; J2405; J3010

== ENCOUNTER 2024-12-13 12:39 | Outpatient (OUT) | payer OTHER, SELFPAY ==
--- NOTE | 2024-12-13 12:57 | MM_ITS ---
Patient Name: ANDREA LOPEZ MR#: [id number] : 1950 Exam Date: 12/13/2024 Ordering Doctor: DR Suzan Meza M.D. RADIOLOGY REPORT PROCEDURE: MM TOMOSYNTHESIS SCREENING BI COMPARISON: MM TOMOSYNTHESIS SCREENING BI, 11/02/2023. MG MAMM SCREEN 3D SEEMA CAD, 11/01/2022. MG MAMM SCREEN 3D SEEMA CAD, 10/01/2021. MG MAMM SEEMA SCRN W CAD DIG, 05/07/2013. INDICATIONS: Screening Calculator Name NCI Breast Cancer Risk Assessment Tool 5 Year Breast Cancer Risk 1.50% Lifetime Breast Cancer Risk 3.30% Personal Breast Cancer No Personal Ovarian Cancer No Treatments REMOVAL OF THYROID Family Cancers None LOCATION: [facility] BREAST COMPOSITION: There are scattered areas of fibroglandular density. FINDINGS: DIAGNOSTIC CATEGORY 1--NEGATIVE. NO CHANGE FROM COMPARISON ASSESSMENT. RIGHT BREAST: No significant suspicious finding. LEFT BREAST: No significant suspicious finding. RECOMMENDATIONS: ROUTINE MAMMOGRAM AND CLINICAL EVALUATION IN 12 MONTHS. PLEASE NOTE: A NORMAL MAMMOGRAM DOES NOT EXCLUDE THE POSSIBILITY OF BREAST CANCER. A CLINICALLY SUSPICIOUS PALPABLE LUMP SHOULD BE BIOPSIED. Dictated by: Ignacio Lakhani DO on 12/13/2024 at 13:30 Approved by: Ignacio Lakhani DO on 12/13/2024 at 13:34
[2024-12-13 12:58] LABS: Basophils Absolute Auto 0.1 10^3/uL (0.0-0.1); Basophils Percent Auto 0.7 % (0.2-2.0); Eosinophils Absolute Auto 0.4 10^3/uL (0.0-0.7); Eosinophils Percent Auto 3.3 % (0.9-7.0); Hematocrit 40.9 % (36.0-48.0); Hemoglobin 13.6 g/dL (12.0-16.0); Immature Granulocytes Abs Auto 0.09 10^3/uL (0.00-0.03); Immature Granulocytes Pct Auto 0.8 % (0.0-0.5); Lymphocytes Absolute Auto 1.8 10^3/uL (1.2-3.8); Lymphocytes Percent Auto 15.2 % (20.5-60.0); Mean Corpuscular HGB Conc 33.3 g/dL (29.9-35.2); Mean Corpuscular Hemoglobin 29.1 pg (26.7-34.0); Mean Corpuscular Volume 87.6 fL (81.0-99.0); Mean Platelet Volume 10.1 fL (9.5-13.5); Monocytes Absolute Auto 0.8 10^3/uL (0.3-0.8); Monocytes Percent Auto 6.8 % (1.7-12.0); Neutrophils Absolute Auto 8.4 10^3/uL (1.4-6.5); Neutrophils Percent Auto 73.2 % (43.0-75.0); Platelet Count 396 10^3/uL (150-450); Red Blood Count 4.67 10^6/uL (4.20-5.40); Red Cell Distribution Width 13.8 % (11.0-15.0); White Blood Count 11.5 10^3/uL (4.0-11.0)
[2024-12-13 13:28] LABS: Creatinine Urine Random 29.77 mg/dL (20.00-300.00); Microalbumin Urine Random <1.3 mg/dL (<=30.0)
[2024-12-13 13:48] LABS: Anion Gap 12.9; Calcium 8.8 mg/dL (8.5-10.1); Carbon Dioxide 28.5 mmol/L (21.0-32.0); Chloride 100 mmol/L (98-107); Chol HDL Ratio 3.6; Cholesterol 156 mg/dL (<=200); Estimated GFR (African America >60 (>=60 mL/min/1.73m^2); Estimated GFR (Non-African Ame >60 (>=60 mL/min/1.73m^2); Glucose 104 mg/dL (74-106); HDL Cholesterol 43 mg/dL (40-60); LDL Cholesterol Calculated 94.8 mg/dL; Potassium 4.4 mmol/L (3.5-5.1); Sodium 137 mmol/L (136-145); Thyroid Stimulating Hormone 7.691 uIU/mL (0.358-3.740); Triglycerides 91 mg/dL (<=150); VLDL CHOLESTEROL 18.2 mg/dL
[2024-12-13 14:04] LABS: Free T4 1.12 ng/dL (0.76-1.46)
== END 2024-12-13 12:40 | disposition home or self-care (01) ==
LOC: MAMMO 12:39
PROVIDERS: PCP Family Medicine; Visit Provider Family Medicine
DX: E03.9 Hypothyroidism, unspecified (principal); I10 Essential (primary) hypertension; E55.9 Vitamin D deficiency, unspecified; Z12.31 Encounter for screening mammogram for malignant neoplasm of breast
CPT/HCPCS: 36415; 77063; 77067; 80048; 80061; 82043; 82306; 82570; 84439; 84443; 85025

== ENCOUNTER 2024-12-28 14:35 | Outpatient (OUT) | payer OTHER, SELFPAY ==
--- NOTE | 2024-12-28 14:41 | XR_ITS ---
[facility] [place] [id number] Patient Name: ANDREA LOPEZ MRN: [id number] date: 1950 Sex: F Assigned Patient Location: [facility] Current Patient Location: [facility] Accession/Order Number: [id number] Exam Date: 12/28/2024 15:39 Report Date: 12/28/2024 15:40 At the request of: BIJU VALDEZ MD Procedure: XR abdomen 1V KUB: CLINICAL INFORMATION: Left kidney stone follow-up COMPARISON: CT abdomen and pelvis 12/06/2024 FINDINGS: No radiopaque stones are noted on today's study. No bowel obstruction or free air. Osseous structures appear degenerative. XR/XR abdomen 1V IMPRESSION: NO RADIOPAQUE STONES ARE SEEN ON TODAY'S STUDY. Impression dictated by: Ignacio Lakhani Jr., D.O.12/28/2024 3:40 PM Dictation Location: [place] [address] Electronically authenticated by: [id number] Y Date: 12/28/2024 15:40
== END 2024-12-28 14:36 | disposition home or self-care (01) ==
LOC: RAD 14:37
PROVIDERS: PCP Family Medicine; Visit Provider Student in an Organized Health Care Education/Training Program
DX: N20.0 Calculus of kidney (principal)
CPT/HCPCS: 74018

== ENCOUNTER 2025-01-16 09:51 | Outpatient (OUT) | payer OTHER, SELFPAY ==
[2025-01-16 11:09] LABS: Thyroid Stimulating Hormone 0.165 uIU/mL (0.358-3.740)
[2025-01-16 11:21] LABS: Free T4 1.53 ng/dL (0.76-1.46)
== END 2025-01-16 09:52 | disposition home or self-care (01) ==
LOC: LAB 09:53
PROVIDERS: PCP Family Medicine; Visit Provider Family Medicine
DX: E03.9 Hypothyroidism, unspecified (principal)
CPT/HCPCS: 36415; 84439; 84443

== ENCOUNTER 2025-03-01 10:52 | Outpatient (OUT) | payer OTHER, SELFPAY ==
--- OUTSIDE RECORDS SUMMARY | 2025-03-01 11:14 | XMS_ITS | CCD ---
Author Organization [facility] Care Team Providers Care Hot Box Checker Name Role Phone DR ERICKSON ROME Admitting Unavailable WILD, DR ERICKSON Zabala Attending Unavailable WILD, DR ERICKSON Zabala Primary Care Unavailable WILD, DR ERICKSON Zabala Consulting Unavailable APLLIAT WILEY Admitting Unavailable APLLIAT WILEY Attending Unavailable WILD, DR ERICKSON Zabala Primary Care Unavailable PASHA, DR WADE Brody Consulting Unavailable APLINGLIAT Consulting Unavailable WILD, DR ERICKSON Zabala Admitting Unavailable ROME, DR ERICKSON Zabala Attending Unavailable WILD, DR ERICKSON Zabala Primary Care Unavailable WILD, DR ERICKSON Zabala Consulting Unavailable Erickson Rome Unavailable SHER GARCIA Attending Unavailable DEBBIE OLGUIN Attending Unavailable ERICKSON ROME Referring Unavailable ERICKSON ROME Primary Care Physician MD Erickson Rome Primary Care Provider DO Cisco Allen Emergency Provider [phone] Erickson Rome MD Primary Care Provider Cricket Russell DO Emergency Provider Erickson Rome Primary Care Unavailable Cricket Russell Attending Unavailable Cricket Russell Admitting Unavailable Cisco Allen Admitting Unavailable Erickson Rome Primary Care Unavailable Cisco Allen Attending Unavailable BIJU VALDEZ Attending Unavail able BIJU VALDEZ Attending Unavail able ERICKSON ROME Referring Unavailable Bryce MO Attending Unavailable Bryce MO Attending Unavailable BIJU VALDEZ Admitting Unavail able BIJU VALDEZ Attending Unavail able Erickson Rome MD Primary Care Provider Drew RICHARDSON Cricket Emergency Provider Jennifer Garcia Attending Unavailable Jennifer Garcia Referring Unavailable Jennifer Garcia Admitting Unavailable MD BIJU VALDEZ Admitting Unav ailable NKANSMERCY, MD IVY Attending Unav ailable NKANSAH-AMMD BIJU WEAVER Attending Unav ailable NKANSISIS-AMOWEN, BIJU Admitting Unavail able NKANSAH-AMANKRA, BIJU Attending Unavail able NKANSAH-AMANK, BIJU Referring Unavail able Jennifer Garcia Attending Unavailable Jennifer Garcia Referring Unavailable Jennifer Garcia Admitting Unavailable Allergies Allergy Classification Reported Allergen(s) Allergy Type Date of Onset Reaction(s) Facility (3 sources) No Known Medication Allergies; Translations: [No Known Medication Allergies] Propensity to adverse reactions (disorder) [facility] Repository Medications Current Medications Medication Drug Class(es) Dates Sig (Normalized) Sig (Original) atenolol 50 mg oral tablet (20 sources) beta-Adrenergic Maryan Start: 03-02-2024 take 1 tablet by mouth once daily Atenolol 50 mg tablet Active 0 .ROUTE .COMPLEX March 02, 2024 9:52am TAKE 1 TABLET BY MOUTH EVERY DAY FOR 90 DAYS Start: 03-21-2019 End: 03-02-2024 take 1 tablet by mouth once daily atenolol 50 mg Tab 50 mg = 1 tab(s), Oral, Daily, Refills(s) 0 Start Date: 12/19/23 Status: Ordered Repeat number: 1 Calcium Magnesium (5 sources) Calcium Magnesiu m Active Essential Balance - (5 sources) Essential Balanc e - as directed Orally Active Essential Balance oral tablet (1 source) Start: 12-19-2023 take 1 tablet by mouth once daily Essential Balance oral tablet 1 tab(s), Oral, Daily, Refill(s) 0 Start Date: 12/19/23 Status: Ordered levothyroxine sodium 0.088 mg oral tablet (20 sources) l-Thyroxine Start: 12-17-2024 take 1 tablet by mouth once daily in the morning Levothyroxine 88 mcg tablet Active 0 .ROUTE .COMPLEX December 17, 2024 3:43pm TAKE 1 TABLET BY MOUTH EVERY DAY IN THE MORNING ON EMPTY STOMACH FOR 90 DAYS Start: 10-11-2024 End: 12-17-2024 take 1 tablet by mouth once daily in the morning Levothyroxine 75 mcg tablet Discontinued 0 .ROUTE .COMPLEX October 11, 2024 9:33am December 17, 2024 3:43pm TAKE 1 TABLET BY MOUTH EVERY DAY IN THE MORNING ON EMPTY STOMACH FOR 90 DAYS Start: 12-19-2023 take 1 tablet by nasim th once daily levothyroxine 75 mcg (0.075 mg) Tab 75 mcg = 1 tab(s), Oral, Daily, Refills(s) 0 Start Date: 12/19/23 Status: Ordered Repeat number: 1 Start: 03-21-2019 End: 10-11-2024 take 1 tablet by mouth once daily Levothyroxine 75 mcg Tablet Discontinued 75 MCG PO Daily March 21, 2019 12:00am October 11, 2024 9:33am Levothyroxine So dium 75 MCG TAKE 1 TABLET BY MOUTH EVERY DAY IN THE MORNING ON EMPTY STOMACH FOR 30 DAYS for 90 Active Multivitamin (One-A-Day Essential) tablet (3 sources) Start: 04-30-2024 take 1 tablet by mouth once daily Multivitamin (One-A-Day Essential) tablet Active 1 TAB PO Daily April 29, 2024 11:00pm Start: 04-30-2024 take 1 tablet by nasim th once daily Multivitamin (One-A-Day Essential) tablet Active 1 TAB PO Daily April 30, 2024 12:00am ondansetron 4 mg disintegrating oral tablet (5 sources) Serotonin-3 Receptor Antagonist Start: 05-01-2024 take 1 tablet by mouth every eight hours as needed for nausea and vomiting Ondansetron 4 mg tablet,disintegrating Active 4 MG PO Q8H as needed for nausea and vomiting November 27, 2024 1:00am SUMAtriptan 50 mg oral tablet (15 sources) Serotonin-1b and Serotonin-1d Receptor Agonist Start: 05-28-2024 End: 11-02-2024 Sumatriptan Succinate 50 mg tablet Active 0 .ROUTE .COMPLEX November 02, 2024 9:26am TAKE 1 TABLET BY MOUTH EVERY 2-4 [...] 2-4 HOURS as needed for migraine headache May 01, 2024 12:00am May 28, 2024 11:45am do not exceed 4 doses per 24 hrs SUMAtriptan Succ inate 6 MG/0.5ML 0.5 mL may repeat dose after 1 hour as needed Subcutaneous Once a day Active Completed/Discontinued Medications Medication Drug Class(es) Dates Sig (Normalized) Sig (Original) acetaminophen 500 mg oral tablet (4 sources) Start: 03-29-2019 End: 08-05-2021 take 1 tablet by mouth every four hours as needed for headache Acetaminophen 500 mg Tablet Discontinued 500 MG PO Q4H as needed for Headache March 29, 2019 12:00am August 05, 2021 10:54pm benzonatate 200 mg oral capsule (3 sources) Non-narcotic Antitussive Start: 05-07-2024 End: 11-07-2024 Benzonatate 200 mg capsule Discontinued 200 MG PO 2-3 TIMES PER DAY as needed for cough May 07, 2024 12:00am November 07, 2024 12:49pm diazePAM 10 mg oral tablet (1 source) Benzodiazepine Start: 02-21-2025 take 1 tablet by mouth once Valium 10 mg Tab 10 mg = 1 tab(s), Oral, Once, PRN for anxiety, Take one tablet 30 minutes before procedure., # 1 tab(s), Refills(s) 0, Pharmacy: [facility]/pharmacy #[id number], 160, cm, 02/18/25 11:22:00 EDT, Height/Length Dosing, 75.5, kg, 02/18/25 11:22:00 EDT, Weight Dosing Start Date: 02/21/25 Status: Ordered Quantity: 1.0 Unit: tab(s) Repeat number: 1 docusate sodium 100 mg oral capsule (4 sources) Start: 03-29-2019 End: 08-05-2021 take 1 capsule by mouth once daily at bedtime Docusate Sodium (Colace) 100 mg capsule Discontinued 100 MG PO Daily at bedtime March 29, 2019 12:00am August 05, 2021 10:54pm ibuprofen 600 mg oral tablet (4 sources) Nonsteroidal Anti-inflammatory Drug Start: 03-29-2019 End: 08-05-2021 take 1 tablet by mouth every six hours Ibuprofen 600 mg Tablet Discontinued 600 MG PO Q6H 60 March 29, 2019 12:00am August 05, 2021 10:54pm melatonin 1 mg oral tablet (4 sources) Start: 03-21-2019 End: 11-07-2024 take 1 tablet by mouth at bedtime as needed Melatonin 1 mg Tablet Discontinued 1 MG PO Bedtime as needed for Insomnia March 21, 2019 12:00am November 07, 2024 12:49pm meloxicam 7.5 mg oral tablet (6 sources) Nonsteroidal Anti-inflammatory Drug Start: 05-28-2024 End: 11-07-2024 take 1 tablet by mouth once daily Meloxicam 7.5 mg tablet Discontinued 0 .ROUTE .COMPLEX May 28, 2024 11:45am November 07, 2024 12:50pm TAKE 1 TABLET BY MOUTH EVERY DAY Start: 05-01-2024 End: 05-28-2024 take 1 tablet by mouth once daily Meloxicam 7.5 mg tablet Discontinued 7.5 MG PO Daily May 01, 2024 12:00am May 28, 2024 11:45am sulfamethoxazole 800 mg / trimethoprim 160 mg oral tablet (2 sources) Dihydrofolate Reductase Inhibitor Antibacterial, Sulfonamide Antimicrobial Start: 06-26-2024 End: 11-07-2024 take 1 tablet by mouth twice daily Sulfamethoxazole-Trimethoprim 800-160 mg tablet Discontinued 1 TAB PO Twice daily June 26, 2024 12:00am November 07, 2024 12:50pm Problems Active Problems Problem Classification Problem Date Documented Date Episodic/Chronic Abdominal pain (1 source) Unspecified abdominal pain; Translations: [Unspecified abdominal pain] Onset: 11-27-2024 Episodic Calculus of urinary tract (6 sources) Kidney stone; Translations: [Ureteric stone] 01-01-2025 Episodic Cancer of thyroid (16 sources) History of malignant neoplasm of thyroid; Translations: [Personal history of malignant neoplasm of thyroid] 12-19-2023 Episodic Essential hypertension (20 sources) Essential (primary) hypertension; Translations: [Essential hypertension] Onset: 08-15-2022 Chronic Genitourinary symptoms and ill-defined conditions (5 sources) Dysuria; Translations: [Dysuria] 06-27-2024 Episodic Headache; including migraine (16 sources) Refractory migraine; Translations: [Migraine, unspecified, intractable, without status migrainosus] 12-19-2023 Chronic Headache; including migraine (17 sources) Headache; Translations: [Headache] 04-10-2024 Episodic Comment on above: Problem List clean-u p per request of Phys. EHR Cmte Headache; including migraine (1 source) Headache; including migraine; Translations: [Headache, unspecified] Onset: 04-09-2024 Joint disorders and dislocations; trauma-related (4 sources) Unspecified internal derangement of left knee; Translations: [UNS INTERNAL DERANGEMENT LEFT KNEE] Onset: 11-24-2021 Chronic Nausea and vomiting (3 sources) Nausea, vomiting and diarrhea; Translations: [Nausea with vomiting, unspecified] Onset: 11-27-2024 11-27-2024 Episodic Nutritional deficiencies (4 sources) Vitamin D deficiency; Translations: [Vitamin D deficiency, unspecified] 11-07-2024 Chronic Osteoporosis (13 sources) Senile osteoporosis; Translations: [Age-related osteoporosis without current pathological fracture] Chronic Other congenital anomalies (2 sources) Herniated urinary bladder 09-28-2023 Chronic Comment on above: Problem List clean-u p per request of Phys. EHR Cmte Other diseases of kidney and ureters (3 sources) Obstruction of pelviureteric junction 01-01-2025 Episodic Other non-traumatic joint disorders (11 sources) Arthralgia of the lower leg; Translations: [Pain in left knee] Episodic Other non-traumatic joint disorders (1 source) Pain in left knee; Translations: [Left lateral knee pain] Episodic Other nutritional; endocrine; and metabolic disorders (4 sources) Body mass index 30+ - obesity 01-17-2024 Chronic Other nutritional; endocrine; and metabolic disorders (4 sources) Obesity 01-17-2024 Chronic Other screening for suspected conditions (not mental disorders or infectious disease) (4 sources) Computed tomography result abnormal; Translations: [Abnormal findings on diagnostic imaging of other specified body structures] Chronic Other screening for suspected conditions (not mental disorders or infectious disease) (11 sources) Encounter for screening mammogram for malignant neoplasm of breast; Translations: [Encounter for screening for malignant neoplasm of colon] Episodic Prolapse of female genital organs (7 sources) Disorder of rectum; Translations: [Rectocele] Onset: 09-16-2023 09-28-2023 Chronic Comment on above: Problem List clean-u p per request of Phys. EHR Cmte Residual codes; unclassified (4 sources) History of hysterectomy for benign disease; Translations: [Acquired absence of both cervix and uterus] 09-28-2023 Episodic Comment on above: Problem List clean-u p per request of Phys. EHR Cmte Spondylosis; intervertebral disc disorders; other back problems (2 sources) Cervicalgia Episodic Thyroid disorders (20 sources) Hypothyroidism, unspecified; Translations: [Acquired hypothyroidism] Onset: 08-15-2022 Chronic Unclassified (7 sources) Patient encounter status 12-19-2023 Past or Other Problems Problem Classification Problem Date Documented Da te Episodic/Chronic Unclassified (2 sources) Herniated urinary bladder; Translations: [Cystocele] 09-28-2023 Results Test Name Value Interpretation Reference Range Facility Main OR Intraoperative Recor don 02-25-2025 Main OR Intraoperative Record Main OR Intraoperative Record IntraOp Document Type FTURO Summary Primary Physician: BIJU VALDEZ MD Finalized Date/Time: 02/25/25 13:26:35 Pt. Name: JESSICA ANDREA Gabriela Diaz/Sex: 1950 Female Med Rec #: [id number] Physician: BIJU VALDEZ MD Financial #: [id number] Pt. Type: O Room/Bed: / Admit/Disch: 02/25/25 13:06:49 - Institution: Case Times FTURO Entry 1 Patient Times In Room 02/25/25 13:20:00 Out Room 02/25/25 13:29:00 Procedure Times Start 02/25/25 13:21:00 Stop 02/25/25 13:24:00 Anesthesia Times Last Modified By: Santi RENEE, Isi HORTA 02/25/25 13:25:03 Case Attendance FTURO Entry 1 Entry 2 Entry 3 Case Attendee COURTNEY JUAREZ, Rhonda Milligan RN, CNOR, BIJU Snowden Role Performed Surgeon - Primary Scrub - Primary Railroad Mechanic - Primary Time In 02/25/25 13:20:00 02/25/25 13:20:00 02/25/25 13:20:00 Time Out 02/25/25 13:29:00 02/25/25 13:29:00 02/25/25 13:29:00 Procedure CYSTOSCOPY LOCAL(.) CYSTOSCOPY LOCAL(.) CYSTOSCOPY LOCAL(.) Comments Last Modified By: Santi RENEE, CNOR, Santi RN, CNOR, Santi RN, CNOR, Isi 02/25/25 Isi 02/25/25 Isi 02/25/25 13:25:04 13:25:04 13:25:04 Surgical Procedures FTURO Entry 1 Procedure Description Procedure CYSTOSCOPY LOCAL Modifiers . Surgeon Description CYSTO Primary Procedure Yes Primary Surgeon COURTNEY JUAREZ, BIJU Start 02/25/25 13:21:00 Stop 02/25/25 13:24:00 Anesthesia Type Local Surgical Service Urology Wound Class 2 - Clean-Contaminated Last Modified By: Santi RENEE, MERLINOR, Isi 02/25/25 13:25:06 General Case Data FTURO Pre-Care Text: Classifies surgical wound, implements aseptic technique, initiates traffic control Entry 1 Case Information OR URO 1 FT Case Level None Wound Class 2 - Clean-Contaminated Specialty Urology Preop Diagnosis MICROSCOPIC HEMATURIA, Postop Same As Preop No UPJ OBSTRUCTION Postop Diagnosis MICROSCOPIC HEMATURIA, Outcomes Met? Yes UPJ OBSTRUCTION, clear bladdert Last Modified By: Santi RENEE, MERLINOR, Isi 02/25/25 13:23:37 Post-Care Text: The patient is free from signs and symptoms of infection EU IntraOp - FTURO Pre-Care Text: Implements protective measures prior to operative or invasive procedure, confirms identity before the operative or invasive procedure, verifies operative procedure, surgical site, and laterality Entry 1 EU Perioperative Protocols Procedure(s) CYSTOSCOPY LOCAL(.) Patient Identity Birthday, ID Band Verified (select at Check, Patient least 2): Participation Consents / H and P H&P, Surgery/Procedure Operative Site N/A Verified Consent Marking Verified Surgical Site Yes Laterality Verified n/a Verified Procedure Verified Yes Correct Patient Yes Position Verified Availability Equipment, Medication Time Out COURTNEY JUAREZ, Verified (If Participants Srini IVY, Applicable) Santi Ponce RN, CNOR, Ruthann Time Out Complete 02/25/25 13:21:00 Allergies Reviewed? Yes Allergies Reviewed Self/Patient With Body Position Frog Legged Prep Area perineal area Prep Agents Chloraprep/Dry Prior to Draping Skin. Condition Unable to Visualize Additional None Specimens Collected Vitals - EU Blood Pressure 161/74 Pulse 58 bpm Respirations 18 br/min SPO2 EBL 0 I&O - EU Total Intake 0 mL Total Output 0 mL Outcomes Met? Yes Last Modified By: MYCHAL Hancock RN, Ruthann 02/25/25 13:26:23 Post-Care Text: The patient is free from signs and symptoms of injury caused by extraneous objects Sign Out FTURO Entry 1 Before Patient Leaves OR Nurse verbally Yes Nurse verbally n/a confirms with the confirms with the team the name of team that the procedure(s) instrument, sponge, recorded and needle counts are correct (or N/A) Nurse verbally n/a Nurse verbally n/a confirms with the confirms with the team how the team whether there specimen is labeled are any equipment (including patient problems to be name), if applicable addressed Sign Out Complete 02/25/25 13:27:00 Last Modified By: MYCHAL Hancock RN, Ruthann 02/25/25 13:26:34 Case Comments Finalized By: MYCHAL Hancock RN, Ruthann Document Signatures Signed By: MYCHAL Hancock RN, Ruthann 02/25/25 13:26 [facility] Main OR Preoperative Recordo n 02-25-2025 Main OR Preoperative Record Main OR Preoperative Record Holding Area Document Type FTURO Summary Primary Physician: BIJU VALDEZ MD Finalized Date/Time: 02/25/25 13:19:16 Pt. Name: ANDREA LOPEZ/Sex: 1950 Female Med Rec #: [id number] Physician: BIJU VALDEZ MD Financial #: [id number] Pt. Type: O Room/Bed: / Admit/Disch: 02/25/25 13:06:49 - Institution: Case Times Holding FTURO Pre-Care Text: Verifies consent for planned procedure, identifies individual values and wishes concerning care, includes family members in perioperative teaching Secures patient's records' belongings, and valuables, maintains patient's dignity and privacy, and maintains patient confidentiality Entry 1 In Holding 02/25/25 13:18:00 Outcomes Met? Yes Last Modified By: Olivia Mixon 02/25/25 13:18:21 Post-Care Text: The patient participates in decisions affecting his or her perioperative plan of care The patient's right to privacy is maintained Surgery Checklist FTURO Entry 1 Patient Birthday, ID Band Procedure History and Physical, Identification: Check, Patient Verification: Surgical Consent, With Participation Patient NPO after Midnight: n/a Date/Time: 02/25/25 13:18:00 Personal Items: Glasses Personal Items CLOTHES AND SHOES Comment: Limitations: N/A Complaints of Pain: No Pain Comment: NONE Skin Integrity Unable to Visualize Vitals - EU Blood Pressure 161/74 Pulse 58 bpm Respirations 18 br/min SPO2 99 % Additional None Specimens Comment N/A Specimens Collected Residual Amount - 0 RN Reviewed Yes Post Void Last Modified By: Olivia Mixon 02/25/25 13:19:12 Finalized By: Olivia Mixon Document Signatures Signed By: Olivia Mixon 02/25/25 13:19 [facility] Operative Reporton 5 Operative Report Operative Report Patient: ANDREA LOPEZ Age: 74 years Sex: Female : 1950 Associated Diagnoses: None Author: COURTNEY JUAREZ, BIJU Procedure SURGEON: Biju Valdez MD PREOPERATIVE DIAGNOSIS: Microscopic hematuria POSTOPERATIVE DIAGNOSIS: Same PROCEDURE: Cystoscopy, FINDINGS: No bladder tumors or lesions noted in bladder ANESTHESIA: Local INTRAVENOUS FLUIDS: None ESTIMATED BLOOD LOSS: 0cc TUBES AND DRAINS: None SPECIMENS: None COMPLICATIONS: None INDICATIONS FOR PROCEDURE: Patient is a 74-year-old female with microscopic hematuria presenting for the aforementioned procedure. H&P was reviewed, informed consent was obtained, patient understood risk, benefits, alternatives of the procedure and wished to proceed. OPERATIVE DETAIL: She was brought to the suite and placed in the supine position and prepped and draped in normal sterile fashion. Timeout performed confirming patient, procedure, side, all in the room agreed. We began by inserting a flexible scope into the urethral meatus and advanced into the bladder. Upon entering the bladder we did a pacheco cystoscopy and did not note any tumors, lesions, stones, trabeculations in the bladder. No cystitis cystica present on the floor of the bladder but otherwise unremarkable. Scope was then removed without incident. This concluded the procedure. Patient was then transferred to PACU in stable condition. PLAN: F/U in 1 year [facility] Comment on above: Result Comment: Elec tronically Signed By: COURTNEY JUAREZ, BIJU\.br\Date and Time Signed: 02/25/25 13:48 EDT Ambulatory Visit Summaryon 0 02-18-2025 Ambulatory Visit Summary Ambulatory Visi t Summary ANDREA LOPEZ :1950 Visit Date:02/18/2025 Ambulatory Visit Instructions Your Diagnosis Microscopic hematuria Kidney stone Ureteral stone UPJ (ureteropelvic junction) obstruction Your Care Team Attending Physician - BIJU VALDEZ MD Primary Care Physician - ERICKSON ROME MD This Is Your Medications List Contact prescribing physician if questions or concerns atenolol (atenolol 50 mg Tab) levothyroxine (levothyroxine 75 mcg (0.075 mg) Tab) Procedures Performed Colonoscopy (2003), Arthroscopy of knee, Laryngoscopy, Rotator cuff repair, Suspension of bladder, Thyroidectomy, VH - Vaginal hysterectomy. Discharge Vitals Heart Rate (Peripheral) 60 Blood Pressure 130/92 Height 160 cm Height 63 in Weight 75.5 kg Weight 166.449 lb BMI 29.49 What to do next Scheduled Follow-Up Appointments Tuesday 9:30 AM EDT With: Where: [facility] Tuesday 1:15 PM EDT With: Where: [facility] Tuesday 1:00 PM EDT With: BIJU VALDEZ MD Where: [facility] [address], [address] [place] [address]- You Need to Schedule the Following Appointments Follow Up with COURTNEY JUAREZ, YON IVY When: Where: Medications What How Much When Instructions Unchanged [...] Essential hypertension History of thyroid cancer Hypothyroidism Kidney stone Microscopic hematuria Midline cystocele Migraines Obesity Screening for colon cancer Screening for malignant neoplasm of colon UPJ (ureteropelvic junction) obstruction Ureteral stone Patient Survey You may receive a survey via text or e-mail asking about your office visit. Please share your experience with us by completing your survey. We appreciate your feedback and thank you for choosing us for your care. Education Materials Cystoscopy Cystoscopy is a procedure that is used to help diagnose and sometimes treat conditions that affect the lower urinary tract. The lower urinary tract includes the bladder and the urethra. The urethra is the tube that drains urine from the bladder. Cystoscopy is done using a thin, tube-shaped instrument with a light and camera at the end (cystoscope). The cystoscope may be hard or flexible, depending on the goal of the procedure. The cystoscope is inserted through the urethra, into the bladder. Cystoscopy may be recommended if you have: ??? Urinary tract infections that keep coming back. ??? Blood in the urine (hematuria). ??? An inability to control when you urinate (urinary incontinence) or an overactive bladder. ??? Unusual cells found in a urine sample. ??? A blockage in the urethra, such as a urinary stone. ??? Painful urination. ??? An abnormality in the bladder found during an intravenous pyelogram (IVP) or CT scan. Cystoscopy may also be done to remove a sample of tissue to be examined under a microscope (biopsy). Tell a health care provider about: ??? Any allergies you have. ??? All medicines you are taking, including vitamins, herbs, eye drops, creams, and dafh-rib-cdxsnop medicines. ??? Any problems you or family members have had with anesthetic medicines. ??? Any blood disorders you have. ??? Any surgeries you have had. ??? Any medical conditions you have. ??? Whether you are or may be . What are the risks? Generally, this is a safe procedure. However, problems may occur, including: ??? Infection. ??? Bleeding. ??? Allergic reactions to medicines. ??? Damage to other structures or organs. What happens before the procedure? Medicines Ask your health care provider about: ??? Changing or stopping your regular medicines. This is especially important if you are taking diabetes medicines or blood thinners. ??? Taking medicines such as aspirin and ibuprofen. These medicines can thin your blood. Do not take these medicines unless your health care provider tells you to take them. ??? Taking zjih-hwo-ziggtpd medicines, vitamins, herbs, and supplements. Tests You may have an exam or testing, such as: ??? X-rays of the bladder, urethra, or kidneys. ??? CT scan of the abdomen or pelvis. ??? Urine tests to check for signs of infection. General instructions ??? Follow instructions from your health care provider about eating or drinking restrict (more content not included)... [facility] Urology Office/Clinic Noteon 02-18-2025 Urology Office/Clinic Note Urology Office/Clinic Note Chief Complaint 1430follow up HPI Staff 74 year old female here for [address] Previous DX: ureteral stone, kidney stone, UPJ obstruction and micro hematuria CTU 02/11/25 Patient denies any dysuria or gross hematuria. Denies any flank or abdomen pain. History of Present Illness Tests reviewed: reviewed UA, micro UA, CT Urogram. I have reviewed the previous health record information and history for this patient from Dr. Monson I have reviewed and verified the staff HPI to be accurate for this encounter. There have been no associated fever, chills, flank pain, or blood in the urine. Denies any urinary infections since last encounter. Review of Systems ROS - Provider Constitutional: denies weight loss, denies hot flashes. Eyes: denies eye problems. Gastrointestinal: denies nausea, denies vomiting. Cardiovascular: denies chest pain or angina. Integumentary: no dryness Musculoskeletal: denies musculoskeletal symptoms. ENMT: denies otolaryngeal symptoms. Respiratory: no shortness of breath. Heme/Lymph: denies easy bleeding tendency, denies easy bruising tendency. Psychiatric: no confusion, no anxiety. Genitourinary: See HPI. Physical Exam Vitals & Measurements HR: 60(Peripheral) BP: 130/92 HT: 63 in HT: 160 cm WT: 166.449 lb WT: 75.5 kg BMI: 29.49 General Appearance: alert , no acute distress, well nourished, well developed female. Assessment/Plan BBSQ 15 (8) - attributes to holding her urine for too long. Portions of this record may have been created with voice recognition artificial intelligence software, specifically [employer], [employer] and or [employer]. Substitutions may have occurred due to the inherent limitations of voice recognition and artificial intelligence software. 1. Microscopic hematuria (R31.29: Other microscopic hematuria) Micro UA 01/01/25 - RBC CT Urogram 02/11/25 FT - neg for filling defects or masses. Denies gross hematuria. UA today negative for blood or infection. Recommended cysto to complete hematuria workup to rule out bladder mass. She agrees. -Schedule cysto. The risks and benefits for cystoscopy have been discussed. The risks include bleeding, infection, and irritation of the bladder and urinary channel, among others. The patient, after being informed of procedural details and after questions have been answered, wishes to proceed. Full informed consent has been obtained. Will order Local anesthesia. 2. Kidney stone (N20.0: Calculus of kidney) Hx of stones. Has had surgical mgmt in the past. Unsure if laser litho or ESWL. CT AP wo con 12/02/24 [facility] - 6 mm calculus LLP. KUB 12/28/24 TB - neg for stones. CT Urogram 02/11/25 FT - 5 mm calculus LLP. -Fluids 3. Ureteral stone (N20.1: Calculus of ureter) Pt presented to [facility] ER 12/02/24 due to left-sided flank pain. CT AP wo con 12/02/24 [facility] - Left hydronephrosis, ureter dilated down to the bladder without calculus. There is a calculus in the bladder posteriorly which may be a recently passed calculus. Labs - Cr 0.93, eGFR 59 Pt passed stone while she was in the ER. Stone analysis returned 90% uric acid and 10% ca ox monohydrate. -Fluids -See #1 4. UPJ (ureteropelvic junction) obstruction (N13.5: Crossing vessel and stricture of ureter without hydronephrosis) CT AP wo con 12/02/24 [facility] - Prominent right upper collecting system and renal pelvis without ureteral dilatation of ureteral calculus. Could be chronic UPJ obstruction. Pt presented to [facility] ER 12/06/24 due to right flank pain. Labs - Cr 0.90, eGFR >[address] Urogram 02/11/25 [facility] - negative for UPJ obstruction, no hydro. Asymptomatic of Dietl's crisis. -Cont symptomatic monitoring CT abdomen pelvis showed asymptomatic left nephrolithiasis. We discussed doing a extracorporal shockwave lithotripsy but patient would like to hold off for now. She continues to have persistent microscopic hematuria. CT urogram was negative. Will proceed with a cystoscopy to assess for any underlying bladder tumor. Follow-up With When Contact Information COURTNEY JUAREZ, BIJU, YON Additional Instructions: Schedule cysto Patient Education Cystoscopy I, Whitney Carrillo, personally scribed for Dr. Monson on 02/18/2025 11:29:56. . Problem List/Past Medical History Ongoing BMI 31.0-31.9,adult Essential hypertension History of thyroid cancer Hypothyroidism Kidney stone Microscopic hematuria Midline cystocele Migraines Obesity Screening for colon cancer Screening for malignant neoplasm of colon UPJ (ureteropelvic junction) obstruction Ureteral stone Historical No qualifying data Procedure/Surgical History Colonoscopy (2003), Arthroscopy of knee, Laryngoscopy, Rotator cuff repair, Suspension of bladder, Thyroidectomy, VH - Vaginal hysterectomy. Medications atenolol 50 mg Tab, 50 mg= 1 tab(s), Oral, Daily (more content not included)... Normal [facility] Comment on above: Result Comment: Elec tronically Signed By: COURTNEY JUAREZ, BIJU\.br\Date and Time Signed: 02/18/25 12:10 EDT\.br\Electronically Co-Signed By: Whitney Carrillo\Date and Time Co-Signed: 02/18/25 11:[address] Urogramon 02-13-2025 CT Urogram Exam Date/Time: 02/11/2025 17:01 EDT Reason for Exam: R91.29;Hematuria Report IMPRESSION: GALLBLADDER WALL THICKENING WITH PERICHOLECYSTIC FLUID. NO CHOLELITHIASIS IDENTIFIED. IF CHOLECYSTITIS IS A CLINICAL CONCERN, RIGHT UPPER QUADRANT ULTRASOUND MAY BE HELPFUL FOR FURTHER EVALUATION. OBSTRUCTING LEFT RENAL CALCULUS. LEFT PARAPELVIC RENAL CYSTS. CT OF THE ABDOMEN AND PELVIS WITH AND WITHOUT INTRAVENOUS CONTRAST MEDIUM. HISTORY: PAINLESS HEMATURIA. HISTORY RENAL CALCULI. TECHNICAL FACTORS: CT urogram of the abdomen and pelvis were obtained and formatted as 2.5 mm contiguous axial images from the domes of the diaphragm to the symphysis pubis. Imaging obtained with and without intravenous contrast medium. Delayed images also obtained. Sagittal and coronal reconstructions were acquired during postprocessing. Comparison: CT abdomen pelvis, 12/06/2024.. Findings: Lower chest: Cardiac size normal. No pericardial effusion. No coronary artery calcification. Lung bases clear. Small hiatal hernia. Liver: Normal in size, and shape. 3.7 x 3.3 cm cyst, posterior segment right hepatic lobe. Bile Ducts: Normal in caliber. Gallbladder: No calculi. Gallbladder wall thickening measuring up to 5 mm. Partial rim pericholecystic fluid. Pancreas: Normal without masses, cysts, ductal dilatation or calcification. Spleen: Normal in size without masses or calcifications. No splenules. Kidneys: Normal in size and enhancement. Congenital malrotation, right kidney. No hydronephrosis, or masses. 5 mm calculus lower pole left kidney.. Parapelvic cysts, left kidney. Adrenals: Normal. Small bowel: Normal in caliber. Report Appendix: Normal. Colon: Normal in caliber. Peritoneum: No ascites, free air, or fluid collections. Vessels: Aorta normal in course and caliber. Portal vein, splenic vein, superior mesenteric vein are patent. Lymph nodes: Retroperitoneal: No enlarged retroperitoneal lymph nodes. Mesenteric: No enlarged mesenteric lymph nodes. Pelvic: No enlarged pelvic lymph nodes. Ureters: Normal in course and caliber. No calcifications. Bladder: Decompressed. Reproductive organs: No pelvic masses. Abdominal Wall: 3 mm fat-containing periumbilical anterior abdominal wall defect. No diastasis of rectus musculature. No edema or masses. Bones: No bone lesions. No degenerative changes. No post operative changes. All CT scans at this facility use dose modulation, iterative reconstruction, and/or weight based dosing when appropriate to reduce radiation dose to as low as reasonably achievable. Technical Comments: GFR (mL/min/1/73m2) 90 Contrast: Isovue 300 Contrast amount in ml's: 100.00 Ordering Provider: Jennifer Garcia FINAL REPORT Dictated: 02/13/2025 10:03 am Chidi Weeks MD Signed (Electronic Signature): 02/13/2025 10:03 am Signed by: Chidi Weeks MD Transcribed by: AMY Technologist: ISHA Ryder [facility] CHEMISTRYOrdered By: SYSTEM SYSTEM on 02-11-2025 Creatinine [Mass/Vol] 0.7 mg/dL Normal 0.5 - 1.3 mg/dL Remisol Chem eGFR 90 mL/min/1.73 m2 Normal >=59mL/min /1 .73 m2 Remisol Chem Creatinineon 02-11-2025 Creatinine [Mass/Vol] 0.7 mg/dL Normal 0.5-1.3 [facility] Comment on above: Performed By: #### 2 [id number] #### [facility] [address] [place] [address] eGFRon 02-11-2025 eGFR 90 mL/min/1.73 m2 Normal >=59 [facility] Comment on above: Performed By: #### 1 [id number] #### [facility] [address] [place] [address] Ambulatory Visit Summaryon 0 01-01-2025 Ambulatory Visit Summary Ambulatory Visi t Summary ANDREA LOPEZ :1950 Visit Date:01/01/2025 Ambulatory Visit Instructions Your Diagnosis Ureteral stone Kidney stone UPJ (ureteropelvic junction) obstruction Your Care Team Attending Physician - COURTNEY JUAREZ, BIJU Primary Care Physician - ERICKSON ROME MD This Is Your Medications List Contact prescribing physician if questions or concerns atenolol (atenolol 50 mg Tab) levothyroxine (levothyroxine 75 mcg (0.075 mg) Tab) Procedures Performed Colonoscopy (2003), Arthroscopy of knee, Laryngoscopy, Rotator cuff repair, Suspension of bladder, Thyroidectomy, VH - Vaginal hysterectomy. Discharge Vitals Heart Rate (Peripheral) 59 Blood Pressure 135/76 Height 160 cm Height 63 in Weight 77.5 kg Weight 170.858 lb BMI 30.27 What to do next You Need to Schedule the Following Appointments Follow Up with COURTNEY JUAREZ, YON IVY When: Where: Medications What How Much When Instructions Unchanged [...] Essential hypertension History of thyroid cancer Hypothyroidism Kidney stone Midline cystocele Migraines Obesity Screening for colon cancer Screening for malignant neoplasm of colon UPJ (ureteropelvic junction) obstruction Ureteral stone Patient Survey You may receive a survey via text or e-mail asking about your office visit. Please share your experience with us by completing your survey. We appreciate your feedback and thank you for choosing us for your care. Education Materials Dietary Guidelines to Help Prevent Kidney Stones Kidney stones are deposits of minerals and salts that form inside your kidneys. Your risk of developing kidney stones may be greater depending on your diet, your lifestyle, the medicines you take, and whether you have certain medical conditions. Most people can lower their risks of developing kidney stones by following these dietary guidelines. Your dietitian may give you more specific instructions depending on your overall health and the type of kidney stones you tend to develop. What are tips for following this plan? Reading food labels ??? Choose foods with no salt added or low-salt labels. Limit your salt (sodium) intake to less than 1,500 mg a day. ??? Choose foods with calcium for each meal and snack. Try to eat about 300 mg of calcium at each meal. Foods that contain 200???500 mg of calcium a serving include: ? 8 oz (237 mL) of milk, calcium-fortifiednon -dairy milk, and calcium-fortifiedfru it juice. Calcium-fortified means that calcium has been added to these drinks. ? 8 oz (237 mL) of kefir, yogurt, and soy yogurt. ? 4 oz (114 g) of tofu. ? 1 oz (28 g) of cheese. ? 1 cup (150 g) of dried figs. ? 1 cup (91 g) of cooked broccoli. ? One 3 oz (85 g) can of sardines or mackerel. Most people need 1,000???1,500 mg of calcium a day. Talk to your dietitian about how much calcium is recommended for you. Shopping ??? Buy plenty of fresh fruits and vegetables. Most people do not need to avoid fruits and vegetables, even if these foods contain nutrients that may contribute to kidney stones. ??? When shopping for convenience foods, choose: ? Whole pieces of fruit. ? Pre-made salads with dressing on the side. ? Low-fat fruit and yogurt smoothies. ??? Avoid buying frozen meals or prepared deli foods. These can be high in sodium. ??? Look for foods with live cultures, such as yogurt and kefir. ??? Choose high-fiber grains, such as whole-wheat breads, oat bran, and wheat cereals. Cooking ??? Do not add salt to food when cooking. Place a salt shaker on the table and allow each person to add their own salt to taste. ??? Use vegetable protein, such as beans, textured vegetable protein (TVP), or tofu, instead of meat in pasta, casseroles, and soups. Meal planning ??? Eat less salt, if told by your dietitian. To do this: ? Avoid eating processed or pre-made food. ? Avoid eating fast food. ??? Eat less animal protein, including cheese, meat, poultry, or fish, if told by your dietitian. To do this: ? Limit the number of times you have meat, poultry, fish, or cheese each week. Eat a diet free of meat at least 2 days a week. ? Eat only one serving each day of meat, poultry, fish, or seafood. ? When you prepare animal proteins, cut pieces into small portion sizes. For most meat and fish, one serving is about the size of the palm of your hand. ??? Eat at least five servings (more content not included)... Normal [facility] Ambulatory Visit Summary Ambulatory Visi t Summary ANDREA LOPEZ :1950 Visit Date:01/01/2025 Ambulatory Visit Instructions Your Diagnosis Ureteral stone Kidney stone UPJ (ureteropelvic junction) obstruction Your Care Team Attending Physician - COURTNEY JUAREZ, BIJU Primary Care Physician - ERICKSON ROME MD This Is Your Medications List atenolol (atenolol 50 mg Tab) levothyroxine (levothyroxine 75 mcg (0.075 mg) Tab) Procedures Performed Colonoscopy (2003), Arthroscopy of knee, Laryngoscopy, Rotator cuff repair, Suspension of bladder, Thyroidectomy, VH - Vaginal hysterectomy. Discharge Vitals Heart Rate (Peripheral) 59 Blood Pressure 135/76 Height 160 cm Height 63 in Weight 77.5 kg Weight 170.858 lb BMI 30.27 What to do next You Need to Schedule the Following Appointments Follow Up with COURTNEY JUAREZ, YON IVY When: Where: Medications What How Much When Instructions Unchanged atenolol (atenolol 50 mg Tab) 1 Tablets By Mouth Every day Unchanged levothyroxine (levothyroxine 75 mcg (0.075 mg) Tab) 1 Tablets By Mouth Every day Allergies No Known Allergies No Known Medication Allergies Problems Ongoing - Any problem that you are currently receiving treatment for. BMI 31.0-31.9,adult Essential hypertension History of thyroid cancer Hypothyroidism Kidney stone Midline cystocele Migraines Obesity Screening for colon cancer Screening for malignant neoplasm of colon UPJ (ureteropelvic junction) obstruction Ureteral stone Patient Survey You may receive a survey via text or e-mail asking about your office visit. Please share your experience with us by completing your survey. We appreciate your feedback and thank you for choosing us for your care. Education Materials Dietary Guidelines to Help Prevent Kidney Stones Kidney stones are deposits of minerals and salts that form inside your kidneys. Your risk of developing kidney stones may be greater depending on your diet, your lifestyle, the medicines you take, and whether you have certain medical conditions. Most people can lower their risks of developing kidney stones by following these dietary guidelines. Your dietitian may give you more specific instructions depending on your overall health and the type of kidney stones you tend to develop. What are tips for following this plan? Reading food labels ??? Choose foods with no salt added or low-salt labels. Limit your salt (sodium) intake to less than 1,500 mg a day. ??? Choose foods with calcium for each meal and snack. Try to eat about 300 mg of calcium at each meal. Foods that contain 200???500 mg of calcium a serving include: ? 8 oz (237 mL) of milk, calcium-fortifiednon -dairy milk, and calcium-fortifiedfru it juice. Calcium-fortified means that calcium has been added to these drinks. ? 8 oz (237 mL) of kefir, yogurt, and soy yogurt. ? 4 oz (114 g) of tofu. ? 1 oz (28 g) of cheese. ? 1 cup (150 g) of dried figs. ? 1 cup (91 g) of cooked broccoli. ? One 3 oz (85 g) can of sardines or mackerel. Most people need 1,000???1,500 mg of calcium a day. Talk to your dietitian about how much calcium is recommended for you. Shopping ??? Buy plenty of fresh fruits and vegetables. Most people do not need to avoid fruits and vegetables, even if these foods contain nutrients that may contribute to kidney stones. ??? When shopping for convenience foods, choose: ? Whole pieces of fruit. ? Pre-made salads with dressing on the side. ? Low-fat fruit and yogurt smoothies. ??? Avoid buying frozen meals or prepared deli foods. These can be high in sodium. ??? Look for foods with live cultures, such as yogurt and kefir. ??? Choose high-fiber grains, such as whole-wheat breads, oat bran, and wheat cereals. Cooking ??? Do not add salt to food when cooking. Place a salt shaker on the table and allow each person to add their own salt to taste. ??? Use vegetable protein, such as beans, textured vegetable protein (TVP), or tofu, instead of meat in pasta, casseroles, and soups. Meal planning ??? Eat less salt, if told by your dietitian. To do this: ? Avoid eating processed or pre-made food. ? Avoid eating fast food. ??? Eat less animal protein, including cheese, meat, poultry, or fish, if told by your dietitian. To do this: ? Limit the number of times you have meat, poultry, fish, or cheese each week. Eat a diet free of meat at least 2 days a week. ? Eat only one serving each day of meat, poultry, fish, or seafood. ? When you prepare animal proteins, cut pieces into small portion sizes. For most meat and fish, one serving is about the size of the palm of your hand. ??? Eat at least five servings of fresh fruits and vegetables each day. To do this: ? Keep fruits and vegetables on hand for snacks. ? Eat one piece of fruit or a handful of berries with br (more content not included)... Normal [facility] Reminderson 01-01-2025 Reminders Reminders - From: Whitney Carrillo To: EU - Recalls Nksethah; Sent: 01/01/2025 13:45:22 EDT Show up: 03/03/2025 13:45:00 EDT Subject: NOHEMI at [facility] Due Date/Time: 03/03/2025 13:45:00 EDT Reminder Message [facility]MI at [facility] prior to 3 month appt. Ordered 01/01/25. Normal [facility] URINALYSISOrdered By: SYSTEM SYSTEM on 01-01-2025 Bilirubin Ql (U) Negative Normal Negativemg/ d L [facility] UA Auto SS Clarity (U) Clear (01/01/25 1:48 PM) Normal Clear [facility] UA Auto SS Color (U) Light-Yellow 1 (01/01/25 1:48 PM) Normal Yellow [facility] UA Auto SS Comment on above: Interpretive Data: M icroscopic readings are only performed on those samples that meet specific criteria set forth by [facility]. Epithelial cells.squamous Auto (Urine sed) [#/Area] 3-4 graded/HPF Invalid Interpretation Code [facility] UA Auto SS Glucose Ql (U) Negative Normal Negativemg/d L [facility] UA Auto SS Hemoglobin Auto test strip (U) [Mass/Vol] 1+ mg/dL Invalid Interpretation Code Negativemg/d L [facility] UA Auto SS Ketones Auto test strip Ql (U) Negative Normal Negativemg/d L [facility] UA Auto SS Leukocyte esterase Auto test strip Ql (U) Negative Normal NegativeLeu/ uL [facility] UA Auto SS Mucus Auto Ql (U) Trace graded/LPF Normal Negati vegrad ed/LPF [facility] UA Auto SS Nitrite Auto test strip Ql (U) Negative Normal Negativemg/d L [facility] UA Auto SS pH (U) 5.0 *NA* (01/01/25 1:48 PM) Invalid Interpretation Code 5.0 - 9.0 [facility] UA Auto SS Protein Ql (U) Negative Normal Negativemg/d L [facility] UA Auto SS RBC Ql (U) 31-75 graded/HPF Invalid Interpretation Code 0-3graded/HP F [facility] UA Auto SS Specific gravity (U) [Rel density] 1.022 *NA* (01/01/25 1:48 PM) Invalid Interpretation Code 1.005 - 1.030 [facility] UA Auto SS Urobilinogen (U) [Mass/Vol] Negative Normal Negativemg/d L [facility] UA Auto SS WBC Auto (Urine sed) [#/Area] 0-5 graded/HPF Normal 0-5graded/HP F [facility] UA Auto SS URINALYSISOrdered By: Margoth Osorio on 01-01-2025 UA Spec Desc Clean Catch (01/01/25 1:48 PM) Normal [facility] UA Auto SS Urinalysis with Microon 12-15 Bilirubin Ql (U) Negative Normal Negative [facility] Comment on above: Performed By: #### 4 [id number] #### [facility] [address] [place] [address] Clarity (U) Clear Normal Clear [facility] Comment on above: Performed By: #### 4 [id number] #### [facility] [address] [place] [address] Color (U) Light-Yellow Normal Yellow [facility] Comment on above: Result Comment: Micr oscopic readings are only performed on those samples that meet specific criteria set forth by [facility]. Performed By: #### 4 [id number] #### [facility] [address] [place] [address] Epithelial cells.squamous Auto (Urine sed) [#/Area] 3-4 Invalid Interpretation Code [facility] Comment on above: Performed By: #### 4 [id number] #### [facility] [address] [place] [address] Glucose Ql (U) Negative Normal Negative [facility] Comment on above: Performed By: #### 4 [id number] #### [facility] [address] [place] [address] Hemoglobin Auto test strip (U) [Mass/Vol] 1+ mg/dL Abnormal Negative [facility] Comment on above: Performed By: #### 4 [id number] #### [facility] [address] [place] [id number] Ketones Auto test strip Ql (U) Negative Normal Negative [facility] Comment on above: Performed By: #### 4 [id number] #### [facility] [address] [place] [address] Leukocyte esterase Auto test strip Ql (U) Negative Normal Negative [facility] Comment on above: Performed By: #### 4 [id number] #### [facility] [address] [place] [id number] Mucus Auto Ql (U) Trace Normal Negative [facility] Comment on above: Performed By: #### 4 [id number] #### [facility] [address] [place] [address] Nitrite Auto test strip Ql (U) Negative Normal Negative [facility] Comment on above: Performed By: #### 4 [id number] #### [facility] [address] [place] [address] pH (U) 5.0 [pH] Invalid Interpretation Code 5.0-9.0 [facility] Comment on above: Performed By: #### 4 [id number] #### [facility] [address] [place] [address] Protein Ql (U) Negative Normal Negative [facility] Comment on above: Performed By: #### 4 [id number] #### [facility] [address] [place] [address] RBC Ql (U) 31-75 Abnormal 0-3 [facility] Comment on above: Performed By: #### 4 [id number] #### [facility] [address] [place] [address] Specific gravity (U) [Rel density] 1.022 Invalid Interpretation Code 1.005-1.030 [facility] Comment on above: Performed By: #### 4 [id number] #### [facility] [address] [place] [address] Urobilinogen (U) [Mass/Vol] Negative Normal Negative [facility] Comment on above: Performed By: #### 4 [id number] #### [facility] [address] [place] [id number] WBC Auto (Urine sed) [#/Area] 0-5 Normal 0-5 [facility] Comment on above: Performed By: #### 4 [id number] #### [facility] [address] [place] [address] Type of Urine collection method Clean Catch Normal [facility] Comment on above: Performed By: #### 4 [id number] #### [facility] [address] [place] [id number] Urology Office/Clinic Noteon 01-01-2025 Urology Office/Clinic Note Urology Office/Clinic Note Chief Complaint new patient HPI Staff 74 year old female new patient follow up to [facility] ER 12/02/24 due to left flank pain, pt. passed stone while at the ER. pt. then went back to [facility] 12/06/24 due to right flank pain. CT done 12/02/24 at [facility] KUB 12/28/24 at [facility] stone analysis 10% calcium oxalate, 90% uric acid. patient denies any gross hematuria or dysuria, states she has not had any recent pain . History of Present Illness Tests reviewed: reviewed CT, labs, ER records, external records, stone analysis, KUB. I have reviewed the previous health record information and history for this patient from external provider I have reviewed and verified the staff HPI to be accurate for this encounter. There have been no associated fever, chills, flank pain, or blood in the urine. Denies any urinary infections since last encounter. Review of Systems PHQ Score Initial Depression Screen Score: 0 SCORE ROS - Provider Constitutional: denies weight loss, denies hot flashes. Eyes: denies eye problems. Gastrointestinal: denies nausea, denies vomiting. Cardiovascular: denies chest pain or angina. Integumentary: no dryness Musculoskeletal: denies musculoskeletal symptoms. ENMT: denies otolaryngeal symptoms. Respiratory: no shortness of breath. Heme/Lymph: denies easy bleeding tendency, denies easy bruising tendency. Psychiatric: no confusion, no anxiety. Genitourinary: See HPI. Physical Exam Vitals & Measurements HR: 59(Peripheral) BP: 135/76 HT: 63 in HT: 160 cm WT: 77.5 kg WT: 170.858 lb BMI: 30.27 General Appearance: alert , no acute distress, well nourished, well developed female. Head: normocephalic . Eyes: normal orbit and globe. ENMT: normal examination of external ears. Psychiatric: cooperative, affect appropriate for age, normal judgement, euthymic mood. Assessment/Plan 74 yo female presents for f/up to recent [facility] ER visit. BBSQ 8 Portions of this record may have been created with voice recognition artificial intelligence software, specifically [employer], [employer] and or [employer]. Substitutions may have occurred due to the inherent limitations of voice recognition and artificial intelligence software. 1. Ureteral stone (N20.1: Calculus of ureter) Pt presented to [facility] ER 12/02/24 due to left-sided flank pain. CT AP wo con 12/02/24 [facility] - Left hydronephrosis, ureter dilated down to the bladder without calculus. There is a calculus in the bladder posteriorly which may be a recently passed calculus. Labs - Cr 0.93, eGFR 59 Pt passed stone while she was in the ER. Stone analysis ~90% uric acid and 10% ca ox monohydrate. -Fluids 2. Kidney stone (N20.0: Calculus of kidney) Hx of stones. Has had surgical mgmt in the past. Unsure if laser litho or ESWL. CT AP wo con 12/02/24 [facility] - 6 mm calculus LLP. KUB 12/28/24 TB - neg for stones. -Fluids -F/up in 3 mos 3. UPJ (ureteropelvic junction) obstruction (N13.5: Crossing vessel and stricture of ureter without hydronephrosis) CT AP wo con 12/02/24 TB - Prominent right upper collecting system and renal pelvis without ureteral dilatation of ureteral calculus. Could be chronic UPJ obstruction. Pt presented to [facility] ER 12/06/24 due to right flank pain. Labs - Cr 0.90, eGFR >60 Asymptomatic of Dietl's crisis. Recommended renal US in 3 months. She agrees. -NOHEMI in 3 months, recall placed 4. Microscopic hematuria (R31.29: Other microscopic hematuria) UA today shows large blood. Denies gross hematuria. -Urine sent for micro UA Patient presents as a 74-year-old female who previously had left-sided flank pain with a possible passed calculi. Her stone was sent for analysis after she passed a and was positive for calcium oxalate. She has a 6 mm intrarenal stone in the left side but is not interested in treatment at this time. We did discuss the UPJ obstruction on the right side and will obtain a renal ultrasound in 3 months to assess for the level of obstruction, severity, and a possible renal atrophy or parenchymal thinning. She will follow-up in 3 months. Follow-up With When Contact Information COURTNEY JUAREZ, YON IVY Additional Instructions: 3 mos w/ NOHEMI (recall placed) Patient Education Dietary Guidelines to Help Prevent Kidney Stones IWhitney, personally scribed for Dr. Monson on 01/01/2025 13:44:29. . Documentation recorded by the scribe, Whitney Carrillo, accurately reflects the services(s) I performed and decisions made by me. Authenticated by Dr. Valdez on 01/01/2025 13:51:17. Problem List/Past Medical History Ongoing BMI 31.0-31.9,adult Essential hypertension History of thyroid cancer Hypothyroidism Kidney stone Midline cystocele Migraines Obesity Screening for colon cancer Screening for malignant neoplasm of colon UPJ (ureteropelvic junction) obstruction Ureteral stone (more content not included)... Normal [facility] Comment on above: Result Comment: Elec tronically Signed By: BIJU VALDEZ MD\.br\Date and Time Signed: 01/01/25 13:53 EDT\.br\Electronically Co-Signed By: Whitney Carrillo\.br\Date and Time Co-Signed: 01/01/25 13:44 EDT\.br\Electronically Co-Signed By: Whitney Carrillo\.br\Date and Time Co-Signed: 01/01/25 13:47 EDT Basophils Auto (Bld) [#/Vol] on 12-13-2024 Basophils (Bld) [#/Vol] Automated basoph il count 0.0-0.1 [facility] Basophils/100 WBC Auto (Bld) on 12-13-2024 Basophils/100 WBC (Bld) Automated basophil % 0. 2-2.0 [facility] Cholesterol in LDL Calc [Mas s/Vol]on 12-13-2024 Cholesterol in LDL [Mass/Vol] Cholesterol in LDL [Mass/volume] in Serum or Plasma by calculation [facility] Comment on above: <100 mg/dl [id number] 0-129 mg/dl NEAR OR ABOVE [id number] mg/dl BORDERLINE [id number] mg/dl HIGH>190 mg/dl VERY HIGH Cholesterol in VLDL Calc [Ma ss/Vol]on 12-13-2024 Cholesterol in VLDL [Mass/Vol] Cholesterol in VLDL [Mass/volume] in Serum or Plasma by calculation [facility] Eosinophils/100 WBC Auto (Bl d)on 12-13-2024 Eosinophils/100 WBC (Bld) Automated eosinophil % 0.9-7.0 [facility] Erythrocyte distribution wid th Auto (RBC) [Ratio]on 12-13-2024 Erythrocyte distribution width (RBC) [Ratio] Erythrocyte distribution width [Ratio] by Automated count 11.0-15.0 [facility] Estimated glomerular filtrat ion rate (GFR) non- Americanon 12-13-2024 GFR/1.73 sq M.predicted among non-blacks MDRD (S/P/Bld) [Vol rate/Area] Estimated glomerular filtration rate (GFR) non- >=60 mL/min/1.73m 2 [facility] Hematocrit Auto (Bld) [Volum e fraction]on 12-13-2024 Hematocrit (Bld) [Volume fraction] Hematocrit [Volume Fraction] of Blood by Automated count 36.0-48.0 [facility] Hemoglobin [Mass/volume] in Bloodon 12-13-2024 Hemoglobin (Bld) [Mass/Vol] Hemoglobin [Mass/volume] in Blood 12.0-16.0 [facility] Laboratory - Chemistry and C hemistry - challengeon 12-13-2024 Calcium [Mass/Vol] 8.8 mg/dL 8.5-10.1 [facility] Chloride [Moles/Vol] 100 mmol/L 98-107 [facility] Cholesterol [Mass/Vol] 156 mg/dL <=200 [facility] Cholesterol in HDL [Mass/Vol] 43 mg/dL 40-60 [facility] Comment on above: > or =60 mg/dl - LOW CARDIOVASCULAR RISK<40 mg/dl - HIGH CARDIOVASCULAR RISK CO2 [Moles/Vol] 28.5 mmol/L 21.0-32.0 [facility] Creatinine [Mass/Vol] 0.90 mg/dL 0.55-1.02 [facility] Free T4 [Mass/Vol] 1.12 ng/dL 0.76-1.46 [facility] GFR/1.73 sq M.predicted MDRD (S/P/Bld) [Vol rate/Area] mL/min/{1.73_m2} >=60 mL/min/1.73m 2 [facility] Glucose [Mass/Vol] 104 mg/dL 74-106 [facility] Potassium [Moles/Vol] 4.4 mmol/L 3.5-5.1 [facility] Sodium [Moles/Vol] 137 mmol/L 136-145 [facility] Triglyceride [Mass/Vol] 91 mg/dL <=150 F [facility] TSH Qn 7.691 m[IU]/L High 0.358-3.740 [facility] Urea nitrogen [Mass/Vol] 9.0 mg/dL 7.0-18.0 [facility] Urea nitrogen/Creatinine [Mass ratio] 10.0 mg/mg [facility] Laboratory - Hematology and Cell countson 12-13-2024 Immature granulocytes/100 WBC (Bld) 0.8 % High 0.0-0.5 [facility] Leukocytes [#/volume] correc elizabeth for nucleated erythrocytes in Blood by Automated counon 12-13-2024 WBC corrected for nucl RBC Auto (Bld) [#/Vol] Leukocytes [#/volume] corrected for nucleated erythrocytes in Blood by Automated coun High 4.0-11.0 [facility] Lymphocytes Auto (Bld) [#/Vo l]on 12-13-2024 Lymphocytes (Bld) [#/Vol] Lymphocytes [#/volume] in Blood by Automated count 1.2-3.8 [facility] Lymphocytes/100 WBC Auto (Bl d)on 12-13-2024 Lymphocytes/100 WBC (Bld) Lymphocytes/100 leukocytes in Blood by Automated count Low 20.5-60.0 [facility] MCH Auto (RBC) [Entitic mass ]on 12-13-2024 MCH (RBC) [Entitic mass] MCH [Entitic ma ss] by Automated count 26.7-34.0 [facility] MCHC Auto (RBC) [Mass/Vol]on 12-13-2024 MCHC (RBC) [Mass/Vol] MCHC [Mass/volume] by Automated count 29.9-35.2 [facility] MCV Auto (RBC) [Entitic vol] on 12-13-2024 MCV (RBC) [Entitic vol] MCV [Entitic vol ume] by Automated count 81.0-99.0 [facility] Microalbumin [Mass/volume] i n Urineon 12-13-2024 Albumin DL <= 20 mg/L (U) [Mass/Vol] Microalbumin [Mass/volume] in Urine <=30.0 [facility] Monocytes Auto (Bld) [#/Vol] on 12-13-2024 Monocytes (Bld) [#/Vol] Automated blood monocyte count 0.3-0.8 [facility] Monocytes/100 WBC Auto (Bld) on 12-13-2024 Monocytes/100 WBC (Bld) Automated monocyte % 1. 7-12.0 [facility] Neutrophils Auto (Bld) [#/Vo l]on 12-13-2024 Neutrophils (Bld) [#/Vol] Neutrophils [#/volume] in Blood by Automated count High 1.4-6.5 [facility] Neutrophils/100 WBC Auto (Bl d)on 12-13-2024 Neutrophils/100 WBC (Bld) Automated neutrophil % 43.0-75.0 [facility] No Panel Informationon 12-13 25-Hydroxy Vitamin D Total 26.5 ng/mL [facility] Comment on above: <20 ng/mL Vit D defi cient20-<30 ng/mL Vit D [id number] ng/mL Vit D sufficient>100 ng/mL Potential Toxicity Eosinophils # (Auto) 0.4 10 3/uL 0.0-0.7 [facility] Immature Granulocyte # (Auto) 0.09 10 3/uL High 0.00-0.03 [facility] Urine Random Creatinine 29.77 mg/dL 20.00-300.0 0 [facility] Platelet mean volume Auto (B ld) [Entitic vol]on 12-13-2024 Platelet mean volume (Bld) [Entitic vol] Platelet mean volume [Entitic volume] in Blood by Automated count 9.5-13.5 [facility] Platelets Auto (Bld) [#/Vol] on 12-13-2024 Platelets (Bld) [#/Vol] Platelets [#/vol ume] in Blood by Automated count 150-450 [facility] RBC Auto (Bld) [#/Vol]on RBC (Bld) [#/Vol] Erythrocytes [#/volume] in Blood by Automated count 4.20-5.40 [facility] Serum or plasma anion gap de terminationon 12-13-2024 Anion gap [Moles/Vol] Serum or plasma anion gap determination [facility] Serum or plasma total choles terol/high density lipoprotein (HDL) cholesterol mass sarah 12-13-2024 Cholesterol.total/Choles terol in HDL [Mass ratio] Serum or plasma total cholesterol/high density lipoprotein (HDL) cholesterol mass rat [facility] Comment on above: 3.3 - 4.4 LOW RISK4. 4 - 7.1 AVERAGE RISK7.1 - 11.0 MODERATE RISK>11.0 HIGH RISK Basophils Auto (Bld) [#/Vol] on 12-06-2024 Basophils (Bld) [#/Vol] Automated basoph il count 0.0-0.1 [facility] Basophils/100 WBC Auto (Bld) on 12-06-2024 Basophils/100 WBC (Bld) Automated basophil % 0. 2-2.0 [facility] Eosinophils/100 WBC Auto (Bl d)on 12-06-2024 Eosinophils/100 WBC (Bld) Automated eosinophil % 0.9-7.0 [facility] Erythrocyte distribution wid th Auto (RBC) [Ratio]on 12-06-2024 Erythrocyte distribution width (RBC) [Ratio] Erythrocyte distribution width [Ratio] by Automated count 11.0-15.0 [facility] Estimated glomerular filtrat ion rate (GFR) non- Americanon 12-06-2024 GFR/1.73 sq M.predicted among non-blacks MDRD (S/P/Bld) [Vol rate/Area] Estimated glomerular filtration rate (GFR) non- >=60 mL/min/1.73m 2 [facility] Globulin Calc (S) [Mass/Vol] on 12-06-2024 Globulin (S) [Mass/Vol] Serum globulin measurement by calculation (mass/volume) [facility] Hematocrit Auto (Bld) [Volum e fraction]on 12-06-2024 Hematocrit (Bld) [Volume fraction] Hematocrit [Volume Fraction] of Blood by Automated count 36.0-48.0 [facility] Hemoglobin [Mass/volume] in Bloodon 12-06-2024 Hemoglobin (Bld) [Mass/Vol] Hemoglobin [Mass/volume] in Blood 12.0-16.0 [facility] Laboratory - Chemistry and C hemistry - challengeon 12-06-2024 Bilirubin Ql (U) Negative NEGATIVE [facility] Glucose (U) [Mass/Vol] Negative [facility] Ketones Ql (U) Negative NEGATIVE [facility] pH (U) 6.5 [pH] 5.0-9.0 [facility] Specific gravity (U) [Rel density] 1.020 1.005-1.025 [facility] Urobilinogen Qn (U) 0.2 {Flo'U}/dL 0.2-1.0 [facility] Albumin [Mass/Vol] 3.4 g/dL 3.4-5.0 [facility] ALP [Catalytic activity/Vol] 126 U/L High 46-116 [facility] ALT [Catalytic activity/Vol] 41 U/L 14-59 [facility] AST [Catalytic activity/Vol] 30 U/L 15-37 [facility] Bilirubin [Mass/Vol] 0.3 mg/dL 0.2-1.0 [facility] Bilirubin.direct [Mass/Vol] 0.1 mg/dL 0.0-0.2 [facility] Calcium [Mass/Vol] 8.5 mg/dL 8.5-10.1 [facility] Chloride [Moles/Vol] 103 mmol/L 98-107 [facility] CO2 [Moles/Vol] 26.5 mmol/L 21.0-32.0 [facility] Creatinine [Mass/Vol] 0.90 mg/dL 0.55-1.02 [facility] GFR/1.73 sq M.predicted MDRD (S/P/Bld) [Vol rate/Area] mL/min/{1.73_m2} >=60 mL/min/1.73m 2 [facility] Glucose [Mass/Vol] 147 mg/dL High 74-106 [facility] Lipase [Catalytic activity/Vol] 37.0 U/L 16.0-77.0 [facility] Potassium [Moles/Vol] 4.6 mmol/L 3.5-5.1 [facility] Protein [Mass/Vol] 7.0 g/dL 6.4-8.2 [facility] Sodium [Moles/Vol] 136 mmol/L 136-145 [facility] Urea nitrogen [Mass/Vol] 22.0 mg/dL High 7.0-18.0 [facility] Urea nitrogen/Creatinine [Mass ratio] 24.4 mg/mg [facility] Laboratory - Hematology and Cell countson 12-06-2024 Immature granulocytes/100 WBC (Bld) 0.5 % 0.0-0.5 [facility] Laboratory - Specimen inform ationon 12-06-2024 Appearance (U) CLEAR CLEAR [facility] Color (U) LT. YELLOW YELLOW [facility] Laboratory - Urinalysison Leukocyte esterase Test strip Ql (U) Negative NEGATIVE [facility] Mucus Ql (Urine sed) NONE SEEN NONE SEEN [facility] Nitrite Ql (U) Negative NEGATIVE [facility] Protein Ql (U) Negative NEG/TRACE [facility] Leukocytes [#/volume] correc elizabeth for nucleated erythrocytes in Blood by Automated counon 12-06-2024 WBC corrected for nucl RBC Auto (Bld) [#/Vol] Leukocytes [#/volume] corrected for nucleated erythrocytes in Blood by Automated coun High 4.0-11.0 [facility] Lymphocytes Auto (Bld) [#/Vo l]on 12-06-2024 Lymphocytes (Bld) [#/Vol] Lymphocytes [#/volume] in Blood by Automated count 1.2-3.8 [facility] Lymphocytes/100 WBC Auto (Bl d)on 12-06-2024 Lymphocytes/100 WBC (Bld) Lymphocytes/100 leukocytes in Blood by Automated count Low 20.5-60.0 [facility] MCH Auto (RBC) [Entitic mass ]on 12-06-2024 MCH (RBC) [Entitic mass] MCH [Entitic ma ss] by Automated count 26.7-34.0 [facility] MCHC Auto (RBC) [Mass/Vol]on 12-06-2024 MCHC (RBC) [Mass/Vol] MCHC [Mass/volume] by Automated count 29.9-35.2 [facility] MCV Auto (RBC) [Entitic vol] on 12-06-2024 MCV (RBC) [Entitic vol] MCV [Entitic vol ume] by Automated count 81.0-99.0 [facility] Monocytes Auto (Bld) [#/Vol] on 12-06-2024 Monocytes (Bld) [#/Vol] Automated blood monocyte count 0.3-0.8 [facility] Monocytes/100 WBC Auto (Bld) on 12-06-2024 Monocytes/100 WBC (Bld) Automated monocyte % 1. 7-12.0 [facility] Neutrophils Auto (Bld) [#/Vo l]on 12-06-2024 Neutrophils (Bld) [#/Vol] Neutrophils [#/volume] in Blood by Automated count High 1.4-6.5 [facility] Neutrophils/100 WBC Auto (Bl d)on 12-06-2024 Neutrophils/100 WBC (Bld) Automated neutrophil % High 43.0-75.0 [facility] No Panel Informationon 12-06 Urine Bacteria TRACE #/HPF Abnormal NONE SEEN [facility] Urine Culture Reflexed NO [facility] Urine Occult Blood Negative NEGATIVE [facility] Urine Other Casts NONE SEEN #/LPF NONE SEEN [facility] Urine Other Crystals None Seen #/HPF None Seen [facility] Urine RBC 0-2 #/HPF 0-2 [facility] Urine Squamous Epithelial Cells RARE #/LPF NONE/RARE [facility] Urine WBC 0-2 #/HPF Abnormal NONE SEEN [facility] Eosinophils # (Auto) 0.1 10 3/uL 0.0-0.7 [facility] Immature Granulocyte # (Auto) 0.06 10 3/uL High 0.00-0.03 [facility] Platelet mean volume Auto (B ld) [Entitic vol]on 12-06-2024 Platelet mean volume (Bld) [Entitic vol] Platelet mean volume [Entitic volume] in Blood by Automated count 9.5-13.5 [facility] Platelets Auto (Bld) [#/Vol] on 12-06-2024 Platelets (Bld) [#/Vol] Platelets [#/vol ume] in Blood by Automated count 150-450 [facility] RBC Auto (Bld) [#/Vol]on RBC (Bld) [#/Vol] Erythrocytes [#/volume] in Blood by Automated count 4.20-5.40 [facility] Serum or plasma albumin/glob ulin mass ratioon 12-06-2024 Albumin/Globulin [Mass ratio] Serum or plasma albumin/globulin mass ratio [facility] Serum or plasma anion gap de terminationon 12-06-2024 Anion gap [Moles/Vol] Serum or plasma anion gap determination [facility] Ammonium urate crystals dete ction in stone by infrared spectroscopyon 12-02-2024 Ammonium urate crystals Infrared spectroscopy Ql (Stone) Ammonium urate crystals detection in stone by infrared spectroscopy . [facility] Basophils Auto (Bld) [#/Vol] on 12-02-2024 Basophils (Bld) [#/Vol] Automated basoph il count 0.0-0.1 [facility] Basophils/100 WBC Auto (Bld) on 12-02-2024 Basophils/100 WBC (Bld) Automated basophil % 0. 2-2.0 [facility] Calcium bilirubinate measure menton 12-02-2024 Calcium bilirubinate (Stone) [Mass fraction] Calcium bilirubinate measurement . [facility] Calcium carbonate (Stone) [M ass fraction]on 12-02-2024 Stone Calcium Carbonate TNP . F [facility] Calcium hydrogen phosphate d ihydrate (Stone) [Mass fraction]on 12-02-2024 Stone Calcium Hydrogen Phosphate TNP . [facility] Calcium oxalate dihydrate cr ystals detection in stone by infrared spectroscopyon 12-02-2024 Calcium oxalate dihydrate crystals Infrared spectroscopy Ql (Stone) Calcium oxalate dihydrate crystals detection in stone by infrared spectroscopy . [facility] Calcium oxalate monohydrate crystal detectionon 12-02-2024 Calcium oxalate monohydrate crystals Infrared spectroscopy Ql (Stone) Calcium oxalate monohydrate crystal detection . [facility] Calcium phosphate measuremen ton 12-02-2024 Calcium phosphate (Stone) [Mass fraction] Calcium phosphate measurement . [facility] Calculus analysis interpreta tion in stoneon 12-02-2024 Calculus analysis [Interp] Calculus analysis interpretation in stone . [facility] Comment on above: Calculus received we t. Wet calculi must be dried beforeanalysis, which delays reporting of results. Leaving calculiwet (such as water, saline, blood, urine) may lead tochanges in composition. Physician questions regarding Calculi Analysis [facility]Saint [facility] Hospital[facility] at: [phone]. Calculus analysis with calcu bravo photography interpretation in stoneon 12-02-2024 Calculus analysis with calculus photography [Interp] Calculus analysis with calculus photography interpretation in stone . [facility] Comment on above: Photograph will foll ow under a separate cover Cellular material measuremen t in stone by estimated (mass/mass)on 12-02-2024 Cellular material Est (Stone) [Mass/Mass] Cellular material measurement in stone by estimated (mass/mass) . [facility] Cholesterol [Mass/volume] in Serum or Plasmaon 12-02-2024 Cholesterol [Mass/Vol] Cholesterol [Mass/volume] in Serum or Plasma . [facility] Composition of stoneon 12-02 Composition Nom (Stone) Composition of stone . [facility] Comment on above: Percentage (Represen ts the % composition) Cystine measurementon 2024 Cystine (Unsp spec) [Moles/Vol] Cystine measurement . [facility] Determination of color of ca lculuson 12-02-2024 Color (Stone) Determination of color of calculus . [facility] Eosinophils/100 WBC Auto (Bl d)on 12-02-2024 Eosinophils/100 WBC (Bld) Automated eosinophil % Low 0.9-7.0 [facility] Erythrocyte distribution wid th Auto (RBC) [Ratio]on 12-02-2024 Erythrocyte distribution width (RBC) [Ratio] Erythrocyte distribution width [Ratio] by Automated count 11.0-15.0 [facility] Estimated glomerular filtrat ion rate (GFR) non- Americanon 12-02-2024 GFR/1.73 sq M.predicted among non-blacks MDRD (S/P/Bld) [Vol rate/Area] Estimated glomerular filtration rate (GFR) non- Low >=60 mL/min/1.73m 2 [facility] Hematocrit Auto (Bld) [Volum e fraction]on 12-02-2024 Hematocrit (Bld) [Volume fraction] Hematocrit [Volume Fraction] of Blood by Automated count 36.0-48.0 [facility] Hemoglobin [Mass/volume] in Bloodon 12-02-2024 Hemoglobin (Bld) [Mass/Vol] Hemoglobin [Mass/volume] in Blood 12.0-16.0 [facility] Laboratory - Chemistry and C hemistry - challengeon 12-02-2024 Calcium [Mass/Vol] 8.4 mg/dL Low 8.5-10.1 [facility] Chloride [Moles/Vol] 104 mmol/L 98-107 [facility] CO2 [Moles/Vol] 25.1 mmol/L 21.0-32.0 [facility] Creatinine [Mass/Vol] 0.93 mg/dL 0.55-1.02 [facility] GFR/1.73 sq M.predicted MDRD (S/P/Bld) [Vol rate/Area] mL/min/{1.73_m2} >=60 mL/min/1.73m 2 [facility] Glucose [Mass/Vol] 144 mg/dL High 74-106 [facility] Potassium [Moles/Vol] 4.1 mmol/L 3.5-5.1 [facility] Sodium [Moles/Vol] 140 mmol/L 136-145 [facility] Urea nitrogen [Mass/Vol] 11.0 mg/dL 7.0-18.0 [facility] Urea nitrogen/Creatinine [Mass ratio] 11.8 mg/mg [facility] Laboratory - Hematology and Cell countson 12-02-2024 Immature granulocytes/100 WBC (Bld) 0.2 % 0.0-0.5 [facility] Leukocytes [#/volume] correc elizabeth for nucleated erythrocytes in Blood by Automated counon 12-02-2024 WBC corrected for nucl RBC Auto (Bld) [#/Vol] Leukocytes [#/volume] corrected for nucleated erythrocytes in Blood by Automated coun High 4.0-11.0 [facility] Lymphocytes Auto (Bld) [#/Vo l]on 12-02-2024 Lymphocytes (Bld) [#/Vol] Lymphocytes [#/volume] in Blood by Automated count 1.2-3.8 [facility] Lymphocytes/100 WBC Auto (Bl d)on 12-02-2024 Lymphocytes/100 WBC (Bld) Lymphocytes/100 leukocytes in Blood by Automated count Low 20.5-60.0 [facility] MCH Auto (RBC) [Entitic mass ]on 12-02-2024 MCH (RBC) [Entitic mass] MCH [Entitic ma ss] by Automated count 26.7-34.0 [facility] MCHC Auto (RBC) [Mass/Vol]on 12-02-2024 MCHC (RBC) [Mass/Vol] MCHC [Mass/volume] by Automated count 29.9-35.2 [facility] MCV Auto (RBC) [Entitic vol] on 12-02-2024 MCV (RBC) [Entitic vol] MCV [Entitic vol ume] by Automated count 81.0-99.0 [facility] [facility] Measurement of proportion of calculus composed of dried blood (mass/mass)on 12-02-2024 Blood.dried (Stone) [Mass fraction] Measurement of proportion of calculus composed of dried blood (mass/mass) . [facility] Monocytes Auto (Bld) [#/Vol] on 12-02-2024 Monocytes (Bld) [#/Vol] Automated blood monocyte count 0.3-0.8 [facility] Monocytes/100 WBC Auto (Bld) on 12-02-2024 Monocytes/100 WBC (Bld) Automated monocyte % 1. 7-12.0 [facility] Neutrophils Auto (Bld) [#/Vo l]on 12-02-2024 Neutrophils (Bld) [#/Vol] Neutrophils [#/volume] in Blood by Automated count High 1.4-6.5 [facility] Neutrophils/100 WBC Auto (Bl d)on 12-02-2024 Neutrophils/100 WBC (Bld) Automated neutrophil % High 43.0-75.0 [facility] Newberyite crystals detectio n in stone by infrared spectroscopyon 12-02-2024 Newberyite crystals Infrared spectroscopy Ql (Stone) Newberyite crystals detection in stone by infrared spectroscopy . [facility] No Panel Informationon 12-02 Stone 2,8 Dihydroxyadenine TNP . [facility] Stone Analysis Disclaimer Comment . [facility] Comment on above: Calculi report will follow via computer, mail or courierdelivery. Stone Bilirubinate TNP . [facility] Stone Calcium Palmitate TNP . [facility] Stone Calcium Stearate TNP . [facility] Drug or Metabolite TNP . [facility] Stone Other Constituent TNP . [facility] Stone Xanthine TNP . [facility] Eosinophils # (Auto) 0.0 10 3/uL 0.0-0.7 [facility] Immature Granulocyte # (Auto) 0.03 10 3/uL 0.00-0.03 [facility] Platelet mean volume Auto (B ld) [Entitic vol]on 12-02-2024 Platelet mean volume (Bld) [Entitic vol] Platelet mean volume [Entitic volume] in Blood by Automated count 9.5-13.5 [facility] Platelets Auto (Bld) [#/Vol] on 12-02-2024 Platelets (Bld) [#/Vol] Platelets [#/vol ume] in Blood by Automated count 150-450 [facility] RBC Auto (Bld) [#/Vol]on RBC (Bld) [#/Vol] Erythrocytes [#/volume] in Blood by Automated count 4.20-5.40 [facility] Serum or plasma anion gap de terminationon 12-02-2024 Anion gap [Moles/Vol] Serum or plasma anion gap determination [facility] Size [Entitic volume] of Sto neon 12-02-2024 Size (Stone) [Entitic vol] Size [Entitic volume] of Stone . [facility] Comment on above: Single piece receive d. Sodium urate crystals detect ion in stone by infrared spectroscopyon 12-02-2024 Sodium urate crystals Infrared spectroscopy Ql (Stone) Sodium urate crystals detection in stone by infrared spectroscopy . [facility] Specimen source subject [Typ e]on 12-02-2024 Specimen source subject Nom Specimen source subject [Type] . [facility] Comment on above: Not provided Triamterene measurement in c alculuson 12-02-2024 Triamterene (Stone) [Mass fraction] Triamterene measurement in calculus . [facility] Triple phosphate/Total in St oneon 12-02-2024 Triple phosphate (Stone) [Mass fraction] Triple phosphate/Total in Stone . [facility] Uric acid dihydrate crystals detection in stone by infrared spectroscopyon 12-02-2024 Urate dihydrate crystals Infrared spectroscopy Ql (Stone) Uric acid dihydrate crystals detection in stone by infrared spectroscopy . [facility] Alanine aminotransferase [En zymatic activity/volume] in Serum or PlasmaOrdered By: Cricket Russell on 11-27-2024 ALT [Catalytic activity/Vol] Alanine aminotransferase [Enzymatic activity/volume] in Serum or Plasma 7-52 [facility] Albumin [Mass/volume] in Ser um or Plasma by Bromocresol green (BCG) dye binding methoOrdered By: Cricket Russell on 11-27-2024 Albumin BCG dye [Mass/Vol] Albumin [Mass/volume] in Serum or Plasma by Bromocresol green (BCG) dye binding metho 3.5-5.7 [facility] Alkaline phosphatase [Enzyma tic activity/volume] in Serum or PlasmaOrdered By: Cricket Russell on 11-27-2024 ALP [Catalytic activity/Vol] Alkaline phosphatase [Enzymatic activity/volume] in Serum or Plasma 34-104 [facility] Appearance of UrineOrdered B y: Cricket Russell on 11-27-2024 Appearance (U) Urine appearance Clear [facility] Aspartate aminotransferase [ Enzymatic activity/volume] in Serum or PlasmaOrdered By: Cricket Russell on 11-27-2024 AST [Catalytic activity/Vol] Aspartate aminotransferase [Enzymatic activity/volume] in Serum or Plasma 13-39 [facility] Bacteria [Presence] in Urine by AutomatedOrdered By: Cricket Russell on 11-27-2024 Bacteria Auto Ql (U) Bacteria [Presence] in Urine by Automated None Seen [facility] Basophils Auto (Bld) [#/Vol] Ordered By: Cricket Russell on 11-27-2024 Basophils (Bld) [#/Vol] Automated basoph il count 0.0-0.2 [facility] Basophils/100 WBC Auto (Bld) Ordered By: Cricket Russell on 11-27-2024 Basophils/100 WBC (Bld) Automated basophil % . [facility] Bilirubin Test strip Ql (U)O rdered By: Cricket Russell on 11-27-2024 Bilirubin Ql (U) Bilirubin.total [Presence] in Urine by Test strip Negative [facility] Bilirubin.total [Mass/volume ] in Serum or PlasmaOrdered By: Cricket Russell on 11-27-2024 Bilirubin [Mass/Vol] Bilirubin.total [Mass/volume] in Serum or Plasma 0.3-1.0 [facility] BioFire Not Detectedon 11-27 BioFire Not Detected Not detected Normal Not Detecte [facility] Comment on above: Result Comment: This is a duplicate RP2.1 COVID (PCR) result to be used for statistical tracking purpose only. PERFORMED BY: [facility] [address] [place] [address] [employer] GINNY PIPER M.D. Performed By: #### R AARON PANEL UPP., BIOFIRECOVNOTDE #### [facility] [address] COVID-19 Detected/Not Detect edOrdered By: Cricket Russell on 11-27-2024 SARS-CoV-2 (COVID-19) RNA NOE+non-probe Ql (Nph) Not detected Not Detecte [facility] Comment on above: This is a duplicate RP2.1 COVID (PCR) result to be used for statistical tracking purpose only. Calcium [Mass/volume] in Ser um or PlasmaOrdered By: Cricket Russell on 11-27-2024 Calcium [Mass/Vol] Calcium [Mass/volume] in Serum or Plasma 8.6-10.3 [facility] Carbon dioxide, total [Moles /volume] in Serum or PlasmaOrdered By: Cricket Russell on 11-27-2024 CO2 [Moles/Vol] Carbon dioxide, total [Moles/volume] in Serum or Plasma 21.0-31.0 [facility] Chloride [Moles/volume] in S kristina or PlasmaOrdered By: Cricket Russell on 11-27-2024 Chloride [Moles/Vol] Chloride [Moles/volume] in Serum or Plasma 98-107 [facility] Color Auto (U)Ordered By: Casper Russell on 11-27-2024 Color (U) Color of Urine by Auto Yellow [facility] Complete Blood Count Auto Di ffon 11-27-2024 Basophils (Bld) [#/Vol] 0.0 10*3/uL Normal 0.0-0.2 [facility] Comment on above: Result Comment: PERF ORMED BY: [place] [address] [employer] GINNY PIPER M.D. Performed By: #### C BC, CMP, LIPASE #### [address] Basophils/100 WBC (Bld) 0.2 % Normal . T [facility] Comment on above: Performed By: #### C BC, CMP, LIPASE #### [address] Eosinophils (Bld) [#/Vol] 0.0 10*3/uL Normal 0.0-0.45 [facility] Comment on above: Performed By: #### C BC, CMP, LIPASE #### [place] [address] [place] Eosinophils/100 WBC (Bld) 0.3 % Normal . [facility] Comment on above: Performed By: #### C BC, CMP, LIPASE #### [address] Erythrocyte distribution width (RBC) [Ratio] 13.9 % Normal 11.9-15.3 [facility] Comment on above: Performed By: #### C BC, CMP, LIPASE #### [address] Hematocrit (Bld) [Volume fraction] 47.3 % High 34.0-46.4 [facility] Comment on above: Performed By: #### C BC, CMP, LIPASE #### [address] Hemoglobin (Bld) [Mass/Vol] 16.2 g/dL High 11.8-15.4 [facility] Comment on above: Performed By: #### C BC, CMP, LIPASE #### [address] Lymphocytes (Bld) [#/Vol] 1.4 10*3/uL Normal 1.00-4.8 [facility] Comment on above: Performed By: #### C BC, CMP, LIPASE #### [address] Lymphocytes/100 WBC (Bld) 11.8 % Normal . [facility] Comment on above: Performed By: #### C BC, CMP, LIPASE #### [address] MCH (RBC) [Entitic mass] 29.2 pg Normal 24.7-34.3 [facility] Comment on above: Performed By: #### C BC, CMP, LIPASE #### [address] MCV (RBC) [Entitic vol] 85.2 fL Normal 80-100 [facility] Comment on above: Performed By: #### C BC, CMP, LIPASE #### [address] Mean Corpuscular HGB Conc 34.2 g/dL Normal 32.0-35.0 [facility] Comment on above: Performed By: #### C BC, CMP, LIPASE #### [address] Monocytes (Bld) [#/Vol] 0.6 10*3/uL Normal 0.0-0.8 [facility] Comment on above: Performed By: #### C BC, CMP, LIPASE #### [address] Monocytes/100 WBC (Bld) 19.54 % Normal 0.00-20.00 [facility] Comment on above: Performed By: #### C BC, CMP, LIPASE #### [address] Monocytes/100 WBC (Bld) 5.0 % Normal . [facility] Comment on above: Performed By: #### C BC, CMP, LIPASE #### [address] Neutrophils (Bld) [#/Vol] 9.9 10*3/uL High 1.8-7.7 [facility] Comment on above: Performed By: #### C BC, CMP, LIPASE #### [address] Neutrophils/100 WBC (Bld) 82.7 % Normal . [facility] Comment on above: Performed By: #### C BC, CMP, LIPASE #### [address] NRBC% 0.1 /100{WBC} Normal 0-0.5 [facility] Comment on above: Performed By: #### C BC, CMP, LIPASE #### [address] Platelet mean volume (Bld) [Entitic vol] 9.2 fL Normal 6.3-10.7 [facility] Comment on above: Performed By: #### C BC, CMP, LIPASE #### [address] Platelets (Bld) [#/Vol] 271 10*3/uL Normal 150-450 [facility] Comment on above: Performed By: #### C BC, CMP, LIPASE #### [address] RBC (Bld) [#/Vol] 5.55 10*6/uL High 3.60-5.00 [facility] Comment on above: Performed By: #### C BC, CMP, LIPASE #### [address] WBC (Bld) [#/Vol] 12.0 10*3/uL High 3.8-11.6 [facility] Comment on above: Performed By: #### C BC, CMP, LIPASE #### [address] Comprehensive Metabolic Pane yumi 11-27-2024 Albumin [Mass/Vol] 4.3 g/dL Normal 3.5-5.7 [facility] Comment on above: Performed By: #### C BC, CMP, LIPASE #### [place] [id number] [place] Albumin/Globulin [Mass ratio] 1.3 {ratio} Normal [facility] Comment on above: Performed By: #### C BC, CMP, LIPASE #### [address] ALP [Catalytic activity/Vol] 62 U/L Normal 34-104 [facility] Comment on above: Performed By: #### C BC, CMP, LIPASE #### [address] ALT [Catalytic activity/Vol] 31 U/L Normal 7-52 [facility] Comment on above: Performed By: #### C BC, CMP, LIPASE #### [address] Anion gap [Moles/Vol] 12.9 mmol/L Normal 6.0-15.[address] [facility] Comment on above: Performed By: #### C BC, CMP, LIPASE #### [address] AST [Catalytic activity/Vol] 32 U/L Normal 13-39 [facility] Comment on above: Performed By: #### C BC, CMP, LIPASE #### [address] Bilirubin [Mass/Vol] 0.6 mg/dL Normal 0.3-1.0 [facility] Comment on above: Performed By: #### C BC, CMP, LIPASE #### [address] Calcium [Mass/Vol] 9.0 mg/dL Normal 8.6-10.3 [facility] Comment on above: Performed By: #### C BC, CMP, LIPASE #### [address] Chloride [Moles/Vol] 102 mmol/L Normal 98-107 [facility] Comment on above: Performed By: #### C BC, CMP, LIPASE #### [address] CO2 [Moles/Vol] 26.0 mmol/L Normal 21.0-31.0 [facility] Comment on above: Performed By: #### C BC, CMP, LIPASE #### [address] Creatinine [Mass/Vol] 0.79 mg/dL Normal 0.60-1.20 [facility] Comment on above: Performed By: #### C BC, CMP, LIPASE #### [address] Creatinine Clr Calc Pharmacy 58.93 Normal [facility] Comment on above: Performed By: #### C BC, CMP, LIPASE #### [address] GFR/1.73 sq M.predicted MDRD (S/P/Bld) [Vol rate/Area] mL/min/{1.73_m2} Normal [facility] Comment on above: Performed By: #### C BC, CMP, LIPASE #### [address] Globulin (S) [Mass/Vol] 3.4 g/dL Normal T he [facility] Comment on above: Performed By: #### C BC, CMP, LIPASE #### [address] Glucose [Mass/Vol] 117 mg/dL High 70-100 [facility] Comment on above: Result Comment: [facility] Glucose Reference Range is dependent on time and content of last meal. Glucose of more than 200 mg/dL in a nonstressed, ambulatory subject supports the diagnosis of Diabetes Mellitus. ADA recommended reference range Performed By: #### C BC, CMP, LIPASE #### [address] Potassium [Moles/Vol] 3.9 mmol/L Normal 3.5-5.1 [facility] Comment on above: Performed By: #### C BC, CMP, LIPASE #### [address] Protein [Mass/Vol] 7.7 g/dL Normal 6.4-8.9 [facility] Comment on above: Performed By: #### C BC, CMP, LIPASE #### [facility] [address] [place] [address] [place] Sodium [Moles/Vol] 137 mmol/L Normal 136-145 [facility] Comment on above: Performed By: #### C BC, CMP, LIPASE #### [facility] [address] [place] [id number] [place] Urea nitrogen [Mass/Vol] 22 mg/dL Normal 7-25 [facility] Comment on above: Performed By: #### C BC, CMP, LIPASE #### [facility] [address] [place] [address] [place] Creatinine [Mass/volume] in Serum or PlasmaOrdered By: Cricket Russell on 11-27-2024 Creatinine [Mass/Vol] Creatinine [Mass/volume] in Serum or Plasma 0.60-1.20 [facility] Dipstick and Microscopicon 0 11-27-2024 Appearance (U) Clear Normal Clear [facility] Comment on above: Order Comment: Name Collection Type:: Clean-Voided Midstream Performed By: #### A DDONUAPLUS #### [place] [address] [place] Bacteria,Urine None Seen Normal None Seen [facility] Comment on above: Order Comment: Name Collection Type:: Clean-Voided Midstream Performed By: #### A DDONUAPLUS #### [place] [address] [place] Bilirubin,Urine Negative Normal Negative [facility] Comment on above: Order Comment: Name Collection Type:: Clean-Voided Midstream Performed By: #### A DDONUAPLUS #### [place] [phone] [place] Color (U) Light-Yellow Normal Yellow [facility] Comment on above: Order Comment: Name Collection Type:: Clean-Voided Midstream Performed By: #### A DDONUAPLUS #### [facility] [address] [place] [phone] [place] Glucose Ql (U) Normal Normal Normal [facility] Comment on above: Order Comment: Name Collection Type:: Clean-Voided Midstream Performed By: #### A DDONUAPLUS #### [facility] [address] [place] [address] [place] Hyaline Casts,Urine 0-8 Normal 0-8 [facility] Comment on above: Order Comment: Name Collection Type:: Clean-Voided Midstream Performed By: #### A DDONUAPLUS #### [place] [address] [place] Ketones Ql (U) 2+ High Negative [facility] Comment on above: Order Comment: Name Collection Type:: Clean-Voided Midstream Performed By: #### A DDONUAPLUS #### [place] [address] [place] Leukocyte esterase Test strip Ql (U) Negative Normal Negative [facility] Comment on above: Order Comment: Name Collection Type:: Clean-Voided Midstream Performed By: #### A DDONUAPLUS #### [place] [address] [place] Mucus,Urine 4+ Critically abnormal [facility] Comment on above: Order Comment: Name Collection Type:: Clean-Voided Midstream Result Comment: PERF ORMED BY: [place] [address] [employer] SUPER[employer] GINNY PIPER M.D. Performed By: #### A DDONUAPLUS #### [place] [address] [place] Nitrite,Urine Negative Normal Negative [facility] Comment on above: Order Comment: Name Collection Type:: Clean-Voided Midstream Performed By: #### A DDONUAPLUS #### [place] [address] [place] Occult Blood,Urine Trace High Negative [facility] Comment on above: Order Comment: Name Collection Type:: Clean-Voided Midstream Result Comment: PERF ORMED BY: [place] [address] [employer] SUPER[employer] GINNY PIPER M.D. Performed By: #### A DDONUAPLUS #### [address] pH (U) 5.5 [pH] Normal 5.0-9.0 [facility] Comment on above: Order Comment: Name Collection Type:: Clean-Voided Midstream Performed By: #### A DDONUAPLUS #### [address] Protein,Urine Negative Normal Negative [facility] Comment on above: Order Comment: Name Collection Type:: Clean-Voided Midstream Performed By: #### A DDONUAPLUS #### [address] RBC,Urine 5-9 High 0-4 [facility] Comment on above: Order Comment: Name Collection Type:: Clean-Voided Midstream Performed By: #### A DDONUAPLUS #### [address] Specificy [place],Urine 1.017 Normal 1.001-1.030 [facility] Comment on above: Order Comment: Name Collection Type:: Clean-Voided Midstream Performed By: #### A DDONUAPLUS #### [address] Squamous Epithelial Cell,Urine 3-4 High 0-2 [facility] Comment on above: Order Comment: Name Collection Type:: Clean-Voided Midstream Performed By: #### A DDONUAPLUS #### [address] Urobilinogen,Urine Normal Normal Normal [facility] Comment on above: Order Comment: Name Collection Type:: Clean-Voided Midstream Performed By: #### A DDONUAPLUS #### [address] WBC,Urine 1-2 Normal 0-4 [facility] Comment on above: Order Comment: Name Collection Type:: Clean-Voided Midstream Performed By: #### A DDONUAPLUS #### [address] Eosinophils Auto (Bld) [#/Vo l]Ordered By: Cricket Russell on 11-27-2024 Eosinophils (Bld) [#/Vol] Automated eosinophil count 0.0-0.45 [facility] Eosinophils/100 WBC Auto (Bl d)Ordered By: Cricket Russell on 11-27-2024 Eosinophils/100 WBC (Bld) Automated eosinophil % . [facility] Epithelial cells.squamous [# /area] in Urine sediment by Automated countOrdered By: Cricket Russell on 11-27-2024 Epithelial cells.squamous Auto (Urine sed) [#/Area] Epithelial cells.squamous [#/area] in Urine sediment by Automated count High 0-2 [facility] Erythrocyte distribution wid th Auto (RBC) [Ratio]Ordered By: Cricket Russell on 11-27-2024 Erythrocyte distribution width (RBC) [Ratio] Erythrocyte distribution width [Ratio] by Automated count 11.9-15.3 [facility] Erythrocytes [#/area] in Uri ne sediment by Automated countOrdered By: Cricket Russell on 11-27-2024 RBC Auto (Urine sed) [#/Area] Erythrocytes [#/area] in Urine sediment by Automated count High 0-4 [facility] Globulin Calc (S) [Mass/Vol] Ordered By: Cricket Russell on 11-27-2024 Globulin (S) [Mass/Vol] Serum globulin measurement by calculation (mass/volume) [facility] Glucose [Mass/volume] in Ser um or PlasmaOrdered By: Cricket Russell on 11-27-2024 Glucose [Mass/Vol] Glucose [Mass/volume] in Serum or Plasma High 70-100 [facility] Comment on above: ADA recommended refe [...] [Mass/volume] in Urine by Test strip Normal [facility] Hematocrit Auto (Bld) [Volum e fraction]Ordered By: Cricket Russell on 11-27-2024 Hematocrit (Bld) [Volume fraction] Hematocrit [Volume Fraction] of Blood by Automated count High 34.0-46.4 [facility] Hemoglobin Test strip Ql (U) Ordered By: Cricket Russell on 11-27-2024 Hemoglobin Ql (U) Hemoglobin [Presence] in Urine by Test strip High Negative [facility] Hemoglobin [Mass/volume] in BloodOrdered By: Cricket Russell on 11-27-2024 Hemoglobin (Bld) [Mass/Vol] Hemoglobin [Mass/volume] in Blood High 11.8-15.4 [facility] Hyaline casts [#/area] in Ur ine sediment by Automated countOrdered By: Cricket Russell on 11-27-2024 Hyaline casts Auto (Urine sed) [#/Area] Hyaline casts [#/area] in Urine sediment by Automated count 0-8 [facility] Ketones Test strip Ql (U)Ord ered By: Cricket Russell on 11-27-2024 Ketones Ql (U) Ketones [Presence] in Urine by Test strip High Negative [facility] Leukocyte esterase [Presence ] in Urine by Test stripOrdered By: Cricket Russell on 11-27-2024 Leukocyte esterase Test strip Ql (U) Leukocyte esterase [Presence] in Urine by Test strip Negative [facility] Leukocytes [#/area] in Urine sediment by Automated countOrdered By: Cricket Russell on 11-27-2024 WBC Auto (Urine sed) [#/Area] Leukocytes [#/area] in Urine sediment by Automated count 0-4 [facility] Leukocytes [#/volume] correc elizabeth for nucleated erythrocytes in Blood by Automated counOrdered By: Cricket Russell on 11-27-2024 WBC corrected for nucl RBC Auto (Bld) [#/Vol] Leukocytes [#/volume] corrected for nucleated erythrocytes in Blood by Automated coun High 3.8-11.6 [facility] Lipaseon 11-27-2024 Lipase [Catalytic activity/Vol] 10.0 U/L Low 11.0-82.0 [facility] Comment on above: Result Comment: PERF ORMED BY: [facility] [address] [place] [address] [employer] GINNY PIPER M.D. Performed By: #### C BC, CMP, LIPASE #### [facility] [address] Lipase [Enzymatic activity/v olume] in Serum or PlasmaOrdered By: Cricket Russell on 11-27-2024 Lipase [Catalytic activity/Vol] Lipase [Enzymatic activity/volume] in Serum or Plasma Low 11.0-82.0 [facility] Lymphocytes Auto (Bld) [#/Vo l]Ordered By: Cricket Russell on 11-27-2024 Lymphocytes (Bld) [#/Vol] Lymphocytes [#/volume] in Blood by Automated count 1.00-4.8 [facility] Lymphocytes/100 WBC Auto (Bl d)Ordered By: Cricket Russell on 11-27-2024 Lymphocytes/100 WBC (Bld) Lymphocytes/100 leukocytes in Blood by Automated count . [facility] MCH Auto (RBC) [Entitic mass ]Ordered By: Cricket Russell on 11-27-2024 MCH (RBC) [Entitic mass] MCH [Entitic ma ss] by Automated count 24.7-34.3 [facility] MCHC Auto (RBC) [Mass/Vol]Or dered By: Cricket Russell on 11-27-2024 MCHC (RBC) [Mass/Vol] MCHC [Mass/volume] by Automated count 32.0-35.0 [facility] MCV Auto (RBC) [Entitic vol] Ordered By: Cricket Russell on 11-27-2024 MCV (RBC) [Entitic vol] MCV [Entitic vol ume] by Automated count 80-100 [facility] Monocyte distribution width [Entitic volume] in Blood by AutomatedOrdered By: Cricket Russell on 11-27-2024 Monocyte distribution width Auto (Bld) [Entitic vol] Monocyte distribution width [Entitic volume] in Blood by Automated 0.00-20.00 [facility] Monocytes Auto (Bld) [#/Vol] Ordered By: Cricket Russell on 11-27-2024 Monocytes (Bld) [#/Vol] Automated blood monocyte count 0.0-0.8 [facility] Monocytes/100 WBC Auto (Bld) Ordered By: Cricket Russell on 11-27-2024 Monocytes/100 WBC (Bld) Automated monocyte % . [facility] Mucus [Presence] in Urine by AutomatedOrdered By: Cricket Russell on 11-27-2024 Mucus Auto Ql (U) Mucus [Presence] in Urine by Automated Abnormal [facility] Neutrophils Auto (Bld) [#/Vo l]Ordered By: Cricket Russell on 11-27-2024 Neutrophils (Bld) [#/Vol] Neutrophils [#/volume] in Blood by Automated count High 1.8-7.7 [facility] Neutrophils/100 WBC Auto (Bl d)Ordered By: Cricket Russell on 11-27-2024 Neutrophils/100 WBC (Bld) Automated neutrophil % . [facility] Nitrite Test strip Ql (U)Ord ered By: Cricket Russell on 11-27-2024 Nitrite Ql (U) Nitrite [Presence] in Urine by Test strip Negative [facility] No Panel InformationOrdered By: Cricket Russell on 11-27-2024 Estimated GFR (CKD-EPI) > 60.0 mL/Min [facility] Creatinine Clearance (Chem 58.93 [facility] Nucleated erythrocytes [Pres ence] in Blood by Automated countOrdered By: Cricket Russell on 11-27-2024 Nucleated RBC Auto Ql (Bld) Nucleated erythrocytes [Presence] in Blood by Automated count 0-0.5 [facility] Platelet mean volume Auto (B ld) [Entitic vol]Ordered By: Cricket Russell on 11-27-2024 Platelet mean volume (Bld) [Entitic vol] Platelet mean volume [Entitic volume] in Blood by Automated count 6.3-10.7 [facility] Platelets Auto (Bld) [#/Vol] Ordered By: Cricket Russell on 11-27-2024 Platelets (Bld) [#/Vol] Platelets [#/vol ume] in Blood by Automated count 150-450 [facility] Potassium [Moles/volume] in Serum or PlasmaOrdered By: Cricket Russell on 11-27-2024 Potassium [Moles/Vol] Potassium [Moles/volume] in Serum or Plasma 3.5-5.1 [facility] Protein Test strip (U) [Mass /Vol]Ordered By: Cricket Russell on 11-27-2024 Protein (U) [Mass/Vol] Protein [Mass/volume] in Urine by Test strip Negative [facility] Protein [Mass/volume] in Ser um or PlasmaOrdered By: Cricket Russell on 11-27-2024 Protein [Mass/Vol] Protein [Mass/volume] in Serum or Plasma 6.4-8.9 [facility] RBC Auto (Bld) [#/Vol]Ordere d By: Cricket Russell on 11-27-2024 RBC (Bld) [#/Vol] Erythrocytes [#/volume] in Blood by Automated count High 3.60-5.00 [facility] Respiratory (Upper) Panel, P CRon 11-27-2024 [...] Influenza A H3 Blank Space PERFORMED BY: [facility] [place] [address] [employer] GINNY PIPER M.D. Normal [facility] Comment on above: Performed By: #### R AARON PANEL UPP., BIOFIRECOVNOTDE #### [facility] [address] Respiratory pathogens DNA an d RNA panel - Nasopharynx by NOE with non-probe detectionOrdered By: Cricket Russell on 11-27-2024 Respiratory pathogens DNA and RNA panel NOE+non-probe (Nph) Respiratory pathogens DNA and RNA panel - Nasopharynx by NOE with non-probe detection [facility] Respiratory pathogens DNA and RNA panel NOE+non-probe (Nph) Respiratory pathogens DNA and RNA panel - Nasopharynx by NOE with non-probe detection [facility] Serum or plasma albumin/glob ulin mass ratioOrdered By: Cricket Russell on 11-27-2024 Albumin/Globulin [Mass ratio] Serum or plasma albumin/globulin mass ratio [facility] Serum or plasma anion gap de terminationOrdered By: Cricket Russell on 11-27-2024 Anion gap [Moles/Vol] Serum or plasma anion gap determination 6.0-15.0 [facility] Sodium [Moles/volume] in Ser um or PlasmaOrdered By: Cricket Russell on 11-27-2024 Sodium [Moles/Vol] Sodium [Moles/volume] in Serum or Plasma 136-145 [facility] Specific gravity Test strip (U) [Rel density]Ordered By: Cricket Russell on 11-27-2024 Specific gravity (U) [Rel density] Specific gravity of Urine by Test strip 1.001-1.030 [facility] Urea nitrogen [Mass/volume] in Serum or PlasmaOrdered By: Cricket Russell 11-27-2024 Urea nitrogen [Mass/Vol] Urea nitrogen [Mass/volume] in Serum or Plasma 7-25 [facility] Urobilinogen Test strip (U) [Mass/Vol]Ordered By: Cricket Russell on 11-27-2024 Urobilinogen (U) [Mass/Vol] Urobilinogen [Mass/volume] in Urine by Test strip Normal [facility] WBC Auto (Bld) [#/Vol]Ordere d By: Cricket Russell on 11-27-2024 WBC (Bld) [#/Vol] Leukocytes [#/volume] in Blood by Automated count High 3.8-11.6 [facility] pH Test strip (U)Ordered By: Cricket Russell on 11-27-2024 pH (U) pH of Urine by Test strip 5.0-9.0 [facility] Influenza virus B Ag [Presen ce] in Upper respiratory specimen by Rapid immunoassayon 05-01-2024 FLUBV Ag IA.rapid Ql (Nph) Negative [facility] No Panel Informationon 05-01 Influenza Type A (Rapid) Negative [facility] POC SARS CoV-2 Antigen Negative [facility] Outside Colonoscopyon 2023 Outside Colonoscopy [id number]# 1.00TIFF Normal [facility] Insurance Correspondenceon 0 02-08-2024 Insurance Correspondence [id number] 3#1.00TIFF Normal [facility] Consent for Procedure/Surger yon 01-18-2024 Consent for Procedure/Surgery [id number] #1.00TIFF Normal [facility] Ambulatory Visit Summaryon 0 01-17-2024 Ambulatory Visit Summary ANDREA LOPEZ :1950 Visit Date:01/17/2024 Ambulatory Visit Instructions Your Care Team Attending Physician - CHELY JUAREZ, Bryce Brody Primary Care Physician - WILD JUAREZ, ERICKSON Referring Physician - ERICKSON ROME MD This Is Your Medications List [...] you for choosing us for your care. Normal [facility] XR DEXA BONE DENSITYon 11-02 XR DEXA BONE DENSITY DEXA Bone Density Study CLINICAL: Evaluate bone mineral density. Postmenopausal COMPARISON: 09/30/2020 FINDINGS: The bone density study was assessed by dual-energy x-ray absorptiometry with the [employer] scanner. The test results are expressed in [...] PARK DAILEY Date: 2022-11-02 08:55 Normal [facility] CBC AUTO DIFFon 11-01-2022 BASO # 0.1 103/ul Normal 0.0-0.[address] [facility] Comment on above: Performed By: #### C BC #### [facility] [address] [place] [address] Dr. Nata Castellon Basophils/100 WBC (Bld) 0.7 % Normal 0.2-2.0 [facility] Comment on above: Performed By: #### C BC #### [facility] [address] [address] [address] Nata Castellon EO # 0.1 103/ul Normal 0.0-0.[address] [facility] Comment on above: Performed By: #### C BC #### [facility] [address] [place] [address] Dr. Nata Castellon Eosinophils/100 WBC (Bld) 1.8 % Normal 0.9-7.[address] [facility] Comment on above: Performed By: #### C BC #### [facility] [address] [place] [address] Dr. Nata Castellon Erythrocyte distribution width (RBC) [Ratio] 13.4 % Normal 11.0-15.[address] [facility] Comment on above: Performed By: #### C BC #### [facility] [address] [place] [address] Dr. Nata Castellon Hematocrit (Bld) [Volume fraction] 44.1 % Normal 36.0-48.[address] [facility] Comment on above: Performed By: #### C BC #### [facility] [address] [place] [address] Dr. Nata Castellon Hemoglobin (Bld) [Mass/Vol] 14.8 g/dL Normal 12.0-16.[address] [facility] Comment on above: Performed By: #### C BC #### [facility] [address] [place] [address] Dr. Nata Castellon IG # 0.02 10e3/ul Normal 0.00-0.[address] [facility] Comment on above: Performed By: #### C BC #### [facility] [address] [place] [address] Dr. Nata Castellon IG % 0.3 % Normal 0.0-0.[address] [facility] Comment on above: Performed By: #### C BC #### [facility] [address] [place] [address] Dr. Nata Castellon LYMPH # 1.6 103/ul Normal 1.2-3.8 [facility] Comment on above: Performed By: #### C BC #### [facility] [address] [place] [address] Dr. Nata Castellon Lymphocytes/100 WBC (Bld) 21.3 % Normal 20.5-60.[address] [facility] Comment on above: Performed By: #### C BC #### [facility] [address] [place] [address] Dr. Nata Castellon MANUAL DIFF REQ NO Normal [facility] Comment on above: Performed By: #### C BC #### [facility] [address] [place] [address] Dr. Nata Castellon MCH (RBC) [Entitic mass] 28.5 pg Normal 26.7-34.[address] [facility] Comment on above: Performed By: #### C BC #### [facility] [address] [place] [address] Dr. aNta Castellon MCHC (RBC) [Mass/Vol] 33.6 g/dL Normal 29.9-35.[address] [facility] Comment on above: Performed By: #### C BC #### [facility] [address] [place] [address] Dr. Nata Castellon MCV (RBC) [Entitic vol] 84.8 fL Normal 81.0-99.0 [facility] Comment on above: Performed By: #### C BC #### [facility] [address] [place] [address] Dr. Nata Castellon MONO # 0.6 103/ul Normal 0.3-0.[address] [facility] Comment on above: Performed By: #### C BC #### [facility] [address] [place] [address] Dr. Nata Castellon Monocytes/100 WBC (Bld) 7.5 % Normal 1.7-12.0 [facility] Comment on above: Performed By: #### C BC #### [facility] [address] [place] [address] Dr. Nata Castellon NEUT # 5.2 103/ul Normal 1.4-6.[address] [facility] Comment on above: Performed By: #### C BC #### [facility] [address] [place] [address] Dr. Nata Castellon Neutrophils/100 WBC (Bld) 68.4 % Normal 43.0-75.[address] [facility] Comment on above: Performed By: #### C BC #### [facility] [address] [place] [address] Dr. Nata Castellon Platelet mean volume (Bld) [Entitic vol] 10.4 fL Normal 9.5-13.[address] [facility] Comment on above: Performed By: #### C BC #### [facility] [address] [place] [address] Dr. Nata Castellon PLT 256 103/ul Normal 150-[address] [facility] Comment on above: Performed By: #### C BC #### [facility] [address] [address] [address] Nata Castellon RBC 5.20 106/ul Normal 4.20-5.[address] [facility] Comment on above: Performed By: #### C BC #### [facility] [address] [address] [address] Nata Castellon WBC 7.6 103/ul Normal 4.0-11.[address] [facility] Comment on above: Performed By: #### C BC #### [facility] [address] [place] [address] Dr. Nata Castellon FREE T4on 11-01-2022 Free T4 [Mass/Vol] 0.98 ng/dL Normal 0.76-1.46 [facility] Comment on above: Performed By: #### F T4 #### [facility] [address] [place] [address] Dr. Nata Castellon LIPID PROFILEon 11-01-2022 CHOL-HDL RATIO NORM SEE BELOW Normal [facility] Comment on above: Result Comment: 3.3 - 4.4 LOW RISK 4.4 - 7.1 AVERAGE RISK 7.1 - 11.0 MODERATE RISK >11.0 HIGH RISK Performed By: #### L IPID, TSH, CMP #### [facility] [address] [place] [address] Dr. Nata Castellon Cholesterol [Mass/Vol] 179 mg/dL Normal <=200 [facility] Comment on above: Performed By: #### L IPID, TSH, CMP #### [facility] [address] [place] [address] Dr. Nata Castellon Cholesterol in HDL [Mass/Vol] 57 mg/dL Normal 40-[address] [facility] Comment on above: Performed By: #### L IPID, TSH, CMP #### [facility] [address] [place] [address] Dr. Nata Castellon Cholesterol in LDL [Mass/Vol] 98.8 mg/dL Normal [facility] Comment on above: Performed By: #### L IPID, TSH, CMP #### [facility] [address] [address] [address] Nata Castellon Cholesterol.total/Choles terol in HDL [Mass ratio] 3.1 {ratio} Normal [facility] Comment on above: Performed By: #### L IPID, TSH, CMP #### [facility] [address] [address] [address] Nata Castellon HDL NORMAL > or = 60 mg/dl - LOW CARDIOVASCULAR RISK <40 mg/dl - HIGH CARDIOVASCULAR RISK Normal [facility] Comment on above: Performed By: #### L IPID, TSH, CMP #### [facility] [address] [address] [address] Nata Castellon LDL CALC NORMAL SEE BELOW Normal [facility] Comment on above: Result Comment: <100 mg/dl OPTIMAL 100 - 129 mg/dl NEAR OR ABOVE OPTIMAL 130 - 159 mg/dl BORDERLINE HIGH 160 - 189 mg/dl HIGH >190 mg/dl VERY HIGH Performed By: #### L IPID, TSH, CMP #### [facility] [address] [address] [address] Nata Castellon Triglyceride [Mass/Vol] 116 mg/dL Normal <=150 T [facility] Comment on above: Performed By: #### L IPID, TSH, CMP #### [facility] [address] [address] [address] Nata Castellon VLDL CALC 23.2 mg/dL Normal [facility] Comment on above: Performed By: #### L IPID, TSH, CMP #### [facility] [address] [address] [address] Nata Castellon MG MAMM SCREEN 3D SEEMA CADon 11-01-2022 MG MAMM SCREEN 3D SEEMA CAD Patient: ANDREA LOPEZ Exam Date: 11/01/2022 : 1950 Gender:F Ordering : DR ERICKSON ROME M.D. Admission #: [id number] Family : Order #: [id number] CLICK HERE TO VIEW EXAM RADIOLOGY REPORT [...] REMOVAL OF THYROID Family Cancers None LOCATION: [facility] BREAST COMPOSITION: Heterogeneously dense,which may obscure small [...] Barrera MD on 11/02/2022 at 10:[address] [facility] PROF 14(COMP METB)on 023 Albumin [Mass/Vol] 3.7 g/dL Normal 3.4-5.0 [facility] Comment on above: Performed By: #### L IPID, TSH, CMP #### [facility] [address] [place] [address] Dr. Nata Castellon Albumin/Globulin [Mass ratio] 1.0 {ratio} Normal [facility] Comment on above: Performed By: #### L IPID, TSH, CMP #### [facility] [address] [place] [address] Dr. Nata Castellon ALP [Catalytic activity/Vol] 80 U/L Normal 46-[address] [facility] Comment on above: Performed By: #### L IPID, TSH, CMP #### [facility] [address] [place] [address] Dr. Nata Castellon ALT [Catalytic activity/Vol] 26 U/L Normal 14-[address] [facility] Comment on above: Performed By: #### L IPID, TSH, CMP #### [facility] [address] [place] [address] Dr. Nata Castellon Anion gap [Moles/Vol] 13.0 mmol/L Normal Th e [facility] Comment on above: Performed By: #### L IPID, TSH, CMP #### [facility] [address] [place] [address] Dr. Nata Castellon AST [Catalytic activity/Vol] 25 U/L Normal 15-[address] [facility] Comment on above: Performed By: #### L IPID, TSH, CMP #### [facility] [address] [place] [address] Dr. Nata Castellon Bilirubin [Mass/Vol] 0.5 mg/dL Normal 0.2-1.[address] [facility] Comment on above: Performed By: #### L IPID, TSH, CMP #### [facility] [address] [place] [address] Dr. Nata Castellon Calcium [Mass/Vol] 8.8 mg/dL Normal 8.5-10.1 [facility] Comment on above: Performed By: #### L IPID, TSH, CMP #### [facility] [address] [place] [address] Dr. Nata Castellon Chloride [Moles/Vol] 104 mmol/L Normal 98-[address] [facility] Comment on above: Performed By: #### L IPID, TSH, CMP #### [facility] [address] [place] [address] Dr. Nata Castellon CO2 [Moles/Vol] 26.3 mmol/L Normal 21.0-32.0 [facility] Comment on above: Performed By: #### L IPID, TSH, CMP #### [facility] [address] [place] [address] Dr. Nata Castellon Creatinine [Mass/Vol] 0.74 mg/dL Normal 0.55-1.[address] [facility] Comment on above: Performed By: #### L IPID, TSH, CMP #### [facility] [address] [place] [address] Dr. Nata Castellon EGFR-AF [place] >60 Normal >=60 [facility] Comment on above: Performed By: #### L IPID, TSH, CMP #### [facility] [address] [address] [address] Nata Castlelon EGFR-NON AF [place] >60 Normal >=[address] [facility] Comment on above: Performed By: #### L IPID, TSH, CMP #### [facility] [address] [address] [address] Nata Castellon Globulin (S) [Mass/Vol] 3.6 g/dL Normal [facility] Comment on above: Performed By: #### L IPID, TSH, CMP #### [facility] [address] [address] [address] Nata Castellon Glucose [Mass/Vol] 122 mg/dL Critically high 74-106 [facility] Comment on above: Performed By: #### L IPID, TSH, CMP #### [facility] [address] [address] [address] Nata Castellon Potassium [Moles/Vol] 4.3 mmol/L Normal 3.5-5.[address] [facility] Comment on above: Performed By: #### L IPID, TSH, CMP #### [facility] [address] [address] [address] Nata Castellon Protein [Mass/Vol] 7.3 g/dL Normal 6.4-8.2 [facility] Comment on above: Performed By: #### L IPID, TSH, CMP #### [facility] [address] [address] [address] Nata Castellon Sodium [Moles/Vol] 139 mmol/L Normal 136-145 [facility] Comment on above: Performed By: #### L IPID, TSH, CMP #### [facility] [address] [address] [address] Nata Castellon Urea nitrogen [Mass/Vol] 21.0 mg/dL Critically high 7.0-18 .[address] [facility] Comment on above: Performed By: #### L IPID, TSH, CMP #### [facility] [address] [address] [address] Nata Castellon Urea nitrogen/Creatinine [Mass ratio] 28.4 mg/mg Normal [facility] Comment on above: Performed By: #### L IPID, TSH, CMP #### [facility] [address] [place] [address] Dr. Nata Castellon TSHon 11-01-2022 TSH 3.427 uIU/mL Normal 0.358-3.740 [facility] Comment on above: Performed By: #### L IPID, TSH, CMP #### [facility] [address] [place] [address] Dr. Nata Castellon CBC AUTO DIFFon 08-12-2022 BASO # 0.0 103/ul Normal 0.0-0.[address] [facility] Comment on above: Performed By: #### C BC #### [facility] [address] [place] [address] Dr. Nata Castellon Basophils/100 WBC (Bld) 0.5 % Normal 0.2-2.0 [facility] Comment on above: Performed By: #### C BC #### [facility] [address] [place] [address] Dr. Nata Castellon EO # 0.1 103/ul Normal 0.0-0.[address] [facility] Comment on above: Performed By: #### C BC #### [facility] [address] [place] [address] Dr. Nata Castellon Eosinophils/100 WBC (Bld) 1.7 % Normal 0.9-7.[address] [facility] Comment on above: Performed By: #### C BC #### [facility] [address] [place] [address] Dr. Nata Castellon Erythrocyte distribution width (RBC) [Ratio] 13.8 % Normal 11.0-15.[address] [facility] Comment on above: Performed By: #### C BC #### [facility] [address] [place] [address] Dr. Nata Castellon Hematocrit (Bld) [Volume fraction] 44.1 % Normal 36.0-48.[address] [facility] Comment on above: Performed By: #### C BC #### [facility] [address] [place] [address] Dr. Nata Castellon Hemoglobin (Bld) [Mass/Vol] 14.7 g/dL Normal 12.0-16.0 [facility] Comment on above: Performed By: #### C BC #### [facility] [address] [place] [address] Dr. Nata Castellon IG # 0.01 10e3/ul Normal 0.00-0.[address] [facility] Comment on above: Performed By: #### C BC #### [facility] [address] [place] [address] Dr. Nata Castellon IG % 0.1 % Normal 0.0-0.[address] [facility] Comment on above: Performed By: #### C BC #### [facility] [address] [place] [address] Dr. Nata Castellon LYMPH # 2.1 103/ul Normal 1.2-3.[address] [facility] Comment on above: Performed By: #### C BC #### [facility] [address] [place] [address] Dr. Nata Castellon Lymphocytes/100 WBC (Bld) 26.7 % Normal 20.5-60.[address] [facility] Comment on above: Performed By: #### C BC #### [facility] [address] [place] [address] Dr. Nata Castellon MANUAL DIFF REQ NO Normal [facility] Comment on above: Performed By: #### C BC #### [facility] [address] [place] [address] Dr. Nata Castellon MCH (RBC) [Entitic mass] 28.5 pg Normal 26.7-34.[address] [facility] Comment on above: Performed By: #### C BC #### [facility] [address] [place] [address] Dr. Nata Castellon MCHC (RBC) [Mass/Vol] 33.3 g/dL Normal 29.9-35.[address] [facility] Comment on above: Performed By: #### C BC #### [facility] [address] [place] [address] Dr. Nata Castellon MCV (RBC) [Entitic vol] 85.5 fL Normal 81.0-99.0 [facility] Comment on above: Performed By: #### C BC #### [facility] [address] [place] [address] Dr. Nata Castellon MONO # 0.6 103/ul Normal 0.3-0.[address] [facility] Comment on above: Performed By: #### C BC #### [facility] [address] [place] [address] Dr. Nata Castellon Monocytes/100 WBC (Bld) 7.8 % Normal 1.7-12.0 [facility] Comment on above: Performed By: #### C BC #### [facility] [address] [place] [address] Dr. Nata Castellon NEUT # 5.0 103/ul Normal 1.4-6.[address] [facility] Comment on above: Performed By: #### C BC #### [facility] [address] [place] [address] Dr. Nata Castellon Neutrophils/100 WBC (Bld) 63.2 % Normal 43.0-75.[address] [facility] Comment on above: Performed By: #### C BC #### [facility] [address] [place] [address] Dr. Nata Castellon Platelet mean volume (Bld) [Entitic vol] 10.7 fL Normal 9.5-13.[address] [facility] Comment on above: Performed By: #### C BC #### [facility] [address] [place] [address] Dr. Nata Castellon PLT 254 103/ul Normal 150-450 [facility] Comment on above: Performed By: #### C BC #### [facility] [address] [place] [address] Dr. Nata Castellon RBC 5.16 106/ul Normal 4.20-5.[address] [facility] Comment on above: Performed By: #### C BC #### [facility] [address] [place] [address] Dr. Nata Castellon WBC 7.9 103/ul Normal 4.0-11.[address] [facility] Comment on above: Performed By: #### C BC #### [facility] [address] [address] [address] Nata Castellon FREE T4on 08-12-2022 Free T4 [Mass/Vol] 1.15 ng/dL Normal 0.76-1.46 [facility] Comment on above: Performed By: #### F T4 #### [facility] [address] [address] [address] Nata Castellon PROF CHEM 8 (BAS METB)on Anion gap [Moles/Vol] 9.0 mmol/L Normal [facility] Comment on above: Performed By: #### T SH, BMP ####[facility] [address] [place], [place] [address]Dr. Nata Castellon Calcium [Mass/Vol] 8.6 mg/dL Normal 8.5-10.1 [facility] Comment on above: Performed By: #### T SH, BMP ####[facility] [address] [place], [place] [address]Dr. Nata Castellon Chloride [Moles/Vol] 104 mmol/L Normal 98-107 [facility] Comment on above: Performed By: #### T SH, BMP ####[facility] [address] [place], [place] [address]Dr. Nata Castellon CO2 [Moles/Vol] 29.2 mmol/L Normal 21.0-32.0 [facility] Comment on above: Performed By: #### T SH, BMP ####[facility] [address] [address]Dr. Nata Catsellon Creatinine [Mass/Vol] 0.66 mg/dL Normal 0.55-1.02 [facility] Comment on above: Performed By: #### T SH, BMP ####[facility] [address] [place], [place] [address]Dr. Nata Castellon EGFR-AF [place] >60 Normal >=60 [facility] Comment on above: Performed By: #### T SH, BMP ####[facility] [address] [place], [place] [address]DrMadison Peace Ravinder EGFR-NON AF [place] >60 Normal >=[address] [facility] Comment on above: Performed By: #### T MIKE, BMP ####[facility] [address] [place], [place] [address]Dr. Katyandrew Castellon Glucose [Mass/Vol] 108 mg/dL Critically high 74-106 [facility] Comment on above: Performed By: #### T MIKE, BMP ####[facility] [address] [place], [place] [address]Dr. Katyandrew Ravinder Potassium [Moles/Vol] 4.2 mmol/L Normal 3.5-5.[address] [facility] Comment on above: Performed By: #### T MIKE, BMP ####[facility] [address] [place], [place] [address]Dr. Nata Castellon Sodium [Moles/Vol] 138 mmol/L Normal 136-145 [facility] Comment on above: Performed By: #### T MIKE, BMP ####[facility] [address] [place], [place] [address]Dr. Nata Castellon Urea nitrogen [Mass/Vol] 22.0 mg/dL Critically high 7.0-18 .[address] [facility] Comment on above: Performed By: #### T MIKE, BMP ####[facility] [address] [place], [place] [address]Dr. Nata Castellon Urea nitrogen/Creatinine [Mass ratio] 33.3 mg/mg Normal [facility] Comment on above: Performed By: #### T MIKE, BMP ####[facility] [address] [place], [place] [address]Dr. Katyandrew Ravinder TSHon 08-12-2022 TSH 0.986 uIU/mL Normal 0.358-3.740 [facility] Comment on above: Performed By: #### T MIKE, BMP ####[facility] [address] [place], [place] [address]Dr. Katyandrew Ravinder MRI KNEE LT WO CONon 022 MRI [...] by: WADE PAK Date: 2021-11-25 06:[address] [facility] Vital Signs Date Time Vital Sign Value Performing Clinician Facility 01-07-2025 14:52-0400 Body height 160.02 cm Erickson Rome MD Work Phone: [facility] 01-07-2025 14:52-0400 Body mass index (BMI) [Ratio] 29.9 kg/m2 Erickson Rome MD Work Phone: [facility] 01-07-2025 14:52-0400 Body weight 76.71 kg Erickson Rome MD Work Phone: [facility] 01-07-2025 14:52-0400 Diastolic blood pressure 60 mm[Hg] Erickson Rome MD Work Phone: [facility] 01-07-2025 14:52-0400 Heart rate 68 /min Erickson Rome MD Work Phone: [facility] 01-07-2025 14:52-0400 Systolic blood pressure 119 mm[Hg] Erickson Rome MD Work Phone: [facility] 12-02-2024 13:38-0500 Body weight Erickson Rome MD Work Phone: [facility] 11-27-2024 15:25-0500 Diastolic blood pressure 78 mm[Hg] Erickson Rome MD Work Phone: [facility] 11-27-2024 15:25-0500 Heart rate 78 /min Erickson Rome MD Work Phone: [facility] 11-27-2024 15:25-0500 Respiratory rate 18 /min Erickson Rome MD Work Phone: [facility] 11-27-2024 15:25-0500 SaO2% (BldA) [Mass fraction] 98 % Erickson Rome MD Work Phone: [facility] 11-27-2024 15:25-0500 Systolic blood pressure 173 mm[Hg] Erickson Rome MD Work Phone: [facility] 11-27-2024 10:26-0500 Body height 160.02 cm Erickson Rome MD Work Phone: [facility] 11-27-2024 10:26-0500 Body temperature 97.8 [degF] Erickson Rome MD Work Phone: [facility] 11-27-2024 10:26-0500 Body weight 75 kg Erickson Rome MD Work Phone: [facility] 11-07-2024 11:33-0500 Body height 160.02 cm Erickson Rome MD Work Phone: [facility] 11-07-2024 11:33-0500 Body mass index (BMI) [Ratio] 30.1 kg/m2 Erickson Rome MD Work Phone: [facility] 11-07-2024 11:33-0500 Body weight 77.11 kg Erickson Rome MD Work Phone: [facility] 11-07-2024 11:33-0500 Diastolic blood pressure 83 mm[Hg] Erickson Rome MD Work Phone: [facility] 11-07-2024 11:33-0500 Heart rate 70 /min Erickson Rome MD Work Phone: [facility] 11-07-2024 11:33-0500 Systolic blood pressure 140 mm[Hg] Erickson Rome MD Work Phone: [facility] 05-01-2024 09:51-0400 Body height 160.02 cm MD Erickson Rome Work Phone: [facility] 05-01-2024 09:51-0400 Body mass index (BMI) [Ratio] 29 kg/m2 MD Erickson Rome Work Phone: [facility] 05-01-2024 09:51-0400 Body weight 74.38 kg MD Erickson Rome Work Phone: [facility] 05-01-2024 09:51-0400 Diastolic blood pressure 84 mm[Hg] MD Erickson Rome Work Phone: [facility] 05-01-2024 09:51-0400 Heart rate 69 /min MD Erickson Rome Work Phone: [facility] 05-01-2024 09:51-0400 Systolic blood pressure 145 mm[Hg] MD Erickson Rome Work Phone: [facility] 04-10-2024 01:37-0400 Diastolic blood pressure 63 mm[Hg] MD Erickson Rome Work Phone: [facility] 04-10-2024 01:37-0400 Heart rate 65 /min MD Erickson Rome Work Phone: [facility] 04-10-2024 01:37-0400 Respiratory rate 18 /min MD Erickson Rome Work Phone: [facility] 04-10-2024 01:37-0400 SaO2% (BldA) [Mass fraction] 98 % MD Erickson Rome Work Phone: [facility] 04-10-2024 01:37-0400 Systolic blood pressure 157 mm[Hg] MD Erickson Rome Work Phone: [facility] 04-09-2024 23:09-0400 Body height 160.02 cm MD Erickson Rome Work Phone: [facility] 04-09-2024 23:09-0400 Body temperature 97.6 [degF] MD Erickson Rome Work Phone: [facility] 04-09-2024 23:09-0400 Body weight 74.2 kg MD Erickson Rome Work Phone: [facility] 01-17-2024 14:22-0400 Blood Pressure Location Bryce PANDYAAr[facility] 01-17-2024 14:22-0400 Diastolic blood pressure 84 mm[Hg] Bryce PANDYAArben [facility] 01-17-2024 14:22-0400 Heart rate 76 /min Bryce PANDYAL [facility] 01-17-2024 14:22-0400 Respiratory rate 16 /min Bryce PANDYAL [facility] 01-17-2024 14:22-0400 Systolic blood pressure 126 mm[Hg] Bryce PANDYAL [facility] 10-19-2023 09:30-0500 Body height 157.48 cm Erickson Rome Other [facility] Other 10-19-2023 09:30-0500 Body mass index (BMI) [Ratio] 31.49 kg/m2 Erickson Rome Other [facility] Other 10-19-2023 09:30-0500 Body weight 78.11 kg Erickson Rome Other [facility] Other 10-19-2023 09:30-0500 Diastolic blood pressure 80 mm[Hg] Erickson Rome Other [facility] Other 10-19-2023 09:30-0500 Systolic blood pressure 130 mm[Hg] Erickson Rome Other [facility] Other 08-30-2023 10:00-0500 Body height 157.48 cm Erickson Rome Other [facility] Other 08-30-2023 10:00-0500 Body mass index (BMI) [Ratio] 31.82 kg/m2 Erickson Rome Other [facility] Other 08-30-2023 10:00-0500 Body weight 78.93 kg Erickson Rome Other [facility] Other 08-30-2023 10:00-0500 Diastolic blood pressure 78 mm[Hg] Erickson Rome Other [facility] Other 08-30-2023 10:00-0500 Systolic blood pressure 144 mm[Hg] Erickson Rome Other [facility] Other 10-22-2022 10:00-0500 Body height 157.48 cm Erickson Rome Other [facility] Other 10-22-2022 10:00-0500 Body mass index (BMI) [Ratio] 31.27 kg/m2 Erickson Rome Other [facility] Other 10-22-2022 10:00-0500 Body weight 77.57 kg Erickson Rome Other [facility] Other 10-22-2022 10:00-0500 Diastolic blood pressure 82 mm[Hg] Erickson Rome Other [facility] Other 10-22-2022 10:00-0500 SaO2% (BldA) [Mass fraction] 98 % Erickson Rome Other [facility] Other 10-22-2022 10:00-0500 Systolic blood pressure 140 mm[Hg] Erickson Rome Other [facility] Other Encounters Encounter Date Encounter Type Care Provider Facility Start: 04-09-2025 ambulatory BIJU VALDEZ Facility:[facility] Start: 02-25-2025 End: 02-25-2025 ambulatory BIJU VALDEZ Facility:[facility] Start: 02-25-2025 End: 02-25-2025 Patient encounter procedure BIJU VALDEZ [facility] Start: 02-18-2025 End: 02-18-2025 ambulatory MD BIJU VALDEZ Facility:[facility] Start: 02-11-2025 End: 02-11-2025 ambulatory Jennifer Garcia Facility:[facility] Start: 02-11-2025 End: 02-11-2025 Patient encounter procedure Jennifer Garcia [facility] Start: 01-07-2025 End: 01-07-2025 ambulatory Erickson Rome MD Work Phone: [facility] Work Phone: Start: 01-07-2025 End: 01-07-2025 Patient encounter procedure Erickson Rome MD Work Phone: [facility] Work Phone: Start: 01-01-2025 End: 01-02-2025 Lab Drop off BIJU VALDEZ [facility] Start: 01-01-2025 End: 01-02-2025 ambulatory BIJU HERAH-AMANKRA Facility:[facility] Start: 12-13-2024 Non-patient / Non-visit Erickson Rome MD Work Phone: [facility] Work Phone: Start: 12-07-2024 Non-patient / Non-visit Erickson Rome MD Work Phone: [facility] Work Phone: Start: 12-06-2024 Non-patient / Non-visit Erickson Rome MD Work Phone: [facility] Work Phone: Start: 12-04-2024 ambulatory BIJU MONSON-KRISTIANRA Facility:[facility] Start: 12-02-2024 Non-patient / Non-visit Erickson Rome MD Work Phone: [facility] Work Phone: Start: 11-29-2024 Non-patient / Non-visit Erickson Rome MD Work Phone: [facility] Work Phone: Start: 11-27-2024 End: 11-27-2024 Emergency department patient visit Erickson Rome MD Work Phone: [facility] Work Phone: Start: 11-07-2024 Patient encounter procedure Erickson Rome MD Work Phone: [facility] Start: 11-07-2024 End: 11-07-2024 Patient encounter procedure Erickson Rome MD Work Phone: [facility] Work Phone: Start: 06-26-2024 End: 06-26-2024 ambulatory MD Erickson Rome Work Phone: [facility] Work Phone: Start: 06-26-2024 End: 06-26-2024 Patient encounter procedure MD Erickson Rome Work Phone: [facility] Work Phone: Start: 05-01-2024 End: 05-01-2024 Patient encounter procedure MD Erickson Rome Work Phone: [facility] Work Phone: Start: 04-09-2024 End: 04-10-2024 Emergency department patient visit MD Erickson Rome Work Phone: [facility] Work Phone: Start: 02-29-2024 End: 02-29-2024 ambulatory Bryce MO Facility:CD:[id number] Start: 01-17-2024 End: 01-17-2024 ambulatory ERICKSON ROME Facility: [facility] Start: 01-17-2024 End: 01-17-2024 Patient encounter procedure [facility]ce [facility] Start: 01-09-2024 End: 01-09-2024 ambulatory SHER GARCIA Not Available Start: 11-03-2023 End: 11-03-2023 ambulatory Erickson Rome Other [facility] Other Start: 11-03-2023 Telephone encounter Erickson Rome [facility] Start: 10-19-2023 End: 10-19-2023 ambulatory Erickson Rome Other [facility] Other Start: 10-19-2023 Patient encounter procedure Erickson Rome [facility] Start: 09-19-2023 End: 09-19-2023 ambulatory DEBBIE OLGUIN Not Available Start: 09-13-2023 End: 09-13-2023 ambulatory Erickson Rome Other [facility] Other Start: 09-13-2023 Telephone encounter Erickson Wild [facility] Start: 09-02-2023 End: 09-02-2023 ambulatory Erickson Wild Other [facility] Other Start: 09-02-2023 Telephone encounter Erickson Rome [facility] Start: 08-30-2023 End: 08-30-2023 ambulatory Erickson Wild Other [facility] Other Start: 08-30-2023 Office outpatient vi sit 15 minutes Erickson Rome [facility] Start: 03-16-2023 End: 03-16-2023 ambulatory Erickson Rome Other [facility] Other Start: 03-16-2023 Telephone encounter Erickson Wild [facility] Start: 03-15-2023 End: 03-15-2023 ambulatory Erickson Wild Other [facility] Other Start: 03-15-2023 Telephone encounter Erickson Wild [facility] Start: 11-11-2022 End: 11-11-2022 ambulatory Erickson Wild Other [facility] Other Start: 11-11-2022 Telephone encounter Erickson Wild [facility] Start: 11-10-2022 End: 11-10-2022 ambulatory Erickson Wild Other [facility] Other Start: 11-10-2022 Telephone encounter Erickson Wild [facility] Start: 11-02-2022 End: 11-02-2022 ambulatory Erickson Wild Other [facility] Other Start: 11-02-2022 Telephone encounter Erickson Rome [facility] Start: 11-01-2022 End: 11-02-[address] ERICKSON ROME Facility:[facility] Start: 10-22-2022 End: 10-22-2022 ambulatory Erickson Rome Other [facility] Other Start: 10-22-2022 Office outpatient vi sit 15 minutes Erickson Rome [facility] Start: 10-20-2022 End: 10-20-2022 ambulatory Erickson Rome Other [facility] Other Start: 10-20-2022 Telephone encounter Erickson Rome [facility] Start: 08-15-2022 Encounter for preprocedural cardiovascular examination DR ERICKSON ROME [facility] Start: 08-15-2022 Encounter for preprocedural laboratory examination DR ERICKSON ROME [facility] Start: 08-12-2022 End: 08-13-[address] ERICKSON ROME Facility:[facility] Start: 08-12-2022 End: 08-13-2022 Encounter for preprocedural cardiovascular examination DR ERICKSON ROME Facility:[facility] Start: 11-24-2021 End: 11-25-2021 ambulatory LIAT Britton APLINEZ Facility:[facility] Procedures Date Procedure Procedure Detail Performing Clinician Start: 11-27-2024 Respiratory Panel (PCR) Erickson Rome MD Work Phone: Start: 10-17-2003 Colonoscopy Bryce COLE LL Arthroscopy of knee Bryce NILL Cystopexy Bryce NILL Laryngoscopy Bryce NILL Repair of musculoten dinous cuff of shoulder Bryce NILL Thyroidectomy Bryce NILL Vaginal hysterectomy Bryce MO Plan of Treatment Date Care Activity Detail Author MG Breast - bilateral Screening [facility] MR Brain WO contrast [facility] Patient Education [facility] Work Phone: Patient referral [facility] Work Phone: [facility] Immunizations Immunization Date Immunization Notes Care Provider Fa cility 04-06-2021 SARS-CoV-2 (COVID-19 ) mRNA-1273 vaccine [facility] 11-24-2020 SARS-CoV-2 (COVID-19 ) mRNA-1273 vaccine [facility] 06-21-2018 pneumococcal polysaccharide vaccine, 23 valent BIJU ERMIAS-AMANKRA [facility] 09-19-2017 pneumococcal polysaccharide vaccine, 23 valent Ericksonche Rome Other [facility] 09-03-2016 pneumococcal conjuga te vaccine, 13 valent Erickson Rome Other [facility] 06-27-2002 zoster vaccine, live BIJU NKANSAH-AMANKRA [facility] Payers Date Payer Category Payer Self-pay [id number] 2023 Medicare [id number] 2021 Unknown [id number] 1959 Medicare [id number] 1959 Unknown [id number] 1949 Unknown [id number] 1949 Unknown [id number] 1949 Unknown [id number] 2..[id number] 1949 Unknown [id number] [id number] 1949 Unknown [id number] [id number] 1949 Unknown [id number] [id number] 1949 Unknown [id number] [id number] 1949 Unknown [id number] 2.16.840.1.967376.3.579.2.727 1949 Unknown [id number] 2.16.840.1.274738.3.579.2.727 1949 Unknown [id number] 2.16.840.1.232173.3.579.2.72 1949 Unknown [id number] 2.16.840.1.760640.3.579.2.72 1949 Unknown [id number] 2.840.1.554533.3.579.2. 1949 Unknown [id number] [id number] Medicare Medicare-IP Part A Only [id number] Unknown [facility] [id number] 0 Unknown [id number] Unknown [id number] Social History Date Type Detail Facility Unknown if ever smoked [facility] Other Sex Assigned At [facility] Start: 01-17-2024 End: 02-18-2025 Tobacco smoking status Never smoked tobacco (finding) [facility] Tobacco smoking status Never [facility] Start: 1950 Sex Assigned At Female F [facility] Start: 01-28-2010 End: 11-27-2024 Sex Female (finding) [facility] Sexual Orientation [facility] Functional Status Date Assessment Result Facility 02-25-2025 Functional Status N/A [facility] 01-17-2024 Functional Status N/A General Dueñas yobani Murphy Clinical Notes 10-22-2022 to 02-18-2025 Note Date & Type Note Facility 02-18-2025 Note Patient Education Urology Cystoscopy Cystoscopy is a procedure that is used to help diagnose and sometimes treat conditions that affect the lower urinary tract. The lower urinary tract includes the bladder and the urethra. The urethra is the tube that drains urine from the bladder. Cystoscopy is done using a thin, tube-shaped instrument with a light and camera at the end (cystoscope). The cystoscope may be hard or flexible, depending on the goal of the procedure. The cystoscope is inserted through the urethra, into the bladder. Cystoscopy may be recommended if you have: ??? Urinary tract infections that keep coming back. ??? Blood in the urine (hematuria). ??? An inability to control when you urinate (urinary incontinence) or an overactive bladder. ??? Unusual cells found in a urine sample. ??? A blockage in the urethra, such as a urinary stone. ??? Painful urination. ??? An abnormality in the bladder found during an intravenous pyelogram (IVP) or CT scan. Cystoscopy may also be done to remove a sample of tissue to be examined under a microscope (biopsy). Tell a health care provider about: ??? Any allergies you have. ??? All medicines you are taking, including vitamins, herbs, eye drops, creams, and epii-nir-uumscwj medicines. ??? Any problems you or family members have had with anesthetic medicines. ??? Any blood disorders you have. ??? Any surgeries you have had. ??? Any medical conditions you have. ??? Whether you are or may be . What are the risks? Generally, this is a safe procedure. However, problems may occur, including: ??? Infection. ??? Bleeding. ??? Allergic reactions to medicines. ??? Damage to other structures or organs. What happens before the procedure? Medicines Ask your health care provider about: ??? Changing or stopping your regular medicines. This is especially important if you are taking diabetes medicines or blood thinners. ??? Taking medicines such as aspirin and ibuprofen. These medicines can thin your blood. Do not take these medicines unless your health care provider tells you to take them. ??? Taking qevt-zfm-zmfizza medicines, vitamins, herbs, and supplements. Tests You may have an exam or testing, such as: ??? X-rays of the bladder, urethra, or kidneys. ??? CT scan of the abdomen or pelvis. ??? Urine tests to check for signs of infection. General instructions ??? Follow instructions from your health care provider about eating or drinking restrictions. ??? Ask your health care provider what steps will be taken to help prevent infection. These steps may include: ? Washing skin with a germ-killing soap. ? Taking antibiotic medicine. ??? Plan to have a responsible adult take you home from the hospital or clinic. What happens during the procedure? You will be given one or more of the following: ? A medicine to help you relax (sedative). ? A medicine to numb the area (local anesthetic). ??? The area around the opening of your urethra will be cleaned. ??? The cystoscope will be passed through your urethra into your bladder. ??? Germ-free (sterile) fluid will flow through the cystoscope to fill your bladder. The fluid will stretch your bladder so that your health care provider can clearly examine your bladder tanner. ??? Your doctor will look at the urethra and bladder. Your doctor may take a biopsy or remove stones. ??? The cystoscope will be removed, and your bladder will be emptied. The procedure may vary among health care providers and hospitals. What can I expect after the procedure? After the procedure, it is common to have: ??? Some soreness or pain in your abdomen and urethra. ??? Urinary symptoms. These include: ? Mild pain or burning when you urinate. Pain should stop within a few minutes after you urinate. This may last for up to 1 week. ? A small amount of blood in your urine for several days. ? Feeling like you need to urinate but producing only a small amount of urine. Follow these instructions at home: Medicines ??? Take eaht-eat-deezcfw and prescription medicines only as told by your health care provider. ??? If you were prescribed an antibiotic medicine, take it as told by your health care provider. Do not stop taking the antibiotic even if you start to feel better. General instructions ??? Return to your normal activities as told by your health care provider. Ask your health care provider what activities are safe for you. ??? If you were given a sedative during the procedure, it can affect you for several hours. Do not drive or operate machinery until your health care provider says that it is safe. ??? Watch for any blood in your urine. If the amount of blood in your urine increases, call your health care provider. ??? Follow instructions from your health care provider about eating or drinking restrictions. ??? If a tissue sample was removed for testing (biopsy) during your (more content not included)... [facility] 01-01-2025 Note Patient Education Nephrology Dietary Guidelines to Help Prevent Kidney Stones Kidney stones are deposits of minerals and salts that form inside your kidneys. Your risk of developing kidney stones may be greater depending on your diet, your lifestyle, the medicines you take, and whether you have certain medical conditions. Most people can lower their risks of developing kidney stones by following these dietary guidelines. Your dietitian may give you more specific instructions depending on your overall health and the type of kidney stones you tend to develop. What are tips for following this plan? Reading food labels ??? Choose foods with no salt added or low-salt labels. Limit your salt (sodium) intake to less than 1,500 mg a day. ??? Choose foods with calcium for each meal and snack. Try to eat about 300 mg of calcium at each meal. Foods that contain 200?500 mg of calcium a serving include: ? 8 oz (237 mL) of milk, blrtiyd-ulylvwadradw-jjliw milk, and calcium-fortifiedfruit juice. Calcium-fortified means that calcium has been added to these drinks. ? 8 oz (237 mL) of kefir, yogurt, and soy yogurt. ? 4 oz (114 g) of tofu. ? 1 oz (28 g) of cheese. ? 1 cup (150 g) of dried figs. ? 1 cup (91 g) of cooked broccoli. ? One 3 oz (85 g) can of sardines or mackerel. Most people need 1,000?1,500 mg of calcium a day. Talk to your dietitian about how much calcium is recommended for you. Shopping ??? Buy plenty of fresh fruits and vegetables. Most people do not need to avoid fruits and vegetables, even if these foods contain nutrients that may contribute to kidney stones. ??? When shopping for convenience foods, choose: ? Whole pieces of fruit. ? Pre-made salads with dressing on the side. ? Low-fat fruit and yogurt smoothies. ??? Avoid buying frozen meals or prepared deli foods. These can be high in sodium. ??? Look for foods with live cultures, such as yogurt and kefir. ??? Choose high-fiber grains, such as whole-wheat breads, oat bran, and wheat cereals. Cooking ??? Do not add salt to food when cooking. Place a salt shaker on the table and allow each person to add their own salt to taste. ??? Use vegetable protein, such as beans, textured vegetable protein (TVP), or tofu, instead of meat in pasta, casseroles, and soups. Meal planning ??? Eat less salt, if told by your dietitian. To do this: ? Avoid eating processed or pre-made food. ? Avoid eating fast food. ??? Eat less animal protein, including cheese, meat, poultry, or fish, if told by your dietitian. To do this: ? Limit the number of times you have meat, poultry, fish, or cheese each week. Eat a diet free of meat at least 2 days a week. ? Eat only one serving each day of meat, poultry, fish, or seafood. ? When you prepare animal proteins, cut pieces into small portion sizes. For most meat and fish, one serving is about the size of the palm of your hand. ??? Eat at least five servings of fresh fruits and vegetables each day. To do this: ? Keep fruits and vegetables on hand for snacks. ? Eat one piece of fruit or a handful of berries with breakfast. ? Have a salad and fruit at lunch. ? Have two kinds of vegetables at dinner. ??? You may be told to limit foods that are high in a substance called oxalate. These include: ? Spinach (cooked), rhubarb, beets, sweet potatoes, and [place] chard. ? Peanuts. ? Potato chips, thai fries, and baked potatoes with skin on. ? Nuts and nut products. ? Chocolate. ??? If you regularly take a diuretic medicine, make sure to eat at least 1 or 2 servings of fruits or vegetables that are high in potassium each day. These include: ? Avocado. ? Banana. ? [place], prune, carrot, or tomato juice. ? Baked potato. ? Cabbage. ? Beans and split peas. Lifestyle ??? Drink enough fluid to keep your urine pale yellow. This is the most important thing you can do. Spread your fluid intake throughout the day. ??? If you drink alcohol: ? Limit how much you have to: ? 0?1 drink a day for women who are not . ? 0?2 drinks a day for men. ? Know how much alcohol is in your drink. In the [place] one drink equals one 12 oz bottle of beer (355 mL), one 5 oz glass of wine (148 mL), or one 1? oz glass of hard liquor (44 mL). ??? Lose weight if told by your health care provider. Work with your dietitian to find an eating plan and weight loss strategies that work best for you. General information ??? Talk to your health care provider and dietitian about taking daily supplements. Depending on your health and the cause of your kidney stones, you may be told: ? Do not take high-dose supplements of vitamin C (1,000 mg a day or more). ? To take a calcium supplement. ? To take a daily probiotic supplement. ? To take other supplements such as magnesium, fish oil, or vitamin B6. ??? Take xicy-hrd-smbzmuk and prescription medicines only as told by your health (more content not included)... [facility] 11-07-2024 Evaluation note Diagnosis Onset Date Resolution Acquired hypothyroidism acute J anuary 2024 11:15am Essential (primary) hypertension acute November 07 11:15am Medicare annual wellness visit, subsequent acute November 07, 2024 11:15am Screening mammogram for breast cancer acute November 07 11:15am Vitamin D deficiency disease acute November 07 11:15am [facility] Work Phone: 1(792) 831-260201-22-2025 Evaluation note* Diagnosis Onset Date Resolution Status Admit Date Acquired hypothyroidism acute J anuary 2024 11:15am Essential (primary) hypertension acu te November 07, 2024 11:15am Medicare annual wellness vis it, subsequent acute November 07 11:15am Screening mammogram for [facility] cancer acute November 07 11:15am Vitamin D deficiency disease acute November 07, 2024 11:15am Recurrent headache acute January 07, 2025 2:50pm [facility] Work Phone: 1(681) 563-579104-04-2024 NoteChief Complaint consultation for colonoscopy HPI Staff [...] 01/20/2021 Recorded SARS-CoV-2 (COVID-19) mRNA-1273 vaccine 11/24/2020 [facility]:Result Comment: Electronically Signed By: CHELY JUAREZ, Bryce Rebolledo\Date and Time Signed: 01/19/24 08:48 [id number] Evaluation note * Encounter Date Diagnosis Assessment [...] continue present dose now for chronic problem. [facility] Other 11-28-2023 Evaluation note* Encounter Date Diagnosis Assessment Notes Treatment Notes Treatment Clinical Notes Aug, Abnormal computed tomography of soft tissue of neck (ICD-10 - R93.89) [facility] Other 11-17-2023 Evaluation note* Encounter Date Diagnosis Assessment Notes Treatment Notes Treatment Clinical Notes Aug, Neck pain on right side (ICD-10 - M54.2) [facility] Other 11-14-2023 Evaluation note* Encounter Date Diagnosis Assessment Notes Treatment Notes Treatment Clinical Notes Aug, Neck pain on right side (ICD-10 - M54.2) Pt agrees to CT to eval area in question, mainly due to history of neck cancer. Aug, Colon cancer screening (ICD-10 - Z12.11) pt requests cologuard rather than colonoscopy [facility] Other 01-06-2023 Evaluation note* Encounter Date Diagnosis [...] without current pathological fracture (ICD-10 - M81.0) [facility] Other Evaluation + Plan note No data available for this section General Surgery [facility] Evaluation + Plan note Future Appointments Appointment Date:02/18/2025 11:00:00 AM Scheduled Provider:BIJU VALDEZ MD Location:[facility] Appointment Type:URO Office Visit Appointment Date:04/09/2025 01:00:00 PM Scheduled Provider:BIJU VALDEZ MD Location:[facility] Appointment Type:URO Office Visit Future Scheduled Tests Radiology* CT Urogram 01/02/25 [facility] Evaluation + Plan note Future Appointments Appointment Date:02/18/2025 11:00:00 AM Scheduled Provider:BIJU VALDEZ MD Location:[facility] Appointment Type:URO Office Visit Appointment Date:04/09/2025 01:00:00 PM Scheduled Provider:BIJU VALDEZ MD Location:[facility] Appointment Type:URO Office Visit [facility] Evaluation + Plan note Future Appointments Appointment Date:04/09/2025 01:00:00 PM Scheduled Provider:BIJU VALDEZ MD Location:[facility] Appointment Type:URO Office Visit [facility] Other evaluation noteNo assessment information available [facility] Work Phone: evaluation note* Diagnosis Onset Date Resolution Status Occipital pain acute Recurrent headache acute [facility] Work Phone: [facility] general Narrative - Reported* Type Description Date [...] LEFT 2000 Hospitalization History SEE SURGICAL HX [facility] Other Hospital Discharge instructions No data available for this section General Surgery [facility] note No data available for this section General Surgery [facility] Summary Purpose Family History No Family History [...] Time Advance Directives Yes April 06 9:29am Advance Directive Response Recorded Date/ Time Advance Directives Yes January 03, 2 025 3:28pm Reason for Referral Reason *FU 09/21 Aiden of fice, Last OV and CT recently. thanks Diagnosis 1 Abnormal computed to mography of soft tissue of neck (R93.89) Referral Organization [facility] Referring Provider First Name Erickson Referring Provider Last Name Wild Referring Provider Specialty Family [facility] Referred Organization [facility] Referred Provider Debbie Olguin Referred Address ,[place], [place],[address] Referred Provider Specialty Ear, Nose an d [...] 2024 11:15am Screening mammogram for breast cancer [facility] 2024 11:15am Vitamin D deficiency disease October 11:15am Chief Complaint Admit Date wellness November 07, 2024 1 1:15am n/v/d November 27, 2024 10:18am Amb Documentation November 29, 2024 11:34am Amb Documentation December 07, 2024 10:02am Reoccuring Headaches January 07, 2025 2: 50pm Reason for Visit Admit Date Acquired hypothyroidism November 07 11:15am Essential (primary) hypertension November 07, 2024 11:15am Medicare annual wellness visit, subseque nt November 07, 2024 11:15am Screening mammogram for breast cancer Janak shetty 2024 11:15am Vitamin D deficiency disease October 11:15am Recurrent headache January 07, 2025 2:5 0pm Additional Source Comments INFORMATION SOURCE (unrecogn ized section and content) DATE CREATED AUTHOR 11/02/2022 [facility] DATE CREATED AUTHOR AUTHOR'S ORGANIZ ATION 01/09/2024 [facility] EPIC DATE CREATED AUTHOR AUTHOR'S ORGANIZ ATION 12/10/2024 [facility] DATE CREATED AUTHOR AUTHOR'S ORGANIZ ATION 01/03/2025 [facility] DATE CREATED AUTHOR AUTHOR'S ORGANIZ ATION 02/12/2025 [facility] DATE CREATED AUTHOR AUTHOR'S ORGANIZ ATION 02/21/2025 [facility] DATE CREATED AUTHOR AUTHOR'S ORGANIZ ATION 02/26/2025 [facility] REASON FOR VISIT (unrecogniz ed section and content) BPBP Check UpDEXA resultlabs RefillrefillRefillsneck painmessageabnormal neck CTWellnesslabs and mamm Patient Care team informatio n (unrecognized section and content) Team Status: Active Member Role Status Dates Erickson Rome MD Primary Care Provider Active Team Status: Inactive Member Role Status Dates Erickson Rome MD Primary Care Provider Active Start: April 09, 2024 End: April 10, 2024 Cisco Allen DO Emergency Provider Active St art: April 09, 2024 End: April 10, 2024 Team Status: Inactive Member Role Status Dates Erickson Rome MD Primary Care Provide r, Attending Provider Active Start: May 01, 2024 End: May 01, 2024 Team Status: Inactive Member Role Status Dates Erickson Rome MD Primary Care Provide r, Attending Provider Active Start: June 26, 2024 End: June 26, 2024 Team Status: Inactive Member Role Status Dates Erickson Rome MD Primary Care Provide r, Attending Provider Active Start: November 07, 2024 End: November 07, 2024 Team Status: Inactive Member Role Status Dates Erickson Rome MD Primary Care Provider Active Start: November 27, 2024 End: November 27, 2024 Cricket Russell DO Emergency Provider Active Sta rt: November 27, 2024 End: November 27, 2024 Team Status: Active Member Role Status Dates Erickson Rome MD Primary Care Provider Active Start: November 29, 2024 Ashia Smart CMA Attending Provider Active Start: November 29, 2024 Team Status: Active Member Role Status Dates Erickson Rome MD Primary Care Provide r, Attending Provider Active Start: December 02, 2024 Team Status: Active Member Role Status Dates Erickson Rome MD Primary Care Provide r, Attending Provider Active Start: December 06, 2024 Team Status: Active Member Role Status Dates Erickson Rome MD Primary Care Provider Active Start: December 07, 2024 Ashia Smart CMA Attending Provider Active Start: December 07, 2024 Team Status: Active Member Role Status Dates Erickson Rome MD Primary Care Provide r, Attending Provider Active Start: December 13, 2024 Team Status: Inactive Member Role Status Dates Erickson Rome MD Primary Care Provide r, Attending Provider Active Start: January 07, 2025 End: January 07, 2025 Goals (unrecognized section and content) Goals may [...] BE BASED ON THE PRIMARY CLINICAL RECORDS. [employer] provides no warranty or guarantee of the accuracy or completeness of information in this document.
== END 2025-03-01 10:53 | disposition home or self-care (01) ==
LOC: RAD 10:52
PROVIDERS: PCP Family Medicine; Visit Provider Family Medicine
DX: E55.9 Vitamin D deficiency, unspecified (principal); Z78.0 Asymptomatic menopausal state
CPT/HCPCS: 77080

== ENCOUNTER 2025-06-28 11:15 | Emergency (ER) | payer OTHER, SELFPAY ==
[2025-06-28 11:21] VITALS: BP 182/82; PULSE 61; TEMP 36.3; O2SAT 99; BMI 28.3
--- NOTE | 2025-06-28 11:26 | CT_ITS ---
The [address] [address] Patient Name: ANDREA LOPEZ MRN: [id number] date: 1950 Sex: F Assigned Patient Location: ER Current Patient Location: ER Accession/Order Number: [id number] Exam Date: 06/28/2025 11:51 Report Date: 06/28/2025 12:18 At the request of: REMY ARZATE MD Procedure: CT abdomen pelvis wo con CT ABDOMEN AND PELVIS WITHOUT CONTRAST COMPARISON: 12/06/2024 CLINICAL DATA: Left flank pain. History of stones. Spiral images were obtained through the abdomen and pelvis without contrast. This CT exam was performed using one or more following dose reduction techniques: Automated exposure control, adjustment of the mA and/or kV according to patient size, or use of iterative reconstruction technique. Limited cuts through the lung bases show no contributory findings. Assessment of the intra-abdominal organs is slightly limited by the absence of contrast. There are continued hepatic hypodensities suggesting cysts. No calcified gallstones are noted. The spleen, pancreas and adrenal glands show no acute findings. There is new left perinephric fibrofatty stranding. Bilateral parapelvic renal cysts are again seen. There is also mild to moderate left hydronephrosis and hydroureter. This is secondary to interval migration of the stone seen previously within the kidney down to the ureterovesical junction. The stone is approximately 8 mm in size. There is mild atherosclerotic plaque at the aorta. Small lymph nodes are seen. There is no ascites. The small bowel loops are not distended. There is air and stool at the right colon. The left colon is not as well distended. There is levoscoliotic curvature and degenerative changes at the spine, greatest at the facets. Images through the pelvis show normal caliber small bowel loops. The appendix is surgically absent. The distal colon is not well distended. There is one sigmoid diverticulum. There is no active inflammation. There is prior hysterectomy. The urinary bladder is not well distended however no intraluminal abnormalities are seen. There is no ascites. CT/CT abdomen pelvis wo con IMPRESSION: HEPATIC AND BILATERAL PARAPELVIC RENAL CYSTS. PARTIALLY OBSTRUCTING LEFT URETEROVESICAL JUNCTION STONE. Impression dictated by: Suri Dozier M.D. 06/28/2025 12:18 PM Dictation Location: [place] [address] Electronically authenticated by: [id number] Y Date: 06/28/2025 12:18
--- OUTSIDE RECORDS SUMMARY | 2025-06-28 11:34 | XMS_ITS | CCD ---
Author Organization [facility] CliniSyma Care Team Providers Care Hot Roller Name Role Phone DR ERICKSON ROME Admitting Unavailable WILD, DR ERICKSON Zabala Attending Unavailable WILD, DR ERICKSON Zabala Primary Care Unavailable WILD, DR ERICKSON Zabala Consulting Unavailable APLLIAT WILEY Admitting Unavailable APLLIAT WILEY Attending Unavailable WILD, DR ERICKSON Zabala Primary Care Unavailable PASHA, DR WADE Brody Consulting Unavailable APLING, LIAT Britton Consulting Unavailable WILD, DR ERICKSON Zabala Admitting Unavailable WILD, DR ERICKSON Zabala Attending Unavailable WILD, DR ERICKSON Zabala Primary Care Unavailable WILD, DR ERICKSON Zabala Consulting Unavailable Erickson Rome Unavailable SHER GARCIA Attending Unavailable DEBBIE OLGUIN Attending Unavailable ERICKSON ROME Referring Unavailable ERICKSON ROME Primary Care Physician MD Erickson Rome Primary Care Provider [phone] DO Cisco Allen Emergency Provider Erickson Rome MD Primary Care Provider [phone] Cricket Russell DO Emergency Provider [phone] Erickson Rome Primary Care Unavailable Cricket Russell Attending Unavailable Cricket Russell Admitting Unavailable Cisco Allen Admitting Unavailable Erickson Rome Primary Care Unavailable Cisco Allen Attending Unavailable Erickson Rome MD Primary Care Provider [phone] Drew RICHARDSON Cricket Emergency Provider Jennifer Garcia Attending Unavailable Jennifer Garcia Referring Unavailable Jennifer Garcia Admitting Unavailable MD BIJU VALDEZ Admitting Unav MD BIJU Funk Attending Unav MD BIJU Funk Attending Unav BIJU Funk Admitting Unavail able BIJU VALDEZ Attending Unavail able BIJU VALDEZ Referring Unavail able Jennifer Garcia Attending Unavailable Jennifer Garcia Referring Unavailable Jennifer Garcia Admitting Unavailable MD BIJU VALDEZ Attending Unav ailable MD BIJU VALDEZ Admitting Unav ailable MD BIJU VALDEZ Attending Unav ailable MD BIJU VALDEZ Attending Unav ailable Allergies Allergy Classification Reported Allergen(s) Allergy Type Date of Onset Reaction(s) Facility (3 sources) No Known Medication Allergies; Translations: [No Known Medication Allergies] Propensity to adverse reactions (disorder) [facility] Repository Medications Current Medications Medication Drug Class(es) Dates Sig (Normalized) Sig (Original) atenolol 50 mg oral tablet (20 sources) beta-Adrenergic Maryan Start: 03-02-2024 End: 02-13-2025 take 1 tablet by mouth once daily Atenolol 50 mg tablet Active 0 .ROUTE .COMPLEX February 13, 2025 9:09am TAKE 1 TABLET BY MOUTH EVERY DAY FOR 90 DAYS Start: 03-21-2019 End: 03-02-2024 take 1 tablet by mouth once daily Atenolol 50 mg Tablet Discontinued 50 MG PO Daily March 21, 2019 12:00am March 02, 2024 9:53am Calcium Magnesium (5 sources) Calcium Magnesiu m Active Essential Balance - (5 sources) Essential Balanc e - as directed Orally Active Essential Balance oral tablet (1 source) Start: 12-19-2023 take 1 tablet by mouth once daily Essential Balance oral tablet 1 tab(s), Oral, Daily, Refill(s) 0 Start Date: 12/19/23 Status: Ordered levothyroxine sodium 0.075 mg oral tablet (20 sources) l-Thyroxine Start: 01-16-2025 take 1 tablet by mouth once daily in the morning Levothyroxine 75 mcg tablet Active 0 .ROUTE .COMPLEX January 16, 2025 3:11pm TAKE 1 TABLET BY MOUTH EVERY DAY IN THE MORNING ON EMPTY STOMACH FOR 90 DAYS Start: 12-17-2024 End: 01-16-2025 take 1 tablet by mouth once daily in the morning Levothyroxine 88 mcg tablet Discontinued 0 .ROUTE .COMPLEX December 17, 2024 3:43pm January 16, 2025 3:11pm TAKE 1 TABLET BY MOUTH EVERY DAY [...] for 90 Active Multivitamin (One-A-Day Essential) tablet (4 sources) Start: 04-30-2024 take 1 tablet by mouth once daily Multivitamin (One-A-Day Essential) tablet Active 1 TAB PO Daily April 29, 2024 11:00pm Start: 04-30-2024 take 1 tablet by nasim th once daily Multivitamin (One-A-Day Essential) tablet Active 1 TAB PO Daily April 30, 2024 12:00am SUMAtriptan 50 mg oral tablet (18 sources) Serotonin-1b and Serotonin-1d Receptor Agonist Start: [...] Sig (Original) acetaminophen 500 mg oral tablet (5 sources) Start: 03-29-2019 End: 08-05-2021 take 1 tablet by mouth every four hours as needed for headache Acetaminophen 500 mg Tablet Discontinued 500 MG PO Q4H as needed for Headache March 29, 2019 12:00am August 05, 2021 10:54pm benzonatate 200 mg oral capsule (4 sources) Non-narcotic Antitussive Start: 05-07-2024 End: 11-07-2024 [...] procedure., # 1 tab(s), Refills(s) 0, Pharmacy: [facility]/pharmacy #[id number], 160, cm, 02/18/25 11:22:00 EDT, Height/Length Dosing, 75.5, kg, 02/18/25 11:22:00 EDT, Weight Dosing Start Date: 02/21/25 Status: Ordered Quantity: 1.0 Unit: tab(s) Repeat number: 1 docusate sodium 100 mg oral capsule (5 sources) Start: 03-29-2019 End: 08-05-2021 take 1 capsule by mouth once daily at bedtime Docusate Sodium (Colace) 100 mg capsule Discontinued 100 MG PO Daily at bedtime March 29, 2019 12:00am August 05, 2021 10:54pm ibuprofen 600 mg oral tablet (5 sources) Nonsteroidal Anti-inflammatory Drug Start: 03-29-2019 End: 08-05-2021 take 1 tablet by mouth every six hours Ibuprofen 600 mg Tablet Discontinued 600 MG PO Q6H 60 March 29, 2019 12:00am August 05, 2021 10:54pm melatonin 1 mg oral tablet (5 sources) Start: 03-21-2019 End: 11-07-2024 take 1 tablet by mouth at bedtime as needed Melatonin 1 mg Tablet Discontinued 1 MG PO Bedtime as needed for Insomnia March 21, 2019 12:00am November 07, 2024 12:49pm meloxicam 7.5 mg oral tablet (8 sources) Nonsteroidal Anti-inflammatory Drug Start: 05-28-2024 End: [...] 01, 2024 12:00am May 28, 2024 11:45am ondansetron 4 mg disintegrating oral tablet (7 sources) Serotonin-3 Receptor Antagonist Start: 05-01-2024 End: 02-28-2025 take 1 tablet by mouth every eight hours as needed for nausea and vomiting Ondansetron 4 mg tablet,disintegrating Discontinued 4 MG PO Q8H as needed for nausea and vomiting November 27, 2024 1:00am February 28, 2025 1:28pm sulfamethoxazole 800 mg / trimethoprim 160 mg oral tablet (3 sources) Dihydrofolate Reductase Inhibitor Antibacterial, Sulfonamide Antimicrobial Start: 06-26-2024 End: 11-07-2024 take 1 tablet by mouth twice daily Sulfamethoxazole-Trimeth oprim 800-160 mg tablet Discontinued 1 TAB PO [...] 08-15-2022 Chronic Genitourinary symptoms and ill-defined conditions (6 sources) Dysuria; Translations: [Dysuria] 06-27-2024 Episodic Headache; including migraine (16 sources) Refractory migraine; Translations: [Migraine, unspecified, intractable, without status migrainosus] 12-19-2023 Chronic Headache; including migraine (20 sources) Headache; Translations: [Headache] 04-10-2024 Episodic Comment on above: Problem List clean-u p per request of Phys. EHR Cmte Headache; including migraine (1 source) Headache; including migraine; Translations: [Headache, unspecified] Onset: 04-09-2024 Joint disorders and dislocations; trauma-related (4 sources) Unspecified internal derangement of left knee; Translations: [UNS INTERNAL DERANGEMENT LEFT KNEE] Onset: 11-24-2021 Chronic Nausea and vomiting (4 sources) Nausea, vomiting and diarrhea; Translations: [Nausea with vomiting, unspecified] Onset: 11-27-2024 11-27-2024 Episodic Nutritional deficiencies (6 sources) Vitamin D deficiency; Translations: [Vitamin D deficiency, unspecified] 11-07-2024 Chronic Osteoporosis (13 sources) Senile osteoporosis; Translations: [Age-related osteoporosis without current pathological fracture] Chronic Other congenital anomalies (3 sources) Herniated urinary bladder 09-28-2023 Chronic Comment [...] conditions (not mental disorders or infectious disease) (13 sources) Encounter for screening mammogram for malignant neoplasm of breast; Translations: [Encounter for screening for malignant neoplasm of colon] Episodic Prolapse of female genital organs (8 sources) Disorder of rectum; Translations: [Rectocele] Onset: 09-16-2023 09-28-2023 Chronic Comment on above: Problem List clean-u p per request of Phys. EHR Cmte Residual codes; unclassified (5 sources) History of hysterectomy for benign disease; Translations: [Acquired absence of both cervix and uterus] 09-28-2023 Episodic Comment on above: Problem List clean-u p per request of Phys. EHR Cmte Residual codes; unclassified (1 source) Menopause present; Translations: [Asymptomatic menopausal state] 02-28-2025 Episodic Comment on above: Problem List clean-u p per request of Phys. EHR Cmte Residual codes; unclassified (1 source) Asymptomatic menopausal state; Translations: [Symptomatic menopausal or female climacteric states] 02-28-2025 Episodic Spondylosis; intervertebral disc disorders; other back problems (2 sources) Cervicalgia Episodic Thyroid disorders (20 sources) Hypothyroidism, unspecified; Translations: [Acquired hypothyroidism] Onset: 08-15-2022 Chronic Unclassified (7 sources) Patient encounter status 12-19-2023 Past or Other Problems Problem Classification Problem Date Documented Da te Episodic/Chronic Unclassified (2 sources) Herniated urinary bladder; Translations: [Cystocele] 09-28-2023 Results Test Name Value Interpretation Reference Range Facility Provider Letteron 04-02-2025 Provider Letter Provider Letter April 02, 2025 JASMINA LOPEZ [address] [place] [phone] : 1950 Dear Jasmina , We have been trying to reach you with no success. It is important that you return our call regarding a message from your provider upon receiving this letter. Also, at the time of your call, please provide us with your current information. Thank you for your prompt attention to this matter. Sincerely, [facility] [address] [place] [address] [facility] Main OR Intraoperative Recor don 02-25-2025 Main OR Intraoperative Record Main OR Intraoperative Record IntraOp Document Type [facility] Summary Primary Physician: BIJU VALDEZ MD Finalized Date/Time: 02/25/25 13:26:35 Pt. Name: JASMINA LOPEZ Gabriela Jefferson/Sex: 1950 Female Med Rec #: [id number] Physician: BIJU VALDEZ MD Financial #: [id number] Pt. Type: O Room/Bed: / Admit/Disch: 02/25/25 13:06:49 - Institution: Case Times FTURO Entry 1 Patient Times In Room 02/25/25 13:20:00 Out Room 02/25/25 13:29:00 Procedure Times Start 02/25/25 13:21:00 Stop 02/25/25 13:24:00 Anesthesia Times Last Modified By: Santi RENEE, MERLINOR, Isi 02/25/25 13:25:03 Case Attendance FT[facility]O Entry 1 Entry 2 Entry 3 Case Attendee COURTNEY JUAREZ, Rhonda Milligan RN, CNOR, BIJU Snowden Role Performed Surgeon - Primary Scrub - Primary Gas Brazer - Primary Time In 02/25/25 13:20:00 02/25/25 13:20:00 02/25/25 13:20:00 Time Out 02/25/25 13:29:00 02/25/25 13:29:00 02/25/25 13:29:00 Procedure CYSTOSCOPY LOCAL(.) CYSTOSCOPY LOCAL(.) CYSTOSCOPY LOCAL(.) Comments Last Modified By: Santi RN, CNOR, Santi RN, CNOR, Santi RN, CNOR, Isi 02/25/25 Isi 02/25/25 Isi 02/25/25 13:25:04 13:25:04 13:25:04 Surgical Procedures [facility]O Entry 1 Procedure Description Procedure CYSTOSCOPY LOCAL Modifiers . Surgeon Description CYSTO Primary Procedure Yes Primary Surgeon COURTNEY JUAREZ, BIJU Start 02/25/25 13:21:00 Stop 02/25/25 13:24:00 Anesthesia Type Local Surgical Service Urology Wound Class 2 - Clean-Contaminated Last Modified By: MYCHAL Hancock RN, Ruthann 02/25/25 13:25:06 General Case Data FT[facility]O Pre-Care Text: Classifies surgical wound, implements aseptic technique, initiates traffic control Entry 1 Case Information OR URO 1 FT Case Level None Wound Class 2 - Clean-Contaminated Specialty Urology Preop Diagnosis MICROSCOPIC HEMATURIA, Postop Same As Preop No UPJ OBSTRUCTION Postop Diagnosis MICROSCOPIC HEMATURIA, Outcomes Met? Yes UPJ OBSTRUCTION, clear bladdert Last Modified By: MYCHAL Hancock RN, Ruthann 02/25/25 13:23:37 Post-Care Text: The patient is [...] Participants Srini IVY, Applicable) Santi Ponce RN, Isi HORTA Time Out Complete 02/25/25 13:21:00 Allergies Reviewed? [...] By: MYCHAL Hancock RN, Ruthann 02/25/25 13:26 [facility] Main OR Preoperative Recordo n 02-25-2025 Main OR Preoperative Record Main OR Preoperative Record Holding Area Document Type FT[facility]O Summary Primary Physician: BIJU VALDEZ MD Finalized Date/Time: 02/25/25 13:19:16 Pt. Name: JASMINA LOPEZ Gabriela PetersenB./Sex: 1950 Female Med Rec #: [id number] Physician: BIJU VALDEZ MD Financial #: [id number] Pt. Type: O Room/Bed: / Admit/Disch: 02/25/25 [...] Olivia Mixon Document Signatures Signed By: Olivia Mioxn 02/25/25 13:19 [facility] Operative Reporton Operative Report Operative Report Patient: JASMINA LOPEZ Age: 74 years Sex: Female : 1950 Associated Diagnoses: None Author: BIJU VALDEZ MD Procedure SURGEON: Biju Valdez MD PREOPERATIVE DIAGNOSIS: [...] stable condition. PLAN: F/U in 1 year [facility] Comment on above: Result Comment: Elec tronically Signed By: BIJU VALDEZ MD\.br\Date and Time Signed: 02/25/25 13:48 EDT Ambulatory Visit Summaryon 0 02-18-2025 Ambulatory Visit Summary Ambulatory Visi t Summary JASMINA LOPEZ :1950 Visit Date:02/18/2025 Ambulatory Visit Instructions [...] Appointments Tuesday 9:30 AM EDT With: Where: [facility] Tuesday. 2024 1:15 PM EDT With: Where: [facility] Tuesday 1:00 PM EDT With: BIJU VALDEZ MD Where: [facility] of [address], [address] [place] [id number]- You Need to Schedule the Following Appointments [...] including vitamins, herbs, eye drops, creams, and nscp-mqa-yopzxfy medicines. ??? Any problems you or family [...] tells you to take them. ??? Taking mtos-fir-jacfgog medicines, vitamins, herbs, and supplements. Tests You may have an exam or testing, such as: ??? X-rays of the bladder, urethra, or kidneys. ??? CT scan of the abdomen or pelvis. ??? Urine tests to check for signs of infection. General instructions ??? Follow instructions from your health care provider about eating or drinking restrict (more content not included)... Normal [facility] Urology Office/Clinic Noteon 02-18-2025 Urology Office/Clinic Note [...] and history for this patient from Dr. Hill I have reviewed and verified the staff [...] with voice recognition artificial intelligence software, specifically Clari, Wanderable and or WebPT. Substitutions may have occurred due to the inherent limitations of voice recognition and artificial intelligence software. 1. Microscopic hematuria (R31.29: Other microscopic hematuria) Micro UA 01/01/25 - RBC 31-75 CT Urogram 02/11/25 [facility] - neg for filling defects or masses. [...] - 6 mm calculus LLP. KUB 12/28/24 [facility] - neg for stones. CT Urogram 02/11/25 [facility] - 5 mm calculus LLP. -Fluids 3. Ureteral stone (N20.1: Calculus of ureter) Pt presented to [facility] ER 12/02/24 due to left-sided flank [...] without hydronephrosis) CT AP wo con 12/02/24 [facility] - Prominent right upper collecting system and renal pelvis without ureteral dilatation of ureteral calculus. Could be chronic UPJ obstruction. Pt presented to [facility] ER 12/06/24 due to right flank pain. Labs - Cr 0.90, eGFR >60 CT Urogram 02/11/25 [facility] - negative for UPJ obstruction, no hydro. [...] Information COURTNEY JUAREZ, YON IVY Additional Instructions: Schedule cysto Patient Education Cystoscopy I, Whitney Carrillo, personally scribed for Dr. Hill on 02/18/2025 11:29:56. . Problem List/Past Medical [...] Oral, Daily (more content not included)... Normal [facility] Comment on above: Result Comment: Elec tronically Signed By: BIJU VALDEZ MD\.br\Date and Time Signed: 02/18/25 12:10 EDT\.br\Electronically Co-Signed By: Whitney Carrillo\.br\Date and Time Co-Signed: 02/18/25 11:[address] [...] MD Transcribed by: AMY Technologist: ISHA Ryder [facility] CHEMISTRYOrdered By: SYSTEM SYSTEM on 02-11-2025 Creatinine [Mass/Vol] 0.7 mg/dL Normal 0.5 - 1.3 mg/dL Remisol Chem eGFR 90 mL/min/1.73 m2 Normal >=59mL/min /1 .73 m2 Remisol Chem Creatinineon 02-11-2025 Creatinine [Mass/Vol] 0.7 mg/dL Normal 0.5-1.3 [facility] Comment on above: Performed By: #### 2 [id number] #### [facility] [address] [place] [address] eGFRon 02-11-2025 eGFR 90 mL/min/1.73 m2 Normal >=59 [facility] Comment on above: Performed By: #### 1 [id number] #### [facility] [address] [place] [address] Laboratory - Chemistry and C hemistry - challengeon 01-16-2025 Free T4 [Mass/Vol] 1.53 ng/dL High 0.76-1.46 [facility] TSH Qn 0.165 m[IU]/L Low 0.358-3.740 [facility] Ambulatory Visit Summaryon 0 01-01-2025 Ambulatory Visit Summary Ambulatory Visi t Summary JASMINA LOPEZ :1950 Visit Date:01/01/2025 Ambulatory Visit Instructions [...] the Following Appointments Follow Up with COURTNEY JUAREZBIJU URL When: Where: Medications What How Much When [...] five servings (more content not included)... Normal [facility] Ambulatory Visit Summary Ambulatory Visi t Summary JASMINA LOPEZ :1950 Visit Date:01/01/2025 Ambulatory Visit Instructions [...] with br (more content not included)... Normal [facility] Reminderson 01-01-2025 Reminders Reminders - From: Whitney Carrillo To: [facility] - Recalls Liz; Sent: 01/01/2025 13:45:22 EDT Show up: 03/03/2025 13:45:00 EDT Subject: NOHEMI at [facility] Due Date/Time: 03/03/2025 13:45:00 EDT Reminder Message NOHEMI at [facility] prior to 3 month appt. Ordered 01/01/25. Normal [facility] URINALYSISOrdered By: SYSTEM SYSTEM on 01-01-2025 Bilirubin Ql (U) Negative Normal Negativemg/ d L [facility] UA Auto SS Clarity (U) Clear (01/01/25 1:48 PM) Normal Clear [facility] UA Auto SS Color (U) Light-Yellow 1 (01/01/25 1:48 PM) Normal Yellow [facility] UA Auto SS Comment on above: Interpretive Data: M icroscopic readings are only performed on those samples that meet specific criteria set forth by [facility]. Epithelial cells.squamous Auto (Urine sed) [#/Area] 3-4 graded/HPF Invalid Interpretation Code [facility] UA Auto SS Glucose Ql (U) Negative Normal Negativemg/d L [facility] UA Auto SS Hemoglobin Auto test strip (U) [Mass/Vol] 1+ mg/dL Invalid Interpretation Code Negativemg/d L FT UA Auto SS Ketones Auto test strip Ql (U) Negative Normal Negativemg/d L FT UA Auto SS Leukocyte esterase Auto test strip Ql (U) Negative Normal NegativeLeu/ uL [facility] UA Auto SS Mucus Auto Ql (U) Trace graded/LPF Normal Negati vegrad ed/LPF FT UA Auto SS Nitrite Auto test strip Ql (U) Negative Normal Negativemg/d L [facility] UA Auto SS pH (U) 5.0 *NA* (01/01/25 1:48 PM) Invalid Interpretation Code 5.0 - 9.0 [facility] UA Auto SS Protein Ql (U) Negative Normal Negativemg/d L [facility] UA Auto SS RBC Ql (U) 31-75 graded/HPF Invalid Interpretation Code 0-3graded/HP F [facility] UA Auto SS Specific gravity (U) [Rel density] 1.022 *NA* (01/01/25 1:48 PM) Invalid Interpretation Code 1.005 - 1.030 [facility] UA Auto SS Urobilinogen (U) [Mass/Vol] Negative Normal Negativemg/d L [facility] UA Auto SS WBC Auto (Urine sed) [#/Area] 0-5 graded/HPF Normal 0-5graded/HP F [facility] UA Auto SS URINALYSISOrdered By: Margoth Osorio on 01-01-2025 UA Spec Desc Clean Catch (01/01/25 1:48 PM) Normal [facility] UA Auto SS Urinalysis with Microon 12-15 Bilirubin Ql (U) Negative Normal Negative [facility] Comment on above: Performed By: #### 4 [id number] #### [facility] [address] [place] [address] Clarity (U) Clear Normal Clear [facility] Comment on above: Performed By: #### 4 [id number] #### [facility] [address] [place] [address] Color (U) Light-Yellow Normal Yellow [facility] Comment on above: Result Comment: Micr oscopic readings are only performed on those samples that meet specific criteria set forth by [facility]. Performed By: #### 4 [id number] #### [facility] [address] [place] [address] Epithelial cells.squamous Auto (Urine sed) [#/Area] 3-4 Invalid Interpretation Code [facility] Comment on above: Performed By: #### 4 [id number] #### [facility] [address] [place] [address] Glucose Ql (U) Negative Normal Negative [facility] Comment on above: Performed By: #### 4 [id number] #### [facility] [address] [place] [address] Hemoglobin Auto test strip (U) [Mass/Vol] 1+ mg/dL Abnormal Negative [facility] Comment on above: Performed By: #### 4 [id number] #### [facility] [address] [place] [address] Ketones Auto test strip Ql (U) Negative Normal Negative [facility] Comment on above: Performed By: #### 4 [id number] #### [facility] [address] [place] [address] Leukocyte esterase Auto test strip Ql (U) Negative Normal Negative [facility] Comment on above: Performed By: #### 4 [id number] #### [facility] [address] [place] [address] Mucus Auto Ql (U) Trace Normal Negative [facility] Comment on above: Performed By: #### 4 [id number] #### [facility] [address] [place] [address] Nitrite Auto test strip Ql (U) Negative Normal Negative [facility] Comment on above: Performed By: #### 4 [id number] #### [facility] [address] [place] [address] pH (U) 5.0 [pH] Invalid Interpretation Code 5.0-9.0 [facility] Comment on above: Performed By: #### 4 [id number] #### [facility] [address] [place] [address] Protein Ql (U) Negative Normal Negative [facility] Comment on above: Performed By: #### 4 [id number] #### [facility] [address] [place] [address] RBC Ql (U) 31-75 Abnormal 0-3 [facility] Comment on above: Performed By: #### 4 [id number] #### [facility] [address] [place] [address] Specific gravity (U) [Rel density] 1.022 Invalid Interpretation Code 1.005-1.030 [facility] Comment on above: Performed By: #### 4 [id number] #### [facility] [address] [place] [address] Urobilinogen (U) [Mass/Vol] Negative Normal Negative [facility] Comment on above: Performed By: #### 4 [id number] #### [facility] [address] [place] [address] WBC Auto (Urine sed) [#/Area] 0-5 Normal 0-5 [facility] Comment on above: Performed By: #### 4 [id number] #### [facility] [address] [place] [address] Type of Urine collection method Clean Catch Normal [facility] Comment on above: Performed By: #### 4 [id number] #### [facility] [address] [place] [address] Urology Office/Clinic Noteon 01-01-2025 Urology Office/Clinic Note Urology Office/Clinic Note Chief Complaint new patient HPI Staff 74 year old female new patient follow up to [facility] ER 12/02/24 due to left flank pain, pt. passed stone while at the ER. pt. then went back to [facility] 12/06/24 due to right flank pain. CT done 12/02/24 at [facility] KUB 12/28/24 at [facility] stone analysis 10% calcium oxalate, 90% [...] yo female presents for f/up to recent [facility] ER visit. BBSQ 8 Portions of this record may have been created with voice recognition artificial intelligence software, specifically Clari, Wanderable and or WebPT. Substitutions may have occurred due to the inherent limitations of voice recognition and artificial intelligence software. 1. Ureteral stone (N20.1: Calculus of ureter) Pt presented to [facility] ER 12/02/24 due to left-sided flank [...] - 6 mm calculus LLP. KUB 12/28/24 [facility] - neg for stones. -Fluids -F/up in 3 mos 3. UPJ (ureteropelvic junction) obstruction (N13.5: Crossing vessel and stricture of ureter without hydronephrosis) CT AP wo con 12/02/24 [facility] - Prominent right upper collecting system and renal pelvis without ureteral dilatation of ureteral calculus. Could be chronic UPJ obstruction. Pt presented to [facility] ER 12/06/24 due to right flank [...] 3 months. Follow-up With When Contact Information BIJU VALDEZ MD, URL Additional Instructions: 3 mos w/ NOHEMI (recall placed) Patient Education Dietary Guidelines to Help Prevent Kidney Stones IWhitney, personally scribed for Dr. Hill on 01/01/2025 13:44:29. . Documentation recorded by [...] Ureteral stone (more content not included)... Normal [facility] Comment on above: Result Comment: Elec tronically Signed By: BIJU VALDEZ MD\.br\Date and Time Signed: 01/01/25 13:53 EDT\.br\Electronically Co-Signed By: Whitney Carrillo.br\Date and Time Co-Signed: 01/01/25 13:44 EDT\.br\Electronically Co-Signed By: Whitney Carrillo\.br\Date and Time Co-Signed: 01/01/25 13:47 EDT Basophils Auto (Bld) [#/Vol] on 12-13-2024 Basophils (Bld) [#/Vol] Automated basoph il count 0.0-0.1 [facility] Basophils/100 WBC Auto (Bld) on 12-13-2024 Basophils/100 WBC (Bld) Automated basophil % 0. 2-2.0 [facility] Cholesterol in LDL Calc [Mas s/Vol]on 12-13-2024 Cholesterol in LDL [Mass/Vol] Cholesterol in LDL [Mass/volume] in Serum or Plasma by calculation [facility] Comment on above: <100 mg/dl [id number] 0-129 mg/dl NEAR OR ABOVE [id number] mg/dl BORDERLINE [id number] mg/dl HIGH>190 mg/dl VERY HIGH Cholesterol in VLDL Calc [Ma ss/Vol]on 12-13-2024 Cholesterol in VLDL [Mass/Vol] Cholesterol in VLDL [Mass/volume] in Serum or Plasma by calculation [facility] Eosinophils/100 WBC Auto (Bl d)on 12-13-2024 Eosinophils/100 WBC (Bld) Automated eosinophil % 0.9-7.0 [facility] Erythrocyte distribution wid th Auto (RBC) [Ratio]on 12-13-2024 Erythrocyte distribution width (RBC) [Ratio] Erythrocyte distribution width [Ratio] by Automated count 11.0-15.0 [facility] Estimated glomerular filtrat ion rate (GFR) non- Americanon 12-13-2024 GFR/1.73 sq M.predicted among non-blacks MDRD (S/P/Bld) [Vol rate/Area] Estimated glomerular filtration rate (GFR) non- >=60 mL/min/1.73m 2 [facility] Hematocrit Auto (Bld) [Volum e fraction]on 12-13-2024 Hematocrit (Bld) [Volume fraction] Hematocrit [Volume Fraction] of Blood by Automated count 36.0-48.0 [facility] Hemoglobin [Mass/volume] in Bloodon 12-13-2024 Hemoglobin (Bld) [Mass/Vol] Hemoglobin [Mass/volume] in Blood 12.0-16.0 [facility] Laboratory - Chemistry and C hemistry - challengeon 12-13-2024 Calcium [Mass/Vol] 8.8 mg/dL 8.5-10.1 [facility] Chloride [Moles/Vol] 100 mmol/L 98-107 [facility] Cholesterol [Mass/Vol] 156 mg/dL <=200 Fi [facility] Cholesterol in HDL [Mass/Vol] 43 mg/dL 40-60 [facility] Comment on above: > or =60 mg/dl - LOW CARDIOVASCULAR RISK<40 mg/dl - HIGH CARDIOVASCULAR RISK CO2 [Moles/Vol] 28.5 mmol/L 21.0-32.0 [facility] Creatinine [Mass/Vol] 0.90 mg/dL 0.55-1.02 [facility] Free T4 [Mass/Vol] 1.12 ng/dL 0.76-1.46 [facility] GFR/1.73 sq M.predicted MDRD (S/P/Bld) [Vol rate/Area] mL/min/{1.73_m2} >=60 mL/min/1.73m 2 [facility] Glucose [Mass/Vol] 104 mg/dL 74-106 [facility] Potassium [Moles/Vol] 4.4 mmol/L 3.5-5.1 [facility] Sodium [Moles/Vol] 137 mmol/L 136-145 [facility] Triglyceride [Mass/Vol] 91 mg/dL <=150 F [facility] TSH Qn 7.691 m[IU]/L High 0.358-3.740 [facility] Urea nitrogen [Mass/Vol] 9.0 mg/dL 7.0-18.0 [facility] Urea nitrogen/Creatinine [Mass ratio] 10.0 mg/mg [facility] Laboratory - Hematology and Cell countson 12-13-2024 Immature granulocytes/100 WBC (Bld) 0.8 % High 0.0-0.5 [facility] Leukocytes [#/volume] correc elizabeth for nucleated erythrocytes in Blood by Automated counon 12-13-2024 WBC corrected for nucl RBC Auto (Bld) [#/Vol] Leukocytes [#/volume] corrected for nucleated erythrocytes in Blood by Automated coun High 4.0-11.0 [facility] Lymphocytes Auto (Bld) [#/Vo l]on 12-13-2024 Lymphocytes (Bld) [#/Vol] Lymphocytes [#/volume] in Blood by Automated count 1.2-3.8 [facility] Lymphocytes/100 WBC Auto (Bl d)on 12-13-2024 Lymphocytes/100 WBC (Bld) Lymphocytes/100 leukocytes in Blood by Automated count Low 20.5-60.0 [facility] MCH Auto (RBC) [Entitic mass ]on 12-13-2024 MCH (RBC) [Entitic mass] MCH [Entitic ma ss] by Automated count 26.7-34.0 [facility] MCHC Auto (RBC) [Mass/Vol]on 12-13-2024 MCHC (RBC) [Mass/Vol] MCHC [Mass/volume] by Automated count 29.9-35.2 [facility] MCV Auto (RBC) [Entitic vol] on 12-13-2024 MCV (RBC) [Entitic vol] MCV [Entitic vol ume] by Automated count 81.0-99.0 [facility] Microalbumin [Mass/volume] i n Urineon 12-13-2024 Albumin DL <= 20 mg/L (U) [Mass/Vol] Microalbumin [Mass/volume] in Urine <=30.0 [facility] Monocytes Auto (Bld) [#/Vol] on 12-13-2024 Monocytes (Bld) [#/Vol] Automated blood monocyte count 0.3-0.8 [facility] Monocytes/100 WBC Auto (Bld) on 12-13-2024 Monocytes/100 WBC (Bld) Automated monocyte % 1. 7-12.0 [facility] Neutrophils Auto (Bld) [#/Vo l]on 12-13-2024 Neutrophils (Bld) [#/Vol] Neutrophils [#/volume] in Blood by Automated count High 1.4-6.5 [facility] Neutrophils/100 WBC Auto (Bl d)on 12-13-2024 Neutrophils/100 WBC (Bld) Automated neutrophil % 43.0-75.0 [facility] No Panel Informationon 12-13 25-Hydroxy Vitamin D Total 26.5 ng/mL [facility] Comment on above: <20 ng/mL Vit D defi cient20-<30 ng/mL Vit D [id number] ng/mL Vit D sufficient>100 ng/mL Potential Toxicity Eosinophils # (Auto) 0.4 10 3/uL 0.0-0.7 [facility] Immature Granulocyte # (Auto) 0.09 10 3/uL High 0.00-0.03 [facility] Urine Random Creatinine 29.77 mg/dL 20.00-300.0 0 [facility] Platelet mean volume Auto (B ld) [Entitic vol]on 12-13-2024 Platelet mean volume (Bld) [Entitic vol] Platelet mean volume [Entitic volume] in Blood by Automated count 9.5-13.5 [facility] Platelets Auto (Bld) [#/Vol] on 12-13-2024 Platelets (Bld) [#/Vol] Platelets [#/vol ume] in Blood by Automated count 150-450 [facility] RBC Auto (Bld) [#/Vol]on RBC (Bld) [#/Vol] Erythrocytes [#/volume] in Blood by Automated count 4.20-5.40 [facility] Serum or plasma anion gap de terminationon 12-13-2024 Anion gap [Moles/Vol] Serum or plasma anion gap determination [facility] Serum or plasma total choles terol/high density lipoprotein (HDL) cholesterol mass sarah 12-13-2024 Cholesterol.total/Choles terol in HDL [Mass ratio] Serum or plasma total cholesterol/high density lipoprotein (HDL) cholesterol mass rat [facility] Comment on above: 3.3 - 4.4 LOW RISK4. 4 - 7.1 AVERAGE RISK7.1 - 11.0 MODERATE RISK>11.0 HIGH RISK Basophils Auto (Bld) [#/Vol] on 12-06-2024 Basophils (Bld) [#/Vol] Automated basoph il count 0.0-0.1 [facility] Basophils/100 WBC Auto (Bld) on 12-06-2024 Basophils/100 WBC (Bld) Automated basophil % 0. 2-2.0 [facility] Eosinophils/100 WBC Auto (Bl d)on 12-06-2024 Eosinophils/100 WBC (Bld) Automated eosinophil % 0.9-7.0 [facility] Erythrocyte distribution wid th Auto (RBC) [Ratio]on 12-06-2024 Erythrocyte distribution width (RBC) [Ratio] Erythrocyte distribution width [Ratio] by Automated count 11.0-15.0 [facility] Estimated glomerular filtrat ion rate (GFR) non- Americanon 12-06-2024 GFR/1.73 sq M.predicted among non-blacks MDRD (S/P/Bld) [Vol rate/Area] Estimated glomerular filtration rate (GFR) non- >=60 mL/min/1.73m 2 [facility] Globulin Calc (S) [Mass/Vol] on 12-06-2024 Globulin (S) [Mass/Vol] Serum globulin measurement by calculation (mass/volume) [facility] Hematocrit Auto (Bld) [Volum e fraction]on 12-06-2024 Hematocrit (Bld) [Volume fraction] Hematocrit [Volume Fraction] of Blood by Automated count 36.0-48.0 [facility] Hemoglobin [Mass/volume] in Bloodon 12-06-2024 Hemoglobin (Bld) [Mass/Vol] Hemoglobin [Mass/volume] in Blood 12.0-16.0 [facility] Laboratory - Chemistry and C hemistry - challengeon 12-06-2024 Bilirubin Ql (U) Negative NEGATIVE [facility] Glucose (U) [Mass/Vol] Negative NEGATIVE [facility] Ketones Ql (U) Negative NEGATIVE [facility] pH (U) 6.5 [pH] 5.0-9.0 [facility] Specific gravity (U) [Rel density] 1.020 1.005-1.025 [facility] Urobilinogen Qn (U) 0.2 {Flo'U}/dL 0.2-1.0 [facility] Albumin [Mass/Vol] 3.4 g/dL 3.4-5.0 [facility] ALP [Catalytic activity/Vol] 126 U/L High 46-116 [facility] ALT [Catalytic activity/Vol] 41 U/L 14-59 [facility] AST [Catalytic activity/Vol] 30 U/L 15-37 [facility] Bilirubin [Mass/Vol] 0.3 mg/dL 0.2-1.0 [facility] Bilirubin.direct [Mass/Vol] 0.1 mg/dL 0.0-0.2 [facility] Calcium [Mass/Vol] 8.5 mg/dL 8.5-10.1 [facility] Chloride [Moles/Vol] 103 mmol/L 98-107 [facility] CO2 [Moles/Vol] 26.5 mmol/L 21.0-32.0 [facility] Creatinine [Mass/Vol] 0.90 mg/dL 0.55-1.02 [facility] GFR/1.73 sq M.predicted MDRD (S/P/Bld) [Vol rate/Area] mL/min/{1.73_m2} >=60 mL/min/1.73m 2 [facility] Glucose [Mass/Vol] 147 mg/dL High 74-106 [facility] Lipase [Catalytic activity/Vol] 37.0 U/L 16.0-77.0 [facility] Potassium [Moles/Vol] 4.6 mmol/L 3.5-5.1 [facility] Protein [Mass/Vol] 7.0 g/dL 6.4-8.2 [facility] Sodium [Moles/Vol] 136 mmol/L 136-145 [facility] Urea nitrogen [Mass/Vol] 22.0 mg/dL High 7.0-18.0 [facility] Urea nitrogen/Creatinine [Mass ratio] 24.4 mg/mg [facility] Laboratory - Hematology and Cell countson 12-06-2024 Immature granulocytes/100 WBC (Bld) 0.5 % 0.0-0.5 [facility] Laboratory - Specimen inform ationon 12-06-2024 Appearance (U) CLEAR CLEAR [facility] Color (U) LT. YELLOW YELLOW [facility] Laboratory - Urinalysison Leukocyte esterase Test strip Ql (U) Negative NEGATIVE [facility] Mucus Ql (Urine sed) NONE SEEN NONE SEEN [facility] Nitrite Ql (U) Negative NEGATIVE [facility] Protein Ql (U) Negative NEG/TRACE [facility] Leukocytes [#/volume] correc elizabeth for nucleated erythrocytes in Blood by Automated counon 12-06-2024 WBC corrected for nucl RBC Auto (Bld) [#/Vol] Leukocytes [#/volume] corrected for nucleated erythrocytes in Blood by Automated coun High 4.0-11.0 [facility] Lymphocytes Auto (Bld) [#/Vo l]on 12-06-2024 Lymphocytes (Bld) [#/Vol] Lymphocytes [#/volume] in Blood by Automated count 1.2-3.8 [facility] Lymphocytes/100 WBC Auto (Bl d)on 12-06-2024 Lymphocytes/100 WBC (Bld) Lymphocytes/100 leukocytes in Blood by Automated count Low 20.5-60.0 [facility] MCH Auto (RBC) [Entitic mass ]on 12-06-2024 MCH (RBC) [Entitic mass] MCH [Entitic ma ss] by Automated count 26.7-34.0 [facility] MCHC Auto (RBC) [Mass/Vol]on 12-06-2024 MCHC (RBC) [Mass/Vol] MCHC [Mass/volume] by Automated count 29.9-35.2 [facility] MCV Auto (RBC) [Entitic vol] on 12-06-2024 MCV (RBC) [Entitic vol] MCV [Entitic vol ume] by Automated count 81.0-99.0 [facility] Monocytes Auto (Bld) [#/Vol] on 12-06-2024 Monocytes (Bld) [#/Vol] Automated blood monocyte count 0.3-0.8 [facility] Monocytes/100 WBC Auto (Bld) on 12-06-2024 Monocytes/100 WBC (Bld) Automated monocyte % 1. 7-12.0 [facility] Neutrophils Auto (Bld) [#/Vo l]on 12-06-2024 Neutrophils (Bld) [#/Vol] Neutrophils [#/volume] in Blood by Automated count High 1.4-6.5 [facility] Neutrophils/100 WBC Auto (Bl d)on 12-06-2024 Neutrophils/100 WBC (Bld) Automated neutrophil % High 43.0-75.0 [facility] No Panel Informationon 12-06 Urine Bacteria TRACE #/HPF Abnormal NONE SEEN [facility] Urine Culture Reflexed NO [facility] Urine Occult Blood Negative NEGATIVE [facility] Urine Other Casts NONE SEEN #/LPF NONE SEEN [facility] Urine Other Crystals None Seen #/HPF None Seen [facility] Urine RBC 0-2 #/HPF 0-2 [facility] Urine Squamous Epithelial Cells RARE #/LPF NONE/RARE [facility] Urine WBC 0-2 #/HPF Abnormal NONE SEEN [facility] Eosinophils # (Auto) 0.1 10 3/uL 0.0-0.7 [facility] Immature Granulocyte # (Auto) 0.06 10 3/uL High 0.00-0.03 [facility] Platelet mean volume Auto (B ld) [Entitic vol]on 12-06-2024 Platelet mean volume (Bld) [Entitic vol] Platelet mean volume [Entitic volume] in Blood by Automated count 9.5-13.5 [facility] Platelets Auto (Bld) [#/Vol] on 12-06-2024 Platelets (Bld) [#/Vol] Platelets [#/vol ume] in Blood by Automated count 150-450 [facility] RBC Auto (Bld) [#/Vol]on RBC (Bld) [#/Vol] Erythrocytes [#/volume] in Blood by Automated count 4.20-5.40 [facility] Serum or plasma albumin/glob ulin mass ratioon 12-06-2024 Albumin/Globulin [Mass ratio] Serum or plasma albumin/globulin mass ratio [facility] Serum or plasma anion gap de terminationon 12-06-2024 Anion gap [Moles/Vol] Serum or plasma anion gap determination [facility] Ammonium urate crystals dete ction in stone by infrared spectroscopyon 12-02-2024 Ammonium urate crystals Infrared spectroscopy Ql (Stone) Ammonium urate crystals detection in stone by infrared spectroscopy . [facility] Basophils Auto (Bld) [#/Vol] on 12-02-2024 Basophils (Bld) [#/Vol] Automated basoph il count 0.0-0.1 [facility] Basophils/100 WBC Auto (Bld) on 12-02-2024 Basophils/100 WBC (Bld) Automated basophil % 0. 2-2.0 [facility] Calcium bilirubinate measure menton 12-02-2024 Calcium bilirubinate (Stone) [Mass fraction] Calcium bilirubinate measurement . [facility] Calcium carbonate (Stone) [M ass fraction]on 12-02-2024 Stone Calcium Carbonate TNP . F [facility] Calcium hydrogen phosphate d ihydrate (Stone) [Mass fraction]on 12-02-2024 Stone Calcium Hydrogen Phosphate TNP . [facility] Calcium oxalate dihydrate cr ystals detection in stone by infrared spectroscopyon 12-02-2024 Calcium oxalate dihydrate crystals Infrared spectroscopy Ql (Stone) Calcium oxalate dihydrate crystals detection in stone by infrared spectroscopy . [facility] Calcium oxalate monohydrate crystal detectionon 12-02-2024 Calcium oxalate monohydrate crystals Infrared spectroscopy Ql (Stone) Calcium oxalate monohydrate crystal detection . [facility] Calcium phosphate measuremen ton 12-02-2024 Calcium phosphate (Stone) [Mass fraction] Calcium phosphate measurement . [facility] Calculus analysis interpreta tion in stoneon 12-02-2024 Calculus analysis [Interp] Calculus analysis interpretation in stone . [facility] Comment on above: Calculus received we t. Wet calculi must be dried beforeanalysis, which delays reporting of results. Leaving calculiwet (such as water, saline, blood, urine) may lead tochanges in composition. Physician questions regarding Calculi Analysis contactEd[facility] Centercorp at: [phone]. Calculus analysis with calcu bravo photography interpretation in stoneon 12-02-2024 Calculus analysis with calculus photography [Interp] Calculus analysis with calculus photography interpretation in stone . [facility] Comment on above: Photograph will foll ow under a separate cover Cellular material measuremen t in stone by estimated (mass/mass)on 12-02-2024 Cellular material Est (Stone) [Mass/Mass] Cellular material measurement in stone by estimated (mass/mass) . [facility] Cholesterol [Mass/volume] in Serum or Plasmaon 12-02-2024 Cholesterol [Mass/Vol] Cholesterol [Mass/volume] in Serum or Plasma . [facility] Composition of stoneon 12-02 Composition Nom (Stone) Composition of stone . [facility] Comment on above: Percentage (Represen ts the % composition) Cystine measurementon 2024 Cystine (Unsp spec) [Moles/Vol] Cystine measurement . [facility] Determination of color of ca lculuson 12-02-2024 Color (Stone) Determination of color of calculus . [facility] Eosinophils/100 WBC Auto (Bl d)on 12-02-2024 Eosinophils/100 WBC (Bld) Automated eosinophil % Low 0.9-7.0 [facility] Erythrocyte distribution wid th Auto (RBC) [Ratio]on 12-02-2024 Erythrocyte distribution width (RBC) [Ratio] Erythrocyte distribution width [Ratio] by Automated count 11.0-15.0 [facility] Estimated glomerular filtrat ion rate (GFR) non- Americanon 12-02-2024 GFR/1.73 sq M.predicted among non-blacks MDRD (S/P/Bld) [Vol rate/Area] Estimated glomerular filtration rate (GFR) non- Low >=60 mL/min/1.73m 2 [facility] Hematocrit Auto (Bld) [Volum e fraction]on 12-02-2024 Hematocrit (Bld) [Volume fraction] Hematocrit [Volume Fraction] of Blood by Automated count 36.0-48.0 [facility] Hemoglobin [Mass/volume] in Bloodon 12-02-2024 Hemoglobin (Bld) [Mass/Vol] Hemoglobin [Mass/volume] in Blood 12.0-16.0 [facility] Laboratory - Chemistry and C hemistry - challengeon 12-02-2024 Calcium [Mass/Vol] 8.4 mg/dL Low 8.5-10.1 [facility] Chloride [Moles/Vol] 104 mmol/L 98-107 [facility] CO2 [Moles/Vol] 25.1 mmol/L 21.0-32.0 [facility] Creatinine [Mass/Vol] 0.93 mg/dL 0.55-1.02 [facility] GFR/1.73 sq M.predicted MDRD (S/P/Bld) [Vol rate/Area] mL/min/{1.73_m2} >=60 mL/min/1.73m 2 [facility] Glucose [Mass/Vol] 144 mg/dL High 74-106 [facility] Potassium [Moles/Vol] 4.1 mmol/L 3.5-5.1 [facility] Sodium [Moles/Vol] 140 mmol/L 136-145 [facility] Urea nitrogen [Mass/Vol] 11.0 mg/dL 7.0-18.0 [facility] Urea nitrogen/Creatinine [Mass ratio] 11.8 mg/mg [facility] Laboratory - Hematology and Cell countson 12-02-2024 Immature granulocytes/100 WBC (Bld) 0.2 % 0.0-0.5 [facility] Leukocytes [#/volume] correc elizabeth for nucleated erythrocytes in Blood by Automated counon 12-02-2024 WBC corrected for nucl RBC Auto (Bld) [#/Vol] Leukocytes [#/volume] corrected for nucleated erythrocytes in Blood by Automated coun High 4.0-11.0 [facility] Lymphocytes Auto (Bld) [#/Vo l]on 12-02-2024 Lymphocytes (Bld) [#/Vol] Lymphocytes [#/volume] in Blood by Automated count 1.2-3.8 [facility] Lymphocytes/100 WBC Auto (Bl d)on 12-02-2024 Lymphocytes/100 WBC (Bld) Lymphocytes/100 leukocytes in Blood by Automated count Low 20.5-60.0 [facility] MCH Auto (RBC) [Entitic mass ]on 12-02-2024 MCH (RBC) [Entitic mass] MCH [Entitic ma ss] by Automated count 26.7-34.0 [facility] MCHC Auto (RBC) [Mass/Vol]on 12-02-2024 MCHC (RBC) [Mass/Vol] MCHC [Mass/volume] by Automated count 29.9-35.2 [facility] MCV Auto (RBC) [Entitic vol] on 12-02-2024 MCV (RBC) [Entitic vol] MCV [Entitic vol ume] by Automated count 81.0-99.0 [facility] Measurement of proportion of calculus composed of dried blood (mass/mass)on 12-02-2024 Blood.dried (Stone) [Mass fraction] Measurement of proportion of calculus composed of dried blood (mass/mass) . [facility] Monocytes Auto (Bld) [#/Vol] on 12-02-2024 Monocytes (Bld) [#/Vol] Automated blood monocyte count 0.3-0.8 [facility] Monocytes/100 WBC Auto (Bld) on 12-02-2024 Monocytes/100 WBC (Bld) Automated monocyte % 1. 7-12.0 [facility] Neutrophils Auto (Bld) [#/Vo l]on 12-02-2024 Neutrophils (Bld) [#/Vol] Neutrophils [#/volume] in Blood by Automated count High 1.4-6.5 [facility] Neutrophils/100 WBC Auto (Bl d)on 12-02-2024 Neutrophils/100 WBC (Bld) Automated neutrophil % High 43.0-75.0 [facility] Newberyite crystals detectio n in stone by infrared spectroscopyon 12-02-2024 Newberyite crystals Infrared spectroscopy Ql (Stone) Newberyite crystals detection in stone by infrared spectroscopy . [facility] No Panel Informationon 12-02 Stone 2,8 Dihydroxyadenine TNP . [facility] Stone Analysis Disclaimer Comment . [facility] Comment on above: Calculi report will follow via computer, mail or courierdelivery. Stone Bilirubinate TNP . [facility] Stone Calcium Palmitate TNP . F [facility] Stone Calcium Stearate TNP . [facility] Drug or Metabolite TNP . [facility] Stone Other Constituent TNP . F [facility] Stone Xanthine TNP . [facility] Eosinophils # (Auto) 0.0 10 3/uL 0.0-0.7 [facility] Immature Granulocyte # (Auto) 0.03 10 3/uL 0.00-0.03 [facility] Platelet mean volume Auto (B ld) [Entitic vol]on 12-02-2024 Platelet mean volume (Bld) [Entitic vol] Platelet mean volume [Entitic volume] in Blood by Automated count 9.5-13.5 [facility] Platelets Auto (Bld) [#/Vol] on 12-02-2024 Platelets (Bld) [#/Vol] Platelets [#/vol ume] in Blood by Automated count 150-450 [facility] RBC Auto (Bld) [#/Vol]on RBC (Bld) [#/Vol] Erythrocytes [#/volume] in Blood by Automated count 4.20-5.40 [facility] Serum or plasma anion gap de terminationon 12-02-2024 Anion gap [Moles/Vol] Serum or plasma anion gap determination [facility] Size [Entitic volume] of Sto neon 12-02-2024 Size (Stone) [Entitic vol] Size [Entitic volume] of Stone . [facility] Comment on above: Single piece receive d. Sodium urate crystals detect ion in stone by infrared spectroscopyon 12-02-2024 Sodium urate crystals Infrared spectroscopy Ql (Stone) Sodium urate crystals detection in stone by infrared spectroscopy . [facility] Specimen source subject [Typ e]on 12-02-2024 Specimen source subject Nom Specimen source subject [Type] . [facility] Comment on above: Not provided Triamterene measurement in c alculuson 12-02-2024 Triamterene (Stone) [Mass fraction] Triamterene measurement in calculus . [facility] Triple phosphate/Total in St oneon 12-02-2024 Triple phosphate (Stone) [Mass fraction] Triple phosphate/Total in Stone . [facility] Uric acid dihydrate crystals detection in stone by infrared spectroscopyon 12-02-2024 Urate dihydrate crystals Infrared spectroscopy Ql (Stone) Uric acid dihydrate crystals detection in stone by infrared spectroscopy . [facility] Alanine aminotransferase [En zymatic activity/volume] in Serum or PlasmaOrdered By: Cricket Russell on 11-27-2024 ALT [Catalytic activity/Vol] Alanine aminotransferase [Enzymatic activity/volume] in Serum or Plasma 7-52 [facility] Albumin [Mass/volume] in Ser um or Plasma by Bromocresol green (BCG) dye binding methoOrdered By: Cricket Russell on 11-27-2024 Albumin BCG dye [Mass/Vol] Albumin [Mass/volume] in Serum or Plasma by Bromocresol green (BCG) dye binding metho 3.5-5.7 [facility] Alkaline phosphatase [Enzyma tic activity/volume] in Serum or PlasmaOrdered By: Cricket Russell on 11-27-2024 ALP [Catalytic activity/Vol] Alkaline phosphatase [Enzymatic activity/volume] in Serum or Plasma 34-104 [facility] Appearance of UrineOrdered B y: Cricket Russell on 11-27-2024 Appearance (U) Urine appearance Clear [facility] Aspartate aminotransferase [ Enzymatic activity/volume] in Serum or PlasmaOrdered By: Cricket Russell on 11-27-2024 AST [Catalytic activity/Vol] Aspartate aminotransferase [Enzymatic activity/volume] in Serum or Plasma 13-39 [facility] Bacteria [Presence] in Urine by AutomatedOrdered By: Cricket Russell on 11-27-2024 Bacteria Auto Ql (U) Bacteria [Presence] in Urine by Automated None Seen [facility] Basophils Auto (Bld) [#/Vol] Ordered By: Cricket Russell on 11-27-2024 Basophils (Bld) [#/Vol] Automated basoph il count 0.0-0.2 [facility] Basophils/100 WBC Auto (Bld) Ordered By: Cricket Russell on 11-27-2024 Basophils/100 WBC (Bld) Automated basophil % . [facility] Bilirubin Test strip Ql (U)O rdered By: Cricket Russell on 11-27-2024 Bilirubin Ql (U) Bilirubin.total [Presence] in Urine by Test strip Negative [facility] Bilirubin.total [Mass/volume ] in Serum or PlasmaOrdered By: Cricket Russell on 11-27-2024 Bilirubin [Mass/Vol] Bilirubin.total [Mass/volume] in Serum or Plasma 0.3-1.0 [facility] BioFire Not Detectedon 11-27 BioFire Not Detected Not detected Normal Not Detecte T seema [facility] Comment on above: Result Comment: This is a duplicate RP2.1 COVID (PCR) result to be used for statistical tracking purpose only. PERFORMED BY: [facility] [address] [address] PATHOLOGIST FITNESS COORDINATOR GINNY PIPER M.D. Performed By: #### R AARON PANEL UPP., BIOFIRECOVNOTDE #### [facility] [address] [place] [address] COVID-19 Detected/Not Detect edOrdered By: Cricket Russell on 11-27-2024 SARS-CoV-2 (COVID-19) RNA NOE+non-probe Ql (Nph) Not detected Not Detecte [facility] Comment on above: This is a duplicate RP2.1 COVID (PCR) result to be used for statistical tracking purpose only. Calcium [Mass/volume] in Ser um or PlasmaOrdered By: Cricket Russell on 11-27-2024 Calcium [Mass/Vol] Calcium [Mass/volume] in Serum or Plasma 8.6-10.3 [facility] Carbon dioxide, total [Moles /volume] in Serum or PlasmaOrdered By: Cricket Russell on 11-27-2024 CO2 [Moles/Vol] Carbon dioxide, total [Moles/volume] in Serum or Plasma 21.0-31.0 [facility] Chloride [Moles/volume] in S kristina or PlasmaOrdered By: Cricket Russell on 11-27-2024 Chloride [Moles/Vol] Chloride [Moles/volume] in Serum or Plasma 98-107 [facility] Color Auto (U)Ordered By: Casper Russell on 11-27-2024 Color (U) Color of Urine by Auto Yellow [facility] Complete Blood Count Auto Di ffon 11-27-2024 Basophils (Bld) [#/Vol] 0.0 10*3/uL Normal 0.0-0.2 [facility] Comment on above: Result Comment: PERF ORMED BY: [place] [address] PATHOLOGIST FITNESS COORDINATOR GINNY PIPER M.D. Performed By: #### C BC, CMP, LIPASE #### [facility] [address] [place] [address] Basophils/100 WBC (Bld) 0.2 % Normal . T [facility] Comment on above: Performed By: #### C BC, CMP, LIPASE #### [address] Eosinophils (Bld) [#/Vol] 0.0 10*3/uL Normal 0.0-0.45 [facility] Comment on above: Performed By: #### C BC, CMP, LIPASE #### [place] [address] [place] Eosinophils/100 WBC (Bld) 0.3 % Normal . [facility] Comment on above: Performed By: #### C BC, CMP, LIPASE #### [address] Erythrocyte distribution width (RBC) [Ratio] 13.9 % Normal 11.9-15.3 [facility] Comment on above: Performed By: #### C BC, CMP, LIPASE #### [address] Hematocrit (Bld) [Volume fraction] 47.3 % High 34.0-46.4 [facility] Comment on above: Performed By: #### C BC, CMP, LIPASE #### [address] Hemoglobin (Bld) [Mass/Vol] 16.2 g/dL High 11.8-15.4 [facility] Comment on above: Performed By: #### C BC, CMP, LIPASE #### [place] [address] [place] Lymphocytes (Bld) [#/Vol] 1.4 10*3/uL Normal 1.00-4.8 [facility] Comment on above: Performed By: #### C BC, CMP, LIPASE #### [place] [address] [place] Lymphocytes/100 WBC (Bld) 11.8 % Normal . [facility] Comment on above: Performed By: #### C BC, CMP, LIPASE #### [address] MCH (RBC) [Entitic mass] 29.2 pg Normal 24.7-34.3 [facility] Comment on above: Performed By: #### C BC, CMP, LIPASE #### [address] MCV (RBC) [Entitic vol] 85.2 fL Normal 80-100 [facility] Comment on above: Performed By: #### C BC, CMP, LIPASE #### [address] Mean Corpuscular HGB Conc 34.2 g/dL Normal 32.0-35.0 [facility] Comment on above: Performed By: #### C BC, CMP, LIPASE #### [address] Monocytes (Bld) [#/Vol] 0.6 10*3/uL Normal 0.0-0.8 [facility] Comment on above: Performed By: #### C BC, CMP, LIPASE #### [address] Monocytes/100 WBC (Bld) 19.54 % Normal 0.00-20.00 [facility] Comment on above: Performed By: #### C BC, CMP, LIPASE #### [address] Monocytes/100 WBC (Bld) 5.0 % Normal . [facility] Comment on above: Performed By: #### C BC, CMP, LIPASE #### [address] Neutrophils (Bld) [#/Vol] 9.9 10*3/uL High 1.8-7.7 [facility] Comment on above: Performed By: #### C BC, CMP, LIPASE #### [address] Neutrophils/100 WBC (Bld) 82.7 % Normal . [facility] Comment on above: Performed By: #### C BC, CMP, LIPASE #### [address] NRBC% 0.1 /100{WBC} Normal 0-0.5 [facility] Comment on above: Performed By: #### C BC, CMP, LIPASE #### [address] Platelet mean volume (Bld) [Entitic vol] 9.2 fL Normal 6.3-10.7 [facility] Comment on above: Performed By: #### C BC, CMP, LIPASE #### [address] Platelets (Bld) [#/Vol] 271 10*3/uL Normal 150-450 [facility] Comment on above: Performed By: #### C BC, CMP, LIPASE #### [address] RBC (Bld) [#/Vol] 5.55 10*6/uL High 3.60-5.00 [facility] Comment on above: Performed By: #### C BC, CMP, LIPASE #### [address] WBC (Bld) [#/Vol] 12.0 10*3/uL High 3.8-11.6 [facility] Comment on above: Performed By: #### C BC, CMP, LIPASE #### [address] Comprehensive Metabolic Pane yumi 11-27-2024 Albumin [Mass/Vol] 4.3 g/dL Normal 3.5-5.7 [facility] Comment on above: Performed By: #### C BC, CMP, LIPASE #### [address] Albumin/Globulin [Mass ratio] 1.3 {ratio} Normal [facility] Comment on above: Performed By: #### C BC, CMP, LIPASE #### [address] ALP [Catalytic activity/Vol] 62 U/L Normal 34-104 [facility] Comment on above: Performed By: #### C BC, CMP, LIPASE #### [address] ALT [Catalytic activity/Vol] 31 U/L Normal 7-52 [facility] Comment on above: Performed By: #### C BC, CMP, LIPASE #### [address] Anion gap [Moles/Vol] 12.9 mmol/L Normal 6.0-15.0 [facility] Comment on above: Performed By: #### C BC, CMP, LIPASE #### [address] AST [Catalytic activity/Vol] 32 U/L Normal 13-39 [facility] Comment on above: Performed By: #### C BC, CMP, LIPASE #### [address] Bilirubin [Mass/Vol] 0.6 mg/dL Normal 0.3-1.0 [facility] Comment on above: Performed By: #### C BC, CMP, LIPASE #### [address] Calcium [Mass/Vol] 9.0 mg/dL Normal 8.6-10.3 [facility] Comment on above: Performed By: #### C BC, CMP, LIPASE #### [address] Chloride [Moles/Vol] 102 mmol/L Normal 98-107 [facility] Comment on above: Performed By: #### C BC, CMP, LIPASE #### [address] CO2 [Moles/Vol] 26.0 mmol/L Normal 21.0-31.0 [facility] Comment on above: Performed By: #### C BC, CMP, LIPASE #### [address] Creatinine [Mass/Vol] 0.79 mg/dL Normal 0.60-1.20 [facility] Comment on above: Performed By: #### C BC, CMP, LIPASE #### [address] Creatinine Clr Calc Pharmacy 58.93 Normal [facility] Comment on above: Performed By: #### C BC, CMP, LIPASE #### [address] GFR/1.73 sq M.predicted MDRD (S/P/Bld) [Vol rate/Area] mL/min/{1.73_m2} Normal [facility] Comment on above: Performed By: #### C BC, CMP, LIPASE #### [address] Globulin (S) [Mass/Vol] 3.4 g/dL Normal [facility] Comment on above: Performed By: #### C BC, CMP, LIPASE #### [address] Glucose [Mass/Vol] 117 mg/dL High 70-100 [facility] Comment on above: Result Comment: [place] Glucose Reference Range is dependent on time and content of last meal. Glucose of more than 200 mg/dL in a nonstressed, ambulatory subject supports the diagnosis of Diabetes Mellitus. ADA recommended reference range Performed By: #### C BC, CMP, LIPASE #### [address] Potassium [Moles/Vol] 3.9 mmol/L Normal 3.5-5.1 [facility] Comment on above: Performed By: #### C BC, CMP, LIPASE #### [address] Protein [Mass/Vol] 7.7 g/dL Normal 6.4-8.9 [facility] Comment on above: Performed By: #### C BC, CMP, LIPASE #### [address] Sodium [Moles/Vol] 137 mmol/L Normal 136-145 [facility] Comment on above: Performed By: #### C BC, CMP, LIPASE #### [address] Urea nitrogen [Mass/Vol] 22 mg/dL Normal 7-25 [facility] Comment on above: Performed By: #### C BC, CMP, LIPASE #### [facility] [address] [id number] [place] Creatinine [Mass/volume] in Serum or PlasmaOrdered By: Cricket Russell on 11-27-2024 Creatinine [Mass/Vol] Creatinine [Mass/volume] in Serum or Plasma 0.60-1.20 [facility] Dipstick and Microscopicon 0 11-27-2024 Appearance (U) Clear Normal Clear [facility] Comment on above: Order Comment: Name Collection Type:: Clean-Voided Midstream Performed By: #### A DDONUAPLUS #### [facility] [address] [place] [address] [place] Bacteria,Urine None Seen Normal None Seen [facility] Comment on above: Order Comment: Name Collection Type:: Clean-Voided Midstream Performed By: #### A DDONUAPLUS #### [facility] [address] [place] [address] [place] Bilirubin,Urine Negative Normal Negative [facility] Comment on above: Order Comment: Name Collection Type:: Clean-Voided Midstream Performed By: #### A DDONUAPLUS #### [facility] [address] [place] [address] [place] Color (U) Light-Yellow Normal Yellow [facility] Comment on above: Order Comment: Name Collection Type:: Clean-Voided Midstream Performed By: #### A DDONUAPLUS #### [facility] [address] [place] [address] [place] Glucose Ql (U) Normal Normal Normal [facility] Comment on above: Order Comment: Name Collection Type:: Clean-Voided Midstream Performed By: #### A DDONUAPLUS #### [facility] [address] [place] [id number] [place] Hyaline Casts,Urine 0-8 Normal 0-8 [facility] Comment on above: Order Comment: Name Collection Type:: Clean-Voided Midstream Performed By: #### A DDONUAPLUS #### [facility] [address] [id number] [place] Ketones Ql (U) 2+ High Negative [facility] Comment on above: Order Comment: Name Collection Type:: Clean-Voided Midstream Performed By: #### A DDONUAPLUS #### [address] Leukocyte esterase Test strip Ql (U) Negative Normal Negative [facility] Comment on above: Order Comment: Name Collection Type:: Clean-Voided Midstream Performed By: #### A DDONUAPLUS #### [place] [address] [place] Mucus,Urine 4+ Critically abnormal [facility] Comment on above: Order Comment: Name Collection Type:: Clean-Voided Midstream Result Comment: PERF ORMED BY: [place] [address] PATHOLOGIST FITNESS COORDINATOR GINNY PIPER M.D. Performed By: #### A DDONUAPLUS #### [address] Nitrite,Urine Negative Normal Negative [facility] Comment on above: Order Comment: Name Collection Type:: Clean-Voided Midstream Performed By: #### A DDONUAPLUS #### [address] Occult Blood,Urine Trace High Negative [facility] Comment on above: Order Comment: Name Collection Type:: Clean-Voided Midstream Result Comment: PERF ORMED BY: [place] [address] PATHOLOGIST FITNESS COORDINATOR GINNY PIPER M.D. Performed By: #### A DDONUAPLUS #### [address] pH (U) 5.5 [pH] Normal 5.0-9.0 [facility] Comment on above: Order Comment: Name Collection Type:: Clean-Voided Midstream Performed By: #### A DDONUAPLUS #### [address] Protein,Urine Negative Normal Negative [facility] Comment on above: Order Comment: Name Collection Type:: Clean-Voided Midstream Performed By: #### A DDONUAPLUS #### [address] RBC,Urine 5-9 High 0-4 [facility] Comment on above: Order Comment: Name Collection Type:: Clean-Voided Midstream Performed By: #### A DDONUAPLUS #### [address] Specificy [place],Urine 1.017 Normal 1.001-1.030 [facility] Comment on above: Order Comment: Name Collection Type:: Clean-Voided Midstream Performed By: #### A DDONUAPLUS #### [address] Squamous Epithelial Cell,Urine 3-4 High 0-2 [facility] Comment on above: Order Comment: Name Collection Type:: Clean-Voided Midstream Performed By: #### A DDONUAPLUS #### [address] Urobilinogen,Urine Normal Normal Normal [facility] Comment on above: Order Comment: Name Collection Type:: Clean-Voided Midstream Performed By: #### A DDONUAPLUS #### [address] WBC,Urine 1-2 Normal 0-4 [facility] Comment on above: Order Comment: Name Collection Type:: Clean-Voided Midstream Performed By: #### A DDONUAPLUS #### [address] Eosinophils Auto (Bld) [#/Vo l]Ordered By: Cricket Russell on 11-27-2024 Eosinophils (Bld) [#/Vol] Automated eosinophil count 0.0-0.45 [facility] Eosinophils/100 WBC Auto (Bl d)Ordered By: Cricket Russell on 11-27-2024 Eosinophils/100 WBC (Bld) Automated eosinophil % . [facility] Epithelial cells.squamous [# /area] in Urine sediment by Automated countOrdered By: Cricket Russell on 11-27-2024 Epithelial cells.squamous Auto (Urine sed) [#/Area] Epithelial cells.squamous [#/area] in Urine sediment by Automated count High 0-2 [facility] Erythrocyte distribution wid th Auto (RBC) [Ratio]Ordered By: Cricket Russell on 11-27-2024 Erythrocyte distribution width (RBC) [Ratio] Erythrocyte distribution width [Ratio] by Automated count 11.9-15.3 [facility] Erythrocytes [#/area] in Uri ne sediment by Automated countOrdered By: Cricket Russell on 11-27-2024 RBC Auto (Urine sed) [#/Area] Erythrocytes [#/area] in Urine sediment by Automated count High 0-4 [facility] Globulin Calc (S) [Mass/Vol] Ordered By: Cricket Russell on 11-27-2024 Globulin (S) [Mass/Vol] Serum globulin measurement by calculation (mass/volume) [facility] Glucose [Mass/volume] in Ser um or PlasmaOrdered By: Cricket Russell on 11-27-2024 Glucose [Mass/Vol] Glucose [Mass/volume] in Serum or Plasma High 70-100 [facility] Comment on above: ADA recommended refe [...] [Mass/volume] in Urine by Test strip Normal [facility] Hematocrit Auto (Bld) [Volum e fraction]Ordered By: Cricket Russell on 11-27-2024 Hematocrit (Bld) [Volume fraction] Hematocrit [Volume Fraction] of Blood by Automated count High 34.0-46.4 [facility] Hemoglobin Test strip Ql (U) Ordered By: Cricket Russell on 11-27-2024 Hemoglobin Ql (U) Hemoglobin [Presence] in Urine by Test strip High Negative [facility] Hemoglobin [Mass/volume] in BloodOrdered By: Cricket Russell on 11-27-2024 Hemoglobin (Bld) [Mass/Vol] Hemoglobin [Mass/volume] in Blood High 11.8-15.4 [facility] Hyaline casts [#/area] in Ur ine sediment by Automated countOrdered By: Cricket Russell on 11-27-2024 Hyaline casts Auto (Urine sed) [#/Area] Hyaline casts [#/area] in Urine sediment by Automated count 0-8 [facility] Ketones Test strip Ql (U)Ord ered By: Cricket Russell on 11-27-2024 Ketones Ql (U) Ketones [Presence] in Urine by Test strip High Negative [facility] Leukocyte esterase [Presence ] in Urine by Test stripOrdered By: Cricket Russell on 11-27-2024 Leukocyte esterase Test strip Ql (U) Leukocyte esterase [Presence] in Urine by Test strip Negative [facility] Leukocytes [#/area] in Urine sediment by Automated countOrdered By: Cricket Russell on 11-27-2024 WBC Auto (Urine sed) [#/Area] Leukocytes [#/area] in Urine sediment by Automated count 0-4 [facility] Leukocytes [#/volume] correc elizabeth for nucleated erythrocytes in Blood by Automated counOrdered By: Cricket Russell on 11-27-2024 WBC corrected for nucl RBC Auto (Bld) [#/Vol] Leukocytes [#/volume] corrected for nucleated erythrocytes in Blood by Automated coun High 3.8-11.6 [facility] Lipaseon 11-27-2024 Lipase [Catalytic activity/Vol] 10.0 U/L Low 11.0-82.0 [facility] Comment on above: Result Comment: PERF ORMED BY: [place] [address] PATHOLOGIST FITNESS COORDINATOR GINNY PIPER M.D. Performed By: #### C BC, CMP, LIPASE #### [address] Lipase [Enzymatic activity/v olume] in Serum or PlasmaOrdered By: Cricket Russell on 11-27-2024 Lipase [Catalytic activity/Vol] Lipase [Enzymatic activity/volume] in Serum or Plasma Low 11.0-82.0 [facility] Lymphocytes Auto (Bld) [#/Vo l]Ordered By: Cricket Russell on 11-27-2024 Lymphocytes (Bld) [#/Vol] Lymphocytes [#/volume] in Blood by Automated count 1.00-4.8 [facility] Lymphocytes/100 WBC Auto (Bl d)Ordered By: Cricket Russell on 11-27-2024 Lymphocytes/100 WBC (Bld) Lymphocytes/100 leukocytes in Blood by Automated count . [facility] MCH Auto (RBC) [Entitic mass ]Ordered By: Cricket Russell on 11-27-2024 MCH (RBC) [Entitic mass] MCH [Entitic ma ss] by Automated count 24.7-34.3 [facility] MCHC Auto (RBC) [Mass/Vol]Or dered By: Cricket Russell on 11-27-2024 MCHC (RBC) [Mass/Vol] MCHC [Mass/volume] by Automated count 32.0-35.0 [facility] MCV Auto (RBC) [Entitic vol] Ordered By: Cricket Russell on 11-27-2024 MCV (RBC) [Entitic vol] MCV [Entitic vol ume] by Automated count 80-100 [facility] Monocyte distribution width [Entitic volume] in Blood by AutomatedOrdered By: Cricket Russell on 11-27-2024 Monocyte distribution width Auto (Bld) [Entitic vol] Monocyte distribution width [Entitic volume] in Blood by Automated 0.00-20.00 [facility] Monocytes Auto (Bld) [#/Vol] Ordered By: Cricket Russell on 11-27-2024 Monocytes (Bld) [#/Vol] Automated blood monocyte count 0.0-0.8 [facility] Monocytes/100 WBC Auto (Bld) Ordered By: Cricket Russell on 11-27-2024 Monocytes/100 WBC (Bld) Automated monocyte % . [facility] Mucus [Presence] in Urine by AutomatedOrdered By: Cricket Russell on 11-27-2024 Mucus Auto Ql (U) Mucus [Presence] in Urine by Automated Abnormal [facility] Neutrophils Auto (Bld) [#/Vo l]Ordered By: Cricket Russell on 11-27-2024 Neutrophils (Bld) [#/Vol] Neutrophils [#/volume] in Blood by Automated count High 1.8-7.7 [facility] Neutrophils/100 WBC Auto (Bl d)Ordered By: Cricket Russell on 11-27-2024 Neutrophils/100 WBC (Bld) Automated neutrophil % . [facility] Nitrite Test strip Ql (U)Ord ered By: Cricket Russell on 11-27-2024 Nitrite Ql (U) Nitrite [Presence] in Urine by Test strip Negative [facility] No Panel InformationOrdered By: Cricket Russell on 11-27-2024 Estimated GFR (CKD-EPI) > 60.0 mL/Min [facility] Creatinine Clearance (Chem 58.93 [facility] Nucleated erythrocytes [Pres ence] in Blood by Automated countOrdered By: Cricket Russell on 11-27-2024 Nucleated RBC Auto Ql (Bld) Nucleated erythrocytes [Presence] in Blood by Automated count 0-0.5 [facility] Platelet mean volume Auto (B ld) [Entitic vol]Ordered By: Cricket Russell on 11-27-2024 Platelet mean volume (Bld) [Entitic vol] Platelet mean volume [Entitic volume] in Blood by Automated count 6.3-10.7 [facility] Platelets Auto (Bld) [#/Vol] Ordered By: Cricket Russell on 11-27-2024 Platelets (Bld) [#/Vol] Platelets [#/vol ume] in Blood by Automated count 150-450 [facility] Potassium [Moles/volume] in Serum or PlasmaOrdered By: Cricket Russell on 11-27-2024 Potassium [Moles/Vol] Potassium [Moles/volume] in Serum or Plasma 3.5-5.1 [facility] Protein Test strip (U) [Mass /Vol]Ordered By: Cricket Russell on 11-27-2024 Protein (U) [Mass/Vol] Protein [Mass/volume] in Urine by Test strip Negative [facility] [facility] Protein [Mass/volume] in Ser um or PlasmaOrdered By: Cricket Russell on 11-27-2024 Protein [Mass/Vol] Protein [Mass/volume] in Serum or Plasma 6.4-8.9 [facility] RBC Auto (Bld) [#/Vol]Ordere d By: Cricket Russell on 11-27-2024 RBC (Bld) [#/Vol] Erythrocytes [#/volume] in Blood by Automated count High 3.60-5.00 [facility] Respiratory (Upper) Panel, P CRon 11-27-2024 [...] Influenza A H3 Blank Space PERFORMED BY: [place] [address] PATHOLOGIST FITNESS COORDINATOR GINNY PIPER M.D. Normal [facility] Comment on above: Performed By: #### R AARON PANEL UPP., BIOFIRECOVNOTDE #### [facility] [address] Respiratory pathogens DNA an d RNA panel - Nasopharynx by NOE with non-probe detectionOrdered By: Cricket Russell on 11-27-2024 Respiratory pathogens DNA and RNA panel NOE+non-probe (Nph) Respiratory pathogens DNA and RNA panel - Nasopharynx by NOE with non-probe detection [facility] Respiratory pathogens DNA and RNA panel NOE+non-probe (Nph) Respiratory pathogens DNA and RNA panel - Nasopharynx by NOE with non-probe detection [facility] Serum or plasma albumin/glob ulin mass ratioOrdered By: Cricket Russell on 11-27-2024 Albumin/Globulin [Mass ratio] Serum or plasma albumin/globulin mass ratio [facility] Serum or plasma anion gap de terminationOrdered By: Cricket Russell on 11-27-2024 Anion gap [Moles/Vol] Serum or plasma anion gap determination 6.0-15.0 [facility] Sodium [Moles/volume] in Ser um or PlasmaOrdered By: Cricket Russell on 11-27-2024 Sodium [Moles/Vol] Sodium [Moles/volume] in Serum or Plasma 136-145 [facility] Specific gravity Test strip (U) [Rel density]Ordered By: Cricket Russell on 11-27-2024 Specific gravity (U) [Rel density] Specific gravity of Urine by Test strip 1.001-1.030 [facility] Urea nitrogen [Mass/volume] in Serum or PlasmaOrdered By: Cricket Russell on 11-27-2024 Urea nitrogen [Mass/Vol] Urea nitrogen [Mass/volume] in Serum or Plasma 7-25 [facility] Urobilinogen Test strip (U) [Mass/Vol]Ordered By: Cricket Russell on 11-27-2024 Urobilinogen (U) [Mass/Vol] Urobilinogen [Mass/volume] in Urine by Test strip Normal [facility] WBC Auto (Bld) [#/Vol]Ordere d By: Cricket Russell on 11-27-2024 WBC (Bld) [#/Vol] Leukocytes [#/volume] in Blood by Automated count High 3.8-11.6 [facility] pH Test strip (U)Ordered By: Cricket Russell on 11-27-2024 pH (U) pH of Urine by Test strip 5.0-9.0 [facility] Influenza virus B Ag [Presen ce] in Upper respiratory specimen by Rapid immunoassayon 05-01-2024 FLUBV Ag IA.rapid Ql (Nph) Negative [facility] No Panel Informationon 05-01 Influenza Type A (Rapid) Negative [facility] POC SARS CoV-2 Antigen Negative [facility] XR DEXA BONE DENSITYon 11-02 XR DEXA BONE DENSITY DEXA Bone Density Study CLINICAL: Evaluate bone mineral density. Postmenopausal COMPARISON: 09/30/2020 FINDINGS: The bone density study was assessed by dual-energy x-ray absorptiometry with the [employer] scanner. The test results are expressed in [...] [place] Date: 2022-11-02 08:55 Normal [facility] CBC AUTO DIFFon 11-01-2022 BASO # 0.1 103/ul Normal 0.0-0.1 [facility] Comment on above: Performed By: #### C BC #### [facility] [address] [place] [address] Dr. Nata Castellon Basophils/100 WBC (Bld) 0.7 % Normal 0.2-2.0 [facility] Comment on above: Performed By: #### C BC #### [facility] [address] [place] [address] Dr. Nata Castellon EO # 0.1 103/ul Normal 0.0-0.7 [facility] Comment on above: Performed By: #### C BC #### [facility] [address] [place] [address] Dr. Nata Castellon Eosinophils/100 WBC (Bld) 1.8 % Normal 0.9-7.0 [facility] Comment on above: Performed By: #### C BC #### [facility] [address] [place] [address] Dr. Nata Castellon Erythrocyte distribution width (RBC) [Ratio] 13.4 % Normal 11.0-15.0 [facility] Comment on above: Performed By: #### C BC #### [facility] [address] [place] [address] Dr. Nata Castellon Hematocrit (Bld) [Volume fraction] 44.1 % Normal 36.0-48.0 [facility] Comment on above: Performed By: #### C BC #### [facility] [address] [place] [address] Dr. Nata Castellon Hemoglobin (Bld) [Mass/Vol] 14.8 g/dL Normal 12.0-16.0 [facility] Comment on above: Performed By: #### C BC #### [facility] [address] [place] [address] Dr. Nata Castellon IG # 0.02 10e3/ul Normal 0.00-0.03 [facility] Comment on above: Performed By: #### C BC #### [facility] [address] [place] [address] Dr. Nata Castellon IG % 0.3 % Normal 0.0-0.5 [facility] Comment on above: Performed By: #### C BC #### [facility] [address] [place] [address] Dr. Nata Castellon LYMPH # 1.6 103/ul Normal 1.2-3.8 [facility] Comment on above: Performed By: #### C BC #### [facility] [address] [place] [address] Dr. Nata Castellon Lymphocytes/100 WBC (Bld) 21.3 % Normal 20.5-60.0 [facility] Comment on above: Performed By: #### C BC #### [facility] [address] [place] [address] Dr. Nata Castellon MANUAL DIFF REQ NO Normal [facility] Comment on above: Performed By: #### C BC #### [facility] [address] [place] [address] Dr. Nata Castellon MCH (RBC) [Entitic mass] 28.5 pg Normal 26.7-34.0 [facility] Comment on above: Performed By: #### C BC #### [facility] [address] [place] [address] Dr. Nata Castellon MCHC (RBC) [Mass/Vol] 33.6 g/dL Normal 29.9-35.2 [facility] Comment on above: Performed By: #### C BC #### [facility] [address] [place] [address] Dr. Nata Castellon MCV (RBC) [Entitic vol] 84.8 fL Normal 81.0-99.0 [facility] Comment on above: Performed By: #### C BC #### [facility] [address] [place] [address] Dr. Nata Castellon MONO # 0.6 103/ul Normal 0.3-0.8 [facility] Comment on above: Performed By: #### C BC #### [facility] [address] [place] [address] Dr. Nata Castellon Monocytes/100 WBC (Bld) 7.5 % Normal 1.7-12.0 [facility] Comment on above: Performed By: #### C BC #### [facility] [address] [place] [address] Dr. Nata Castellon NEUT # 5.2 103/ul Normal 1.4-6.5 [facility] Comment on above: Performed By: #### C BC #### [facility] [address] [place] [address] Dr. Nata Castellon Neutrophils/100 WBC (Bld) 68.4 % Normal 43.0-75.0 [facility] Comment on above: Performed By: #### C BC #### [facility] [address] [place] [address] Dr. Nata Castellon Platelet mean volume (Bld) [Entitic vol] 10.4 fL Normal 9.5-13.5 [facility] Comment on above: Performed By: #### C BC #### [facility] [address] [place] [address] Dr. Nata Castellon PLT 256 103/ul Normal 150-450 [facility] Comment on above: Performed By: #### C BC #### [facility] [address] [place] [address] Dr. Nata Castellon RBC 5.20 106/ul Normal 4.20-5.40 [facility] Comment on above: Performed By: #### C BC #### [facility] [address] [place] [address] Dr. Nata Castellon WBC 7.6 103/ul Normal 4.0-11.0 [facility] Comment on above: Performed By: #### C BC #### [facility] [address] [address] [address] Nata Castellon FREE T4on 11-01-2022 Free T4 [Mass/Vol] 0.98 ng/dL Normal 0.76-1.46 [facility] Comment on above: Performed By: #### F T4 #### [facility] [address] [address] [address] Nata Castellon LIPID PROFILEon 11-01-2022 CHOL-HDL RATIO NORM SEE BELOW Normal [facility] Comment on above: Result Comment: 3.3 - 4.4 LOW RISK 4.4 - 7.1 AVERAGE RISK 7.1 - 11.0 MODERATE RISK >11.0 HIGH RISK Performed By: #### L IPID, TSH, CMP #### [facility] [address] [address] [address] Nata Castellon Cholesterol [Mass/Vol] 179 mg/dL Normal <=200 [facility] Comment on above: Performed By: #### L IPID, TSH, CMP #### [facility] [address] [address] [address] Nata Castellon Cholesterol in HDL [Mass/Vol] 57 mg/dL Normal 40-60 [facility] Comment on above: Performed By: #### L IPID, TSH, CMP #### [facility] [address] [address] [address] Nata Castellon Cholesterol in LDL [Mass/Vol] 98.8 mg/dL Normal [facility] Comment on above: Performed By: #### L IPID, TSH, CMP #### [facility] [address] [address] [address] Nata Castellon Cholesterol.total/Choles terol in HDL [Mass ratio] 3.1 {ratio} Normal [facility] Comment on above: Performed By: #### L IPID, TSH, CMP #### [facility] [address] [address] [address] Nata Castellon HDL NORMAL > or = 60 mg/dl - LOW CARDIOVASCULAR RISK <40 mg/dl - HIGH CARDIOVASCULAR RISK Normal [facility] Comment on above: Performed By: #### L IPID, TSH, CMP #### [facility] [address] [place], [place] [address] Dr. Nata Castellon LDL CALC NORMAL SEE BELOW Normal [facility] Comment on above: Result Comment: <100 mg/dl OPTIMAL 100 - 129 mg/dl NEAR OR ABOVE OPTIMAL 130 - 159 mg/dl BORDERLINE HIGH 160 - 189 mg/dl HIGH >190 mg/dl VERY HIGH Performed By: #### L IPID, TSH, CMP #### [facility] [address] [place], [place] [address] Dr. Nata Castellon Triglyceride [Mass/Vol] 116 mg/dL Normal <=150 [facility] Comment on above: Performed By: #### L IPID, TSH, CMP #### [facility] [address] [address] [address] Nata Castlelon VLDL CALC 23.2 mg/dL Normal [facility] Comment on above: Performed By: #### L IPID, TSH, CMP #### [facility] [address] [address] [address] Nata Castellon MG MAMM SCREEN 3D SEEMA CADon 11-01-2022 MG MAMM SCREEN 3D SEEMA CAD Patient: JASMINA LOPEZ Exam Date: 11/01/2022 : 1950 Gender:F Ordering : DR ERICKSON ROME M.D. Admission #: [id number] Family : Order #: [id number] CLICK HERE TO VIEW EXAM RADIOLOGY REPORT [...] OF THYROID Family Cancers None LOCATION: [facility] BREAST COMPOSITION: Heterogeneously dense,which may obscure [...] Barrera MD on 11/02/2022 at 10:22 Normal [facility] PROF 14(COMP METB)on 023 Albumin [Mass/Vol] 3.7 g/dL Normal 3.4-5.0 [facility] Comment on above: Performed By: #### L IPID, TSH, CMP #### [facility] [address] [place] [address] Dr. Nata Castellon Albumin/Globulin [Mass ratio] 1.0 {ratio} Normal [facility] Comment on above: Performed By: #### L IPID, TSH, CMP #### [facility] [address] [place] [address] Dr. Nata Castellon ALP [Catalytic activity/Vol] 80 U/L Normal 46-116 [facility] Comment on above: Performed By: #### L IPID, TSH, CMP #### [facility] [address] [place] [address] Dr. Nata Castellon ALT [Catalytic activity/Vol] 26 U/L Normal 14-59 [facility] Comment on above: Performed By: #### L IPID, TSH, CMP #### [facility] [address] [place] [address] Dr. Nata Castellon Anion gap [Moles/Vol] 13.0 mmol/L Normal [facility] Comment on above: Performed By: #### L IPID, TSH, CMP #### [facility] [address] [address] [address] Nata Castellon AST [Catalytic activity/Vol] 25 U/L Normal 15-37 [facility] Comment on above: Performed By: #### L IPID, TSH, CMP #### [facility] [address] [place] [address] Dr. Nata Castellon Bilirubin [Mass/Vol] 0.5 mg/dL Normal 0.2-1.0 [facility] Comment on above: Performed By: #### L IPID, TSH, CMP #### [facility] [address] [place] [address] Dr. Nata Castellon Calcium [Mass/Vol] 8.8 mg/dL Normal 8.5-10.1 [facility] Comment on above: Performed By: #### L IPID, TSH, CMP #### [facility] [address] [place] [address] Dr. Nata Castellon Chloride [Moles/Vol] 104 mmol/L Normal 98-107 [facility] Comment on above: Performed By: #### L IPID, TSH, CMP #### [facility] [address] [place] [address] Dr. Nata Castellon CO2 [Moles/Vol] 26.3 mmol/L Normal 21.0-32.0 [facility] Comment on above: Performed By: #### L IPID, TSH, CMP #### [facility] [address] [place] [address] Dr. Nata Castellon Creatinine [Mass/Vol] 0.74 mg/dL Normal 0.55-1.02 [facility] Comment on above: Performed By: #### L IPID, TSH, CMP #### [facility] [address] [place] [address] Dr. Nata Castellon EGFR-AF LUXEMBOURGER >60 Normal >=60 [facility] Comment on above: Performed By: #### L IPID, TSH, CMP #### [facility] [address] [place] [address] Dr. Nata Castellon EGFR-NON AF LUXEMBOURGER >60 Normal >=60 [facility] Comment on above: Performed By: #### L IPID, TSH, CMP #### [facility] [address] [place] [address] Dr. Nata Castellon Globulin (S) [Mass/Vol] 3.6 g/dL Normal T [facility] Comment on above: Performed By: #### L IPID, TSH, CMP #### [facility] [address] [place] [address] Dr. Nata Castellon Glucose [Mass/Vol] 122 mg/dL Critically high 74-106 T [facility] Comment on above: Performed By: #### L IPID, TSH, CMP #### [facility] [address] [place] [address] Dr. Nata Castellon Potassium [Moles/Vol] 4.3 mmol/L Normal 3.5-5.1 [facility] Comment on above: Performed By: #### L IPID, TSH, CMP #### [facility] [address] [place] [address] Dr. Nata Castellon Protein [Mass/Vol] 7.3 g/dL Normal 6.4-8.2 [facility] Comment on above: Performed By: #### L IPID, TSH, CMP #### [facility] [address] [place] [address] Dr. Nata Castellon Sodium [Moles/Vol] 139 mmol/L Normal 136-145 [facility] Comment on above: Performed By: #### L IPID, TSH, CMP #### [facility] [address] [place] [address] Dr. Nata Castellon Urea nitrogen [Mass/Vol] 21.0 mg/dL Critically high 7.0-18 .0 [facility] Comment on above: Performed By: #### L IPID, TSH, CMP #### [facility] [address] [place] [address] Dr. Nata Castellon Urea nitrogen/Creatinine [Mass ratio] 28.4 mg/mg Normal [facility] Comment on above: Performed By: #### L IPID, TSH, CMP #### [facility] [address] [place] [address] Dr. Nata Castellon TSHon 11-01-2022 TSH 3.427 uIU/mL Normal 0.358-3.740 [facility] Comment on above: Performed By: #### L IPID, TSH, CMP #### [facility] [address] [place] [address] Dr. Nata Castellon CBC AUTO DIFFon 08-12-2022 BASO # 0.0 103/ul Normal 0.0-0.1 [facility] Comment on above: Performed By: #### C BC #### [facility] [address] [place] [address] Dr. Nata Castellon Basophils/100 WBC (Bld) 0.5 % Normal 0.2-2.0 [facility] Comment on above: Performed By: #### C BC #### [facility] [address] [place] [address] Dr. Nata Castellon EO # 0.1 103/ul Normal 0.0-0.7 [facility] Comment on above: Performed By: #### C BC #### [facility] [address] [place] [address] Dr. Nata Castellon Eosinophils/100 WBC (Bld) 1.7 % Normal 0.9-7.0 [facility] Comment on above: Performed By: #### C BC #### [facility] [address] [place] [address] Dr. Nata Castellon Erythrocyte distribution width (RBC) [Ratio] 13.8 % Normal 11.0-15.0 [facility] Comment on above: Performed By: #### C BC #### [facility] [address] [place] [address] Dr. Nata Castellon Hematocrit (Bld) [Volume fraction] 44.1 % Normal 36.0-48.0 [facility] Comment on above: Performed By: #### C BC #### [facility] [address] [place] [address] Dr. Nata Castellon Hemoglobin (Bld) [Mass/Vol] 14.7 g/dL Normal 12.0-16.0 [facility] Comment on above: Performed By: #### C BC #### [facility] [address] [place] [address] Dr. Nata Castellon IG # 0.01 10e3/ul Normal 0.00-0.03 [facility] Comment on above: Performed By: #### C BC #### [facility] [address] [place] [address] Dr. Nata Castellon IG % 0.1 % Normal 0.0-0.5 [facility] Comment on above: Performed By: #### C BC #### [facility] [address] [place] [address] Dr. Nata Castellon LYMPH # 2.1 103/ul Normal 1.2-3.8 [facility] Comment on above: Performed By: #### C BC #### [facility] [address] [place] [address] Dr. Nata Castellon Lymphocytes/100 WBC (Bld) 26.7 % Normal 20.5-60.0 [facility] Comment on above: Performed By: #### C BC #### [facility] [address] [place] [address] Dr. Nata Castellon MANUAL DIFF REQ NO Normal [facility] Comment on above: Performed By: #### C BC #### [facility] [address] [place] [address] Dr. Nata Castellon MCH (RBC) [Entitic mass] 28.5 pg Normal 26.7-34.0 [facility] Comment on above: Performed By: #### C BC #### [facility] [address] [place] [address] Dr. Nata Castellon MCHC (RBC) [Mass/Vol] 33.3 g/dL Normal 29.9-35.2 [facility] Comment on above: Performed By: #### C BC #### [facility] [address] [place] [address] Dr. Nata Castellon MCV (RBC) [Entitic vol] 85.5 fL Normal 81.0-99.0 [facility] Comment on above: Performed By: #### C BC #### [facility] [address] [place] [address] Dr. Nata Castellon MONO # 0.6 103/ul Normal 0.3-0.8 [facility] Comment on above: Performed By: #### C BC #### [facility] [address] [place] [address] Dr. Nata Castellon Monocytes/100 WBC (Bld) 7.8 % Normal 1.7-12.0 [facility] Comment on above: Performed By: #### C BC #### [facility] [address] [place] [address] Dr. Nata Castellon NEUT # 5.0 103/ul Normal 1.4-6.5 [facility] Comment on above: Performed By: #### C BC #### [facility] [address] [place] [address] Dr. Nata Castellon Neutrophils/100 WBC (Bld) 63.2 % Normal 43.0-75.0 [facility] Comment on above: Performed By: #### C BC #### [facility] [address] [place] [address] Dr. Nata Castellon Platelet mean volume (Bld) [Entitic vol] 10.7 fL Normal 9.5-13.5 [facility] Comment on above: Performed By: #### C BC #### [facility] [address] [place] [address] Dr. Nata Castellon PLT 254 103/ul Normal 150-450 [facility] Comment on above: Performed By: #### C BC #### [facility] [address] [place] [address] Dr. Nata Castellon RBC 5.16 106/ul Normal 4.20-5.40 [facility] Comment on above: Performed By: #### C BC #### [facility] [address] [place] [address] Dr. Nata Castellon WBC 7.9 103/ul Normal 4.0-11.0 [facility] Comment on above: Performed By: #### C BC #### [facility] [address] [place] [address] Dr. Nata Castellon FREE T4on 08-12-2022 Free T4 [Mass/Vol] 1.15 ng/dL Normal 0.76-1.46 [facility] Comment on above: Performed By: #### F T4 #### [facility] [address] [place] [address] Dr. Nata Castellon PROF CHEM 8 (BAS METB)on Anion gap [Moles/Vol] 9.0 mmol/L Normal [facility] Comment on above: Performed By: #### T SH, BMP ####[facility] [address] [id number]. Nata Castellon Calcium [Mass/Vol] 8.6 mg/dL Normal 8.5-10.1 [facility] Comment on above: Performed By: #### T SH, BMP ####[facility] [address] [id number]. Nata Castellon Chloride [Moles/Vol] 104 mmol/L Normal 98-107 [facility] Comment on above: Performed By: #### T SH, BMP ####[facility] [address] [address]Dr. Nata Castellon CO2 [Moles/Vol] 29.2 mmol/L Normal 21.0-32.0 [facility] Comment on above: Performed By: #### T SH, BMP ####[facility] [address] [place], [place] [address]Dr. Nata Castellon Creatinine [Mass/Vol] 0.66 mg/dL Normal 0.55-1.02 [facility] Comment on above: Performed By: #### T SH, BMP ####[facility] [address] [place], [place] [address]Dr. Nata Castellon EGFR-AF LUXEMBOURGER >60 Normal >=60 [facility] Comment on above: Performed By: #### T SH, BMP ####[facility] [address] [id number]. Nata Castellon EGFR-NON AF LUXEMBOURGER >60 Normal >=60 [facility] Comment on above: Performed By: #### T SH, BMP ####[facility] [address] [id number]. Nata Castellon Glucose [Mass/Vol] 108 mg/dL Critically high 74-106 [facility] Comment on above: Performed By: #### T SH, BMP ####[facility] [address] [id number]. Nata Castellon Potassium [Moles/Vol] 4.2 mmol/L Normal 3.5-5.1 [facility] Comment on above: Performed By: #### T SH, BMP ####[facility] [address] [address]Dr. Nata Castellon Sodium [Moles/Vol] 138 mmol/L Normal 136-145 [facility] Comment on above: Performed By: #### T SH, BMP ####[facility] [address] [id number]. Nata Castellon Urea nitrogen [Mass/Vol] 22.0 mg/dL Critically high 7.0-18 .0 [facility] Comment on above: Performed By: #### T SH, BMP ####[facility] [address] [id number]. Nata Castellon Urea nitrogen/Creatinine [Mass ratio] 33.3 mg/mg Normal [facility] Comment on above: Performed By: #### T SH, BMP ####[facility] [address] [address]Dr. Nata Castellon TSHon 08-12-2022 TSH 0.986 uIU/mL Normal 0.358-3.740 [facility] Comment on above: Performed By: #### T SH, BMP ####[facility] [address] [address]Dr. Nata Castellon MRI KNEE LT WO CONon [...] by: WADE PAK Date: 2021-11-25 06:43 Normal [facility] Vital Signs Date Time Vital Sign Value Performing Clinician Facility 02-28-2025 13:07-0400 Body height 160.02 cm [facility] 02-28-2025 13:07-0400 Body mass index (BMI) [Ratio] 29.2 kg/m2 [facility] 02-28-2025 13:07-0400 Body weight 74.84 kg [facility] 02-28-2025 13:07-0400 Diastolic blood pressure 75 mm[Hg] [facility] 02-28-2025 13:07-0400 Heart rate 63 /min [facility] 02-28-2025 13:07-0400 Systolic blood pressure 124 mm[Hg] [facility] 01-07-2025 14:52-0400 Body height 160.02 cm Erickson Rome MD Work Phone: [facility] 01-07-2025 14:52-0400 Body mass index (BMI) [Ratio] 29.9 kg/m2 Erickson Rome MD Work Phone: [facility] 01-07-2025 14:52-0400 Body weight 76.71 kg Erickson Rome MD Work Phone: [facility] [facility] 01-07-2025 14:52-0400 Diastolic blood pressure 60 mm[Hg] Erickson Rome MD Work Phone: [facility] 01-07-2025 14:52-0400 Heart rate 68 /min Erickson Rome MD Work Phone: [facility] 01-07-2025 14:52-0400 Systolic blood pressure 119 mm[Hg] Erickson Rome MD Work Phone: [facility] 12-02-2024 13:38-0500 Body weight Erickson Rome MD Work Phone: [facility] 11-27-2024 15:25-0500 Diastolic blood pressure 78 mm[Hg] Erickson Rome MD Work Phone: [facility] 11-27-2024 15:25-0500 Heart rate 78 /min Erickson Rome MD Work Phone: [facility] 11-27-2024 15:25-0500 Respiratory rate 18 /min Erickson Rome MD Work Phone: [facility] 11-27-2024 15:25-0500 SaO2% (BldA) [Mass fraction] 98 % Erickson Rome MD Work Phone: [facility] 11-27-2024 15:25-0500 Systolic blood pressure 173 mm[Hg] Erickson Rome MD Work Phone: [facility] 11-27-2024 10:26-0500 Body height 160.02 cm Erickson Rome MD Work Phone: [facility] 11-27-2024 10:26-0500 Body temperature 97.8 [degF] Erickson Rome MD Work Phone: [facility] 11-27-2024 10:26-0500 Body weight 75 kg Erickson Rome MD Work Phone: [facility] 11-07-2024 11:33-0500 Body height 160.02 cm Erickson Rome MD Work Phone: [facility] 11-07-2024 11:33-0500 Body mass index (BMI) [Ratio] 30.1 kg/m2 Erickson Rome MD Work Phone: [facility] 11-07-2024 11:33-0500 Body weight 77.11 kg Erickson Rome MD Work Phone: [facility] 11-07-2024 11:33-0500 Diastolic blood pressure 83 mm[Hg] Erickson Rome MD Work Phone: [facility] 11-07-2024 11:33-0500 Heart rate 70 /min Erickson Rome MD Work Phone: [facility] 11-07-2024 11:33-0500 Systolic blood pressure 140 mm[Hg] Erickson Rome MD Work Phone: [facility] 05-01-2024 09:51-0400 Body height 160.02 cm MD Erickson Rome Work Phone: [facility] 05-01-2024 09:51-0400 Body mass index (BMI) [Ratio] 29 kg/m2 MD Erickson Rome Work Phone: [facility] 05-01-2024 09:51-0400 Body weight 74.38 kg MD Erickson Rome Work Phone: [facility] 05-01-2024 09:51-0400 Diastolic blood pressure 84 mm[Hg] MD Erickson Rome Work Phone: [facility] 05-01-2024 09:51-0400 Heart rate 69 /min MD Erickson Rome Work Phone: [facility] 05-01-2024 09:51-0400 Systolic blood pressure 145 mm[Hg] MD Erickson Rome Work Phone: [facility] 04-10-2024 01:37-0400 Diastolic blood pressure 63 mm[Hg] MD Erickson Rome Work Phone: [facility] 04-10-2024 01:37-0400 Heart rate 65 /min MD Erickson Rome Work Phone: [facility] 04-10-2024 01:37-0400 Respiratory rate 18 /min MD Erickson Rome Work Phone: [facility] 04-10-2024 01:37-0400 SaO2% (BldA) [Mass fraction] 98 % MD Erickson Rome Work Phone: [facility] 04-10-2024 01:37-0400 Systolic blood pressure 157 mm[Hg] MD Erickson Rome Work Phone: [facility] 04-09-2024 23:09-0400 Body height 160.02 cm MD Erickson Rome Work Phone: [facility] 04-09-2024 23:09-0400 Body temperature 97.6 [degF] MD Erickson Rome Work Phone: [facility] 04-09-2024 23:09-0400 Body weight 74.2 kg MD Erickson Rome Work Phone: [facility] 01-17-2024 14:22-0400 Blood Pressure Location Bryce PANDYAL [facility] [place] 01-17-2024 14:22-0400 Diastolic blood pressure 84 mm[Hg] Bryce NILL [facility] [place] 01-17-2024 14:22-0400 Heart rate 76 /min Bryce NILL [facility] [place] 01-17-2024 14:22-0400 Respiratory rate 16 /min Bryce NILL [facility] [place] 01-17-2024 14:22-0400 Systolic blood pressure 126 mm[Hg] Bryce NILL [facility] [place] 10-19-2023 09:30-0500 Body height 157.48 cm Erickson Rome Other [employer] [facility] Other 10-19-2023 09:30-0500 Body mass index (BMI) [Ratio] 31.49 kg/m2 Erickson Rome Other [employer] Other 10-19-2023 09:30-0500 Body weight 78.11 kg Erickson Rome Other [employer] Other 10-19-2023 09:30-0500 Diastolic blood pressure 80 mm[Hg] Erickson Rome Other [employer] Other 10-19-2023 09:30-0500 Systolic blood pressure 130 mm[Hg] Erickson Rome Other [employer] Other 08-30-2023 10:00-0500 Body height 157.48 cm Erickson Rome Other [employer] Other 08-30-2023 10:00-0500 Body mass index (BMI) [Ratio] 31.82 kg/m2 Erickson Rome Other [employer] Other 08-30-2023 10:00-0500 Body weight 78.93 kg Erickson Rome Other [employer] Other 08-30-2023 10:00-0500 Diastolic blood pressure 78 mm[Hg] Erickson Rome Other [employer] Other 08-30-2023 10:00-0500 Systolic blood pressure 144 mm[Hg] Erickson Rome Other [employer] Other 10-22-2022 10:00-0500 Body height 157.48 cm Erickson Rome Other [employer] Other 10-22-2022 10:00-0500 Body mass index (BMI) [Ratio] 31.27 kg/m2 Erickson Rome Other [employer] Other 10-22-2022 10:00-0500 Body weight 77.57 kg Erickson Rome Other [employer] Other 10-22-2022 10:00-0500 Diastolic blood pressure 82 mm[Hg] Erickson Rome Other [facility] Other 10-22-2022 10:00-0500 SaO2% (BldA) [Mass fraction] 98 % Erickson Rome Other [facility] Other 10-22-2022 10:00-0500 Systolic blood pressure 140 mm[Hg] Erickson Rome Other [facility] Other Encounters Encounter Date Encounter Type Care Provider Facility Start: 04-09-2025 ambulatory MD BIJU VALDEZ Facility:[facility] Start: 02-28-2025 End: 02-28-2025 amb[facility] Work Phone: Start: 02-28-2025 End: 02-28-2025 Patient encounter procedure [facility] Work Phone: Start: 02-25-2025 End: 02-25-2025 ambulatory BIJU VALDEZ Facility:[facility] Start: 02-25-2025 End: 02-25-2025 Patient encounter procedure BIJU VALDEZ [facility] Start: 02-18-2025 End: 02-18-2025 ambulatory MD BIJU VALDEZ [facility] Start: 02-11-2025 End: 02-11-2025 ambulatory Jennifer Garcia Facility:[facility] Start: 02-11-2025 End: 02-11-2025 Patient encounter procedure Jennifer Garcia [facility] Start: 01-16-2025 Non-patient / Non-visit [facility] Work Phone: Start: 01-07-2025 End: 01-07-2025 ambulatory Erickson Rome MD Work Phone: [facility] Work Phone: Start: 01-07-2025 End: 01-07-2025 Patient encounter procedure Erickson Rome MD Work Phone: [facility] Physician [facility] Work Phone: Start: 01-01-2025 End: 01-02-2025 Lab Drop off BIJU VALDEZ [facility] Start: 01-01-2025 End: 01-02-2025 ambulatory MD BIJU VALDEZ Facility:[facility] Start: 12-13-2024 Non-patient / Non-visit Erickson Rome MD Work Phone: [facility] Work Phone: Start: 12-07-2024 Non-patient / Non-visit Erickson Rome MD Work Phone: [facility] Work Phone: Start: 12-06-2024 Non-patient / Non-visit Erickson Rome MD Work Phone: [facility] Work Phone: Start: 12-04-2024 ambulatory MD BIJU VALDEZ Facility:[facility] Start: 12-02-2024 Non-patient / Non-visit Erickson Rome MD Work Phone: [facility] Work Phone: Start: 11-29-2024 Non-patient / Non-visit Erickson Rome MD Work Phone: [facility] Work Phone: Start: 11-27-2024 End: 11-27-2024 Emergency department patient visit Erickson Rome MD Work Phone: [facility] Work Phone: Start: 11-07-2024 Patient encounter procedure Erickson Rome MD Work Phone: [facility] Start: 11-07-2024 End: 11-07-2024 Patient encounter procedure Erickson Rome MD Work Phone: [facility] Physician [facility] Work Phone: Start: 06-26-2024 End: 06-26-2024 ambulatory MD Erickson Rome Work Phone: [facility] Work Phone: Start: 06-26-2024 End: 06-26-2024 Patient encounter procedure MD Erickson Rome Work Phone: [facility] Work Phone: Start: 05-01-2024 End: 05-01-2024 Patient encounter procedure MD Erickson Rome Work Phone: [facility] Work Phone: Start: 04-09-2024 End: 04-10-2024 Emergency department patient visit MD Erickson Rome Work Phone: [facility] Work Phone: Start: 01-17-2024 End: 01-17-2024 Patient encounter procedure Bryce [facility] Nilar[facility]/Rudy Murphy Start: 01-09-2024 End: 01-09-2024 ambulatory SHER GARCIA Not Available Start: 11-03-2023 End: 11-03-2023 ambulatory Erickson Rome Other [employer] Other Start: 11-03-2023 Telephone encounter [facility] Start: 10-19-2023 End: 10-19-2023 ambulatory Erickson Rome Other [employer] Other Start: 10-19-2023 Patient encounter procedure [facility] Start: 09-19-2023 End: 09-19-2023 ambulatory DEBBIE OLGUIN Not Available Start: 09-13-2023 End: 09-13-2023 ambulatory Erickson Rome Other [employer] Other Start: 09-13-2023 Telephone encounter [facility] Start: 09-02-2023 End: 09-02-2023 ambulatory Erickson Rome Other [employer] Other Start: 09-02-2023 Telephone encounter [facility] Start: 08-30-2023 End: 08-30-2023 ambulatory Erickson Rome Other [employer] Other Start: 08-30-2023 Office outpatient vi sit 15 minutes [facility] Start: 03-16-2023 End: 03-16-2023 ambulatory Erickson Rome Other [employer] Other Start: 03-16-2023 Telephone encounter [facility] Start: 03-15-2023 End: 03-15-2023 ambulatory Erickson Rome Other [employer] Other Start: 03-15-2023 Telephone encounter [facility] Start: 11-11-2022 End: 11-11-2022 ambulatory Erickson Rome Other [employer] Other Start: 11-11-2022 Telephone encounter [facility] Start: 11-10-2022 End: 11-10-2022 ambulatory Erickson Rome Other [employer] Other Start: 11-10-2022 Telephone encounter [facility] Start: 11-02-2022 End: 11-02-2022 ambulatory Erickson Rome Other [employer] Other Start: 11-02-2022 Telephone encounter [facility] Start: 11-01-2022 End: 11-02-[address] ERICKSON ROME Facility:[facility] Start: 10-22-2022 End: 10-22-2022 ambulatory Erickson Rome Other [employer] Other Start: 10-22-2022 Office outpatient vi sit 15 minutes [facility] Start: 10-20-2022 End: 10-20-2022 ambulatory Erickson Rome Other [employer] Other Start: 10-20-2022 Telephone encounter [facility] Start: 08-15-2022 Encounter for preprocedural cardiovascular examination DR ERICKSON ROME [facility] Start: 08-15-2022 Encounter for preprocedural laboratory examination DR ERICKSON ROME [facility] Start: 08-12-2022 End: 08-13-[address] ERICKSON ROME Facility:[facility] Start: 08-12-2022 End: 08-13-2022 Encounter for preprocedural cardiovascular examination DR ERICKSON ROME Facility:[facility] Start: 11-24-2021 End: 11-25-2021 ambulatory LIAT Britton APLINEZ Facility: Procedures Date Procedure Procedure Detail Performing Clinician Start: 11-27-2024 Respiratory Panel (PCR) Erickson Rome MD Work Phone: Start: 10-17-2003 Colonoscopy Bryce NI LL Arthroscopy of knee Bryce NILL Cystopexy Bryce NILL Laryngoscopy Bryce NILL Repair of musculoten dinous cuff of shoulder Bryce NILL Thyroidectomy Bryce NILL Vaginal hysterectomy Bryce NILL Plan of Treatment Date Care Activity Detail Author DXA Skeletal system. axial Views for bone density [facility] enter MG Breast - bilateral Screening [facility] MR Brain WO contrast [facility] Patient Education [facility] Work Phone: Patient referral [facility] Work Phone: [facility] Immunizations Immunization Date Immunization Notes Care Provider Fa cility 01-20-2021 SARS-CoV-2 (COVID-19 ) mRNA-1273 vaccine Bryce PANDYAArben [facility] [place] 11-24-2020 SARS-CoV-2 (COVID-19 ) mRNA-1273 vaccine Bryce PANDYAArben [facility] [place] 06-21-2018 pneumococcal polysaccharide vaccine, 23 valent BIJU LIZ-AMANKRA [facility] 09-19-2017 pneumococcal polysaccharide vaccine, 23 valent Erickson Rome Other [facility] 09-03-2016 pneumococcal conjuga te vaccine, 13 valent Erickson Rome Other [facility] 06-27-2002 zoster vaccine, live BIJU LIZ-BOBBY [facility] Payers Date Payer Category Payer Self-pay [id number] 2023 Medicare [id number] 2021 Unknown [id number] 1959 Medicare [id number] 1959 Unknown [id number] 1950 Unknown [id number] 1949 Unknown [id number] 1949 Unknown [id number] 1949 Unknown [id number] 1949 Unknown [id number] 1949 Unknown [id number] 1949 Unknown [id number] 1949 Unknown [id number] 1949 Unknown [id number] 1949 Unknown [id number] 1949 Unknown [id number] Medicare Medicare-IP Part A Only [id number] Unknown [employer] [id number] 0 Unknown [id number] Unknown [id number] Social History Date Type Detail Facility Unknown if ever smoked [employer] Other Sex Assigned At [facility] Start: 01-17-2024 End: 01-03-2025 Tobacco smoking status Never smoked tobacco (finding) [facility] Tobacco smoking status Never [facility] [place] Start: 1950 Sex Assigned At Female [facility] Start: 11-27-2024 End: 02-28-2025 Sex Female (finding) [facility] Sexual Orientation [facility] Functional Status Date Assessment Result Facility 02-25-2025 Functional Status N/A Jose G Christiano [facility] 01-17-2024 Functional Status N/A General Dueñas yobani [...] including vitamins, herbs, eye drops, creams, and sjlh-hfh-ciyalcp medicines. ??? Any problems you or family [...] tells you to take them. ??? Taking aalz-yat-lyxvroa medicines, vitamins, herbs, and supplements. Tests You [...] these instructions at home: Medicines ??? Take otpi-vru-doyzarz and prescription medicines only as told by [...] (biopsy) during your (more content not included)... [facility] 01-07-2025 Evaluation note Diagnosis Onset Date Resolution Acquired hypothyroidism acute M 2024 2:50pm Essential (primary) hypertension acute January 07, 2025 2:50pm Recurrent headache acute January 07, 2025 2:50pm Menopause acute February 28, 2025 1:01pm Vitamin D deficiency disease acute February 28, 2025 1:01pm [facility] Work Phone: 1(272) 596-470303-18-2025 NotePatient Education Nephrology Dietary Guidelines to Help Prevent [...] labels. Limit your salt (sodium) intake to lessthan 1,500 mg a day. ??? Choose foods with calcium for each meal and snack. Try to eat about 300 mg of calcium at each meal. Foods that contain 200?500 mg of calcium a serving include: ? 8 oz (237 mL) of milk, hverjpb-rhkuyjvkjwuh-ewupf milk, and calcium- fortifiedfruit juice. Calcium-fortified means that calcium has been [...] on the table and allow each person toadd their own salt to taste. ??? Use [...] Spinach (cooked), rhubarb, beets, sweet potatoes, and Prydeinig chard. ? Peanuts. ? Potato chips, german fries, and baked potatoes with skin on. ? Nuts and nut products. ? Chocolate. ??? If you regularly take a diuretic medicine, make sure to eat at least 1 or 2 servings of fruits or vegetables that are high in potassium each day. These include: ? Avocado. ? Banana. ? [place], prune, carrot, or tomato juice. ? Baked potato. ? Cabbage. ? Beans and split peas. Lifestyle ??? Drink enough fluid to keep your urine pale yellow. This is the most important thing you can do.Spread your fluid intake throughout the day. ??? [...] fish oil, or vitamin B6. ??? Take wqlq-eez-ipaxfpf and prescription medicines only as told by your health (more content not included)...[facility] Evaluation note* Diagnosis Onset Date Resolution Status Admit Date Acquired hypothyroidism acute J anuary 2024 11:15am Essential (primary) hypertension acu te November 07, 2024 11:15am Medicare annual wellness vis it, subsequent acute November 07 11:15am Screening mammogram for [facility] cancer acute November 07 11:15am Vitamin D deficiency disease acute November 07, 2024 11:15am [facility] Work Phone: 1(517) 837-899701-22-2025 Evaluation note* Diagnosis Onset Date Resolution Status Admit Date Acquired hypothyroidism acute J anuary 2024 11:15am Essential (primary) hypertension acu te November 07, 2024 11:15am Medicare annual wellness vis it, subsequent acute November 07 11:15am Screening mammogram for [facility] cancer acute November 07 11:15am Vitamin D deficiency disease acute November 07, 2024 11:15am Recurrent headache acute January 07, 2025 2:50pm [facility] Work Phone: 1(170) 238-267901-03-2024 Evaluation note* Encounter Date Diagnosis Assessment Notes [...] continue present dose now for chronic problem. [employer] Other 11-28-2023 Evaluation note* Encounter Date Diagnosis Assessment Notes Treatment Notes Treatment Clinical Notes Aug, Abnormal computed tomography of soft tissue of neck (ICD-10 - R93.89) [employer] Other 11-17-2023 Evaluation note* Encounter Date Diagnosis Assessment Notes Treatment Notes Treatment Clinical Notes Aug, Neck pain on right side (ICD-10 - M54.2) [employer] Other 11-14-2023 Evaluation note* Encounter Date Diagnosis Assessment Notes Treatment Notes Treatment Clinical Notes Aug, Neck pain on right side (ICD-10 - M54.2) Pt agrees to CT to eval area in question, mainly due to history of neck cancer. Aug, Colon cancer screening (ICD-10 - Z12.11) pt requests cologuard rather than colonoscopy [employer] Other 01-06-2023 Evaluation note* Encounter Date Diagnosis [...] without current pathological fracture (ICD-10 - M81.0) [employer] Other Evaluation + Plan note No data available for this section [facility] Evaluation + Plan note Future Appointments Appointment Date:02/18/2025 11:00:00 AM Scheduled Provider:BIJU VALDEZ MD Location:[facility] Appointment Type:URO Office Visit Appointment Date:04/09/2025 01:00:00 PM Scheduled Provider:BIJU VALDEZ MD Location:[facility] Appointment Type:URO Office Visit Future Scheduled Tests Radiology* CT Urogram 01/02/25 [facility] Evaluation + Plan note Future Appointments Appointment Date:02/18/2025 11:00:00 AM Scheduled Provider:BIJU VALDEZ MD Location:[facility] Appointment Type:URO Office Visit Appointment Date:04/09/2025 01:00:00 PM Scheduled Provider:IBJU VALDEZ MD [facility] Type:[facility]O Office Visit [facility] Evaluation + Plan note Future Appointments Appointment Date:04/09/2025 01:00:00 PM Scheduled Provider:BIJU VALDEZ MD Location:[facility] Appointment Type:URO Office Visit [facility]ujbzhw [facility]No [facility] Other Evaluation noteNo assessment information available [facility] Work Phone: evaluation note* Diagnosis Onset Date Resolution Status Occipital pain acute Recurrent headache acute [facility] Work Phone: Hiscrcr general Narrative - Reported* Type Description Date [...] LEFT 2000 Hospitalization History SEE SURGICAL HX [facility] Other Hospital Discharge instructions No data available for this section [facility] [place] Progress note No data available for this [...] Date/ Time Advance Directives Yes January 03, 025 3:28pm Reason for Referral Reason *FU 09/21 Aiden of fice, Last OV and CT recently. thanks Diagnosis 1 Abnormal computed to mography of soft tissue of neck (R93.89) Referral Organization [facility] haresh Referring Provider First Name Erickson Referring Provider Last Name Wild Referring Provider Specialty Family [facility] Referred Organization [facility] Referred Provider Debbie Olguin Referred Address ,[place], [place],[address] Referred Provider Specialty Ear, Nose an d [...] 07, 2024 11:15am Medicare annual wellness visit, von nt November 07, 2024 11:15am Screening mammogram for breast cancer Janak shetty 2024 11:15am Vitamin D deficiency disease October 11:15am Recurrent headache January 07, 2025 2:5 0pm Chief Complaint Admit Date Amb Documentation December 07, 2024 10:02am Reoccuring Headaches January 07, 2025 2: 50pm Blood pressure February 28, 2025 1:01p m Reason for Visit Admit Date Acquired hypothyroidism January 07, 2025 2:50pm Essential (primary) hypertension December 162024 2:50pm Recurrent headache January 07, 2025 2:5 0pm Menopause February 28, 2025 1:01p m Vitamin D deficiency disease February 28 1:01pm Additional Source Comments INFORMATION SOURCE (unrecogn ized section and content) DATE CREATED AUTHOR 11/02/2022 [facility] DATE CREATED AUTHOR AUTHOR'S ORGANIZ ATION 01/09/2024 [facility] EPIC DATE CREATED AUTHOR AUTHOR'S ORGANIZ ATION 12/10/2024 [facility] DATE CREATED AUTHOR AUTHOR'S ORGANIZ ATION 02/12/2025 [facility] DATE CREATED AUTHOR AUTHOR'S ORGANIZ ATION 02/21/2025 [facility] Center DATE CREATED AUTHOR AUTHOR'S ORGANIZ ATION 02/26/2025 [facility] Center DATE CREATED AUTHOR AUTHOR'S ORGANIZ ATION 04/04/2025 [facility] REASON FOR VISIT (unrecogniz ed section and content) BPBP Check UpDEXA resultlabs RefillrefillRefillsneck painmessageabnormal neck CTWellnesslabs and mamm Patient Care team informatio n (unrecognized section and content) Team Status: Active Member Role Status Dates Erickson Rome MD Primary Care Provider Active Team Status: Active Member Role Status Dates Erickson Rome MD Primary Care Provide r, Attending Provider Active Start: December 02, 2024 Team Status: Active Member Role Status Annabelle Rome MD Primary Care Provide r, Attending Provider Active Start: December 06, 2024 Team Status: Active Member Role Status Annabelle Rome MD Primary Care Provider Active Start: December 07, 2024 Ashia Smart CMA Attending Provider Active Start: December 07, 2024 Team Status: Active Member Role Status Annabelle Rome MD Primary Care Provide r, Attending Provider Active Start: December 13, 2024 Team Status: Inactive Member Role Status Annabelle Rome MD Primary Care Provide r, Attending Provider Active Start: January 07, 2025 End: January 07, 2025 Team Status: Active Member Role Status Annabelle Rome MD Primary Care Provide r, Attending Provider Active Start: January 16, 2025 Team Status: Inactive Member Role Status Annabelle Rome MD Primary Care Provide r, Attending Provider Active Start: February 28, 2025 End: February 28, 2025 Team Status: Inactive Member Role Status Annabelle [...] 2024 Team Status: Active Member Role Status Annabelle Rome MD Primary Care Provider Active Start: November 29, 2024 Ashia Smart CMA Attending Provider Active Start: November 29, 2024 Goals (unrecognized section and content) Goals [...] BE BASED ON THE PRIMARY CLINICAL RECORDS. [facility] [employer] [facility]. provides no warranty or guarantee of the accuracy or completeness of information in this document.
[2025-06-28] MEDS: KETOROLAC TROMETHAMINE 30 MG/ML VIAL 15 MG IVP (11:38)
[2025-06-28 11:42] LABS: Hematocrit 42.8 % (36.0-48.0); Hemoglobin 14.6 g/dL (12.0-16.0); Immature Granulocytes Abs Auto 0.07 10^3/uL (0.00-0.03); Immature Granulocytes Pct Auto 0.5 % (0.0-0.5); Lymphocytes Absolute Auto 1.2 10^3/uL (1.2-3.8); Mean Corpuscular HGB Conc 34.1 g/dL (29.9-35.2); Mean Corpuscular Hemoglobin 29.0 pg (26.7-34.0); Mean Corpuscular Volume 84.9 fL (81.0-99.0); Platelet Count 247 10^3/uL (150-450); Red Blood Count 5.04 10^6/uL (4.20-5.40); White Blood Count 14.9 10^3/uL (4.0-11.0)
[2025-06-28 12:00] LABS: Alanine Aminotransferase 29 U/L (14-59); Albumin Globulin Ratio 0.9; Albumin Level 3.6 g/dL (3.4-5.0); Alkaline Phosphatase 78 U/L (46-116); Anion Gap 12.9; Aspartate Amino Transferase 24 U/L (15-37); Blood Urea Nitrogen 25.0 mg/dL (7.0-18.0); Calcium 8.4 mg/dL (8.5-10.1); Carbon Dioxide 24.4 mmol/L (21.0-32.0); Chloride 106 mmol/L (98-107); Estimated GFR (African America >60 (>=60 mL/min/1.73m^2); Estimated GFR (Non-African Ame >60 (>=60 mL/min/1.73m^2); Globulin 3.8 g/dL; Glucose 163 mg/dL (74-106); Potassium 4.3 mmol/L (3.5-5.1); Sodium 139 mmol/L (136-145); Total Protein 7.4 g/dL (6.4-8.2)
[2025-06-28 12:09] VITALS: BP 174/60; PULSE 58; O2SAT 97
[2025-06-28 12:38] VITALS: BP 167/72; PULSE 58; O2SAT 97
[2025-06-28 13:21] LABS: Glucose Urine UA NEGATIVE (NEGATIVE)
--- NOTE | 2025-06-28 13:27 | ED.ABDPAIN1 ---
HPI - Abdominal Pain General Chief Complaint: Abdominal Pain Stated Complaint: FLANK PAIN Time Seen by Provider: 06/28/25 11:25 Source: patient Mode of arrival: walk-in Limitations: no limitations History of Present Illness HPI narrative: The patient is coming to the ER with a few hours history of left-sided flank pain that started this morning, she mentioned that she have nausea and vomiting with that 2 she have no diarrhea no constipation No fever no chills and she have a history of kidney stone The patient denies any burning with urination any frequency or urgency Related Data Home Medications ?Medication ?Instructions ?Recorded ?Confirmed atenolol 50 mg tablet 50 mg PO DAILY 02/17/24 06/28/25 levothyroxine 75 mcg tablet 75 mcg PO DAILY 02/17/24 06/28/25 (Euthyrox) multivitamin 1 tab PO DAILY 02/17/24 06/28/25 Previous Rx's ?Medication ?Instructions ?Recorded cephalexin 500 mg capsule 500 mg PO Q12H 7 days #14 caps 06/28/25 diclofenac sodium 50 mg 50 mg PO Q12H PRN pain #10 tabs 06/28/25 tablet,delayed release ondansetron 4 mg disintegrating 4 mg PO Q8H PRN nausea and 06/28/25 tablet vomiting 48 hours #10 tabs tamsulosin 0.4 mg capsule (Flomax) 0.4 mg PO DAILY #10 caps 06/28/25 Allergies Allergy/AdvReac Type Severity Reaction Status Date / Time No Known Drug Allergies Allergy Verified 06/28/25 11:20 Review of Systems ROS Status of ROS 10 or more systems reviewed and unremarkable except as noted in history and below PFSH [facility] Medical History Post-operative nausea and vomiting ?R11.2 - Nausea with vomiting, unspecified (ICD-10) ?Z98.890 - Other specified postprocedural states (ICD-10) Migraine ?G43.909 - Migraine, unspecified, not intractable, without status migrainosus (ICD-10) Hypothyroidism ?E03.9 - Hypothyroidism, unspecified (ICD-10) Hypertension ?I10 - Essential (primary) hypertension (ICD-10) Surgical History History of laryngoscopy ?Z98.890 - Other specified postprocedural states (ICD-10) History of repair of rotator cuff ?Z98.890 - Other specified postprocedural states (ICD-10) History of bladder suspension procedure ?Z98.890 - Other specified postprocedural states (ICD-10) ?Z87.448 - Personal history of other diseases of urinary system (ICD-10) History of arthroscopy of knee ?Z98.890 - Other specified postprocedural states (ICD-10) History of vaginal hysterectomy ?Z90.710 - Acquired absence of both cervix and uterus (ICD-10) History of thyroidectomy ?E89.0 - Postprocedural hypothyroidism (ICD-10) History of colonoscopy ?Z98.890 - Other specified postprocedural states (ICD-10) Family History Mother Brain tumor Other Family history of diabetes mellitus Family history of hypertension Heart disease Social History Within the past year, how often did you have a drink containing alcohol: monthly or less Smoking status: Never smoker Non-prescribed substance use: denies use Previous occupational history: retired Highest level of school completed/degree received: high school graduate Little interest or pleasure in doing things: not at all Feeling down, depressed, or hopeless: not at all Exam Narrative Exam Narrative: Nurses notes and vital signs reviewed and patient is not hypoxic. General: Well-appearing and in no apparent distress. Skin: Warm, dry, no pallor noted. No rash. Head: Normocephalic, atraumatic. Neck: Supple, non-tender. Cardiovascular: Regular Rate and Rhythm without murmur, gallop or rub. Respiratory: No accessory muscle use or respiratory distress. Lungs are clear to auscultation, no wheezing, rales or rhonchi Chest Wall: no tenderness Back: No midline thoracic or lumbar vertebral tenderness. Left costophrenic angle tenderness Musculoskeletal: normal ROM, no calf or popliteal tenderness, no lower extremity edema/swelling GI: Abdomen is soft, non-distended. Normal bowel sounds. No masses appreciated. No tenderness to palpation. No rebound, guarding, or rigidity noted. Neurological: A&O x4. No cranial nerve dysfunction observed. Constitutional Vital Signs, click to edit/add: Last Vital Signs Temp 97.4 F L 06/28/25 11:21 Pulse 58 L 06/28/25 12:38 Resp 16 06/28/25 12:38 BP 167/72 H 06/28/25 12:38 Pulse Ox 97 06/28/25 12:38 O2 Del Method Room Air 06/28/25 12:38 Course Vital Signs Vital signs: Vital Signs Temperature 97.4 F L 06/28/25 11:21 Pulse Rate 61 06/28/25 11:21 Respiratory Rate 20 06/28/25 11:21 Blood Pressure 182/82 H 06/28/25 11:21 Pulse Oximetry 99 06/28/25 11:21 Oxygen Delivery Method Room Air 06/28/25 11:21 Temperature 97.4 F L 06/28/25 11:21 Pulse Rate 58 L 06/28/25 12:38 Respiratory Rate 16 06/28/25 12:38 Blood Pressure 167/72 H 06/28/25 12:38 Pulse Oximetry 97 06/28/25 12:38 Oxygen Delivery Method Room Air 06/28/25 12:38 MDM - Abdominal Pain MDM Narrative Medical decision making narrative: The patient CBC shows some leukocytosis chemistry was within normal the my leukocytosis could be reactive but the urinalysis shows some bacteria but there is no white blood cells The patient CAT scan shows a 8 mm kidney stone at the ureterovesical junction, the patient is feeling much better after initial treatment with Toradol and Zofran She also have other chronic finding on the CAT scan The patient will be covered with Keflex for prophylaxis because of her mild leukocytosis in addition to the bacteria and history of kidney stone The patient also was treated with the Voltaren and Zofran to go home with and provided with a strainer Flomax daily Patient was instructed to follow-up with the urologist in the outpatient and to call for an appointment within few days, the patient to come back to the ER in case of continuous pain and in addition to any increasing pain or fever The patient is to follow up with primary care physician in next 2-3 days or to return to the emergency department should any of the signs or symptoms worsen or new symptoms develop. The patient agrees with the following Diagnosis and Treatment plan and the patient will be discharged home. Lab Data Labs: Lab Results 06/28/25 06/28/25 Range/Units 11:33 12:57 WBC 14.9 H (4.0-11.0) 10^3/uL RBC 5.04 (4.20-5.40) 10^6/uL Hgb 14.6 (12.0-16.0) g/dL Hct 42.8 (36.0-48.0) % MCV 84.9 (81.0-99.0) fL MCH 29.0 (26.7-34.0) pg MCHC 34.1 (29.9-35.2) g/dL RDW 13.7 (11.0-15.0) % Plt Count 247 (150-450) 10^3/uL MPV 11.1 (9.5-13.5) fL Neut % (Auto) 86.2 H (43.0-75.0) % Lymph % (Auto) 7.9 L (20.5-60.0) % [place] % (Auto) 4.7 (1.7-12.0) % Eos % (Auto) 0.4 L (0.9-7.0) % Baso % (Auto) 0.3 (0.2-2.0) % Neut # (Auto) 12.9 H (1.4-6.5) 10^3/uL Lymph # (Auto) 1.2 (1.2-3.8) 10^3/uL [place] # (Auto) 0.7 (0.3-0.8) 10^3/uL Eos # (Auto) 0.1 (0.0-0.7) 10^3/uL Baso # (Auto) 0.0 (0.0-0.1) 10^3/uL Abs Immat Gran (auto) 0.07 H (0.00-0.03) 10^3/uL Imm/Tot Granulo (auto) 0.5 (0.0-0.5) % Sodium 139 (136-145) mmol/L Potassium 4.3 (3.5-5.1) mmol/L Chloride 106 (98-107) mmol/L Carbon Dioxide 24.4 (21.0-32.0) mmol/L Anion Gap 12.9 BUN 25.0 H (7.0-18.0) mg/dL Creatinine 0.89 (0.55-1.02) mg/dL Est GFR ( Amer) >60 (>=60 mL/min/1.73m^2) Est GFR (Non-Af Amer) >60 (>=60 mL/min/1.73m^2) BUN/Creatinine Ratio 28.1 Glucose 163 H (74-106) mg/dL Calcium 8.4 L (8.5-10.1) mg/dL Total Bilirubin 0.6 (0.2-1.0) mg/dL AST 24 (15-37) U/L ALT 29 (14-59) U/L Alkaline Phosphatase 78 (46-116) U/L Total Protein 7.4 (6.4-8.2) g/dL Albumin 3.6 (3.4-5.0) g/dL Globulin 3.8 g/dL Albumin/Globulin Ratio 0.9 Urine Color Yellow (YELLOW) Urine Clarity Clear (CLEAR) Urine pH 7.0 (5.0-9.0) Ur Specific [place] 1.020 (1.005-1.025) Urine Protein 30 A (NEG/TRACE) mg/dL Urine Glucose (UA) Negative (NEGATIVE) mg/dL Urine Ketones Trace A (NEGATIVE) mg/dL Urine Occult Blood Large A (NEGATIVE) Urine Nitrite Negative (NEGATIVE) Urine Bilirubin Negative (NEGATIVE) Urine Urobilinogen 1.0 (0.2-1.0) EU/dL Ur Leukocyte Esterase Negative (NEGATIVE) Urine RBC 20-50 A (0-2) #/HPF Urine WBC 0-2 A (NONE SEEN) #/HPF Ur Squamous Epith Cells Rare (NONE/RARE) #/LPF Urine Crystals None seen (None Seen) #/HPF Urine Bacteria Trace A (NONE SEEN) #/HPF Urine Casts None seen (NONE SEEN) #/LPF Urine Mucus Moderate A (NONE SEEN) Ur Culture Indicated? No Discharge Plan Discharge Chief Complaint: Abdominal Pain Clinical Impression: Kidney stone, Hydronephrosis Patient Disposition: Home, Self-Care Time of Disposition Decision: 13:39 Condition: Good Prescriptions / Home Meds: New cephalexin 500 mg capsule 500 mg PO Q12H 7 Days Qty: 14 0RF tamsulosin [Flomax] 0.4 mg capsule 0.4 mg PO DAILY Qty: 10 0RF diclofenac sodium 50 mg tablet,delayed release (DR/EC) 50 mg PO Q12H PRN (Reason: pain) Qty: 10 0RF ondansetron 4 mg tablet,disintegrating 4 mg PO Q8H PRN (Reason: nausea and vomiting) 2 Days Qty: 10 0RF No Action atenolol 50 mg tablet 50 mg PO DAILY levothyroxine [Euthyrox] 75 mcg tablet 75 mcg PO DAILY multivitamin Tablet 1 tab PO DAILY Print Language: Bruneian Instructions: Kidney Stones (ED) Referrals: Suzan Meza MD [Primary Care Provider, Family Practice] - 1 week Jermaine Seymour MD [Physician, Urology] - As soon as possible Discharge Date/Time: 06/28/25 13:55
[2025-06-28 13:33] LABS: Cast Seen? NONE SEEN #/LPF (NONE SEEN); Crystals Seen? None Seen #/HPF (None Seen)
[2025-06-28 13:34] LABS: Urine Culture Indicated NO
== END 2025-06-28 13:55 | disposition home or self-care (01) ==
PROVIDERS: Emergency Provider Emergency Medicine; PCP Family Medicine
DX: N13.2 Hydronephrosis with renal and ureteral calculous obstruction (principal); R11.2 Nausea with vomiting, unspecified; Z87.442 Personal history of urinary calculi
CPT/HCPCS: 36415; 74176; 80053; 81001; 85025; 96374; 96375; 99284; J1885; J2405